=== PATIENT | female | born 1950 | race Caucasian/White ===

== ENCOUNTER → 2020-03-10 12:58 | Outpatient (BNVA) | payer MEDICARE, MEDICAID, SELFPAY | PROVIDERS: PCP Internal Medicine; Visit Provider Internal Medicine | DX: I25.10 Atherosclerotic heart disease of native coronary artery without angina pectoris (principal); I11.0 Hypertensive heart disease with heart failure; I50.32 Chronic diastolic (congestive) heart failure; E11.8 Type 2 diabetes mellitus with unspecified complications | CPT/HCPCS: 99212 ==

== ENCOUNTER 2020-06-14 17:56 | Emergency (ER) | payer MEDICARE, MEDICAID, SELFPAY ==
--- NOTE | ~2020-06-14 | XR_ITS ---
EXAMINATION: RIGHT FOOT, LEFT ANKLE AND LEFT TIBIA AND FIBULA. CLINICAL INFORMATION: Fall, pain and ecchymosis. Rule out fracture. COMPARISON: None TECHNIQUE: Right foot 3 views. Left ankle 2 views. Left tibia and fibula 2 views. FINDINGS: RIGHT FOOT: There is no visible acute fracture, dislocation or subluxation. There is significant distal dorsal right foot soft tissue swelling. Moderate size calcaneal heel and retrocalcaneal enthesophytes are seen. LEFT ANKLE: The ankle mortise and subtalar joints are normal. There is no visible acute fracture, dislocation or subluxation seen. There is a moderate size calcaneal heel and retrocalcaneal enthesophytes. There is bimalleolar soft tissue swelling. LEFT TIBIA AND FIBULA: There is no visible acute fracture or dislocation. The ankle mortise and subtalar joints are normal. XR/XR ankle LT min 3V IMPRESSION: Moderate dorsal distal foot soft tissue swelling. No visible acute fracture seen involving the right foot. There is a large bilateral calcaneal heel and retrocalcaneal enthesophytes. There is no visible acute fracture or dislocation left ankle or left tibia and fibula. There is mild bimalleolar soft tissue swelling.
--- NOTE | ~2020-06-14 | XR_ITS ---
EXAMINATION: RIGHT FOOT, LEFT ANKLE AND LEFT TIBIA AND FIBULA. CLINICAL INFORMATION: Fall, pain and ecchymosis. Rule out fracture. COMPARISON: None TECHNIQUE: Right foot 3 views. Left ankle 2 views. Left tibia and fibula 2 views. FINDINGS: RIGHT FOOT: There is no visible acute fracture, dislocation or subluxation. There is significant distal dorsal right foot soft tissue swelling. Moderate size calcaneal heel and retrocalcaneal enthesophytes are seen. LEFT ANKLE: The ankle mortise and subtalar joints are normal. There is no visible acute fracture, dislocation or subluxation seen. There is a moderate size calcaneal heel and retrocalcaneal enthesophytes. There is bimalleolar soft tissue swelling. LEFT TIBIA AND FIBULA: There is no visible acute fracture or dislocation. The ankle mortise and subtalar joints are normal. XR/XR tibia fibula LT 2V IMPRESSION: Moderate dorsal distal foot soft tissue swelling. No visible acute fracture seen involving the right foot. There is a large bilateral calcaneal heel and retrocalcaneal enthesophytes. There is no visible acute fracture or dislocation left ankle or left tibia and fibula. There is mild bimalleolar soft tissue swelling.
--- NOTE | ~2020-06-14 | XR_ITS ---
EXAMINATION: RIGHT FOOT, LEFT ANKLE AND LEFT TIBIA AND FIBULA. CLINICAL INFORMATION: Fall, pain and ecchymosis. Rule out fracture. COMPARISON: None TECHNIQUE: Right foot 3 views. Left ankle 2 views. Left tibia and fibula 2 views. FINDINGS: RIGHT FOOT: There is no visible acute fracture, dislocation or subluxation. There is significant distal dorsal right foot soft tissue swelling. Moderate size calcaneal heel and retrocalcaneal enthesophytes are seen. LEFT ANKLE: The ankle mortise and subtalar joints are normal. There is no visible acute fracture, dislocation or subluxation seen. There is a moderate size calcaneal heel and retrocalcaneal enthesophytes. There is bimalleolar soft tissue swelling. LEFT TIBIA AND FIBULA: There is no visible acute fracture or dislocation. The ankle mortise and subtalar joints are normal. XR/XR foot RT min 3V IMPRESSION: Moderate dorsal distal foot soft tissue swelling. No visible acute fracture seen involving the right foot. There is a large bilateral calcaneal heel and retrocalcaneal enthesophytes. There is no visible acute fracture or dislocation left ankle or left tibia and fibula. There is mild bimalleolar soft tissue swelling.
[2020-06-14 18:14] VITALS: BP 184/67; PULSE 69; RESP 18; TEMP 37; O2SAT 98; BMI 37.3
--- NOTE | 2020-06-14 18:46 | ED_ITS ---
HPI - General Adult General Chief complaint: Fall Stated complaint: fall Time Seen by Provider: 06/14/20 18:09 Source: patient Mode of arrival: ambulatory Limitations: no limitations History of Present Illness HPI narrative: 70-year-old female who presents emergency department for evaluation of injuries from a fall. Patient states she was in her usual state of health when she tripped and fell. She states that she had gotten off a bus and her went into a club to use the bathroom. She walked across the street to get some watery take it is and when she walked back to the club she tripped and fell. She states she fell forward landing on her legs. She did not have any head injury. She is currently complaining of pain in her right foot and left leg. She states that she has a constant, burning pain which is 6/10 at its worst. The pain is worse when she tries to walk and she states that she is having difficulty walking secondary to her pain. She denied headache, nausea, vomiting, weakness. The patient states that she does take aspirin and Brilinta for coronary stent which was placed October 2019. Related Data Home Medications Medication Instructions Recorded Confirmed atorvastatin 1 tab PO BEDTIME 06/14/20 06/14/20 glipizide 1 tab PO DAILY 06/14/20 06/14/20 lisinopril 1 tab PO BID 06/14/20 06/14/20 metformin 1 tab PO TID 06/14/20 06/14/20 metoprolol tartrate 1 tab PO BID 06/14/20 06/14/20 omeprazole 1 cap PO DAILY 06/14/20 06/14/20 pioglitazone 1 tab PO DAILY 06/14/20 06/14/20 ticagrelor [Brilinta] 1 tab PO BID 06/14/20 06/14/20 Allergies Allergy/AdvReac Type Severity Reaction Status Date / Time naproxen [NAPROXEN] AdvReac Unknown dizziness, Verified 03/10/20 13:08 nausea Review of Systems Review of Systems: Yes all other systems are reviewed and are negative [facility] Past Medical History [facility] Narrative: The patient occasionally smokes cigarettes, she denies, alcohol and drug use. Medical History Atherosclerotic cardiovascular disease Chronic heart failure with preserved ejection fraction (HFpEF) Essential hypertension Type 2 diabetes mellitus with unspecified complications Surgical History History of cardiac catheterization (~11/14/19) Family History Family History Father Diabetes Mother Cirrhosis Social History Social History Smoking Status: Light tobacco smoker Use of substances other than those prescribed or required for medical reasons: No Advance Directives: No Advance Directives Information Provided: Yes Physical Exam Vital Signs: Vital Signs: Last Vital Signs Temp 98.1 F 06/14/20 20:02 Pulse 72 06/14/20 21:14 Resp 16 06/15/20 00:00 BP 190/55 H 06/14/20 21:14 Pulse Ox 98 06/14/20 20:02 Body Mass Index 37.3 Const: General: cooperative Orientation/consciousness: oriented to person and oriented to place Limitations: no limitations HENMT: Head: Yes normal to inspection, Yes normocephalic and Yes atraumatic Ears: external ears normal General nose exam: Normal external nose present Face and sinus: Yes normal facial exam Mouth: Normal oral and palatal mucosa present Throat: Yes posterior oropharynx normal Eyes: Periorbital: periorbital findings normal Eyelids: Yes eyelids normal Conjunctivae: conjunctivae normal Sclerae: sclerae normal Corneas: corneas normal Pupils: Equal, round and reactive pupils present Direct Ophthalmoscopy: normal light reflex Neck: Neck: Yes full ROM, Yes no lymphadenopathy, Yes no meningeal signs, Yes trachea midline and Yes supple Chest: Chest palpation & inspection: normal inspection of the chest and normal palpation of entire chest wall Resp: Effort & Inspection: normal respiratory effort and able to speak in complete sentences Auscultation: clear to auscultation bilaterally Cardio: Rate: regular rate Rhythm: regular rhythm Heart sounds: S1 normal heart sound present, S2 normal heart sound present and no murmurs GI: Inspection: Yes normal to inspection Palpation (GI): Soft to palpation, nontender, no guarding, not rigid and No hepatosplenomegaly present : General: Yes no CVA tenderness Back/Spine/Pelvis: Back: no CVA tenderness Cervical Spine: normal cervical lordosis Thoracic/Lumbar Spine: thoracic and lumbar spine normal to inspection Skin: Lesions: no lesions Rashes: no rashes Wounds: no wounds Neuro: General: oriented to person, oriented to place and no meningeal signs Cranial nerves: Yes CN's II-XII intact bilaterally and Yes Equal, round and reactive pupils present Cognition (Neuro): normal cognition Motor exam (neuro): 5/5 motor strength present throughout Extrem: Other: The patient has soft tissue swelling and ecchymosis to her right foot, right foot is tender diffusely to palpation, she has tenderness and ecchymosis over her medial and lateral malleolus of her left ankle with tenderness with palpation of these areas, she has a localized ecchymotic hematoma to the left medial aspect of her calf, stairs tender to palpation. General: Yes full ROM Psych: Appearance: well kempt Mental Status: mental status grossly normal Speech and movement: Normal speech and movement present Affect: normal affect Attitude: cooperative Thought process: Normal thought process present Thought content: Normal thought content present Course Course Course Narrative: 70-year-old female who presents emergency department for evaluation of a lower extremity injuries from a fall that occurred prior to coming to the emergency department. Physical examination did reveal areas of ecchymosis and tenderness to her right foot, left ankle and left lateral calf area. The patient had no head injury and had no prodromal symptoms prior to the fall. She does take aspirin and Plavix for a coronary artery stent placed October 2019. I did order x-rays of the patient's right foot, left ankle and left tib-fib area to rule out fractures. Her pain was treated with Tylenol 975 mg orally. 2050: The patient's x-rays revealed no acute fracture. Patient does have significant soft tissue swelling and ice was placed on her foot and left calf held in place with an Prince wrap. The patient is not able to stand and walk. The patient will be placed in physician observation. 2050: Physician observation started at 2050. Patient placed in physician observation because the patient needed physical therapy evaluation in case management consult for usp facility placement. The patient is unable to bear weight secondary to her injuries and cannot be safely discharged home. At the time observation was started the patient's vitals were stable, patient is alert and oriented, lungs were clear to auscultation, heart regular rate rhythm, abdomen soft tender Neuro: nonfocal. I did order the patient to get Tylenol every 4 hours as needed for pain and morphine 15 mg every 4 hours as needed for pain not relieved by Tylenol. The patient's medications were reconciled by nursing and I did order the patient's outpatient medication regimen. 0217: Physician observation continued. The patient did not require any oral morphine. She is resting comfortably. Her physical examination is unchanged, she is not able to stand and walk secondary to her lower extremity pain. The patient kept in the emergency department until she can get a physical therapy consult and a case management consult to determine if she meets criteria for sniff placement. The patient's care was turned over to my ED colleague, Dr. Maldonado zacarias. Medical Decision Making Lab Data Labs: Lab Results 06/14/20 Range/Units 20:32 COVID-19 (JIMMY) Negative (Negative) COVID-19 Clin Com See Note Discharge Plan Discharge Prescriptions: No [facility] atorvastatin 80 mg tablet 1 tab PO BEDTIME RF: 0 glipizide 5 mg tablet extended release 24hr 1 tab PO DAILY RF: 0 pioglitazone 45 mg tablet 1 tab PO DAILY RF: 0 metoprolol tartrate 50 mg tablet 1 tab PO BID RF: 0 omeprazole 20 mg capsule,delayed release(DR/EC) 1 cap PO DAILY RF: 0 lisinopril 40 mg tablet 1 tab PO BID RF: 0 metformin 500 mg tablet extended release 24 hr 1 tab PO TID RF: 0 Brilinta 90 mg tablet 1 tab PO BID RF: 0
[2020-06-14] MEDS: Acetaminophen 325 MG TABLET 975 MG PO (19:01)
[2020-06-14 20:02] VITALS: BP 190/55; PULSE 72; RESP 18; TEMP 36.7; O2SAT 98
--- NOTE | 2020-06-14 20:27 | PC.NURSE ---
MD aware of blisters occuring to left calf. Icepack applied. Pt amendable to pt/casemanagemnt.
[2020-06-14 21:00] LABS: COVID-19 Test Negative (Negative)
[2020-06-14] MEDS: Morphine Sulfate Immed Release 15 MG TABLET PO (21:13)
[2020-06-14 21:14] VITALS: BP 190/55; PULSE 72
[2020-06-14] MEDS: Atorvastatin Calcium 80 MG TABLET PO (21:14)
[2020-06-14] MEDS: lisinopriL 40 MG TABLET PO (21:14)
[2020-06-14] MEDS: Ticagrelor 90 MG TABLET PO (21:14)
[2020-06-14] MEDS: Metoprolol Tartrate 50 MG TABLET PO (21:14)
--- NOTE | 2020-06-14 22:02 | PC.NURSE ---
pt tolerating po well.
[2020-06-15] VITALS (8 sets, daily range): BP systolic 107–186; BP diastolic 31–51; PULSE 60–68; RESP 16–18; TEMP 36.7; O2SAT 94–97
--- NOTE | 2020-06-15 | ECG_ITS ---
Test Reason : FALL Blood Pressure : / mmHG Vent. Rate : 068 BPM Atrial Rate : 068 BPM P-R Int : 144 ms QRS Dur : 092 ms QT Int : 450 ms P-R-T Axes : 072 -26 028 degrees QTc Int : 478 ms Normal sinus rhythm with sinus arrhythmia Normal ECG When compared with ECG of 09-NOV-2019 19:54, No significant change was found Referred By: Fabián Miles Electronically Signed By:YANNA CARDONA MD
--- NOTE | 2020-06-15 00:45 | PC.NURSE ---
JAYME HOOVER SAID NOT TO WAKE UP PATIENT TO DO VITALS , PATIENT JUST FELL ASLEEP .
[2020-06-15] MEDS: metFORMIN HCl ER 500 MG TAB.ER.24H PO (07:34)
[2020-06-15] MEDS: Omeprazole 20 MG CAPSULE.DR PO (07:35)
[2020-06-15] MEDS: Morphine Sulfate Immed Release 15 MG TABLET PO (07:35)
[2020-06-15] MEDS: Pioglitazone HCL 45 MG TABLET PO (08:50)
[2020-06-15] MEDS: glipiZIDE XL 5 MG TAB.ER.24 PO (08:50)
[2020-06-15] MEDS: lisinopriL 40 MG TABLET PO (08:51)
[2020-06-15] MEDS: Ticagrelor 90 MG TABLET PO ×2 (08:53→21:07)
[2020-06-15] MEDS: Metoprolol Tartrate 50 MG TABLET PO ×2 (08:53→21:07)
[2020-06-15] MEDS: metFORMIN HCl ER 500 MG TAB.ER.24H 1000 MG PO (08:53)
--- NOTE | 2020-06-15 12:54 | PC.NURSE ---
INTRODUCED SELF TO PT, REPORTS ONGOING BURNING SENSATION ON BILAT LE'S. BECAME NAUSEOUS WITH SEVERAL EPISODES OF VOMITING, LIKELY FROM PO MOP. SUBLINGUALZOFRAN GIVEN. AWARE OF PLAN FOR PT EVAL FOR SNF PLACEMENT, REQUIRING OVERNIGHT STAY.
--- NOTE | 2020-06-15 15:09 | PC.NURSE ---
PT REPORTING NAUSEA RESOLVED. ANOTHER PILLOW GIVEN FOR COMFORT, LEGS ELEVATED. BP MED HELD, SHE IS CURRENTLY NORMOTENSIVE HAVING NOT VOMITED FOR THE PAST HOUR OR SO.
--- NOTE | 2020-06-15 20:50 | PC.NURSE ---
vomited gastric content,pt stated that she felt like she has to burp before she vomited. Medicated with zofran sl ,
[2020-06-15] MEDS: Docusate Sodium 100 MG CAPSULE PO (21:07)
[2020-06-15] MEDS: Atorvastatin Calcium 80 MG TABLET PO (21:07)
[2020-06-16 03:04] VITALS: RESP 16
[2020-06-16 06:35] VITALS: BP 129/45; PULSE 72; RESP 16; TEMP 36.9; O2SAT 97
[2020-06-16] MEDS: Omeprazole 20 MG CAPSULE.DR PO (06:37)
[2020-06-16 09:45] VITALS: BP 125/82; PULSE 77
[2020-06-16] MEDS: Docusate Sodium 100 MG CAPSULE PO (09:45)
[2020-06-16] MEDS: Pioglitazone HCL 45 MG TABLET PO (09:45)
[2020-06-16] MEDS: lisinopriL 40 MG TABLET PO (09:45)
[2020-06-16] MEDS: Ticagrelor 90 MG TABLET PO (09:45)
[2020-06-16 09:46] VITALS: BP 125/82; PULSE 77
[2020-06-16] MEDS: amLODIPine Besylate 5 MG TABLET PO (09:46)
[2020-06-16] MEDS: Metoprolol Tartrate 50 MG TABLET PO (09:46)
[2020-06-16] MEDS: glipiZIDE XL 5 MG TAB.ER.24 PO (09:46)
[2020-06-16] MEDS: metFORMIN HCl ER 500 MG TAB.ER.24H 1500 MG PO (09:46)
--- NOTE | 2020-06-16 10:43 | MHC.CM.ED ---
Received case management consult over the weekend. Patient came to the ER after a fall. Work up essentially negative. Physical therapy eval completed. Short term rehab is recommended. Met with patient in regards to discharge planning. Patient lives with her , ambulates independently and had no services prior to coming to the ER. PCP verified. Copy of HCP obtained from PCP's office. Patient has never been to short term rehab. List of facilities provided from [facility]. Patient will pick 2 choices. Continue to monitor for d/c needs. Patient has not received any Covid vaccinations and has never tested positive for Covid.
--- NOTE | 2020-06-16 11:08 | PC.NURSE ---
Pt sleeping in room at this time. Respirations even/unlabored bilaterally. no sign of distress at this time. will continue to monitor.
--- NOTE | 2020-06-16 11:50 | MHC.CM.ED ---
[facility] choice. Referral made in [employer]. Continue to monitor for d/c needs.
--- NOTE | 2020-06-16 12:20 | MHC.CM.ED ---
[facility] can offer a bed. Patient can leave at 2pm. [facility] booked. Med nec with chart. Patient, German DELACRUZ, and Dr Espinal aware. Continue to monitor for d/c needs.
[2020-06-16 12:41] VITALS: BP 111/33; PULSE 69; RESP 17; O2SAT 98
== END 2020-06-16 13:57 | disposition skilled nursing facility (03) ==
PROVIDERS: Emergency Provider Emergency Medicine Emergency Medical Services; PCP Internal Medicine
DX: S90.31XA Contusion of right foot, initial encounter (principal); S80.12XA Contusion of left lower leg, initial encounter; I10 Essential (primary) hypertension; E11.9 Type 2 diabetes mellitus without complications; W01.0XXA Fall on same level from slipping, tripping and stumbling without subsequent striking against object, initial encounter; Y93.01 Activity, walking, marching and hiking; Y92.414 Local residential or business street as the place of occurrence of the external cause; Y99.9 Unspecified external cause status; Z20.822 Contact with and (suspected) exposure to COVID-19; Z95.5 Presence of coronary angioplasty implant and graft; Z79.01 Long term (current) use of anticoagulants; Z79.899 Other long term (current) drug therapy
CPT/HCPCS: 36415; 73590; 73610; 73630; 87635; 93005; 96372; 97162; 99285

== ENCOUNTER → 2020-09-03 10:09 | Outpatient (BNVA) | payer MEDICARE, MEDICAID, SELFPAY | PROVIDERS: PCP Internal Medicine; Referring Provider Internal Medicine; Visit Provider Internal Medicine | DX: I25.10 Atherosclerotic heart disease of native coronary artery without angina pectoris (principal); I11.0 Hypertensive heart disease with heart failure; I50.32 Chronic diastolic (congestive) heart failure; E11.8 Type 2 diabetes mellitus with unspecified complications; Z79.899 Other long term (current) drug therapy | CPT/HCPCS: 99212 ==

== ENCOUNTER 2020-12-10 19:46 | Emergency (ER) | payer MEDICARE, MEDICAID, SELFPAY ==
--- NOTE | ~2020-12-10 | US_ITS ---
EXAMINATION: US VENOUS ULTRASOUND WITH DOPPLER LOWER EXTREMITY, RIGHT CLINICAL INFORMATION: Pain COMPARISON: None TECHNIQUE: Ultrasound of the deep veins is performed from the hip to the calf with compression sonography and color and pulse Doppler assessment. Spectral analysis with color-flow imaging is performed. FINDINGS: There is normal venous compression and respiratory variation and augmented flow. The visualized common femoral vein, superficial femoral vein, profunda femoral vein, popliteal vein,. The head of cytogenetics however notes nonvisualization of the peroneal vein in the calf If the patient's symptoms persist, followup ultrasound in 5 days 7 days might be of value to exclude proximal propagation from a non-visualized calf vein. US/US venous duplex LE RT IMPRESSION: No evidence for DVT on imaging submitted in the right lower extremity. It should be noted the peroneal vein in the calf is not seen by the head of cytogenetics
--- NOTE | ~2020-12-10 | XR_ITS ---
EXAMINATION: XR TIBIA AND FIBULA, RIGHT CLINICAL INFORMATION: Posterior popping sensation COMPARISON: None TECHNIQUE: AP and lateral views of the right tibia and fibula were obtained. FINDINGS: Bone alignment is normal. No fracture or dislocation is seen. Joint spaces are normal. There are calcaneal spurs. There is a 3 x 10 mm soft tissue calcification in the lateral lower leg probably representing a vascular calcification. XR/XR tibia fibula RT 2V IMPRESSION: Calcaneal spurs. Probable soft tissue vascular calcification in the lateral lower leg.
[2020-12-10 20:06] VITALS: BP 154/65; PULSE 8; RESP 18; TEMP 36.5; O2SAT 97; BMI 34.0
--- NOTE | 2020-12-10 20:34 | ED_ITS ---
HPI - Extremity Injury (Lower) General Chief Complaint: Extremity Injury, Lower Stated Complaint: leg pain..sent here from [facility] Time Seen by Provider: 12/10/20 20:24 History of Present Illness HPI Narrative: Patient is 70-year-old female presents today with having right leg swelling. No fever no chills no chest pain or shortness of breath. Patient was walking. [place] a pain that came on in the calf area. She is not on any blood thinners. Related Data Home Medications Medication Instructions Recorded Confirmed aspirin 81 mg tablet,delayed 81 mg PO DAILY 09/03/20 09/03/20 release atorvastatin 80 mg tablet 80 mg PO BEDTIME 09/03/20 09/03/20 furosemide 40 mg tablet 40 mg PO DAILY 09/03/20 09/03/20 glipizide 5 mg tablet, extended 5 mg PO DAILY 09/03/20 09/03/20 release 24 hr lisinopril 40 mg tablet 40 mg PO BID 09/03/20 09/03/20 metformin 500 mg tablet,extended 500 mg PO TID 09/03/20 09/03/20 release 24 hr metoprolol tartrate 50 mg tablet 50 mg PO BID 09/03/20 09/03/20 omeprazole 20 mg capsule,delayed 20 mg PO DAILY 09/03/20 09/03/20 release pioglitazone 45 mg tablet 45 mg PO DAILY 09/03/20 09/03/20 ticagrelor 90 mg tablet (Brilinta) 90 mg PO BID 09/03/20 09/03/20 Allergies Allergy/AdvReac Type Severity Reaction Status Date / Time naproxen [NAPROXEN] AdvReac Unknown dizziness, Verified 09/03/20 10:26 nausea PMFSH Past Medical History Medical History Atherosclerotic cardiovascular disease Chronic heart failure with preserved ejection fraction (HFpEF) Essential hypertension Type 2 diabetes mellitus with unspecified complications Surgical History History of cardiac catheterization (~11/14/19) Family History Family History Father Diabetes Mother Cirrhosis Social History Social History (Updated 09/03/20 @ 10:27 by VIRAL Shah) Alcohol intake: never Patient Tobacco Use Status: Former Tobacco user Quit Date: 30+ yrs ago Use of substances other than those prescribed or required for medical reasons: No Advance Directives: No Advance Directives Information Provided: No Physical Exam Vital Signs: Vital Signs: Last Vital Signs Temp 97.7 F 12/10/20 20:06 Pulse 8 L 12/10/20 20:06 Resp 18 12/10/20 20:06 BP 154/65 H 12/10/20 20:06 Pulse Ox 97 12/10/20 20:06 Body Mass Index 34.0 MDM - Extremity Injury (Lower) MDM Narrative Medical decision making narrative: Doppler of the leg was grossly negative for any acute evidence of DVT. Patient's x-ray showed no acute fracture. Will discharge patient home. Warm soak. Motrin for pain. In stable condition. Medical Records Attestation: I reviewed the patient's medical records. Lab Data Attestation: I reviewed the patient's lab results. Result diagrams: 12/10/20 20:53 12/10/20 21:39 Labs: Lab Results 12/10/20 12/10/20 12/10/20 Range/Units 20:53 21:39 21:39 WBC 10.7 (4.8-10.8) X10*3/uL RBC 3.93 L (4.20-5.50) X10*6/uL Hgb 11.5 L (12.0-16.0) g/dl Hct 36.7 L (37-47) % MCV 93.4 (80-98) fL MCH 29.3 (27.0-33.0) pg MCHC 31.3 (31.0-35.0) g/dl RDW 16.9 H (11.0-16.0) % Plt Count 293 (160-400) X10*3/uL MPV 9.5 (9.4-12.3) fL Immature Gran % (Auto) 0.4 (0.0-0.4) % Neut % (Auto) 65.7 (45-73) % Lymph % (Auto) 21.5 (20-40) % Richardson % (Auto) 11.3 H (2-11) % Eos % (Auto) 0.7 (0-4) % Baso % (Auto) 0.4 (0-2) % Lymph # (Auto) 2.3 (1.2-4.9) X10*3/uL Richardson # (Auto) 1.2 (0.1-1.2) X10*3/uL Eos # (Auto) 0.1 (0.0-0.4) X10*3/uL Baso # (Auto) 0.0 (0.0-0.2) X10*3/uL Abs Immat Gran (auto) 0.04 H (0.00-0.03) X10*3/uL Absolute Neuts (auto) 7.0 (2.0-8.3) X10*3/uL Absolute Nucleated RBC 0.000 (0.0-0.012) X10*3/uL Nucleated RBC % (auto) 0.0 (0.0-0.2) /100WBC Sodium 142 (135-145) mmol/L Potassium 4.6 (3.3-5.1) mmol/L Chloride 107 (96-108) mmol/L Carbon Dioxide 24 (22-29) mmol/L Anion Gap 16 (12-20) BUN 21 H (9-16) mg/dL Creatinine 0.89 (0.5-1.4) mg/dL Estim Creat Clear Calc 56.1 Estimated GFR > 60 Random Glucose 120 H (60-115) mg/dL Calcium 8.6 (8.4-10.2) mg/dL Urine Color YELLOW Urine Appearance CLEAR Urine pH 6.0 (5.0-8.0) Ur Specific [place] 1.020 (1.005-1.025) Urine Protein NEG (NEG-TRACE) MG/DL Urine Glucose (UA) NEG (NEG) MG/DL Urine Ketones NEG (NEG) MG/DL Urine Blood TRACE (NEG) Urine Nitrite NEG (NEG) Ur Leukocyte Esterase NEG (NEG) Urine RBC 0-2 (0) /HPF Urine WBC 0 (0-4) /HPF Ur Squamous Epith Cells 1+ /LPF Urine Bacteria TRACE /LPF Urine Mucus TRACE /LPF Discharge Plan Discharge Clinical Impression: Acute leg pain Patient Disposition: Home, Self-Care Instructions: Leg Cramps (ED), Leg Pain (ED) Prescriptions: No [facility] atorvastatin 80 mg tablet 80 mg PO BEDTIME RF: 0 glipizide 5 mg tablet extended release 24hr 5 mg PO DAILY RF: 0 lisinopril 40 mg tablet 40 mg PO BID RF: 0 metformin 500 mg tablet extended release 24 hr 500 mg PO TID RF: 0 metoprolol tartrate 50 mg tablet 50 mg PO BID RF: 0 omeprazole 20 mg capsule,delayed release(DR/EC) 20 mg PO DAILY RF: 0 pioglitazone 45 mg tablet 45 mg PO DAILY RF: 0 Brilinta 90 mg tablet 90 mg PO BID RF: 0 furosemide 40 mg tablet 40 mg PO DAILY RF: 0 aspirin 81 mg tablet,delayed release (DR/EC) 81 mg PO DAILY RF: 0 Referrals: Aba Day MD [Primary Care Provider] - 2 days
[2020-12-10 20:57] LABS: MANUAL DIFF FLAG NO
[2020-12-10 21:02] LABS: Basophils Percent Auto 0.4 % (0-2); Eosinophils Absolute Auto 0.1 X10*3/uL (0.0-0.4); Eosinophils Percent Auto 0.7 % (0-4); Hematocrit 36.7 % (37-47); Hemoglobin 11.5 g/dl (12.0-16.0); Imm Gran Abs Auto 0.04 X10*3/uL (0.00-0.03); Imm Gran Pct Auto 0.4 % (0.0-0.4); Lymphocytes Absolute Auto 2.3 X10*3/uL (1.2-4.9); Lymphocytes Percent Auto 21.5 % (20-40); Mean Corpuscular HGB Conc 31.3 g/dl (31.0-35.0); Mean Corpuscular Hemoglobin 29.3 pg (27.0-33.0); Mean Corpuscular Volume 93.4 fL (80-98); Mean Platelet Volume 9.5 fL (9.4-12.3); Monocytes Absolute Auto 1.2 X10*3/uL (0.1-1.2); Monocytes Percent Auto 11.3 % (2-11); Neutrophils Percent Auto 65.7 % (45-73); Platelet Count 293 X10*3/uL (160-400); Red Blood Count 3.93 X10*6/uL (4.20-5.50); Red Cell Distribution Width 16.9 % (11.0-16.0); White Blood Count 10.7 X10*3/uL (4.8-10.8)
[2020-12-10 21:52] LABS: Appearance Urine CLEAR; Color Urine YELLOW; Glucose Urine UA NEG (NEG); Leukocyte Esterase Urine NEG (NEG); Nitrite Urine NEG (NEG); UACC Culture Trigger NO; Urine Blood TRACE (NEG); Urine Ketones NEG (NEG); Urine Protein NEG (NEG-TRACE)
[2020-12-10 22:02] LABS: Mucus Urine TRACE /LPF; Squamous Epithelial Cell Urine 1+ /LPF
[2020-12-10 22:03] LABS: Bacteria Urine TRACE /LPF; RBC Urine 0-2 /HPF (0); WBC Urine 0 /HPF (0-4)
[2020-12-10 22:04] LABS: Anion Gap 16 (12-20); Blood Urea Nitrogen 21 mg/dL (9-16); Calcium 8.6 mg/dL (8.4-10.2); Carbon Dioxide 24 mmol/L (22-29); Chloride 107 mmol/L (96-108); Creatinine Clr Calc Pharmacy 56.1; Estimated Glomerular Filt Rate > 60; Glucose Random 120 mg/dL (60-115); Potassium 4.6 mmol/L (3.3-5.1); Sodium 142 mmol/L (135-145)
[2020-12-10 22:37] VITALS: BP 160/57; PULSE 82; RESP 18; TEMP 36.8; O2SAT 99
== END 2020-12-10 23:30 | disposition home or self-care (01) ==
PROVIDERS: Emergency Provider Emergency Medicine Emergency Medical Services; PCP Internal Medicine
DX: M79.604 Pain in right leg (principal); I11.0 Hypertensive heart disease with heart failure; I50.30 Unspecified diastolic (congestive) heart failure; E11.9 Type 2 diabetes mellitus without complications; I25.10 Atherosclerotic heart disease of native coronary artery without angina pectoris
CPT/HCPCS: 36415; 73590; 80048; 81001; 85025; 93971; 99284

== ENCOUNTER 2021-05-25 11:14 | Day surgery (SDC) | payer OTHER, MEDICAID, SELFPAY ==
[2021-05-21 15:37] VITALS: BMI 33.6
--- NOTE | 2021-05-22 12:58 | MHC.SHP ---
Pre-Procedural Eval Section A Date of Service: 05/22/21 The patient is an INPATIENT: No Changes since office visit: No Cold of Flu in the past 2 weeks, No New Medical Problems, No Changes in Medication and No Patient answered all questions The History & Physical has been completed within 30 days and I have reviewed it.: Yes Section B Chief Complaint: cataract Allergies: Allergies Allergy/AdvReac Type Severity Reaction Status Date / Time naproxen [NAPROXEN] AdvReac Unknown dizziness, Verified 05/21/21 15:37 nausea Plan Diagnosis/Plan: Unchanged I have reviewed the history and physical and performed a pertinent physical examination on my patient. No changes have occurred unless specified.
--- NOTE | 2021-05-22 13:56 | P.CONAN_ITS ---
Documented by User: Marta Leno NP 05/22/21 14:00 HPI - Anesthesia Eval Consult details Narrative: 71yo F for Cataract Extraction IOL Insertion PCP cleared No prev cataract on record PMFSH Active Problems Active Problems: All Active Problems (Updated 04/26/21 @ 15:50 by Tyson Moreau MD) Type 2 diabetes mellitus with hyperglycemia (Acute) Hypercholesterolemia (Acute) Chronic heart failure with preserved ejection fraction (HFpEF) (Acute) Type 2 diabetes mellitus with unspecified complications (Acute) Essential hypertension (Acute) Atherosclerotic cardiovascular disease (Acute) Past Medical History Medical History (Updated 04/26/21 @ 15:50 by Tyson Moreau MD) Atherosclerotic cardiovascular disease Chronic heart failure with preserved ejection fraction (HFpEF) Essential hypertension Hypercholesterolemia Type 2 diabetes mellitus with unspecified complications Family History Family History Father Diabetes Mother Cirrhosis Surgical History Surgical History (Updated 05/21/21 @ 15:35 by Briana Story RN) History of cardiac catheterization (~11/14/19) Hx of colonoscopy Social History Social History (Updated 09/03/20 @ 10:27 by VIRAL Shah) Are you a primary home health care coordinator to a significant other at home: No Do you presently have visiting nurse or other home services: No Alcohol intake: never Patient Tobacco Use Status: Former Tobacco user Quit Date: Tobacco use type: Cigarette Use of substances other than those prescribed or required for medical reasons: No Are you DNR?: No Advance Directives: No Advance Directives Information Provided: Yes Recently lost weight without trying: No Meds Allergies Allergy/AdvReac Type Severity Reaction Status Date / Time naproxen [NAPROXEN] AdvReac Unknown dizziness, Verified 05/21/21 15:37 nausea Home Medications Medication Instructions Recorded Confirmed Last Taken Type aspirin 81 mg tablet,delayed 81 mg PO DAILY 09/03/20 05/21/21 Unknown History release atorvastatin 80 mg tablet 80 mg PO BEDTIME 09/03/20 05/21/21 Unknown History glipizide 5 mg tablet, extended 5 mg PO DAILY 09/03/20 05/21/21 Unknown History release 24 hr lisinopril 40 mg tablet 40 mg PO BID 09/03/20 05/21/21 Unknown History metformin 500 mg tablet,extended 500 mg PO TID 09/03/20 05/21/21 Unknown History release 24 hr metoprolol tartrate 50 mg tablet 50 mg PO DAILY 09/03/20 05/21/21 Unknown History pioglitazone 45 mg tablet 45 mg PO DAILY 09/03/20 05/21/21 Unknown History calcium carbonate 600 mg-vitamin 1 tab PO DAILY 05/21/21 05/21/21 Unknown History D3 5 mcg (200 unit) tablet Exam Exam Date and Time: May 22, 2021 1356 Height,Weight and Vital Signs: Height 5 ft 1 in Weight 80.739 kg Pertinent Lab Results Pertinent Lab Results: Laboratory Tests 12/10/20 12/10/20 20:53 21:39 WBC 10.7 Hgb 11.5 L Hct 36.7 L Plt Count 293 Sodium 142 Potassium 4.6 Chloride 107 Carbon Dioxide 24 BUN 21 H Creatinine 0.89 Narrative Narrative: EKG 05/22/21 NSR @ 70 Assessment and Plan Assessment Anesthesia Assessment: Chart Reviewed Documented by User: Yasmani Menendez MD 05/25/21 11:59 [facility] Past Medical History Medical History (Updated 04/26/21 @ 15:50 by Tyson Moreau MD) Atherosclerotic cardiovascular disease Chronic heart failure with preserved ejection fraction (HFpEF) Essential hypertension Hypercholesterolemia Type 2 diabetes mellitus with unspecified complications Family History Family History Father Diabetes Mother Cirrhosis Family history of problems with anesthesia: No Surgical History Surgical History (Updated 05/21/21 @ 15:35 by Briana Story RN) History of cardiac catheterization (~11/14/19) Hx of colonoscopy History of Problems with Anesthesia: No Social History Social History (Updated 09/03/20 @ 10:27 by VIRAL Shah) Are you a primary home health care coordinator to a significant other at home: No Do you presently have visiting nurse or other home services: No Alcohol intake: never Patient Tobacco Use Status: Former Tobacco user Quit Date: Tobacco use type: Cigarette Use of substances other than those prescribed or required for medical reasons: No Are you DNR?: No Advance Directives: No Advance Directives Information Provided: Yes Recently lost weight without trying: No Meds Allergies Allergy/AdvReac Type Severity Reaction Status Date / Time naproxen [NAPROXEN] AdvReac Unknown dizziness, Verified 05/21/21 15:37 nausea Home Medications Medication Instructions Recorded Confirmed Last Taken Type aspirin 81 mg tablet,delayed 81 mg PO DAILY 09/03/20 05/21/21 Unknown History release atorvastatin 80 mg tablet 80 mg PO BEDTIME 09/03/20 05/21/21 Unknown History glipizide 5 mg tablet, extended 5 mg PO DAILY 09/03/20 05/21/21 Unknown History release 24 hr lisinopril 40 mg tablet 40 mg PO BID 09/03/20 05/21/21 Unknown History metformin 500 mg tablet,extended 500 mg PO TID 09/03/20 05/21/21 Unknown History release 24 hr metoprolol tartrate 50 mg tablet 50 mg PO DAILY 09/03/20 05/21/21 Unknown History pioglitazone 45 mg tablet 45 mg PO DAILY 09/03/20 05/21/21 Unknown History calcium carbonate 600 mg-vitamin 1 tab PO DAILY 05/21/21 05/21/21 Unknown History D3 5 mcg (200 unit) tablet Exam Airway Mallampati Class: II TM Dist: >3cm Neck ROM: Full Partial: Upper Loose/Missing/Broken Teeth: Yes Heart: [id number] Lungs: cta b/l Assessment and Plan Assessment Anesthesia Assessment: Anesthesia Plan Discussed Final Anesthetic Review Family History of Problems with Anesthesia: No History of Problems with Anesthesia: No NPO: Yes ASA Class: III Final Preanesthetic Review: No Changes in Pt Med Stat, Meds/Allgs Chart Reviewed, Consent Obtained/Reviewed and Anes Risks/Benef Reviewed Patient Risk: Intermediate Procedure Risk: Low Assessment/Block/Sedation in SS: Assess/Block/Sedation-SS Anesthetic Plan Anesthetic Plan: MAC: and Agree w/ Assess. and Plan Disposition: Standard PACU
--- NOTE | 2021-05-25 09:45 | HO.PNOPHT ---
Ophthalmology Procedure Procedure Date of Service: 05/25/21 Ophthalmology Viscoelastic: Healkriss Duet Dual Pack Pro Ophthalmology Lenses: TECNIS [id number] (22.5) Procedure Notes: PREOPERATIVE DIAGNOSIS: Decreased visual acuity right eye secondary to cataract POSTOPERATIVE DIAGNOSIS: Same PROCEDURE: Right cataract extraction with intraocular lens insertion SURGEON: Casper Cuba M.D. ANESTHESIA: Topical/MAC ESTIMATED BLOOD LOSS: None COMPLICATIONS: None After obtaining informed consent, the patient was brought to the operating room suite and placed in the supine position. After adequate sedation per anesthesia, topical drops of Tetracaine were given to the right eye. The eye was then prepped and draped in the usual sterile fashion. The operating room microscope was then positioned over the operative eye and a lid speculum placed. A paracentesis was created. Viscoelastic was then instilled into the anterior chamber. A three plane incision was then created temporally, utilizing a 2.85 mm keratome. Capsulotomy forceps were then utilized to create a circular tear capsulotomy. Hydrodissection and hydrodelineation were carried out until adequate mobilization of the nucleus occurred. Phacoemulsification was then utilized to remove the dense central nucleus followed by removal of the cortical material utilizing the automated aspiration irrigation unit. Viscoelastic was instilled into the posterior capsular bag followed by placement of a posterior chamber intraocular lens without difficulty. The residual Viscoelastic was then removed utilizing the automated IA machine. The wound was checked and found to be watertight. The patient tolerated the procedure well and the lid speculum was removed. Intracameral injection of Vigamox 0.1 mL followed by a subtenon injection of Kenalog-40 0.2 mL were administered. The patient will be seen in the a.m.
[2021-05-25 11:31] VITALS: BP 154/92; PULSE 84; RESP 18; TEMP 36.6; O2SAT 94
[2021-05-25] MEDS: Tropicamide 1 % Ophth Sol 3 ML BTL 1 DROP EYE-RIGHT ×3 (11:36→11:38)
[2021-05-25] MEDS: Lactated Ringers 500 ML 50 ML IV (11:36)
[2021-05-25] MEDS: Phenylephrine HCL 2.5% Oph SoL 2 ML BOTTLE 1 DROP EYE-RIGHT ×3 (11:36→11:38)
[2021-05-25] MEDS: Tetracaine HCl/PF 0.5% Oph Sol 4 ML DROPS 1 DROP EYE-RIGHT (11:36)
[2021-05-25 11:38] LABS: Glucose, Whole Blood 122 mg/dL (60-115)
[2021-05-25 13:46] VITALS: BP 162/84; PULSE 73; RESP 18; TEMP 36.2; O2SAT 100
== END 2021-05-25 13:48 | disposition home or self-care (01) ==
PROVIDERS: PCP Internal Medicine; Visit Provider Ophthalmology
PROC: (CPT 66985; principal; 2021-05-25 09:40)
DX: H25.11 Age-related nuclear cataract, right eye (principal); H52.4 Presbyopia; I25.10 Atherosclerotic heart disease of native coronary artery without angina pectoris; Z98.61 Coronary angioplasty status; Z87.891 Personal history of nicotine dependence; I10 Essential (primary) hypertension; E11.9 Type 2 diabetes mellitus without complications; J45.909 Unspecified asthma, uncomplicated; E78.00 Pure hypercholesterolemia, unspecified; Z79.82 Long term (current) use of aspirin; Z79.899 Other long term (current) drug therapy; Z88.8 Allergy status to other drugs, medicaments and biological substances
CPT/HCPCS: 66984; 82947; J2250; J3010; J3300; V2632

== ENCOUNTER 2022-07-30 12:56 | Inpatient (IN) | payer OTHER, MEDICAID, SELFPAY ==
[2022-07-30] VITALS (10 sets, daily range): BP systolic 66–150; BP diastolic 30–72; PULSE 92–153; RESP 15–23; TEMP 37–37.1; O2SAT 93–97; BMI 37.1
--- NOTE | ~2022-07-30 | XR_ITS ---
EXAMINATION: XR CHEST CLINICAL INFORMATION: Shortness of breath COMPARISON: Previous chest x-ray October 2019 TECHNIQUE: Frontal view of the chest was obtained. FINDINGS: The cardiac and mediastinal contours are stable. The lungs are clear. No pleural effusion or pneumothorax. Degenerative changes of the spine and shoulders. XR/XR chest 1V IMPRESSION: No evidence for acute disease in the chest.
--- NOTE | 2022-07-30 12:59 | ED_ITS ---
HPI - SOB/Dyspnea General Chief Complaint: Dyspnea Stated Complaint: DIFFICULTY BREATHING WHEEZING Time Seen by Provider: 07/30/22 12:59 Source: patient and EMS Mode of arrival: EMS Limitations: no limitations History of Present Illness HPI Narrative: Patient is diabetic CAD status post stent with HEpEF, hypertension been coughing for last 1 week with palpitations and shortness of breath lost her voice 2 days no chest pain no leg edema no fever or chills EMS heart rate was between 140-180 AFib give 20 mg of Cardizem with partial response and patient at in the ER heart rate was in 150s was given 5 mg Lopressor with partial response again will start on Cardizem drip Related Data Home Medications Medication Instructions Recorded Confirmed aspirin 81 mg tablet,delayed 81 mg PO DAILY 09/03/20 07/30/22 release atorvastatin 80 mg tablet 80 mg PO BEDTIME 09/03/20 07/30/22 glipizide 5 mg tablet, extended 5 mg PO DAILY 09/03/20 07/30/22 release 24 hr lisinopril 40 mg tablet 40 mg PO BID 09/03/20 07/30/22 metformin 500 mg tablet,extended 500 mg PO TID 09/03/20 07/30/22 release 24 hr metoprolol tartrate 50 mg tablet 50 mg PO DAILY 09/03/20 07/30/22 pioglitazone 45 mg tablet 45 mg PO DAILY 09/03/20 07/30/22 calcium carbonate 600 mg-vitamin 1 tab PO DAILY 05/21/21 07/30/22 D3 5 mcg (200 unit) tablet acetaminophen 325 mg tablet 650 mg PO Q6H PRN Pain 07/30/22 07/30/22 (Tylenol) guaifenesin 1,200 mg tablet, 1,200 mg PO BID PRN Congestion 07/30/22 07/30/22 extended release 12 hr (Mucinex) prednisone 10 mg tablet See Rx Instructions .Route .COMPLEX 07/30/22 07/30/22 Allergies Allergy/AdvReac Type Severity Reaction Status Date / Time naproxen [NAPROXEN] AdvReac Unknown dizziness, Verified 05/21/21 15:37 nausea Review of Systems Review of Systems: Yes all other systems are reviewed and are negative [facility] Past Medical History Medical History Atherosclerotic cardiovascular disease Chronic heart failure with preserved ejection fraction (HFpEF) Essential hypertension Hypercholesterolemia Type 2 diabetes mellitus with unspecified complications Surgical History History of cardiac catheterization (~11/14/19) Hx of colonoscopy Family History Family History Father Diabetes Mother Cirrhosis Social History Social History Are you a primary weekend caregiver to a significant other at home: No Do you presently have visiting nurse or other home services: No Alcohol intake: never Patient Tobacco Use Status: Former Tobacco user Quit Date: Tobacco use type: Cigarette Smoked in Last 30 Days: No Use of substances other than those prescribed or required for medical reasons: No Advance Directives: No Advance Directives Information Provided: No Physical Exam Vital Signs: Vital Signs: Last Vital Signs Temp 98.8 F 07/30/22 13:05 Pulse 122 H 07/30/22 14:34 Resp 16 07/30/22 14:34 BP 150/71 H 07/30/22 13:05 Pulse Ox 93 07/30/22 13:05 O2 Del Method Nasal Cannula 07/30/22 13:05 Oxygen Flow Rate 2 07/30/22 13:05 BMI result Body Mass Index 37.1 Appearance: Alert. Oriented X3. No acute distress. Eyes: PERRLA, No Nystagmus ENT: Pharynx normal. Oral Mucosa moist Neck: Normal inspection. Neck supple. CVS: Irregularly irregular tachycardia Pulses normal. Respiratory: No respiratory distress. Equal air entry bilateral, no wheezing/rales/rhonchi Abdomen: Soft and nontender. Bowel sounds are present, no mass palpable, no CVA tenderness Skin: Skin warm and dry. Normal skin color. Normal skin turgor. Extremities: No lower extremity edema. No calf tenderness Neuro: Oriented X 3. No motor deficit. No sensory deficit.No cerebellar signs , cranial nerves II-XII intact Medications Administered Generic Name Dose Route Start Last Admin Trade Name Freq PRN Reason Stop Dose Admin Diltiazem HCl 125 mg/ Sodium 125 mls @ 0 mls/hr 07/30/22 13:45 07/30/22 15:15 Chloride IVCONT 15 mg/hr .Q0M CALOS 15 mls/hr Titration Protocol Per Protocol Sodium Chloride 3 ml 07/30/22 16:00 07/30/22 15:44 0.9 % Sodium Chloride Flush 3 Ml Syringe IVFLUSH Not Given QSHIFT CALOS Discontinued Medications Generic Name Dose Route Start Last Admin Trade Name Daniel PRN Reason Stop Dose Admin Apixaban 5 mg 07/30/22 15:52 07/30/22 16:00 Apixaban 5 Mg Tablet PO 07/30/22 15:53 5 mg ONCE ONE Administration Guaifenesin/Codeine Phosphate 10 ml 07/30/22 13:04 07/30/22 13:17 Guaifen/Codeine Sf 200/20/10ml 10 Ml Liquid PO 07/30/22 13:05 10 ml ONCE ONE Administration Magnesium Sulfate 2 gm in 50 mls @ 100 mls/hr 07/30/22 13:22 07/30/22 13:54 Magnesium Sulfate/H2o IV 07/30/22 13:51 100 mls/hr ONCE ONE Administration Levalbuterol HCl 2.5 mg 07/30/22 13:22 07/30/22 14:29 Levalbuterol Hcl 1.25 Mg/3 Ml Vial.Neb INHALE 07/30/22 13:23 2.5 mg ONCE ONE Administration Metoprolol Tartrate 5 mg 07/30/22 13:12 07/30/22 13:17 Metoprolol Tartrate 5 Mg/5 Ml Vial IVPUSH 07/30/22 13:13 5 mg ONCE ONE Administration Metoprolol Tartrate 5 mg 07/30/22 15:51 07/30/22 16:00 Metoprolol Tartrate 5 Mg/5 Ml Vial IVPUSH 07/30/22 15:52 5 mg ONCE ONE Administration Medical Decision Making Medical Decision Making MDM Narrative: Patient with new onset AFib with rapid ventricular rate on Cardizem drip heart rate partially controlled will give Lopressor also has bronchitis chest x-ray negative for acute infiltrate will admit patient for acute bronchitis and AFib rapid ventricular rate patient slightly elevated lactic acid level 2.7 with normal WBC count no fever patient is on metformin likely the cause patient clinically not septic although IV Rocephin was given will hold IV fluids for significant heart failure history Consult Healthcare Provider Management of the patient was discussed with: Hospitalist Lab Data MDM Lab Attestation statement: I reviewed the patient's lab results. 07/30/22 14:58 07/30/22 14:58 Labs: Lab Results 07/30/22 07/30/22 07/30/22 Range/Units 14:56 14:58 14:58 WBC 14.9 H (4.8-10.8) X10*3/uL RBC 4.80 (4.20-5.50) X10*6/uL Hgb 14.0 (12.0-16.0) g/dl Hct 43.8 (37.0-47.0) % MCV 91.3 (80.0-98.0) fL MCH 29.2 (27.0-33.0) pg MCHC 32.0 (31.0-35.0) g/dl RDW 15.9 (11.0-16.0) % Plt Count 269 (160-400) X10*3/uL MPV 10.0 (9.4-12.3) fL Immature Gran % (Auto) 0.9 H (0.0-0.4) % Neut % (Auto) 61.6 (45-73) % Lymph % (Auto) 23.6 (20-40) % [place] % (Auto) 13.6 H (2-11) % Eos % (Auto) 0.1 (0-4) % Baso % (Auto) 0.2 (0-2) % Lymph # (Auto) 3.5 (1.2-4.9) X10*3/uL [place] # (Auto) 2.0 H (0.1-1.2) X10*3/uL Eos # (Auto) 0.0 (0.0-0.4) X10*3/uL Baso # (Auto) 0.0 (0.0-0.2) X10*3/uL Abs Immat Gran (auto) 0.14 H (0.00-0.03) X10*3/uL Absolute Neuts (auto) 9.2 H (2.0-8.3) x10*3/uL Absolute Nucleated RBC 0.000 (0.0-0.012) X10*3/uL Nucleated RBC % (auto) 0.0 (0.0-0.2) /100WBC Smear Tech's Comments VERIFIED PT (10.0-13.1) SEC INR (0.9-1.1) VBG pH 7.53 H (7.32-7.43) VBG pCO2 28 mmHg VBG pO2 46 mmHg VBG HCO3 24 (22-26) mmol/L VBG O2 Saturation 80.0 % VBG Base Excess 2.7 mmol/L Sodium 143 (135-145) mmol/L Potassium 4.4 (3.3-5.1) mmol/L Chloride 108 (96-108) mmol/L Carbon Dioxide 22 (22-29) mmol/L Anion Gap 17 (12-20) BUN 35 H (9-16) mg/dL Creatinine 1.16 (0.5-1.4) mg/dL Estim Creat Clear Calc 43.8 Estimated GFR 46 Random Glucose 215 H (60-115) mg/dL Lactic Acid (0.5-2.0) mmol/L Calcium 9.0 (8.4-10.2) mg/dL Magnesium 2.0 (1.6-2.6) mg/dL Total Bilirubin 1.3 H (0.0-1.0) mg/dL AST 24 (5-31) U/L ALT 26 (0-31) U/L Alkaline Phosphatase 65 (39-117) U/L Troponin I High Sens (<3.5-17.0) ng/L B-Natriuretic Peptide (<100) pg/mL Total Protein 6.5 (6.5-8.0) g/dL Albumin 3.6 (3.5-5.0) g/dL TSH 0.72 (0.32-4.0) uIU/mL COVID-19 (JIMMY) (Negative) COVID-19 Clin Com 07/30/22 07/30/22 07/30/22 Range/Units 14:58 14:58 14:58 WBC (4.8-10.8) X10*3/uL RBC (4.20-5.50) X10*6/uL Hgb (12.0-16.0) g/dl Hct (37.0-47.0) % MCV (80.0-98.0) fL MCH (27.0-33.0) pg MCHC (31.0-35.0) g/dl RDW (11.0-16.0) % Plt Count (160-400) X10*3/uL MPV (9.4-12.3) fL Immature Gran % (Auto) (0.0-0.4) % Neut % (Auto) (45-73) % Lymph % (Auto) (20-40) % [place] % (Auto) (2-11) % Eos % (Auto) (0-4) % Baso % (Auto) (0-2) % Lymph # (Auto) (1.2-4.9) X10*3/uL [place] # (Auto) (0.1-1.2) X10*3/uL Eos # (Auto) (0.0-0.4) X10*3/uL Baso # (Auto) (0.0-0.2) X10*3/uL Abs Immat Gran (auto) (0.00-0.03) X10*3/uL Absolute Neuts (auto) (2.0-8.3) x10*3/uL Absolute Nucleated RBC (0.0-0.012) X10*3/uL Nucleated RBC % (auto) (0.0-0.2) /100WBC Smear Tech's Comments PT 10.6 (10.0-13.1) SEC INR 0.9 (0.9-1.1) VBG pH (7.32-7.43) VBG pCO2 mmHg VBG pO2 mmHg VBG HCO3 (22-26) mmol/L VBG O2 Saturation % VBG Base Excess mmol/L Sodium (135-145) mmol/L Potassium (3.3-5.1) mmol/L Chloride (96-108) mmol/L Carbon Dioxide (22-29) mmol/L Anion Gap (12-20) BUN (9-16) mg/dL Creatinine (0.5-1.4) mg/dL Estim Creat Clear Calc Estimated GFR Random Glucose (60-115) mg/dL Lactic Acid (0.5-2.0) mmol/L Calcium (8.4-10.2) mg/dL Magnesium (1.6-2.6) mg/dL Total Bilirubin (0.0-1.0) mg/dL AST (5-31) U/L ALT (0-31) U/L Alkaline Phosphatase (39-117) U/L Troponin I High Sens 6.2 (<3.5-17.0) ng/L B-Natriuretic Peptide (<100) pg/mL Total Protein (6.5-8.0) g/dL Albumin (3.5-5.0) g/dL TSH (0.32-4.0) uIU/mL COVID-19 (JIMMY) Negative (Negative) COVID-19 Clin Com See Note 07/30/22 07/30/22 Range/Units 14:58 14:58 WBC (4.8-10.8) X10*3/uL RBC (4.20-5.50) X10*6/uL Hgb (12.0-16.0) g/dl Hct (37.0-47.0) % MCV (80.0-98.0) fL MCH (27.0-33.0) pg MCHC (31.0-35.0) g/dl RDW (11.0-16.0) % Plt Count (160-400) X10*3/uL MPV (9.4-12.3) fL Immature Gran % (Auto) (0.0-0.4) % Neut % (Auto) (45-73) % Lymph % (Auto) (20-40) % [place] % (Auto) (2-11) % Eos % (Auto) (0-4) % Baso % (Auto) (0-2) % Lymph # (Auto) (1.2-4.9) X10*3/uL [place] # (Auto) (0.1-1.2) X10*3/uL Eos # (Auto) (0.0-0.4) X10*3/uL Baso # (Auto) (0.0-0.2) X10*3/uL Abs Immat Gran (auto) (0.00-0.03) X10*3/uL Absolute Neuts (auto) (2.0-8.3) x10*3/uL Absolute Nucleated RBC (0.0-0.012) X10*3/uL Nucleated RBC % (auto) (0.0-0.2) /100WBC Smear Tech's Comments PT (10.0-13.1) SEC INR (0.9-1.1) VBG pH (7.32-7.43) VBG pCO2 mmHg VBG pO2 mmHg VBG HCO3 (22-26) mmol/L VBG O2 Saturation % VBG Base Excess mmol/L Sodium (135-145) mmol/L Potassium (3.3-5.1) mmol/L Chloride (96-108) mmol/L Carbon Dioxide (22-29) mmol/L Anion Gap (12-20) BUN (9-16) mg/dL Creatinine (0.5-1.4) mg/dL Estim Creat Clear Calc Estimated GFR Random Glucose (60-115) mg/dL Lactic Acid 2.7 H* (0.5-2.0) mmol/L Calcium (8.4-10.2) mg/dL Magnesium (1.6-2.6) mg/dL Total Bilirubin (0.0-1.0) mg/dL AST (5-31) U/L ALT (0-31) U/L Alkaline Phosphatase (39-117) U/L Troponin I High Sens (<3.5-17.0) ng/L B-Natriuretic Peptide 143 H (<100) pg/mL Total Protein (6.5-8.0) g/dL Albumin (3.5-5.0) g/dL TSH (0.32-4.0) uIU/mL COVID-19 (JIMMY) (Negative) COVID-19 Clin Com Critical Care Time Critical Care Time Critical Care Time: Yes Total Critical Care Time: 55 Attestation: The patient was critically ill with a high probability of imminent or life threatening deterioration. I spent greater than 60 minutes of discontinuous time evaluating the patient,delivering critical care at the bedside, discussing and evaluating pertinent data with consultants. Critical care time does not include time spent performing separately billable procedures or teaching. Total time spent performing critical care was 55minutes. Discharge Plan Discharge Clinical Impression: New onset a-fib, Acute bronchitis, Atrial fibrillation with rapid ventricular response Patient Disposition: Admitted As Inpatient
--- NOTE | 2022-07-30 13:07 | ECG_ITS ---
Test Reason : TACHYCARDIA Blood Pressure : / mmHG Vent. Rate : 139 BPM Atrial Rate : 000 BPM P-R Int : 000 ms QRS Dur : 086 ms QT Int : 296 ms P-R-T Axes : 000 -29 134 degrees QTc Int : 450 ms Atrial fibrillation with rapid ventricular response Marked ST abnormality, possible inferior subendocardial injury Abnormal ECG When compared with ECG of 14-JUN-2020 21:45, Atrial fibrillation has replaced Sinus rhythm Vent. rate has increased BY [address] now depressed in Inferior leads Nonspecific T wave abnormality now evident in Lateral leads Referred By: Huey Shanks Electronically Signed By:Joshua Aranda
[2022-07-30] MEDS: Metoprolol Tartrate 5 MG/5 ML VIAL IVPUSH ×2 (13:17→16:00)
[2022-07-30] MEDS: guaiFEN/Codeine SF 200/20/10ML 10 ML LIQUID PO (13:17)
[2022-07-30] MEDS: Magnesium Sulfate/H2O 2 GM/50 ML PIGGYBACK IV (13:54)
--- OUTSIDE RECORDS SUMMARY | 2022-07-30 14:07 | XMS_ITS | Continuity of Care Document ---
Author Name Unknown Organization [facility] Beck [facility] Address [address] [place] [address]- Care Team Providers Care Slip Sheeter Name Role Phone Barb TORRES, Aba Garcia Primary Care Physician Encounter [facility] [place](s): 02/21/21 - 06/21/21 [facility] Adult [address] [place] [address]- Attending Physician: Aba Pond MD Referring Physician: Casper Cuba MD Allergies, Adverse Reactions, Alerts Substance Reaction Severity Status Naprosyn dizziness and nausea Active Immunizations Given and Recorded Vaccine Date Status Refusal Reason SARS-CoV-2 (COVID-19) mRNA BNT-162b2 vac 11/15/20 Recorded SARS-CoV-2 (COVID-19) mRNA BNT-162b2 vac 10/25/20 Recorded influenza virus vaccine, inactivated 12/17/19 Give n influenza virus vaccine, inactivated 11/01/18 Give n influenza virus vaccine, inactivated 01/18/18 Give n influenza virus vaccine, inactivated 04/07/17 Give n influenza virus vaccine, inactivated 01/09/16 Give n influenza virus vaccine, inactivated 02/17/15 Give n influenza virus vaccine, inactivated 12/07/13 Roman rded pneumococcal 23-valent vaccine 08/18/15 Given Zoster Vaccine Live 1 01/28/15 Recorded pneumococcal 13-valent vaccine 05/10/14 Given tetanus/diphtheria/pertussis, acel(Tdap) 05/10/14 Given Not Given Vaccine Date Status Refusal Reason influenza virus vaccine, inactivated 11/15/19 Not Given Patient Refuses 1Location History: [facility] Medications Actos 45 mg oral tablet 1 tablet = 45 mg, By Mouth, Daily, # 90 tablet, 3 Refills, Maintenance, 05/22/21 10:46:00 EDT, Tablet, [facility], 155, cm, 05/22/21 10:28:00 EDT, Height, 76.7, kg, 11/13/19 23:35:00 EDT, Dry Weight Start Date: 05/22/21 Stop Date: 05/17/22 Status: Ordered aspirin 81 mg oral delayed release tablet 81 mg, 1, tablet, By Mouth, Daily, # 90 tablet, Refills 0, Tot. Refills 0, Maintenance, 11/15/19 10:06:00 EDT, Route to Pharmacy Electronically, [facility], 155, cm, 11/15/19 9:23:00 EDT, Height, 76.7, kg, 11/13/19 23:35:00 EDT, Dry Weight Start Date: 11/15/19 Stop Date: 02/13/20 Status: Ordered Calcium 600 +D oral tablet 1 tablet, By Mouth, Daily, # 30 tablet, 5 Refills, Maintenance, 02/09/16 11:45:34 EST, [id number] Start Date: 02/09/16 Status: Ordered Freestyle Lite Lancets See Instructions, # 100 each, Refills 11, Tot. Refills 11, Maintenance, E11.9 TEST BS TID, 08/13/2110:06:00 EDT, Compound, 155, cm, 07/18/20 14:13:00 EDT, Height, 76.7, kg, 11/13/19 23:35:00 EDT, Dry Weight Start Date: 08/13/20 Stop Date: 07/29/23 Status: Ordered Freestyle Lite Test Strips See Instructions, for 90 days, # 200 each, Refills 11, Tot. Refills 11, Hard Stop 08/11/23 15:48:00EDT, E11.9 TEST BS TID, 08/26/20 15:48:00 EDT, Compound, 155, cm, 07/18/20 14:13:00 EDT, Height, 76.7, kg, 11/13/19 23:35:00 EDT, Dry Weight Start Date: 08/26/20 Stop Date: 08/11/23 Status: Ordered Freestyle Lite Test Strips See Instructions, # 200 each, Refills 11, Tot. Refills 11, Maintenance, E11.9 Test blood sugar oncedaily, 09/04/20 10:30:00 EDT, Compound, 155, cm, 08/29/20 10:43:00 EDT, Height, 76.7, kg, 11/13/19 23:35:00 EDT, Dry Weight Start Date: 09/04/20 Stop Date: 08/20/23 Status: Ordered glipiZIDE 5 mg oral tablet, extended release 1 tablet = 5 mg, By Mouth, Daily, # 90 tablet, 3 Refills, Maintenance, 05/22/21 10:46:00 EDT, ER Tablet, [facility], 155, cm, 05/22/21 10:28:00 EDT, Height, 76.7, kg, 11/13/19 23:35:00 EDT, Dry Weight Start Date: 05/22/21 Status: Ordered Lipitor 80 mg oral tablet 1 tablet = 80 mg, By Mouth, Daily, # 90 tablet, 3 Refills, Maintenance, 05/22/21 10:46:00 EDT, Tablet, [facility], 155, cm, 05/22/21 10:28:00 EDT, Height, 76.7, kg, 11/13/19 23:35:00 EDT, Dry Weight Start Date: 05/22/21 Stop Date: 05/17/22 Status: Ordered lisinopril 40 mg oral tablet 1 tablet = 40 mg, By Mouth, Daily, # 180 tablet, 3 Refills, Maintenance, 05/22/21 10:46:00 EDT, Tablet, [facility], 155, cm, 05/22/21 10:28:00 EDT, Height, 76.7, kg, 11/13/19 23:35:00 EDT,Dry Weight Start Date: 05/22/21 Status: Ordered metFORMIN 500 mg oral tablet, extended release 1 tablet = 500 mg, By Mouth, 3 times a day, # 270 tablet, 3 Refills, Maintenance, 07/15/20 8:48:00 EDT, [facility], 155, cm, 04/25/20 14:20:00 EST, Height, 76.7, kg, 11/13/19 23:35:00 EDT,Dry Weight Start Date: 07/15/20 Stop Date: 07/10/21 Status: Ordered Metoprolol Tartrate 50 mg oral tablet See Instructions, Take 1 tablet by mouth twice daily, # 180 tablet, 3 Refills, Maintenance, 05/22/21 10:44:00 EDT, [facility], 155, cm, 05/22/21 10:28:00 EDT, Height, 76.7, kg, 11/13/19 23:35:00 EDT, Dry Weight Start Date: 05/22/21 Status: Ordered Vitamin D3 1000 intl units oral tablet 1 tablet = 1,000 International_Units, By Mouth, Daily, PER DR POND, # 30 tablet, 5 Refills, Maintenance, 02/09/16 11:45:35 EST, Tablet, [facility] Start Date: 02/09/16 Status: Ordered Zetia 10 mg oral tablet 1 tablet = 10 mg, By Mouth, Daily, # 90 tablet, 3 Refills, Maintenance, 05/22/21 10:58:00 EDT, Tablet, [facility], Partial fill upon patient request if the prescription is for a schedule II opioid drug., 155, cm, 05/22/21 10:28:00 EDT, Heig... Start Date: 05/22/21 Status: Ordered Problem List Condition Effective Dates Status Health Status Inform ant Congestive heart failure(Confirmed) Active Coronary artery disease(Confirmed) Active Gastro-esophageal reflux(Confirmed) Active H/O colonoscopy(Confirmed) 1 Active Hypercholesterolemia(Confirmed) Active Hypertension(Confirmed) Active Obese class II(Confirmed) Active Obesity (BMI 30.0-34.9)(Confirmed) Active Osteoarthritis(Confirmed) Active Osteopenia(Confirmed) 2 Active *[facility] [phone] 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 2Bone Density 2014 Social History Social History Type Response Smoking Status Former smoker; Other : Quit smoking age 35; entered on: 08/18/15 Sex
--- OUTSIDE RECORDS SUMMARY | 2022-07-30 14:07 | XMS_ITS | Continuity of Care Document ---
Author Name Unknown Organization [facility] lt Address [address] [place] [address]- Care Team Providers Care K 9 Handler/ Deputy Name Role Phone Aba Pond MD Primary Care Physician [place] [facility] [place](s[place] 12/10/20 - 01/09/21 [facility] Adult [address] [place] [address]- Allergies, Adverse Reactions, Alerts Substance Reaction Severity Status Naprosyn dizziness and nausea Active Immunizations Given and Recorded Vaccine Date Status Refusal Reason influenza virus vaccine, inactivated 12/17/19 Give n [...] 11/15/19 Not Given Patient Refuses 1Location History: [facility] Medications Actos 45 mg oral tablet 1 tablet = 45 mg, By Mouth, Daily, # 90 tablet, 3 Refills, Maintenance, 05/07/20 9:57:00 EDT, Tablet, [facility], 155, cm, 04/25/20 14:20:00 EST, Height, 76.7, kg, 11/13/19 23:35:00 EDT, Dry Weight Start Date: 05/07/20 Stop Date: 05/02/21 Status: Ordered aspirin 81 mg oral delayed release tablet 81 mg, 1, tablet, By Mouth, Daily, # 90 tablet, Refills 0, Tot. Refills 0, Maintenance, 11/15/19 10:06:00 EDT, Route to Pharmacy Electronically, [facility], 155, cm, 11/15/19 9:23:00 EDT, Height, 76.7, kg, 11/13/19 23:35:00 EDT, Dry Weight Start Date: 11/15/19 Stop Date: 02/13/20 Status: Ordered Calcium 600 +D oral tablet 1 tablet, By Mouth, Daily, # 30 tablet, 5 Refills, Maintenance, 02/09/16 11:45:34 EST, Tablet, [facility] [id number] Start Date: 02/09/16 Status: Ordered FLUoxetine 20 mg oral capsule 20 mg, 1, capsule, By Mouth, Daily, # 90 capsule, Refills 3, Tot. Refills 3, Maintenance, 08/03/19 11:12:00 EDT, Route to Pharmacy Electronically, [facility], 154, cm, 08/03/19 10:44:00 EDT, Height Start Date: 08/03/19 Stop Date: 07/28/20 Status: Ordered Freestyle Lite Lancets See Instructions, [...] Daily, # 90 tablet, 3 Refills, Maintenance, 09/12/20 13:26:00 EDT, ER Tablet, [facility], 155, cm, 08/29/20 10:43:00 EDT, Height, 76.7, kg, 11/13/19 23:35:00 EDT, Dry Weight Start Date: 09/12/20 Status: Ordered Lasix 40 mg oral tablet 40 mg, 1, tablet, By Mouth, Daily, # 90 tablet, Refills 1, Tot. Refills 1, Maintenance, 07/18/20 14:54:00 EDT, Route to Pharmacy Electronically, [facility], 155, cm, 07/18/20 14:13:00 EDT,Height, 76.7, kg, 11/13/19 23:35:00 EDT, Dry Weight Start Date: 07/18/20 Stop Date: 01/14/21 Status: Ordered Lipitor 80 mg oral tablet 1 tablet = 80 mg, By Mouth, Daily, # 90 tablet, 0 Refills, Maintenance, 11/15/19 10:07:00 EDT, Tablet, [facility], 155, cm, 11/15/19 9:23:00 EDT, Height, 76.7, kg, 11/13/19 23:35:00 EDT, Dry Weight Start Date: 11/15/19 Stop Date: 02/13/20 Status: Ordered lisinopril 40 mg oral tablet 1 tablet = 40 mg, By Mouth, Daily, # 180 tablet, 3 Refills, Maintenance, 09/05/20 13:25:00 EDT, Tablet, [facility], 155, cm, 08/29/20 10:43:00 EDT, Height, 76.7, kg, 11/13/19 23:35:00 EDT,Dry Weight Start Date: 09/05/20 Status: Ordered metFORMIN 500 mg oral tablet, extended release 1 tablet = 500 mg, By Mouth, 3 times a day, # 270 tablet, 3 Refills, Maintenance, 07/15/20 8:48:00 EDT, [facility], 155, cm, 04/25/20 14:20:00 EST, Height, 76.7, kg, 11/13/19 23:35:00 EDT,Dry Weight Start Date: 07/15/20 Stop Date: 07/10/21 Status: Ordered metoprolol 50 mg oral tablet 50 mg, 1, tablet, By Mouth, 2 times a day, # 180 tablet, Refills 0, Tot. Refills 0, Maintenance, 11/10/20 10:41:00 EDT, Route to Pharmacy Electronically, [facility], 155, cm, 11/10/20 9:57:00 EDT, Height, 76.7, kg, 11/13/19 23:35:00 EDT, . Start Date: 11/10/20 Status: Ordered omeprazole 20 mg oral enteric coated capsule 1 capsule = 20 mg, By Mouth, Daily, # 90 capsule, 3 Refills, Maintenance, 05/02/19 10:54:00 EDT, ECCapsule, [facility], 154, cm, 05/02/19 10:30:00 EDT, Height Start Date: 05/02/19 Status: Ordered ticagrelor 90 mg oral tablet 1 tablet = 90 mg, By Mouth, 2 times a day, # 180 tablet, 0 Refills, Maintenance, 11/15/19 10:05:00 EDT, Tablet, [facility], 155, cm, 11/15/19 9:23:00 EDT, Height, 76.7, kg, 11/13/19 23:35:00 EDT, Dry Weight Start Date: 11/15/19 Stop Date: 02/13/20 Status: Ordered Vitamin D3 1000 intl units oral tablet 1 tablet = 1,000 International_Units, By Mouth, Daily, PER DR POND, # 30 tablet, 5 Refills, Maintenance, 02/09/16 11:45:35 EST, Tablet, [facility] [address] Start Date: 02/09/16 Status: Ordered Problem List Condition Effective Dates Status Health Status Inform ant Congestive heart failure(Confirmed) Active Coronary artery disease(Confirmed) Active Gastro-esophageal reflux(Confirmed) Active H/O colonoscopy(Confirmed) 1 Active Hypercholesterolemia(Confirmed) Active Hypertension(Confirmed) Active Obesity (BMI 30.0-34.9)(Confirmed) Active Osteoarthritis(Confirmed) Active Osteopenia(Confirmed) 2 Active *[facility] [phone] 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 2Bone Density 2014 Social History Social History Type Response Smoking Status Former smoker; Other : Quit smoking age 35; entered on: 08/18/15 Sex
--- OUTSIDE RECORDS SUMMARY | 2022-07-30 14:07 | XMS_ITS | Continuity of Care Document ---
Author Name Unknown Organization [facility] Shahab Espinoza Beck [facility] Address [address] [place] [address]- Care Team Providers Care Evaluation Analyst Name Role Phone Aba Pond MD Primary Care Physician [phone] [place] [facility] [place] 04/25/20 - 05/02/20 [facility] Adult [address] [place] [address]- Encounter Diagnosis Congestive heart failure(Discharge Diagnosis) - 04/25/20 Coronary artery disease(Discharge Diagnosis) - 04/25/20 Diabetes(Discharge Diagnosis) - 04/25/20 Hypercholesterolemia(Discharge Diagnosis) - 04/25/20 Hypertension(Discharge Diagnosis) - 04/25/20 Obesity (BMI 30.0-34.9)(Discharge Diagnosis) - 04/25/20 Attending Physician: Aba Pond MD Allergies, Adverse Reactions, Alerts Substance Reaction [...] Daily, # 90 tablet, 3 Refills, Maintenance, 05/02/19 10:52:00 EDT, Tablet, [facility], 154, cm, 05/02/19 10:30:00 EDT, Height Start Date: 05/02/19 Status: Ordered aspirin 81 mg oral delayed release tablet 81 mg, 1, tablet, By Mouth, Daily, # 90 tablet, Refills 0, Tot. Refills 0, Maintenance, 11/15/19 10:06:00 EDT, Route to Pharmacy Electronically, [facility], 155, cm, 11/15/19 9:23:00 EDT, Height, 76.7, kg, 11/13/19 23:35:00 EDT, Dry Weight Start Date: 11/15/19 Stop Date: 02/13/20 Status: Ordered Calcium 600 +D oral tablet 1 tablet, By Mouth, Daily, # 30 tablet, 5 Refills, Maintenance, 02/09/16 11:45:34 EST, Tablet, [facility] [address] Start Date: 02/09/16 Status: Ordered FLUoxetine 20 mg oral capsule 20 mg, 1, capsule, By Mouth, Daily, # 90 capsule, Refills 3, Tot. Refills 3, Maintenance, 08/03/19 11:12:00 EDT, Route to Pharmacy Electronically, [facility], 154, cm, 08/03/19 10:44:00 EDT, Height Start Date: 08/03/19 Stop Date: 07/28/20 Status: Ordered glipiZIDE 5 mg oral tablet, extended release 1 tablet = 5 mg, By Mouth, Daily, # 90 tablet, 3 Refills, Maintenance, 08/03/19 11:12:00 EDT, ER Tablet, [facility], 154, cm, 08/03/19 10:44:00 EDT, Height Start Date: 08/03/19 Status: Ordered Lasix 40 mg oral tablet 40 mg, 1, tablet, By Mouth, Daily, # 90 tablet, Refills 0, Tot. Refills 0, Maintenance, 11/15/19 10:30:00 EDT, Route to Pharmacy Electronically, [facility], 155, cm, 11/15/19 9:23:00 EDT, Height, 76.7, kg, 11/13/19 23:35:00 EDT, Dry Weight Start Date: 11/15/19 Stop Date: 02/13/20 Status: Ordered Lipitor 80 mg oral tablet 1 tablet = 80 mg, By Mouth, Daily, # 90 tablet, 0 Refills, Maintenance, 11/15/19 10:07:00 EDT, Tablet, [facility], 155, cm, 11/15/19 9:23:00 EDT, Height, 76.7, kg, 11/13/19 23:35:00 EDT, Dry Weight Start Date: 11/15/19 Stop Date: 02/13/20 Status: Ordered lisinopril 40 mg oral tablet 1 tablet = 40 mg, By Mouth, 2 times a day, # 180 tablet, 3 Refills, Maintenance, 05/02/19 10:54:00 EDT, Tablet, [facility], 154, cm, 05/02/19 10:30:00 EDT, Height Start Date: 05/02/19 Status: Ordered metFORMIN 500 mg oral tablet, extended release 3 tablet = 1,500 mg, By Mouth, Daily, # 270 tablet, 3 Refills, Maintenance, 05/02/19 10:54:00 EDT, [facility], 154, cm, 05/02/19 10:30:00 EDT, Height Start Date: 05/02/19 Stop Date: 04/26/20 Status: Ordered metoprolol 50 mg oral tablet 50 mg, 1, tablet, By Mouth, 2 times a day, # 180 tablet, Refills 3, Tot. Refills 3, Maintenance, 05/02/19 10:54:00 EDT, Route to Pharmacy Electronically, [facility], 154, cm, 05/02/19 10:30:00 EDT, Height Start Date: 05/02/19 Status: Ordered omeprazole 20 mg oral enteric coated capsule 1 capsule = 20 mg, By Mouth, Daily, # 90 capsule, 3 Refills, Maintenance, 05/02/19 10:54:00 EDT, ECCapsule, [facility], 154, cm, 05/02/19 10:30:00 EDT, Height Start Date: 05/02/19 Status: Ordered ticagrelor 90 mg oral tablet 1 tablet = 90 mg, By Mouth, 2 times a day, # 180 tablet, 0 Refills, Maintenance, 11/15/19 10:05:00 EDT, Tablet, [facility], 155, cm, 11/15/19 9:23:00 EDT, Height, 76.7, kg, 11/13/19 23:35:00 EDT, Dry Weight Start Date: 11/15/19 Stop Date: 02/13/20 Status: Ordered Vitamin D3 1000 intl units oral tablet 1 tablet = 1,000 International_Units, By Mouth, Daily, PER DR POND, # 30 tablet, 5 Refills, Maintenance, 02/09/16 11:45:35 EST, Tablet, [facility] [employer] [id number] Start Date: 02/09/16 Status: Ordered Problem List Condition Effective Dates Status Health Status Inform ant Congestive heart failure(Confirmed) Active Coronary artery disease(Confirmed) Active Depression(Confirmed) Active Diabetes(Confirmed) Active Gastro-esophageal reflux(Confirmed) Active H/O colonoscopy(Confirmed) 1 Active Hypercholesterolemia(Confirmed) Active Hypertension(Confirmed) Active Obesity (BMI 30.0-34.9)(Confirmed) Active Osteoarthritis(Confirmed) Active Osteopenia(Confirmed) 2 Active *[facility] [phone] CARE MANAG ER JESSICA ESCOTO(Confirmed) Active Vitamin D deficiency(Confirmed) Active 1Colonoscopy 2013 diverticulosis, repeat 2023. 2Bone Density 2014 Diagnosis Diagnosis Type Effective Dates Health Status Clinical Service Informant Congestive heart failure Discharge Diagnosis 04/25/20 Coronary artery disease Discharge Diagnosis 04/25/20 Diabetes Discharge Diagnosis 04/25/20 Hypercholesterolemia Discharge Diagnosis 04/25/20 Hypertension Discharge Diagnosis 04/25/20 Obesity (BMI 30.0-34.9) Discharge Diagnosis 04/25/20 Vital Signs Most recent to oldest [Reference Range]: 1 2 Height 155 cm (04/25/20 2:20 PM) 155 cm (04/25/20 1:50 PM) Weight 79.2 kg (04/25/20 2:20 PM) Oxygen Saturation [94-100 %] 98 % (04/25/20 1:50 PM) Pulse Rate [55-90 bpm] 58 bpm (04/25/20 1:50 PM) Body Mass Index [18.5-24.99] 32.97 *>HHI* (04/25/20 2:20 PM) Blood Pressure [90-138/55-84 mm Hg] 136/ 64mm Hg (04/25/20 1:50 PM) Mode of Delivery (Oxygen) Room air (04/25/20 1:50 PM) Blood pressure sites Arm, left (04/25/20 1:50 PM) Weight Obtained Via Standing scale (04/25/20 1:50 PM) Social History Social History Type Response Smoking Status Former smoker; Other : Quit smoking age 35; entered on: 08/18/15 Sex
--- OUTSIDE RECORDS SUMMARY | 2022-07-30 14:07 | XMS_ITS | Continuity of Care Document ---
Author Name Unknown Organization [facility] lt Address [address] [place] [address]- Care Team Providers Care Photographic Engineer Name Role Phone Aba Pond MD Primary Care Physician [place] [facility] [place] 12/15/21 - 12/22/21 [facility] Adult [address] [place] [address]- Attending Physician: Aba Pond MD Allergies, Adverse Reactions, Alerts Substance Reaction Severity Status Naprosyn dizziness and nausea Active Immunizations Given and Recorded Vaccine Date Status Refusal Reason [id number] 12y+ bivalent booster vax 12/15/21 Given influenza virus vaccine, inactivated 12/15/21 Give n influenza virus vaccine, inactivated 12/17/19 Give n influenza virus vaccine, inactivated 11/01/18 Give n influenza virus vaccine, inactivated 01/18/18 Give n influenza virus vaccine, inactivated 04/07/17 Give n influenza virus vaccine, inactivated 01/09/16 Give n influenza virus vaccine, inactivated 02/17/15 Give n influenza virus vaccine, inactivated 12/07/13 Roman rded zoster vaccine, inactivated 10/05/21 Recorded SARS-CoV-2 (COVID-19) mRNA BNT-162b2 vac 11/15/20 Recorded SARS-CoV-2 (COVID-19) mRNA BNT-162b2 vac 10/25/20 Recorded pneumococcal 23-valent vaccine 08/18/15 Given Zoster Vaccine Live 1 01/28/15 Recorded pneumococcal 13-valent vaccine 05/10/14 Given tetanus/diphtheria/pertussis, acel(Tdap) 05/10/14 Given Not Given Vaccine Date Status Refusal Reason influenza virus vaccine, inactivated 11/15/19 Not Given Patient Refuses 1Location History: [facility] Medications Actos 45 mg oral tablet 1 tablet = 45 mg, By Mouth, Daily, # 90 tablet, 3 Refills, Maintenance, 12/15/21 11:31:00 EDT, Tablet, [facility], 155, cm, 12/15/21 11:19:00 EDT, Height Start Date: 12/15/21 Stop Date: 12/10/22 Status: Ordered aspirin 81 mg oral delayed release tablet 81 mg, 1, tablet, By Mouth, Daily, # 90 tablet, Refills 0, Tot. Refills 0, Maintenance, 11/15/19 10:06:00 EDT, Route to Pharmacy Electronically, [facility], 155, cm, 11/15/19 9:23:00 EDT, Height, 76.7, kg, 11/13/19 23:35:00 EDT, Dry Weight Start Date: 11/15/19 Stop Date: 02/13/20 Status: Ordered Calcium 600 +D oral tablet 1 tablet, By Mouth, Daily, # 30 tablet, 5 Refills, Maintenance, 02/09/16 11:45:34 EST, Tablet, [facility] [id number] Start Date: 02/09/16 Status: Ordered Freestyle Lite [...] Daily, # 90 tablet, 3 Refills, Maintenance, 12/15/21 11:31:00 EDT, ER Tablet, [facility], 155, cm, 12/15/21 11:19:00 EDT, Height Start Date: 12/15/21 Status: Ordered Lipitor 80 mg oral tablet 1 tablet = 80 mg, By Mouth, Daily, # 90 tablet, 3 Refills, Maintenance, 12/15/21 11:31:00 EDT, Tablet, [facility], 155, cm, 12/15/21 11:19:00 EDT, Height Start Date: 12/15/21 Stop Date: 12/10/22 Status: Ordered lisinopril 40 mg oral tablet 1 tablet = 40 mg, By Mouth, Daily, # 90 tablet, 3 Refills, Maintenance, 12/15/21 11:31:00 EDT, Tablet, [facility], 155, cm, 12/15/21 11:19:00 EDT, Height Start Date: 12/15/21 Stop Date: 12/10/22 Status: Ordered metFORMIN 500 mg oral tablet, extended release 1 tablet = 500 mg, By Mouth, 3 times a day, # 270 tablet, 3 Refills, Maintenance, 12/15/21 11:31:00EDT, [facility], 155, cm, 12/15/21 11:19:00 EDT, Height Start Date: 12/15/21 Stop Date: 12/10/22 Status: Ordered Metoprolol Tartrate 50 mg oral tablet See Instructions, Take 1 tablet by mouth twice daily, # 180 tablet, 3 Refills, Maintenance, 12/15/21 11:31:00 EDT, [facility], 155, cm, 12/15/21 11:19:00 EDT, Height Start Date: 12/15/21 Status: Ordered Vitamin D3 1000 intl units oral tablet 1 tablet = 1,000 International_Units, By Mouth, Daily, PER DR POND, # 30 tablet, 5 Refills, Maintenance, 02/09/16 11:45:35 EST, Tablet, [facility] [address] Start Date: 02/09/16 Status: Ordered Zetia 10 mg oral tablet 1 tablet = 10 mg, By Mouth, Daily, # 90 tablet, 3 Refills, Maintenance, 12/15/21 11:31:00 EDT, Tablet, [facility], Partial fill upon patient request if the prescription is for a schedule II opioid drug., 155, cm, 12/15/21 11:19:00 EDT, Height Start Date: 12/15/21 Status: Ordered Problem List Condition Confirmation Course Effective Dates Status Health Status Informant Chronic back pain Confirmed Active Chronic kidney disease, stage 3a 1 Confirmed Active Congestive heart failure Confirmed Active Coronary artery disease Confirmed Active Gastro-esophageal reflux Confirmed Active H/O colonoscopy 2 Confirmed Active Hypercholesterolemia Confirmed Active Hypertension Confirmed Active Obese class II Confirmed Active Obesity (BMI 30.0-34.9) Confirmed Active Osteoarthritis Confirmed Active Osteopenia 3 Confirmed Active *[facility] [phone] 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 3Bone Density 2014 Vital Signs Most recent to oldest [Reference Range]: 1 2 Height 155 cm (12/15/21 11:19 AM) 155 cm (12/15/21 10:59 AM) Weight 89.8 kg (12/15/21 11:19 AM) Oxygen Saturation [94-100 %] 97 % (12/15/21 10:59 AM) Pulse Rate [55-90 bpm] 77 bpm (12/15/21 10:59 AM) Body Mass Index [18.5-24.99 kg/m2] 37.38 kg/m2 *>HHI* (12/15/21 11:19 AM) Blood Pressure [90-138/55-84 mm Hg] 136/ 80mm Hg (12/15/21 10:59 AM) Mode of Delivery (Oxygen) Room air (12/15/21 10:59 AM) Blood pressure sites Arm, left (12/15/21 10:59 AM) Weight Obtained Via Standing scale (12/15/21 10:59 AM) Social History Social History Type Response Smoking Status Former smoker; Other : Quit smoking age 35; entered on: 08/18/15 Sex Patient Care team information Personnel Name: Barb TORRES, Aba Garcia Address: Address: [address] [place] [address]
--- OUTSIDE RECORDS SUMMARY | 2022-07-30 14:07 | XMS_ITS | Continuity of Care Document ---
Author Name Unknown Organization [facility] Address [address] [place] [address]- Care Team Providers Care Computer Applications Engineer Name Role Phone Aba Pond MD Primary Care Physician [place] [facility] [place]20 [facility] Adult [address] [place] [address]- Allergies, Adverse Reactions, Alerts Substance Reaction Severity [...] 11/15/19 Not Given Patient Refuses 1Location History: [facility] Medications Actos 45 mg oral tablet 1 tablet = 45 mg, By Mouth, Daily, # 90 tablet, 3 Refills, Maintenance, 05/07/20 9:57:00 EDT, Tablet, [facility], 155, cm, 04/25/20 14:20:00 EST, Height, 76.7, kg, 11/13/19 23:35:00 EDT, Dry Weight Start Date: 05/07/20 Stop Date: 05/02/21 Status: Ordered aspirin 81 mg oral delayed release tablet 81 mg, 1, tablet, By Mouth, Daily, # 90 tablet, Refills 0, Tot. Refills 0, Maintenance, 11/15/19 10:06:00 EDT, Route to Pharmacy Electronically, [facility], 155, cm, 11/15/19 9:23:00 EDT, Height, 76.7, kg, 11/13/19 23:35:00 EDT, Dry Weight Start Date: 11/15/19 Stop Date: 02/13/20 Status: Ordered Calcium 600 +D oral tablet 1 tablet, By Mouth, Daily, # 30 tablet, 5 Refills, Maintenance, 02/09/16 11:45:34 EST, Tablet, [facility] [id number] Start Date: 02/09/16 Status: Ordered FLUoxetine 20 mg oral capsule 20 mg, 1, capsule, By Mouth, Daily, # 90 capsule, Refills 3, Tot. Refills 3, Maintenance, 08/03/19 11:12:00 EDT, Route to Pharmacy Electronically, [facility], 154, cm, 08/03/19 [...] Refills, Maintenance, 09/12/20 13:26:00 EDT, ER Tablet, [facility], 155, cm, 08/29/20 10:43:00 EDT, Height, 76.7, kg, 11/13/19 23:35:00 EDT, Dry Weight Start Date: 09/12/20 Status: Ordered Lasix 40 mg oral tablet 40 mg, 1, tablet, By Mouth, Daily, # 90 tablet, Refills 1, Tot. Refills 1, Maintenance, 07/18/20 14:54:00 EDT, Route to Pharmacy Electronically, [facility], 155, cm, 07/18/20 14:13:00 EDT,Height, 76.7, kg, 11/13/19 23:35:00 EDT, Dry Weight Start Date: 07/18/20 Stop Date: 01/14/21 Status: Ordered Lipitor 80 mg oral tablet 1 tablet = 80 mg, By Mouth, Daily, # 90 tablet, 0 Refills, Maintenance, 11/15/19 10:07:00 EDT, Tablet, [facility], 155, cm, 11/15/19 9:23:00 EDT, Height, 76.7, kg, 11/13/19 23:35:00 EDT, Dry Weight Start Date: 11/15/19 Stop Date: 02/13/20 Status: Ordered lisinopril 40 mg oral tablet 1 tablet = 40 mg, By Mouth, Daily, # 180 tablet, 3 Refills, Maintenance, 09/05/20 13:25:00 EDT, Tablet, [facility], 155, cm, 08/29/20 10:43:00 EDT, Height, 76.7, kg, 11/13/19 23:35:00 EDT,Dry Weight Start Date: 09/05/20 Status: Ordered metFORMIN 500 mg oral tablet, extended release 1 tablet = 500 mg, By Mouth, 3 times a day, # 270 tablet, 3 Refills, Maintenance, 07/15/20 8:48:00 EDT, [facility], 155, cm, 04/25/20 14:20:00 EST, Height, 76.7, kg, 11/13/19 23:35:00 EDT,Dry Weight Start Date: 07/15/20 Stop Date: 07/10/21 Status: Ordered metoprolol 50 mg oral tablet 50 mg, 1, tablet, By Mouth, 2 times a day, # 180 tablet, Refills 0, Tot. Refills 0, Maintenance, 08/01/20 11:47:00 EDT, Route to Pharmacy Electronically, [facility], 155, cm, 07/18/20 14:13:00 EDT, Height, 76.7, kg, 11/13/19 23:35:00 EDT, D... Start Date: 08/01/20 Status: Ordered omeprazole 20 mg oral enteric coated capsule 1 capsule = 20 mg, By Mouth, Daily, # 90 capsule, 3 Refills, Maintenance, 05/02/19 10:54:00 EDT, ECCapsule, [facility], 154, cm, 05/02/19 10:30:00 EDT, Height Start Date: 05/02/19 Status: Ordered ticagrelor 90 mg oral tablet 1 tablet = 90 mg, By Mouth, 2 times a day, # 180 tablet, 0 Refills, Maintenance, 11/15/19 10:05:00 EDT, Tablet, [facility], 155, cm, 11/15/19 9:23:00 EDT, Height, 76.7, kg, 11/13/19 23:35:00 EDT, Dry Weight Start Date: 11/15/19 Stop Date: 02/13/20 Status: Ordered Vitamin D3 1000 intl units oral tablet 1 tablet = 1,000 International_Units, By Mouth, Daily, PER DR POND, # 30 tablet, 5 Refills, Maintenance, 02/09/16 11:45:35 EST, Tablet, [facility] [address] Start Date: 02/09/16 Status: Ordered Problem List Condition Effective Dates Status Health Status Inform ant Congestive heart failure(Confirmed) Active Coronary artery disease(Confirmed) Active Diabetes(Confirmed) Active Gastro-esophageal reflux(Confirmed) Active H/O colonoscopy(Confirmed) 1 Active Hypercholesterolemia(Confirmed) Active Hypertension(Confirmed) Active Obesity (BMI 30.0-34.9)(Confirmed) Active Osteoarthritis(Confirmed) Active Osteopenia(Confirmed) 2 Active *[facility] [phone] 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 2Bone Density 2014 Social History Social History Type Response Smoking Status Former smoker; Other : Quit smoking age 35; entered on: 08/18/15 Sex
--- OUTSIDE RECORDS SUMMARY | 2022-07-30 14:07 | XMS_ITS | Continuity of Care Document ---
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 Name Role Phone Aba Day MD Primary Care Physician [phone] [place] [facility] [place]24[place]22 - 07/24/22 [facility] Adult [address] [place] [address]- Allergies, Adverse Reactions, Alerts Substance Reaction Severity Status Naprosyn dizziness and nausea Active Immunizations Given and Recorded Vaccine Date Status Refusal Reason [id number] 12y+ bivalent booster vax 12/15/21 Given influenza [...] 3 Refills, Maintenance, 12/15/21 11:31:00 EDT, Tablet, [facility], 155, cm, 12/15/21 11:19:00 EDT, Height Start Date: 12/15/21 Stop Date: 12/10/22 Status: Ordered aspirin 81 mg oral delayed release tablet 81 mg, 1, tablet, By Mouth, Daily, # 90 tablet, Refills 0, Tot. Refills 0, Maintenance, 11/15/19 10:06:00 EDT, Route to Pharmacy Electronically, [facility], 155, cm, 11/15/19 9:23:00 EDT, Height, 76.7, kg, 11/13/19 23:35:00 EDT, Dry Weight Start Date: 11/15/19 Stop Date: 02/13/20 Status: Ordered Calcium 600 +D oral tablet 1 tablet, By Mouth, Daily, # 30 tablet, 5 Refills, Maintenance, 02/09/16 11:45:34 EST, Tablet, [facility] [address] Start Date: 02/09/16 Status: Ordered CeleBREX 200 mg oral capsule 1 capsule = 200 mg, By Mouth, Daily, # 30 capsule, 0 Refills, Maintenance, 06/22/22 10:23:00 EDT, Capsule, [facility], Partial fill upon patient request if the prescription is for a schedule II opioid drug., 155, cm, 06/22/22 10:02:00 EDT,... Start Date: 06/22/22 Status: Ordered Freestyle Lite Lancets See Instructions, [...] Date: 08/26/20 Stop Date: 08/11/23 Status: Ordered glipiZIDE 5 mg oral tablet, extended release 1 tablet = 5 mg, By Mouth, Daily, # 90 tablet, 3 Refills, Maintenance, 12/15/21 11:31:00 EDT, ER Tablet, [facility], 155, cm, 12/15/21 11:19:00 EDT, Height Start Date: 12/15/21 Status: Ordered Lipitor 80 mg oral tablet 1 tablet = 80 mg, By Mouth, Daily, # 90 tablet, 3 Refills, Maintenance, 12/15/21 11:31:00 EDT, Tablet, [facility], 155, cm, 12/15/21 11:19:00 EDT, Height Start Date: 12/15/21 Stop Date: 12/10/22 Status: Ordered lisinopril 40 mg oral tablet 1 tablet = 40 mg, By Mouth, Daily, # 90 tablet, 3 Refills, Maintenance, 12/15/21 11:31:00 EDT, Tablet, [facility], 155, cm, 12/15/21 11:19:00 EDT, Height Start Date: 12/15/21 Stop Date: 12/10/22 Status: Ordered metFORMIN 500 mg oral tablet, extended release 1 tablet = 500 mg, By Mouth, 3 times a day, # 270 tablet, 3 Refills, Maintenance, 12/15/21 11:31:00EDT, [facility], 155, cm, 12/15/21 11:19:00 EDT, Height Start Date: 12/15/21 Stop Date: 12/10/22 Status: Ordered Metoprolol Tartrate 50 mg oral tablet See Instructions, Take 1 tablet by mouth twice daily, # 180 tablet, 3 Refills, Maintenance, 12/15/21 11:31:00 EDT, [facility], 155, cm, 12/15/21 11:19:00 EDT, Height Start Date: 12/15/21 Status: Ordered Zetia 10 mg oral tablet 1 tablet = 10 mg, By Mouth, Daily, # 90 tablet, 3 Refills, Maintenance, 12/15/21 11:31:00 EDT, Tablet, [facility], Partial fill upon patient request if the [...] Active Hypercholesterolemia Confirmed Active Hypertension Confirmed Active Osteoarthritis Confirmed Active Osteopenia 3 Confirmed Active *[facility] [phone] 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 3Bone Density 2015 Social History Social History Type Response Smoking Status Former smoker; Other : Quit smoking age 35; entered on: 08/18/15 Sex Patient Care team information Care Team Personnel Name: Aba Day MD Position: [facility] Physician - Primary Care Member Role: PCP Address: Address: [address] [place] [id number]- Care Team Related Persons Name: BRICE HARDIN JR Address: [address] [place] [address]
--- OUTSIDE RECORDS SUMMARY | 2022-07-30 14:07 | XMS_ITS | Continuity of Care Document ---
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.] 3 Refills, Maintenance, 12/15/21 11:31:00 EDT, Tablet, [facility], 155, cm, 12/15/21 11:19:00 EDT, Height Start Date: 12/15/21 Stop Date: 12/10/22 Status: Ordered aspirin 81 mg oral delayed release tablet 81 mg, 1, tablet, By Mouth, Daily, # 90 tablet, Refills 0, Tot. Refills 0, Maintenance, 11/15/19 10:06:00 EDT, Route to Pharmacy Electronically, [facility], 155, cm, 11/15/19 9:23:00 EDT, Height, 76.7, kg, 11/13/19 23:35:00 EDT, Dry Weight Start Date: 11/15/19 Stop Date: 02/13/20 Status: Ordered Calcium 600 +D oral tablet 1 tablet, By Mouth, Daily, # 30 tablet, 5 Refills, Maintenance, 02/09/16 11:45:34 EST, Tablet, [id number] Start Date: 02/09/16 Status: Ordered CeleBREX 200 mg oral capsule 1 capsule = 200 mg, By Mouth, Daily, # 30 capsule, 0 Refills, Maintenance, 06/22/22 10:23:00 EDT, Capsule, [facility], Partial fill upon patient [...] Refills, Maintenance, 12/15/21 11:31:00 EDT, ER Tablet, [facility], 155, cm, 12/15/21 11:19:00 EDT, Height Start Date: 12/15/21 Status: Ordered Lipitor 80 mg oral tablet 1 tablet = 80 mg, By Mouth, Daily, # 90 tablet, 3 Refills, Maintenance, 12/15/21 11:31:00 EDT, Tablet, [facility], 155, cm, 12/15/21 11:19:00 EDT, Height Start Date: 12/15/21 Stop Date: 12/10/22 Status: Ordered lisinopril 40 mg oral tablet 1 tablet = 40 mg, By Mouth, Daily, # 90 tablet, 3 Refills, Maintenance, 12/15/21 11:31:00 EDT, Tablet, [facility], 155, cm, 12/15/21 11:19:00 EDT, Height Start Date: 12/15/21 Stop Date: 12/10/22 Status: Ordered metFORMIN 500 mg oral tablet, extended release 1 tablet = 500 mg, By Mouth, 3 times a day, # 270 tablet, 3 Refills, Maintenance, 12/15/21 11:31:00EDT, [facility], 155, cm, 12/15/21 11:19:00 EDT, Height Start Date: 12/15/21 Stop Date: 12/10/22 Status: Ordered Metoprolol Tartrate 50 mg oral tablet See Instructions, Take 1 tablet by mouth twice daily, # 180 tablet, 3 Refills, Maintenance, 12/15/21 11:31:00 EDT, 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 3Bone Density 2015 Vital Signs Most recent to oldest [Reference Range]: 1 Height 155 cm (06/22/22 10:02 AM) Weight 92.8 kg (06/22/22 10:02 AM) Oxygen Saturation [94-100 %] 97 % (06/22/22 10:02 AM) Pulse Rate [55-90 bpm] 74 bpm (06/22/22 10:02 AM) Body Mass Index [18.5-24.99 kg/m2] 38.63 kg/m2 *>HHI* (06/22/22 10:02 AM) Blood Pressure [90-138/55-84 mm Hg] 138/ 78mm Hg (06/22/22 10:02 AM) Respiratory Rate [16-30 br/min] 20 br/mi n (06/22/22 10:02 AM) Temperature [96.8-100.4 DegF] 97.8 DegF (06/22/22 10:02 AM) Mode of Delivery (Oxygen) Room air (06/22/22 10:02 AM) Blood pressure sites Arm, right (06/22/22 10:02 AM) Temperature Route Oral (06/22/22 10:02 AM) Weight Obtained Via Standing scale (06/22/22 10:02 AM) Social History Social History Type Response Smoking Status Former smoker; Other : Quit smoking age 35; entered on: 08/18/15 Sex Note * Lindsey Augustine: PERFORM, SIGN, VERIFY Event Display: Patient Education/Instruction Authored Date: [id number] [facility] *[facility] Clinical Summary Name GATO HARDIN Age 72 Years 1950 PCP Barb TORRES, Aba Garcia PCP Visit Date 06/22/2022 09:57:00 Additional Instructions: Scheduled Appointments?? Future Appointments ?No Future Appointments Scheduled Follow-Up Instructions ?? With: Address: When: Lavonne MARQUEZ, Isabel Wagoner[address] [address] Business (1) In 1 month Comments: FABIAN Diagnosis Medications: Please continue your medications until treatment is completed or stopped by your provider. Discuss any questions related to medications with your provider. New Medications [facility], [address] [place] [id number], [phone] Celecoxib (CeleBREX 200 mg oral capsule) 1 capsule Oral Daily. Refills: 0. Next Dose: Medications to Continue Taking That Have Changed These medications were not printed or sent to your pharmacy - Durable Medical Equipment (Freestyle Lite Lancets) E11.9 TEST BS TID. Refills: 11. Next Dose: - Durable Medical Equipment (Freestyle Lite Test Strips) E11.9 TEST BS TID. Refills: 11. Next Dose: Medications to Continue with No Changes These medications were not printed or sent to your pharmacy Aspirin (aspirin 81 mg oral delayed release tablet) 1 tab(s) Oral Daily for 90 Days. Refills: 0. Next Dose: Atorvastatin (Lipitor 80 mg oral tablet) 1 tab(s) Oral Daily for 90 Days. Refills: 3. Next Dose: Calcium And Vitamin D Combination (Calcium 600 +D oral tablet) 1 tab(s) Oral Daily. Refills: 5. Next Dose: Ezetimibe (Zetia 10 mg oral tablet) 1 tab(s) Oral Daily. Refills: 3. Next Dose: GlipiZIDE (glipiZIDE 5 mg oral tablet, extended release) 1 tab(s) Oral Daily. Refills: 3. Next Dose: Lisinopril (lisinopril 40 mg oral tablet) 1 tab(s) Oral Daily for 90 Days. Refills: 3. Next Dose: Metformin (metFORMIN 500 mg oral tablet, extended release) 1 tab(s) Oral 3 times a day for 90 Days.Refills: 3. Next Dose: Metoprolol (Metoprolol Tartrate 50 mg oral tablet) Take 1 tablet by mouth twice daily. Refills: 3. Next Dose: Pioglitazone (Actos 45 mg oral tablet) 1 tab(s) Oral Daily for 90 Days. Refills: 3. Next Dose: Allergy Info:?? Naprosyn Medications Given This Visit Future Orders ?No future orders Vital Signs Height 155 cm Weight 92.8 kg BMI 38.63 kg/m2 Blood Pressure 138 mm Hg/78 mm Hg Temperature 97.8 DegF Pulse Rate 74 bpm Respiratory Rate 20 br/min 02 Sat Mode of Delivery 97 %/Room air You can now view a summary of your hospital visit from the comfort of your home through a free online portal called [employer]. [employer] is a website that allows you to securely view your medical information including discharge summary, medications and follow-up visits. ??You can alsosend a secure electronic message to your doctor???s office to request appointments, renew medications or just ask a question. You can enroll at [email or web address] or register during your next office visit. Disclaimer:?? The information provided is of a general nature and is intended to be used in conjunction with the recommendations and advice of your health care practitioner. ??Every effort has been made to ensure that the information provided is accurate and complete at the time it is provided to you however, as your needs change, or, as new ??information becomes available, different or additional instructions may be required. If you have questions, please consult with your primary care provider or pharmacist, as appropriate. ??This information is not intended to serve as substitution for assessment and evaluation by a qualified health care provider. If you do not have a primary care provider, you may find a [facility] provider by calling [facility] at [phone]. For information about the plan of care including goals and instructions for your diagnosis, please see the patient education orders section of this document. Patient Education Materials?? The content of this educational material or handout may have been modified, supplemented, or adapted from its original content and format to support your individualized medical care. Patient Care team information Care Team Personnel Name: Aba Day MD Position: S Primary Care Physician Member Role: PCP Address: Address: [address] [place] [phone]- Care Team Related Persons Name: WILFRED BRICE Address: [address] [place] [address]
--- OUTSIDE RECORDS SUMMARY | 2022-07-30 14:07 | XMS_ITS | Continuity of Care Document ---
Author Name Unknown Organization [facility] Address [address] [place] [address]- Care Team Providers Care Physics Faculty Member Name Role Phone Aba Pond MD Primary Care Physician Encounter [facility] [place] Date(s): 01/09/21 - 02/08/21 [facility] [address] [place] [address]- Allergies, Adverse Reactions, Alerts Substance Reaction Severity [...] 11/15/19 Not Given Patient Refuses 1Location History: [facility] Medications Actos 45 mg oral tablet 1 tablet = 45 mg, By Mouth, Daily, # 90 tablet, 3 Refills, Maintenance, 05/07/20 9:57:00 EDT, Tablet, [facility], 155, cm, 04/25/20 14:20:00 EST, Height, 76.7, kg, 11/13/19 23:35:00 EDT, Dry Weight Start Date: 05/07/20 Stop Date: 05/02/21 Status: Ordered aspirin 81 mg oral delayed release tablet 81 mg, 1, tablet, By Mouth, Daily, # 90 tablet, Refills 0, Tot. Refills 0, Maintenance, 11/15/19 10:06:00 EDT, Route to Pharmacy Electronically, [facility], 155, cm, 11/15/19 9:23:00 EDT, Height, 76.7, kg, 11/13/19 23:35:00 EDT, Dry Weight Start Date: 11/15/19 Stop Date: 02/13/20 Status: Ordered Calcium 600 +D oral tablet 1 tablet, By Mouth, Daily, # 30 tablet, 5 Refills, Maintenance, 02/09/16 11:45:34 EST, [facility] Start Date: 02/09/16 Status: Ordered FLUoxetine 20 mg oral capsule 20 mg, 1, capsule, By Mouth, Daily, # 90 capsule, Refills 3, Tot. Refills 3, Maintenance, 08/03/19 11:12:00 EDT, Route to Pharmacy Electronically, [facility], 154, cm, 08/03/19 10:44:00 [...] Refills, Maintenance, 09/12/20 13:26:00 EDT, ER Tablet, [facility], 155, cm, 08/29/20 10:43:00 EDT, Height, 76.7, kg, 11/13/19 23:35:00 EDT, Dry Weight Start Date: 09/12/20 Status: Ordered Lasix 40 mg oral tablet 40 mg, 1, tablet, By Mouth, Daily, # 90 tablet, Refills 1, Tot. Refills 1, Maintenance, 07/18/20 14:54:00 EDT, Route to Pharmacy Electronically, [facility], 155, cm, 07/18/20 14:13:00 EDT,Height, 76.7, kg, 11/13/19 23:35:00 EDT, Dry Weight Start Date: 07/18/20 Stop Date: 01/14/21 Status: Ordered Lipitor 80 mg oral tablet 1 tablet = 80 mg, By Mouth, Daily, # 90 tablet, 0 Refills, Maintenance, 11/15/19 10:07:00 EDT, Tablet, [facility] 3, 155, cm, 11/15/19 9:23:00 EDT, Height, 76.7, kg, 11/13/19 23:35:00 EDT, Dry Weight Start Date: 11/15/19 Stop Date: 02/13/20 Status: Ordered lisinopril 40 mg oral tablet 1 tablet = 40 mg, By Mouth, Daily, # 180 tablet, 3 Refills, Maintenance, 09/05/20 13:25:00 EDT, Tablet, [facility], 155, cm, 08/29/20 10:43:00 EDT, Height, 76.7, kg, 11/13/19 23:35:00 EDT,Dry Weight Start Date: 09/05/20 Status: Ordered metFORMIN 500 mg oral tablet, extended release 1 tablet = 500 mg, By Mouth, 3 times a day, # 270 tablet, 3 Refills, Maintenance, 07/15/20 8:48:00 EDT, [facility], 155, cm, 04/25/20 14:20:00 EST, Height, 76.7, kg, 11/13/19 23:35:00 EDT,Dry Weight Start Date: 07/15/20 Stop Date: 07/10/21 Status: Ordered metoprolol 50 mg oral tablet 50 mg, 1, tablet, By Mouth, 2 times a day, # 180 tablet, Refills 0, Tot. Refills 0, Maintenance, 11/10/20 10:41:00 EDT, Route to Pharmacy Electronically, [facility], 155, cm, 11/10/20 9:57:00 EDT, Height, 76.7, kg, 11/13/19 23:35:00 EDT, . Start Date: 11/10/20 Status: Ordered omeprazole 20 mg oral enteric coated capsule 1 capsule = 20 mg, By Mouth, Daily, # 90 capsule, 3 Refills, Maintenance, 05/02/19 10:54:00 EDT, ECCapsule, [facility], 154, cm, 05/02/19 10:30:00 EDT, Height Start Date: 05/02/19 Status: Ordered ticagrelor 90 mg oral tablet 1 tablet = 90 mg, By Mouth, 2 times a day, # 180 tablet, 0 Refills, Maintenance, 11/15/19 10:05:00 EDT, Tablet, [facility], 155, cm, 11/15/19 9:23:00 EDT, Height, 76.7, kg, 11/13/19 23:35:00 EDT, Dry Weight Start Date: 11/15/19 Stop Date: 02/13/20 Status: Ordered Vitamin D3 1000 intl units oral tablet 1 tablet = 1,000 International_Units, By Mouth, Daily, PER DR POND, # 30 tablet, 5 Refills, Maintenance, 02/09/16 11:45:35 EST, Tablet, [facility] Start Date: 02/09/16 Status: Ordered Problem List Condition Effective Dates Status Health Status Inform ant Congestive heart failure(Confirmed) Active Coronary artery disease(Confirmed) Active Gastro-esophageal reflux(Confirmed) Active H/O colonoscopy(Confirmed) 1 Active Hypercholesterolemia(Confirmed) Active Hypertension(Confirmed) Active Obesity (BMI 30.0-34.9)(Confirmed) Active Osteoarthritis(Confirmed) Active Osteopenia(Confirmed) 2 Active *[facility] [phone] 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 2Bone Density 2014 Social History Social History Type Response Smoking Status Former smoker; Other : Quit smoking age 35; entered on: 08/18/15 Sex
--- OUTSIDE RECORDS SUMMARY | 2022-07-30 14:07 | XMS_ITS | Continuity of Care Document ---
Author Name Unknown Organization [facility] Address [address] [place] [address]- Care Team Providers Care Insurance Agent Name Role Phone Aba Pond MD Primary Care Physician [phone] Encounter [facility] [place] Date(s): 05/13/21 - 06/12/21 [facility] Adult [address] [place] [address]- Allergies, Adverse Reactions, Alerts Substance Reaction Severity [...] 3 Refills, Maintenance, 05/22/21 10:46:00 EDT, Tablet, [facility], 155, cm, 05/22/21 10:28:00 EDT, Height, 76.7, kg, 11/13/19 23:35:00 EDT, Dry Weight Start Date: 05/22/21 Stop Date: 05/17/22 Status: Ordered aspirin 81 mg oral delayed release tablet 81 mg, 1, tablet, By Mouth, Daily, # 90 tablet, Refills 0, Tot. Refills 0, Maintenance, 11/15/19 10:06:00 EDT, Route to Pharmacy Electronically, [facility], 155, cm, 11/15/19 9:23:00 EDT, Height, 76.7, kg, 11/13/19 23:35:00 EDT, Dry Weight Start Date: 11/15/19 Stop Date: 02/13/20 Status: Ordered Calcium 600 +D oral tablet 1 tablet, By Mouth, Daily, # 30 tablet, 5 Refills, Maintenance, 02/09/16 11:45:34 EST, Tablet, [email or web address] [address] Start Date: 02/09/16 Status: Ordered Freestyle Lite [...] Refills, Maintenance, 05/22/21 10:46:00 EDT, ER Tablet, [facility], 155, cm, 05/22/21 10:28:00 EDT, Height, 76.7, kg, 11/13/19 23:35:00 EDT, Dry Weight Start Date: 05/22/21 Status: Ordered Lipitor 80 mg oral tablet 1 tablet = 80 mg, By Mouth, Daily, # 90 tablet, 3 Refills, Maintenance, 05/22/21 10:46:00 EDT, Tablet, [facility], 155, cm, 05/22/21 10:28:00 EDT, Height, 76.7, kg, 11/13/19 23:35:00 EDT, Dry Weight Start Date: 05/22/21 Stop Date: 05/17/22 Status: Ordered lisinopril 40 mg oral tablet 1 tablet = 40 mg, By Mouth, Daily, # 180 tablet, 3 Refills, Maintenance, 05/22/21 10:46:00 EDT, Tablet, [facility], 155, cm, 05/22/21 10:28:00 EDT, Height, 76.7, kg, 11/13/19 23:35:00 EDT,Dry Weight Start Date: 05/22/21 Status: Ordered metFORMIN 500 mg oral tablet, extended release 1 tablet = 500 mg, By Mouth, 3 times a day, # 270 tablet, 3 Refills, Maintenance, 07/15/20 8:48:00 EDT, [facility], 155, cm, 04/25/20 14:20:00 EST, Height, 76.7, kg, 11/13/19 23:35:00 EDT,Dry Weight Start Date: 07/15/20 Stop Date: 07/10/21 Status: Ordered Metoprolol Tartrate 50 mg oral tablet See Instructions, Take 1 tablet by mouth twice daily, # 180 tablet, 3 Refills, Maintenance, 05/22/21 10:44:00 EDT, [facility], 155, cm, 05/22/21 10:28:00 EDT, Height, 76.7, kg, 11/13/19 23:35:00 EDT, Dry Weight Start Date: 05/22/21 Status: Ordered Vitamin D3 1000 intl units oral tablet 1 tablet = 1,000 International_Units, By Mouth, Daily, PER DR POND, # 30 tablet, 5 Refills, Maintenance, 02/09/16 11:45:35 EST, [facility] Start Date: 02/09/16 Status: Ordered Zetia 10 mg oral tablet 1 tablet = 10 mg, By Mouth, Daily, # 90 tablet, 3 Refills, Maintenance, 05/22/21 10:58:00 EDT, Tablet, [facility], Partial fill upon patient request [...] 30.0-34.9)(Confirmed) Active Osteoarthritis(Confirmed) Active Osteopenia(Confirmed) 2 Active *[facility] [phone] 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 2Bone Density 2014 Social History Social History Type Response Smoking Status Former smoker; Other : Quit smoking age 35; entered on: 08/18/15 Sex
--- OUTSIDE RECORDS SUMMARY | 2022-07-30 14:07 | XMS_ITS | Continuity of Care Document ---
Author Name Unknown Organization [facility] [facility] Address [address], [address] [place] [address]- Care Team Providers Care Corner Bead Operator Name Role Phone Aba Pond MD Primary Care Physician [phone] Encounter 01/22/21 - 01/29/21 [facility] [address], [address] [place] [address]- Attending Physician: Aba Pond MD Admitting Physician: Aba Pond MD Referring Physician: Aba Pond MD Allergies, Adverse Reactions, [...] 3 Refills, Maintenance, 05/07/20 9:57:00 EDT, Tablet, [facility], 155, cm, 04/25/20 14:20:00 EST, Height, 76.7, kg, 11/13/19 23:35:00 EDT, Dry Weight Start Date: 05/07/20 Stop Date: 05/02/21 Status: Ordered aspirin 81 mg oral delayed release tablet 81 mg, 1, tablet, By Mouth, Daily, # 90 tablet, Refills 0, Tot. Refills 0, Maintenance, 11/15/19 10:06:00 EDT, Route to Pharmacy Electronically, [facility], 155, cm, 11/15/19 9:23:00 EDT, Height, 76.7, kg, 11/13/19 23:35:00 EDT, Dry Weight Start Date: 11/15/19 Stop Date: 02/13/20 Status: Ordered Calcium 600 +D oral tablet 1 tablet, By Mouth, Daily, # 30 tablet, 5 Refills, Maintenance, 02/09/16 11:45:34 EST, Tablet, [facility] Start Date: 02/09/16 Status: Ordered FLUoxetine 20 mg oral capsule 20 mg, 1, capsule, By Mouth, Daily, # 90 capsule, Refills 3, Tot. Refills 3, Maintenance, 08/03/19 11:12:00 EDT, Route to Pharmacy Electronically, [facility], 154, cm, 08/03/19 10:44:00 [...] Refills, Maintenance, 09/12/20 13:26:00 EDT, ER Tablet, [facility], 155, cm, 08/29/20 10:43:00 EDT, Height, 76.7, kg, 11/13/19 23:35:00 EDT, Dry Weight Start Date: 09/12/20 Status: Ordered Lasix 40 mg oral tablet 40 mg, 1, tablet, By Mouth, Daily, # 90 tablet, Refills 1, Tot. Refills 1, Maintenance, 07/18/20 14:54:00 EDT, Route to Pharmacy Electronically, [facility], 155, cm, 07/18/20 14:13:00 EDT,Height, 76.7, kg, 11/13/19 23:35:00 EDT, Dry Weight Start Date: 07/18/20 Stop Date: 01/14/21 Status: Ordered Lipitor 80 mg oral tablet 1 tablet = 80 mg, By Mouth, Daily, # 90 tablet, 0 Refills, Maintenance, 11/15/19 10:07:00 EDT, Tablet, [facility], 155, cm, 11/15/19 9:23:00 EDT, Height, 76.7, kg, 11/13/19 23:35:00 EDT, Dry Weight Start Date: 11/15/19 Stop Date: 02/13/20 Status: Ordered lisinopril 40 mg oral tablet 1 tablet = 40 mg, By Mouth, Daily, # 180 tablet, 3 Refills, Maintenance, 09/05/20 13:25:00 EDT, Tablet, [facility], 155, cm, 08/29/20 10:43:00 EDT, Height, 76.7, kg, 11/13/19 23:35:00 EDT,Dry Weight Start Date: 09/05/20 Status: Ordered metFORMIN 500 mg oral tablet, extended release 1 tablet = 500 mg, By Mouth, 3 times a day, # 270 tablet, 3 Refills, Maintenance, 07/15/20 8:48:00 EDT, [facility], 155, cm, 04/25/20 14:20:00 EST, Height, 76.7, kg, 11/13/19 23:35:00 EDT,Dry Weight Start Date: 07/15/20 Stop Date: 07/10/21 Status: Ordered metoprolol 50 mg oral tablet 50 mg, 1, tablet, By Mouth, 2 times a day, # 180 tablet, Refills 0, Tot. Refills 0, Maintenance, 11/10/20 10:41:00 EDT, Route to Pharmacy Electronically, [facility], 155, cm, 11/10/20 9:57:00 EDT, Height, 76.7, kg, 11/13/19 23:35:00 EDT, . Start Date: 11/10/20 Status: Ordered omeprazole 20 mg oral enteric coated capsule 1 capsule = 20 mg, By Mouth, Daily, # 90 capsule, 3 Refills, Maintenance, 05/02/19 10:54:00 EDT, ECCapsule, [facility], 154, cm, 05/02/19 10:30:00 EDT, Height Start Date: 05/02/19 Status: Ordered ticagrelor 90 mg oral tablet 1 tablet = 90 mg, By Mouth, 2 times a day, # 180 tablet, 0 Refills, Maintenance, 11/15/19 10:05:00 EDT, Tablet, [facility], 155, cm, 11/15/19 9:23:00 EDT, Height, 76.7, kg, 11/13/19 23:35:00 EDT, Dry Weight Start Date: 11/15/19 Stop Date: 02/13/20 Status: Ordered Vitamin D3 1000 intl units oral tablet 1 tablet = 1,000 International_Units, By Mouth, Daily, PER DR POND, # 30 tablet, 5 Refills, Maintenance, 02/09/16 11:45:35 EST, Tablet, [id number] Start Date: 02/09/16 Status: Ordered Problem List Condition Effective Dates Status Health Status Inform ant Congestive heart failure(Confirmed) Active Coronary artery disease(Confirmed) Active Gastro-esophageal reflux(Confirmed) Active H/O colonoscopy(Confirmed) 1 Active Hypercholesterolemia(Confirmed) Active Hypertension(Confirmed) Active Obesity (BMI 30.0-34.9)(Confirmed) Active Osteoarthritis(Confirmed) Active Osteopenia(Confirmed) 2 Active *[facility] [phone] 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 2Bone Density 2014 Social History Social History Type Response Smoking Status Former smoker; Other : Quit smoking age 35; entered on: 08/18/15 Sex
--- OUTSIDE RECORDS SUMMARY | 2022-07-30 14:07 | XMS_ITS | Continuity of Care Document ---
Author Name Unknown Organization [facility] ter Address [address] [place] [address]- Care Team Providers Care Store Facility Technician Name Role Phone Barb TORRES, Aba Garcia Primary Care Physician [phone] [place] [facility] [place]13[place] - 11/15/[address] [address]- [facility] Discharge Disposition: A-D/C Home Attending Physician: Rakel TORRES, Anjel Admitting Physician: Mariajose Castillo DO Referring Physician: Not on Staff, Referring MD Allergies, Adverse Reactions, Alerts Substance Reaction Severity Status Naprosyn dizziness and nausea Active Immunizations Given and Recorded Vaccine Date Status Refusal Reason influenza virus vaccine, inactivated 11/01/18 Give n [...] 11/15/19 Not Given Patient Refuses 1Location History: [facility] Medications Actos 45 mg oral tablet 1 tablet = 45 mg, By Mouth, Daily, # 90 tablet, 3 Refills, Maintenance, 05/02/19 10:52:00 EDT, Tablet, [facility], 154, cm, 05/02/19 10:30:00 EDT, Height Start Date: 05/02/19 Status: Ordered aspirin 81 mg oral delayed release tablet 81 mg, 1, tablet, By Mouth, Daily, # 90 tablet, Refills 0, Tot. Refills 0, Maintenance, 11/15/19 10:06:00 EDT, Route to Pharmacy Electronically, [facility], 155, cm, 11/15/19 9:23:00 EDT, Height, 76.7, kg, 11/13/19 23:35:00 EDT, Dry Weight Start Date: 11/15/19 Stop Date: 02/13/20 Status: Ordered Calcium 600 +D oral tablet 1 tablet, By Mouth, Daily, # 30 tablet, 5 Refills, Maintenance, 02/09/16 11:45:34 EST, Tablet, [id number] Start Date: 02/09/16 Status: Ordered FLUoxetine 20 mg oral capsule 20 mg, 1, capsule, By Mouth, Daily, # 90 capsule, Refills 3, Tot. Refills 3, Maintenance, 08/03/19 11:12:00 EDT, Route to Pharmacy Electronically, [facility], 154, cm, 08/03/19 10:44:00 EDT, Height Start Date: 08/03/19 Stop Date: 07/28/20 Status: Ordered glipiZIDE 5 mg oral tablet, extended release 1 tablet = 5 mg, By Mouth, Daily, # 90 tablet, 3 Refills, Maintenance, 08/03/19 11:12:00 EDT, ER Tablet, [facility], 154, cm, 08/03/19 10:44:00 EDT, Height Start Date: 08/03/19 Status: Ordered Lasix 40 mg oral tablet 40 mg, 1, tablet, By Mouth, Daily, # 90 tablet, Refills 0, Tot. Refills 0, Maintenance, 11/15/19 10:30:00 EDT, Route to Pharmacy Electronically, [facility], 155, cm, 11/15/19 9:23:00 EDT, Height, 76.7, kg, 11/13/19 23:35:00 EDT, Dry Weight Start Date: 11/15/19 Stop Date: 02/13/20 Status: Ordered Lipitor 80 mg oral tablet 1 tablet = 80 mg, By Mouth, Daily, # 90 tablet, 0 Refills, Maintenance, 11/15/19 10:07:00 EDT, Tablet, [facility], 155, cm, 11/15/19 9:23:00 EDT, Height, 76.7, kg, 11/13/19 23:35:00 EDT, Dry Weight Start Date: 11/15/19 Stop Date: 02/13/20 Status: Ordered lisinopril 40 mg oral tablet 1 tablet = 40 mg, By Mouth, 2 times a day, # 180 tablet, 3 Refills, Maintenance, 05/02/19 10:54:00 EDT, Tablet, [facility], 154, cm, 05/02/19 10:30:00 EDT, Height Start Date: 05/02/19 Status: Ordered metFORMIN 500 mg oral tablet, extended release 3 tablet = 1,500 mg, By Mouth, Daily, # 270 tablet, 3 Refills, Maintenance, 05/02/19 10:54:00 EDT, [facility], 154, cm, 05/02/19 10:30:00 EDT, Height Start Date: 05/02/19 Stop Date: 04/26/20 Status: Ordered metoprolol 50 mg oral tablet 50 mg, 1, tablet, By Mouth, 2 times a day, # 180 tablet, Refills 3, Tot. Refills 3, Maintenance, 05/02/19 10:54:00 EDT, Route to Pharmacy Electronically, [facility], 154, cm, 05/02/19 10:30:00 EDT, Height Start Date: 05/02/19 Status: Ordered omeprazole 20 mg oral enteric coated capsule 1 capsule = 20 mg, By Mouth, Daily, # 90 capsule, 3 Refills, Maintenance, 05/02/19 10:54:00 EDT, ECCapsule, [facility], 154, cm, 05/02/19 10:30:00 EDT, Height Start Date: 05/02/19 Status: Ordered ticagrelor 90 mg oral tablet 1 tablet = 90 mg, By Mouth, 2 times a day, # 180 tablet, 0 Refills, Maintenance, 11/15/19 10:05:00 EDT, Tablet, [facility], 155, cm, 11/15/19 9:23:00 EDT, Height, 76.7, kg, 11/13/19 23:35:00 EDT, Dry Weight Start Date: 11/15/19 Stop Date: 02/13/20 Status: Ordered Vitamin D3 1000 intl units oral tablet 1 tablet = 1,000 International_Units, By Mouth, Daily, PER DR POND, # 30 tablet, 5 Refills, Maintenance, 02/09/16 11:45:35 EST, Tablet, [id number] Start Date: 02/09/16 Status: Ordered Problem List Condition Effective Dates Status Health Status Inform ant Diabetes(Confirmed) Active Gastro-esophageal reflux(Confirmed) Active H/O colonoscopy(Confirmed) 1 Active Hypercholesterolemia(Confirmed) Active Hypertension(Confirmed) Active Obesity (BMI 30.0-34.9)(Confirmed) Active Osteoarthritis(Confirmed) Active Osteopenia(Confirmed) 2 Active *[facility] [phone] CARE MANAG ER JESSICA ESCOTO(Confirmed) Active Vitamin D deficiency(Confirmed) Active 1Colonoscopy 2013 diverticulosis, repeat 2023. 2Bone Density 2014 Vital Signs Most recent to oldest [Reference Range]: 1 2 3 Height 155 cm (11/15/19 9:23 AM) 155 cm (11/15/19 3:57 AM) 155 cm (11/14/19 11:04 PM) Weight 76.7 kg (11/14/19 3:27 AM) 76.7 kg (11/13/19 11:35 PM) Oxygen Saturation [94-100 %] 99 % (11/15/19 9:23 AM) 98 % (11/15/19 3:57 AM) 99 % (11/14/19 11:04 PM) Pulse Rate [55-90 bpm] 88 bpm (11/15/19 9:23 AM) 83 bpm (11/15/19 9:02 AM) 64 bpm (11/15/19 3:57 AM) Body Mass Index [18.5-24.99] 31.93 *>HHI* (11/13/19 11:35 PM) Blood Pressure [90-138/55-84 mm Hg] 132/47mm Hg (11/15/19 9:23 AM) 132/59mm Hg (11/15/19 9:02 AM) 132/59mm Hg (11/15/19 9:02 AM) Respiratory Rate [16-30 br/min] 18 br/min (11/15/19 9:23 AM) 18 br/min (11/15/19 3:57 AM) 20 br/min (11/14/19 11:04 PM) Temperature [96.8-100.4 DegF] 97.7 DegF (11/15/19 9:23 AM) 98.0 DegF (11/15/19 3:57 AM) 98.2 DegF (11/14/19 11:04 PM) Mode of Delivery (Oxygen) Room air (11/15/19 9:23 AM) Room air (11/15/19 3:57 AM) Room air (11/14/19 11:04 PM) Blood pressure sites Arm, right (11/15/19 9:23 AM) Arm, left (11/15/19 3:57 AM) Arm, right (11/14/19 11:04 PM) Temperature Route Oral (11/15/19 9:23 AM) Oral (11/15/19 3:57 AM) Oral (11/14/19 11:04 PM) Dry Weight 76.7 kg (11/13/19 11:35 PM) Social History Social History Type Response Smoking Status Former smoker; Other : Quit smoking age 35; entered on: 08/18/15 Sex
--- OUTSIDE RECORDS SUMMARY | 2022-07-30 14:07 | XMS_ITS | Continuity of Care Document ---
Author Name Unknown Organization [facility] [place] Address [address] [place] [address]- Care Team Providers Care Non Destructive Testing Scientist Name Role Phone Aba Pond MD Primary Care Physician [phone] Encounter [facility] [place] Date(s): 08/26/20 - 09/25/20 [facility] [place] [address] [place] [address]- Allergies, Adverse Reactions, Alerts Substance Reaction Severity [...] 11/15/19 Not Given Patient Refuses 1Location History: [facility] Medications Actos 45 mg oral tablet 1 tablet = 45 mg, By Mouth, Daily, # 90 tablet, 3 Refills, Maintenance, 05/07/20 9:57:00 EDT, Tablet, [facility], 155, cm, 04/25/20 14:20:00 EST, Height, 76.7, kg, 11/13/19 23:35:00 EDT, Dry Weight Start Date: 05/07/20 Stop Date: 05/02/21 Status: Ordered aspirin 81 mg oral delayed release tablet 81 mg, 1, tablet, By Mouth, Daily, # 90 tablet, Refills 0, Tot. Refills 0, Maintenance, 11/15/19 10:06:00 EDT, Route to Pharmacy Electronically, [facility], 155, cm, 11/15/19 9:23:00 EDT, Height, 76.7, kg, 11/13/19 23:35:00 EDT, Dry Weight Start Date: 11/15/19 Stop Date: 02/13/20 Status: Ordered Calcium 600 +D oral tablet 1 tablet, By Mouth, Daily, # 30 tablet, 5 Refills, Maintenance, 02/09/16 11:45:34 EST, Tablet, [id number] Start Date: 02/09/16 Status: Ordered FLUoxetine 20 mg oral capsule 20 mg, 1, capsule, By Mouth, Daily, # 90 capsule, Refills 3, Tot. Refills 3, Maintenance, 08/03/19 11:12:00 EDT, Route to Pharmacy Electronically, [facility], 154, cm, 08/03/19 10:44:00 [...] Refills, Maintenance, 09/12/20 13:26:00 EDT, ER Tablet, [facility], 155, cm, 08/29/20 10:43:00 EDT, Height, 76.7, kg, 11/13/19 23:35:00 EDT, Dry Weight Start Date: 09/12/20 Status: Ordered Lasix 40 mg oral tablet 40 mg, 1, tablet, By Mouth, Daily, # 90 tablet, Refills 1, Tot. Refills 1, Maintenance, 07/18/20 14:54:00 EDT, Route to Pharmacy Electronically, [facility], 155, cm, 07/18/20 14:13:00 EDT,Height, 76.7, kg, 11/13/19 23:35:00 EDT, Dry Weight Start Date: 07/18/20 Stop Date: 01/14/21 Status: Ordered Lipitor 80 mg oral tablet 1 tablet = 80 mg, By Mouth, Daily, # 90 tablet, 0 Refills, Maintenance, 11/15/19 10:07:00 EDT, Tablet, [facility], 155, cm, 11/15/19 9:23:00 EDT, Height, 76.7, kg, 11/13/19 23:35:00 EDT, Dry Weight Start Date: 11/15/19 Stop Date: 02/13/20 Status: Ordered lisinopril 40 mg oral tablet 1 tablet = 40 mg, By Mouth, Daily, # 180 tablet, 3 Refills, Maintenance, 09/05/20 13:25:00 EDT, Tablet, [facility], 155, cm, 08/29/20 10:43:00 EDT, Height, 76.7, kg, 11/13/19 23:35:00 EDT,Dry Weight Start Date: 09/05/20 Status: Ordered metFORMIN 500 mg oral tablet, extended release 1 tablet = 500 mg, By Mouth, 3 times a day, # 270 tablet, 3 Refills, Maintenance, 07/15/20 8:48:00 EDT, [facility], 155, cm, 04/25/20 14:20:00 EST, Height, 76.7, kg, 11/13/19 23:35:00 EDT,Dry Weight Start Date: 07/15/20 Stop Date: 07/10/21 Status: Ordered metoprolol 50 mg oral tablet 50 mg, 1, tablet, By Mouth, 2 times a day, # 180 tablet, Refills 0, Tot. Refills 0, Maintenance, 08/01/20 11:47:00 EDT, Route to Pharmacy Electronically, [facility], 155, cm, 07/18/20 14:13:00 EDT, Height, 76.7, kg, 11/13/19 23:35:00 EDT, D... Start Date: 08/01/20 Status: Ordered omeprazole 20 mg oral enteric coated capsule 1 capsule = 20 mg, By Mouth, Daily, # 90 capsule, 3 Refills, Maintenance, 05/02/19 10:54:00 EDT, ECCapsule, [facility], 154, cm, 05/02/19 10:30:00 EDT, Height Start Date: 05/02/19 Status: Ordered ticagrelor 90 mg oral tablet 1 tablet = 90 mg, By Mouth, 2 times a day, # 180 tablet, 0 Refills, Maintenance, 11/15/19 10:05:00 EDT, Tablet, [facility], 155, cm, 11/15/19 9:23:00 EDT, Height, 76.7, kg, 11/13/19 23:35:00 EDT, Dry Weight Start Date: 11/15/19 Stop Date: 02/13/20 Status: Ordered Vitamin D3 1000 intl units oral tablet 1 tablet = 1,000 International_Units, By Mouth, Daily, PER DR POND, # 30 tablet, 5 Refills, Maintenance, 02/09/16 11:45:35 EST, Tablet, [id number] Start Date: 02/09/16 Status: Ordered Problem List Condition Effective Dates Status Health Status Inform ant Congestive heart failure(Confirmed) Active Coronary artery disease(Confirmed) Active Diabetes(Confirmed) Active Gastro-esophageal reflux(Confirmed) Active H/O colonoscopy(Confirmed) 1 Active Hypercholesterolemia(Confirmed) Active Hypertension(Confirmed) Active Obesity (BMI 30.0-34.9)(Confirmed) Active Osteoarthritis(Confirmed) Active Osteopenia(Confirmed) 2 Active *[facility] [phone] 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 2Bone Density 2014 Social History Social History Type Response Smoking Status Former smoker; Other : Quit smoking age 35; entered on: 08/18/15 Sex
--- OUTSIDE RECORDS SUMMARY | 2022-07-30 14:07 | XMS_ITS | Continuity of Care Document ---
Author Name Unknown Organization [facility] Address [address] [place] [address]- Care Team Providers Care Muck Miner Name Role Phone Barb TORRES, Jenn Garcia Primary Care Physician Encounter 05/21/20 - 05/28/20 [facility] [address], [address] [place] [address]- Attending Physician: Jenn Pond MD Admitting Physician: Jenn Pond MD Referring Physician: Jenn Pond MD Allergies, Adverse Reactions, Alerts Substance [...] 11/15/19 Not Given Patient Refuses 1[facility] Medications Actos 45 mg oral tablet 1 tablet = 45 mg, By Mouth, Daily, # 90 tablet, 3 Refills, Maintenance, 05/07/20 9:57:00 EDT, Tablet, [facility], 155, cm, 04/25/20 14:20:00 EST, Height, 76.7, kg, 11/13/19 23:35:00 EDT, Dry Weight Start Date: 05/07/20 Stop Date: 05/02/21 Status: Ordered aspirin 81 mg oral delayed release tablet 81 mg, 1, tablet, By Mouth, Daily, # 90 tablet, Refills 0, Tot. Refills 0, Maintenance, 11/15/19 10:06:00 EDT, Route to Pharmacy Electronically, [facility], 155, cm, 11/15/19 9:23:00 EDT, Height, 76.7, kg, 11/13/19 23:35:00 EDT, Dry Weight Start Date: 11/15/19 Stop Date: 02/13/20 Status: Ordered Calcium 600 +D oral tablet 1 tablet, By Mouth, Daily, # 30 tablet, 5 Refills, Maintenance, 02/09/16 11:45:34 EST, Tablet, [facility] Start Date: 02/09/16 Status: Ordered FLUoxetine 20 mg oral capsule 20 mg, 1, capsule, By Mouth, Daily, # 90 capsule, Refills 3, Tot. Refills 3, Maintenance, 08/03/19 11:12:00 EDT, Route to Pharmacy Electronically, [facility], 154, cm, 08/03/19 10:44:00 EDT, Height Start Date: 08/03/19 Stop Date: 07/28/20 Status: Ordered glipiZIDE 5 mg oral tablet, extended release 1 tablet = 5 mg, By Mouth, Daily, # 90 tablet, 3 Refills, Maintenance, 08/03/19 11:12:00 EDT, ER Tablet, [facility], 154, cm, 08/03/19 10:44:00 EDT, Height Start Date: 08/03/19 Status: Ordered Lasix 40 mg oral tablet 40 mg, 1, tablet, By Mouth, Daily, # 90 tablet, Refills 0, Tot. Refills 0, Maintenance, 11/15/19 10:30:00 EDT, Route to Pharmacy Electronically, [facility], 155, cm, 11/15/19 9:23:00 EDT, Height, 76.7, kg, 11/13/19 23:35:00 EDT, Dry Weight Start Date: 11/15/19 Stop Date: 02/13/20 Status: Ordered Lipitor 80 mg oral tablet 1 tablet = 80 mg, By Mouth, Daily, # 90 tablet, 0 Refills, Maintenance, 11/15/19 10:07:00 EDT, Tablet, [facility], 155, cm, 11/15/19 9:23:00 EDT, Height, 76.7, kg, 11/13/19 23:35:00 EDT, Dry Weight Start Date: 11/15/19 Stop Date: 02/13/20 Status: Ordered lisinopril 40 mg oral tablet 1 tablet = 40 mg, By Mouth, 2 times a day, # 180 tablet, 3 Refills, Maintenance, 05/02/19 10:54:00 EDT, Tablet, [facility], 154, cm, 05/02/19 10:30:00 EDT, Height Start Date: 05/02/19 Status: Ordered metFORMIN 500 mg oral tablet, extended release 3 tablet = 1,500 mg, By Mouth, Daily, # 270 tablet, 3 Refills, Maintenance, 05/02/19 10:54:00 EDT, [facility], 154, cm, 05/02/19 10:30:00 EDT, Height Start Date: 05/02/19 Stop Date: 04/26/20 Status: Ordered metoprolol 50 mg oral tablet 50 mg, 1, tablet, By Mouth, 2 times a day, # 180 tablet, Refills 3, Tot. Refills 3, Maintenance, 05/02/19 10:54:00 EDT, Route to Pharmacy Electronically, [facility], 154, cm, 05/02/19 10:30:00 EDT, Height Start Date: 05/02/19 Status: Ordered omeprazole 20 mg oral enteric coated capsule 1 capsule = 20 mg, By Mouth, Daily, # 90 capsule, 3 Refills, Maintenance, 05/02/19 10:54:00 EDT, ECCapsule, [facility], 154, cm, 05/02/19 10:30:00 EDT, Height Start Date: 05/02/19 Status: Ordered ticagrelor 90 mg oral tablet 1 tablet = 90 mg, By Mouth, 2 times a day, # 180 tablet, 0 Refills, Maintenance, 11/15/19 10:05:00 EDT, Tablet, [facility], 155, cm, 11/15/19 9:23:00 EDT, Height, 76.7, kg, 11/13/19 23:35:00 EDT, Dry Weight Start Date: 11/15/19 Stop Date: 02/13/20 Status: Ordered Vitamin D3 1000 intl units oral tablet 1 tablet = 1,000 International_Units, By Mouth, Daily, PER DR POND, # 30 tablet, 5 Refills, Maintenance, 02/09/16 11:45:35 EST, Tablet, [facility] [id number] Start Date: 02/09/16 Status: Ordered Problem List Condition Effective Dates Status Health Status Inform ant Congestive heart failure(Confirmed) Active Coronary artery disease(Confirmed) Active Depression(Confirmed) Active Diabetes(Confirmed) Active Gastro-esophageal reflux(Confirmed) Active H/O colonoscopy(Confirmed) 1 Active Hypercholesterolemia(Confirmed) Active Hypertension(Confirmed) Active Obesity (BMI 30.0-34.9)(Confirmed) Active Osteoarthritis(Confirmed) Active Osteopenia(Confirmed) 2 Active *[facility] [phone] CARE MANAG ER JESSICA ESCOTO(Confirmed) Active Vitamin D deficiency(Confirmed) Active 1Colonoscopy 2013 diverticulosis, repeat 2023. 2Bone Density 2015 Results Radiology Reports * Exam Date Time Procedure Performing Provider Status 05/21/20 2:11 PM Dexa Bone Density (Axial) Niharika Garcia sa; Mariel (Verified) Notes: (Dexa Bone Density (Axial)) Reason For Exam: Osteopenia RESULT: DEXA BONE DENSITY (AXIAL) Bone Density Report Name: GATO HARDIN Age: 70 Sex: Female Ethnicity: White Date of : 1950 Indication: POSTMENOPAUSAL. Referring Provider: JENN PNOD Study: Bone densitometry was performed. Exam Date: May 21, 2020 Accession number: [id number] Bone Density: Region BMD T-score Z-score Classification Femoral Neck (Right) 0.733 -1.0 0.8 Normal Total Hip (Right) 0.945 0.0 1.6 Normal Total Forearm (Left) 0.631 1.0 3.0 1/3 Forearm (Left) 0.769 1.2 3.4 Normal UD Forearm (Left) 0.492 0.8 2.4 World Health Organization criteria for BMD impression classify patients as: Normal (T-score at or above -1.0), Osteopenia (T-score between -1.0 and -2.5), or Osteoporosis (T-score at or below -2.5). 10-year Fracture Risk: FRAX not reported because: All T-scores at or above -1.0 Previous Exams: Region Exam Age BMD T-score BMD Change BMD Change Date g/cm2 vs Baseline vs Previous Total Hip(Right) 05/21/2020 70 0.945 0.0 2.2% 2.2% 07/03/2014 64 0.924 -0.1 Femoral Neck(Right) 05/21/2020 70 0.733 -1.0 1.2% 1.2% 07/03/2014 64 0.724 -1.1 1/3 Forearm(Left) 05/21/2020 70 0.769 1.2 1.5% 1.5% 07/03/2014 64 0.757 1.1 *Denotes significance at 95% confidence level, LSC for Total Hip = 0.027 g/cm2, LSC for 1/3 Forearm = 0.023 g/cm2 Clinical Information Provided by Patient: Has used the following medications: Vitamin D, Calcium Patient maximum height was 61 Menopause Age: 47 Onset of menses at age 12 Number of children 2 Impression: The patient has normal bone density as determined by WHO criteria. A repeat bone density assessment should be considered in two years. Reported by: Loc Valiente MD on 05/22/2020 1:07:00 PM. Dictated By: Loc Valiente MD Dictated Date/Time: 05/22/20 1:08 pm Reviewed By: Loc Valiente MD Signed By: Loc Valiente MD Signed Date/Time: 05/22/20 1:08 pm Transcribed By: ADAM Transcribed Date/Time: 05/22/20 1:08 pm Social History Social History Type Response Smoking Status Former smoker; Other : Quit smoking age 35; entered on: 08/18/15 Sex
--- OUTSIDE RECORDS SUMMARY | 2022-07-30 14:07 | XMS_ITS | Continuity of Care Document ---
Author Name Unknown Organization [facility] Alexis Beck lt Address [address] [place] [address]- Care Team Providers Care Right Of Way Worker Name Role Phone Aba Pond MD Primary Care Physician Encounter [facility] Date(s): 05/25/19 - 06/04/19 [facility] Adult [address] [place] [address]- [facility] Attending Physician: Georgette Bergeron Admitting Physician: AdmtrGeorgette Referring Physician: Admtr, Ar8 Allergies, Adverse Reactions, Alerts Substance Reaction Severity [...] vaccine 05/10/14 Given tetanus/diphtheria/pertussis, acel(Tdap) 05/10/14 Given 1Location History: [facility] Medications Actos 45 mg oral tablet 1 tablet = 45 mg, By Mouth, Daily, # 90 tablet, 3 Refills, Maintenance, 05/02/19 10:52:00 EDT, Tablet, [facility], 154, cm, 05/02/19 10:30:00 EDT, Height Start Date: 05/02/19 Status: Ordered aspirin 81 mg oral tablet 1 tablet = 81 mg, By Mouth, Daily, # 90 tablet, 1 Refills, Maintenance, 10/22/16 10:39:54, Tablet Start Date: 10/22/16 Status: Ordered atorvastatin 40 mg oral tablet 1 tablet = 40 mg, By Mouth, Daily, # 90 tablet, 3 Refills, Maintenance, 05/02/19 10:54:00 EDT, Tablet, [facility], 154, cm, 05/02/19 10:30:00 EDT, Height Start Date: 05/02/19 Status: Ordered Calcium 600 +D oral tablet 1 tablet, By Mouth, Daily, # 30 tablet, 5 Refills, Maintenance, 02/09/16 11:45:34, Tablet, 1 tabletBy Mouth Daily Start Date: 02/09/16 Status: Ordered Freestyle Lite Lancets See Instructions, # 100 each, Refills 11, Tot. Refills 11, Maintenance, E11.9 TEST BS TID, 05/24/2013:47:00 EDT, Compound, 154, cm, 05/02/19 10:30:00 EDT, Height Start Date: 05/25/19 Stop Date: 05/09/22 Status: Ordered Freestyle Lite Monitor See Instructions, # 1 each, Refills 0, Tot. Refills 0, Maintenance, Test blood sugars 3 x daily Dx:E11.9, 12/17/17 16:22:15 EDT, Compound Start Date: 12/17/17 Stop Date: 01/16/18 Status: Ordered Freestyle Lite Test Strips See Instructions, for 90 days, # 100 each, Refills 11, Tot. Refills 11, Hard Stop 09/07/19 9:41:51 EDT, E11.9 TEST BS TID, 09/22/16 9:41:51 EDT, Compound Start Date: 09/22/16 Stop Date: 09/07/19 Status: Ordered Freestyle Lite Test Strips See Instructions, # 200 each, Refills 11, Tot. Refills 11, Maintenance, E11.9 TEST BS TID, 05/24/2013:48:00 EDT, Compound, 154, cm, 05/02/19 10:30:00 EDT, Height Start Date: 05/25/19 Stop Date: 05/09/22 Status: Ordered hydrochlorothiazide 25 mg oral tablet 25 mg, 1, tablet, By Mouth, Daily, # 90 tablet, Refills 3, Tot. Refills 3, Maintenance, 05/02/19 10:54:00 EDT, Route to Pharmacy Electronically, [facility], 154, cm, 05/02/19 10:30:00 EDT,Height Start Date: 05/02/19 Status: Ordered lisinopril 40 mg oral tablet 1 tablet = 40 mg, By Mouth, 2 times a day, # 180 tablet, 3 Refills, Maintenance, 05/02/19 10:54:00 EDT, Tablet, [facility], 154, cm, 05/02/19 10:30:00 EDT, Height Start Date: 05/02/19 Status: Ordered metFORMIN 500 mg oral tablet, extended release 3 tablet = 1,500 mg, By Mouth, Daily, # 270 tablet, 3 Refills, Maintenance, 05/02/19 10:54:00 EDT, [facility], 154, cm, 05/02/19 10:30:00 EDT, Height Start Date: 05/02/19 Stop Date: 04/26/20 Status: Ordered metoprolol 50 mg oral tablet 50 mg, 1, tablet, By Mouth, 2 times a day, # 180 tablet, Refills 3, Tot. Refills 3, Maintenance, 05/02/19 10:54:00 EDT, Route to Pharmacy Electronically, [facility], 154, cm, 05/02/19 10:30:00 EDT, Height Start Date: 05/02/19 Status: Ordered omeprazole 20 mg oral enteric coated capsule 1 capsule = 20 mg, By Mouth, Daily, # 90 capsule, 3 Refills, Maintenance, 05/02/19 10:54:00 EDT, ECCapsule, [facility], 154, cm, 05/02/19 10:30:00 EDT, Height Start Date: 05/02/19 Status: Ordered Vitamin D3 1000 intl units oral tablet 1 tablet = 1,000 International_Units, By Mouth, Daily, PER DR POND, # 30 tablet, 5 Refills, Maintenance, 02/09/16 11:45:35, Tablet Start Date: 02/09/16 Status: Ordered Problem List Condition Effective Dates Status Health Status Inform ant Diabetes(Confirmed) Active Gastro-esophageal reflux(Confirmed) Active H/O colonoscopy(Confirmed) 1 Active Hypercholesterolemia(Confirmed) Active Hypertension(Confirmed) Active Obesity (BMI 30.0-34.9)(Confirmed) Active Osteoarthritis(Confirmed) Active Osteopenia(Confirmed) 2 Active *[facility] [phone] CARE MANAG RIGOBERTO ESCOTO(Confirmed) Active Vitamin D deficiency(Confirmed) Active 1Colonoscopy 2013 diverticulosis, repeat 2023. 2Bone Density 2014 Social History Social History Type Response Smoking Status Former smoker; Other : Quit smoking age 35; entered on: 08/18/15 Sex
--- OUTSIDE RECORDS SUMMARY | 2022-07-30 14:07 | XMS_ITS | Continuity of Care Document ---
Author Name Unknown Organization [facility] Beck lt Address [address] [place] [address]- Care Team Providers Care Line Leader Name Role Phone Aba Pond MD Primary Care Physician [place] [facility] Date(s): 08/29/20 - 09/05/20 [facility] Adult [address] [place] [address]- Attending Physician: Isabel Banerjee NP Referring Physician: Aba Pond MD Allergies, Adverse [...] Maintenance, 05/07/20 9:57:00 EDT, Tablet, [facility], 155, cm, 04/25/20 14:20:00 [...] 5 Refills, Maintenance, 02/09/16 11:45:34 EST, Tablet, [id number] Start Date: 02/09/16 Status: Ordered FLUoxetine 20 mg oral capsule 20 mg, 1, capsule, By Mouth, Daily, # 90 capsule, Refills 3, Tot. Refills 3, Maintenance, 08/03/19 11:12:00 EDT, Route to Pharmacy Electronically, [facility], 154, cm, 08/03/19 10:44:00 [...] Refills, Maintenance, 08/03/19 11:12:00 EDT, ER Tablet, [facility], 154, cm, 08/03/19 10:44:00 EDT, Height Start Date: 08/03/19 Status: Ordered Lasix 40 mg oral tablet 40 mg, 1, tablet, By Mouth, Daily, # 90 tablet, Refills 1, Tot. Refills 1, Maintenance, 07/18/20 14:54:00 EDT, Route to Pharmacy Electronically, [facility], 155, cm, 07/18/20 14:13:00 EDT,Height, 76.7, kg, 11/13/19 23:35:00 EDT, Dry Weight Start Date: 07/18/20 Stop Date: 01/14/21 Status: Ordered Lipitor 80 mg oral tablet 1 tablet = 80 mg, By Mouth, Daily, # 90 tablet, 0 Refills, Maintenance, 11/15/19 10:07:00 EDT, Tablet, [facility], 155, cm, 11/15/19 9:23:00 EDT, Height, 76.7, kg, 11/13/19 23:35:00 EDT, Dry Weight Start Date: 11/15/19 Stop Date: 02/13/20 Status: Ordered lisinopril 40 mg oral tablet 1 tablet = 40 mg, By Mouth, Daily, # 180 tablet, 3 Refills, Maintenance, 09/05/20 13:25:00 EDT, Tablet, [facility], 155, cm, 08/29/20 10:43:00 EDT, Height, 76.7, kg, 11/13/19 23:35:00 EDT,Dry Weight Start Date: 09/05/20 Status: Ordered metFORMIN 500 mg oral tablet, extended release 1 tablet = 500 mg, By Mouth, 3 times a day, # 270 tablet, 3 Refills, Maintenance, 07/15/20 8:48:00 EDT, [facility], 155, cm, 04/25/20 14:20:00 EST, Height, 76.7, kg, 11/13/19 23:35:00 EDT,Dry Weight Start Date: 07/15/20 Stop Date: 07/10/21 Status: Ordered metoprolol 50 mg oral tablet 50 mg, 1, tablet, By Mouth, 2 times a day, # 180 tablet, Refills 0, Tot. Refills 0, Maintenance, 08/01/20 11:47:00 EDT, Route to Pharmacy Electronically, [facility], 155, cm, 07/18/20 14:13:00 EDT, Height, 76.7, kg, 11/13/19 23:35:00 EDT, D... Start Date: 08/01/20 Status: Ordered omeprazole 20 mg oral enteric coated capsule 1 capsule = 20 mg, By Mouth, Daily, # 90 capsule, 3 Refills, Maintenance, 05/02/19 10:54:00 EDT, ECCapsule, [facility], 154, cm, 05/02/19 10:30:00 EDT, Height Start Date: 05/02/19 Status: Ordered ticagrelor 90 mg oral tablet 1 tablet = 90 mg, By Mouth, 2 times a day, # 180 tablet, 0 Refills, Maintenance, 11/15/19 10:05:00 EDT, Tablet, [facility], 155, cm, 11/15/19 9:23:00 EDT, Height, 76.7, kg, 11/13/19 23:35:00 EDT, Dry Weight Start Date: 11/15/19 Stop Date: 02/13/20 Status: Ordered Vitamin D3 1000 intl units oral tablet 1 tablet = 1,000 International_Units, By Mouth, Daily, PER DR POND, # 30 tablet, 5 Refills, Maintenance, 02/09/16 11:45:35 EST, Tablet, [id number] Start Date: 02/09/16 Status: Ordered Problem List Condition Effective Dates Status Health Status Inform ant Congestive heart failure(Confirmed) Active Coronary artery disease(Confirmed) Active Diabetes(Confirmed) Active Gastro-esophageal reflux(Confirmed) Active H/O colonoscopy(Confirmed) 1 Active Hypercholesterolemia(Confirmed) Active Hypertension(Confirmed) Active Obesity (BMI 30.0-34.9)(Confirmed) Active Osteoarthritis(Confirmed) Active Osteopenia(Confirmed) 2 Active *[facility] [phone] 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 2Bone Density 2014 Vital Signs Most recent to oldest [Reference Range]: 1 Height 155 cm (08/29/20 10:43 AM) Weight 82.4 kg (08/29/20 10:43 AM) Oxygen Saturation [94-100 %] 97 % (08/29/20 10:43 AM) Pulse Rate [55-90 bpm] 64 bpm (08/29/20 10:43 AM) Body Mass Index [18.5-24.99] 34.3 *>HHI* (08/29/20 10:43 AM) Blood Pressure [90-138/55-84 mm Hg] 130/ 82mm Hg (08/29/20 10:43 AM) Blood pressure sites Arm, right (08/29/20 10:43 AM) Social History Social History Type Response Smoking Status Former smoker; Other : Quit smoking age 35; entered on: 08/18/15 Sex
--- OUTSIDE RECORDS SUMMARY | 2022-07-30 14:07 | XMS_ITS | Continuity of Care Document ---
Author Name Unknown Organization [facility] Alexis Beck lt Address [address] [place] [address]- Care Team Providers Care Reports Analysis Manager Name Role Phone Aba Pond MD Primary Care Physician Encounter [facility] Date(s): 03/25/20 - 04/24/20 [facility] Adult [address] [place] [address]- Allergies, Adverse Reactions, Alerts Substance Reaction Severity [...] 11/15/19 Not Given Patient Refuses 1Location History: [facility] Medications Actos 45 mg oral tablet 1 tablet = 45 mg, By Mouth, Daily, # 90 tablet, 3 Refills, Maintenance, 05/02/19 10:52:00 EDT, Tablet, [facility], 154, cm, 05/02/19 10:30:00 EDT, Height Start Date: 05/02/19 Status: Ordered aspirin 81 mg oral delayed release tablet 81 mg, 1, tablet, By Mouth, Daily, # 90 tablet, Refills 0, Tot. Refills 0, Maintenance, 11/15/19 10:06:00 EDT, Route to Pharmacy Electronically, [facility], 155, cm, 11/15/19 9:23:00 EDT, Height, 76.7, kg, 11/13/19 23:35:00 EDT, Dry Weight Start Date: 11/15/19 Stop Date: 02/13/20 Status: Ordered Calcium 600 +D oral tablet 1 tablet, By Mouth, Daily, # 30 tablet, 5 Refills, Maintenance, 02/09/16 11:45:34 EST, Tablet, [facility] Start Date: 02/09/16 Status: Ordered FLUoxetine 20 mg oral capsule 20 mg, 1, capsule, By Mouth, Daily, # 90 capsule, Refills 3, Tot. Refills 3, Maintenance, 08/03/19 11:12:00 EDT, Route to Pharmacy Electronically, [facility], 154, cm, 08/03/19 10:44:00 EDT, Height Start Date: 08/03/19 Stop Date: 07/28/20 Status: Ordered glipiZIDE 5 mg oral tablet, extended release 1 tablet = 5 mg, By Mouth, Daily, # 90 tablet, 3 Refills, Maintenance, 08/03/19 11:12:00 EDT, ER Tablet, [facility], 154, cm, 08/03/19 10:44:00 EDT, Height Start Date: 08/03/19 Status: Ordered Lasix 40 mg oral tablet 40 mg, 1, tablet, By Mouth, Daily, # 90 tablet, Refills 0, Tot. Refills 0, Maintenance, 11/15/19 10:30:00 EDT, Route to Pharmacy Electronically, [facility], 155, cm, 11/15/19 9:23:00 EDT, Height, 76.7, kg, 11/13/19 23:35:00 EDT, Dry Weight Start Date: 11/15/19 Stop Date: 02/13/20 Status: Ordered Lipitor 80 mg oral tablet 1 tablet = 80 mg, By Mouth, Daily, # 90 tablet, 0 Refills, Maintenance, 11/15/19 10:07:00 EDT, Tablet, [facility], 155, cm, 11/15/19 9:23:00 EDT, Height, 76.7, kg, 11/13/19 23:35:00 EDT, Dry Weight Start Date: 11/15/19 Stop Date: 02/13/20 Status: Ordered lisinopril 40 mg oral tablet 1 tablet = 40 mg, By Mouth, 2 times a day, # 180 tablet, 3 Refills, Maintenance, 05/02/19 10:54:00 EDT, Tablet, [facility], 154, cm, 05/02/19 10:30:00 EDT, Height Start Date: 05/02/19 Status: Ordered metFORMIN 500 mg oral tablet, extended release 3 tablet = 1,500 mg, By Mouth, Daily, # 270 tablet, 3 Refills, Maintenance, 05/02/19 10:54:00 EDT, [facility], 154, cm, 05/02/19 10:30:00 EDT, Height Start Date: 05/02/19 Stop Date: 04/26/20 Status: Ordered metoprolol 50 mg oral tablet 50 mg, 1, tablet, By Mouth, 2 times a day, # 180 tablet, Refills 3, Tot. Refills 3, Maintenance, 05/02/19 10:54:00 EDT, Route to Pharmacy Electronically, [facility], 154, cm, 05/02/19 10:30:00 EDT, Height Start Date: 05/02/19 Status: Ordered omeprazole 20 mg oral enteric coated capsule 1 capsule = 20 mg, By Mouth, Daily, # 90 capsule, 3 Refills, Maintenance, 05/02/19 10:54:00 EDT, ECCapsule, [facility], 154, cm, 05/02/19 10:30:00 EDT, Height Start Date: 05/02/19 Status: Ordered ticagrelor 90 mg oral tablet 1 tablet = 90 mg, By Mouth, 2 times a day, # 180 tablet, 0 Refills, Maintenance, 11/15/19 10:05:00 EDT, Tablet, [facility], 155, cm, 11/15/19 9:23:00 EDT, Height, 76.7, kg, 11/13/19 23:35:00 EDT, Dry Weight Start Date: 11/15/19 Stop Date: 02/13/20 Status: Ordered Vitamin D3 1000 intl units oral tablet 1 tablet = 1,000 International_Units, By Mouth, Daily, PER DR POND, # 30 tablet, 5 Refills, Maintenance, 02/09/16 11:45:35 EST, Tablet, [id number] Start Date: 02/09/16 Status: Ordered Problem List Condition Effective Dates Status Health Status Inform ant Congestive heart failure(Confirmed) Active Coronary artery disease(Confirmed) Active Depression(Confirmed) Active Diabetes(Confirmed) Active Gastro-esophageal reflux(Confirmed) Active H/O colonoscopy(Confirmed) 1 Active Hypercholesterolemia(Confirmed) Active Hypertension(Confirmed) Active Obesity (BMI 30.0-34.9)(Confirmed) Active Osteoarthritis(Confirmed) Active Osteopenia(Confirmed) 2 Active *[facility] [phone] CARE MANAG RIGOBERTO ESCOTO(Confirmed) Active Vitamin D deficiency(Confirmed) Active 1Colonoscopy 2013 diverticulosis, repeat 2023. 2Bone Density 2014 Social History Social History Type Response Smoking Status Former smoker; Other : Quit smoking age 35; entered on: 08/18/15 Sex
--- OUTSIDE RECORDS SUMMARY | 2022-07-30 14:07 | XMS_ITS | Continuity of Care Document ---
Author Name Unknown Organization [facility] Address [address] [place] [address]- Care Team Providers Care Range Scientist Name Role Phone Barb TORRES, Aba Garcia Primary Care Physician Encounter 02/04/22 - 02/11/22 [facility] [address], [address] [place] [address]- Attending Physician: Aba Pond MD Admitting Physician: Aba Pond MD Referring Physician: Aba Pond MD Allergies, Adverse Reactions, Alerts Substance Reaction Severity Status Naprosyn dizziness and nausea Active Immunizations Given and Recorded Vaccine Date Status Refusal Reason [id number] 12y+ bivalent booster vax 12/15/21 Given influenza [...] Refills, Maintenance, 12/15/21 11:31:00 EDT, Tablet, [facility], 155, cm, 12/15/21 11:19:00 EDT, [...] 5 Refills, Maintenance, 02/09/16 11:45:34 EST, Tablet, [id number] Start Date: 02/09/16 Status: Ordered Freestyle Lite [...] Maintenance, 12/15/21 11:31:00 EDT, ER Tablet, [facility], 155, cm, 12/15/21 11:19:00 EDT, Height Start Date: 12/15/21 Status: Ordered Lipitor 80 mg oral tablet 1 tablet = 80 mg, By Mouth, Daily, # 90 tablet, 3 Refills, Maintenance, 12/15/21 11:31:00 EDT, Tablet, [facility], 155, cm, 12/15/21 11:19:00 EDT, Height Start Date: 12/15/21 Stop Date: 12/10/22 Status: Ordered lisinopril 40 mg oral tablet 1 tablet = 40 mg, By Mouth, Daily, # 90 tablet, 3 Refills, Maintenance, 12/15/21 11:31:00 EDT, Tablet, [facility], 155, cm, 12/15/21 11:19:00 EDT, Height Start Date: 12/15/21 Stop Date: 12/10/22 Status: Ordered metFORMIN 500 mg oral tablet, extended release 1 tablet = 500 mg, By Mouth, 3 times a day, # 270 tablet, 3 Refills, Maintenance, 12/15/21 11:31:00EDT, [facility], 155, cm, 12/15/21 11:19:00 EDT, Height Start Date: 12/15/21 Stop Date: 12/10/22 Status: Ordered Metoprolol Tartrate 50 mg oral tablet See Instructions, Take 1 tablet by mouth twice daily, # 180 tablet, 3 Refills, Maintenance, 12/15/21 11:31:00 EDT, [facility], 155, cm, 12/15/21 11:19:00 EDT, Height Start Date: 12/15/21 Status: Ordered Vitamin D3 1000 intl units oral tablet 1 tablet = 1,000 International_Units, By Mouth, Daily, PER DR POND, # 30 tablet, 5 Refills, Maintenance, 02/09/16 11:45:35 EST, Tablet, [facility] [address] Start Date: 02/09/16 Status: Ordered Zetia 10 mg oral tablet 1 tablet = 10 mg, By Mouth, Daily, # 90 tablet, 3 Refills, Maintenance, 12/15/21 11:31:00 EDT, Tablet, 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 3Bone Density 2014 Results Radiology Reports * Exam Date Time Procedure Performing Provider Status 02/04/22 11:28 AM MM Digital Mammo Screening Justin Wolff race; Auth (Verified) Notes: (MM Digital Mammo Screening) Reason For Exam: routine screening RESULT: MM Digital Mammo Screening PROCEDURE: MM Digital Mammo Screening INDICATION: Screening for breast cancer. No known palpable abnormalities. COMPARISON: [facility] dating back to 10/18/2018. TECHNIQUE: Full-field digital CC and MLO 3D tomosynthesis images of both breasts were acquired. Computer-aided detection (CAD) was utilized in the interpretation of this study. DENSITY: The breast tissue contains scattered areas of fibroglandular density. FINDINGS: No suspicious masses, suspicious microcalcifications, or areas of architectural distortion are seen in either breast to suggest malignancy. IMPRESSION: No mammographic evidence of malignancy. RECOMMENDATION: Annual mammographic screening BI-RADS: 1 (Negative) Lay letter mailed to patient WSN: [id number] Ordering Physician: Aba Pond Dictated By: Molly Lawrence MD, I Dictated Date/Time: 02/04/22 5:20 pm Reviewed By: Molly Lwarence MD, I Signed By: Molly Lawrence MD, I Signed Date/Time: 02/04/22 5:20 pm Transcribed By: ADAM Clinical Professor Date/Time: 02/04/22 5:18 pm Birads: Social History Social History Type Response Smoking Status Former smoker; Other : Quit smoking age 35; entered on: 08/18/15 Sex MG Breast Screening * [facility] , CIS S: TRANSCRIBE Molly Lawrence MD, I: VERIFY Event Display: Result: Authored Date: [id number] PROCEDURE: MM Digital Mammo Screening INDICATION: Screening for breast cancer. No known palpable abnormalities. COMPARISON: [facility] dating back to 10/18/2018. TECHNIQUE: Full-field digital CC and MLO 3D tomosynthesis images of both breasts were acquired. Computer-aided detection (CAD) was utilized in the interpretation of this study. DENSITY: The breast tissue contains scattered areas of fibroglandular density. FINDINGS: No suspicious masses, suspicious microcalcifications, or areas of architectural distortion are seen in either breast to suggest malignancy. IMPRESSION: No mammographic evidence of malignancy. RECOMMENDATION: Annual mammographic screening BI-RADS: 1 (Negative) Lay letter mailed to patient WSN: [id number] Ordering Physician: Aba Pond Dictated By: Molly Lawrence MD, I Dictated Date/Time: 02/04/22 5:20 pm Reviewed By: Molly Lawrence MD, I Signed By: Molly Lawrence MD, I Signed Date/Time: 02/04/22 5:20 pm Transcribed By: CSMaldonado Clinical Professor Date/Time: 02/04/22 5:18 pm Birads: Patient Care team information Care Team Personnel Name: Aba Pond MD Position: S Primary Care Physician Member Role: PCP Address: Address: [address] [place] [id number] Care Team Related Persons Name: BRICE HARDIN JR Address: [place] [address] [place] [address]
--- OUTSIDE RECORDS SUMMARY | 2022-07-30 14:07 | XMS_ITS | Continuity of Care Document ---
Author Name Unknown Organization [facility] Beck lt Address [address] [place] [address]- Care Team Providers Care Founder Chairman And Chief Creative Officer Name Role Phone Aba Pond MD Primary Care Physician [phone] [place] [facility] [place]16[place]20 [facility] Adult [address] [place] [address]- Allergies, Adverse Reactions, Alerts Substance Reaction Severity [...] 3 Refills, Maintenance, 05/07/20 9:57:00 EDT, Tablet, [facility], 155, cm, 04/25/20 14:20:00 EST, Height, 76.7, kg, 11/13/19 23:35:00 EDT, Dry Weight Start Date: 05/07/20 Stop Date: 05/02/21 Status: Ordered aspirin 81 mg oral delayed release tablet 81 mg, 1, tablet, By Mouth, Daily, # 90 tablet, Refills 0, Tot. Refills 0, Maintenance, 11/15/19 10:06:00 EDT, Route to Pharmacy Electronically, [facility], 155, cm, 11/15/19 9:23:00 EDT, Height, 76.7, kg, 11/13/19 23:35:00 EDT, Dry Weight Start Date: 11/15/19 Stop Date: 02/13/20 Status: Ordered Calcium 600 +D oral tablet 1 tablet, By Mouth, Daily, # 30 tablet, 5 Refills, Maintenance, 02/09/16 11:45:34 EST, Tablet, [facility] [id number] Start Date: 02/09/16 Status: Ordered FLUoxetine 20 mg oral capsule 20 mg, 1, capsule, By Mouth, Daily, # 90 capsule, Refills 3, Tot. Refills 3, Maintenance, 08/03/19 11:12:00 EDT, Route to Pharmacy Electronically, [facility], 154, cm, 08/03/19 10:44:00 [...] Refills, Maintenance, 09/12/20 13:26:00 EDT, ER Tablet, [facility], 155, cm, 08/29/20 10:43:00 EDT, Height, 76.7, kg, 11/13/19 23:35:00 EDT, Dry Weight Start Date: 09/12/20 Status: Ordered Lasix 40 mg oral tablet 40 mg, 1, tablet, By Mouth, Daily, # 90 tablet, Refills 1, Tot. Refills 1, Maintenance, 07/18/20 14:54:00 EDT, Route to Pharmacy Electronically, [facility], 155, cm, 07/18/20 14:13:00 EDT,Height, 76.7, kg, 11/13/19 23:35:00 EDT, Dry Weight Start Date: 07/18/20 Stop Date: 01/14/21 Status: Ordered Lipitor 80 mg oral tablet 1 tablet = 80 mg, By Mouth, Daily, # 90 tablet, 0 Refills, Maintenance, 11/15/19 10:07:00 EDT, Tablet, [facility], 155, cm, 11/15/19 9:23:00 EDT, Height, 76.7, kg, 11/13/19 23:35:00 EDT, Dry Weight Start Date: 11/15/19 Stop Date: 02/13/20 Status: Ordered lisinopril 40 mg oral tablet 1 tablet = 40 mg, By Mouth, Daily, # 180 tablet, 3 Refills, Maintenance, 09/05/20 13:25:00 EDT, Tablet, [facility], 155, cm, 08/29/20 10:43:00 EDT, Height, 76.7, kg, 11/13/19 23:35:00 EDT,Dry Weight Start Date: 09/05/20 Status: Ordered metFORMIN 500 mg oral tablet, extended release 1 tablet = 500 mg, By Mouth, 3 times a day, # 270 tablet, 3 Refills, Maintenance, 07/15/20 8:48:00 EDT, [facility], 155, cm, 04/25/20 14:20:00 EST, Height, 76.7, kg, 11/13/19 23:35:00 EDT,Dry Weight Start Date: 07/15/20 Stop Date: 07/10/21 Status: Ordered metoprolol 50 mg oral tablet 50 mg, 1, tablet, By Mouth, 2 times a day, # 180 tablet, Refills 0, Tot. Refills 0, Maintenance, 11/10/20 10:41:00 EDT, Route to Pharmacy Electronically, [facility], 155, cm, 11/10/20 9:57:00 EDT, Height, 76.7, kg, 11/13/19 23:35:00 EDT, . Start Date: 11/10/20 Status: Ordered omeprazole 20 mg oral enteric coated capsule 1 capsule = 20 mg, By Mouth, Daily, # 90 capsule, 3 Refills, Maintenance, 05/02/19 10:54:00 EDT, ECCapsule, [facility], 154, cm, 05/02/19 10:30:00 EDT, Height Start Date: 05/02/19 Status: Ordered ticagrelor 90 mg oral tablet 1 tablet = 90 mg, By Mouth, 2 times a day, # 180 tablet, 0 Refills, Maintenance, 11/15/19 10:05:00 EDT, Tablet, [facility], 155, cm, 11/15/19 9:23:00 EDT, Height, 76.7, kg, 11/13/19 23:35:00 EDT, Dry Weight Start Date: 11/15/19 Stop Date: 02/13/20 Status: Ordered Vitamin D3 1000 intl units oral tablet 1 tablet = 1,000 International_Units, By Mouth, Daily, PER DR POND, # 30 tablet, 5 Refills, Maintenance, 02/09/16 11:45:35 EST, Tablet, [facility] [id number] Start Date: 02/09/16 Status: Ordered Problem List Condition Effective Dates Status Health Status Inform ant Congestive heart failure(Confirmed) Active Coronary artery disease(Confirmed) Active Gastro-esophageal reflux(Confirmed) Active H/O colonoscopy(Confirmed) 1 Active Hypercholesterolemia(Confirmed) Active Hypertension(Confirmed) Active Obesity (BMI 30.0-34.9)(Confirmed) Active Osteoarthritis(Confirmed) Active Osteopenia(Confirmed) 2 Active *[facility] [phone] 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 2Bone Density 2014 Social History Social History Type Response Smoking Status Former smoker; Other : Quit smoking age 35; entered on: 08/18/15 Sex
--- OUTSIDE RECORDS SUMMARY | 2022-07-30 14:07 | XMS_ITS | Continuity of Care Document ---
Author Name Unknown Organization [facility] Beck lt Address [address] [place] [address]- Care Team Providers Care Tubing Oiler Name Role Phone Aba Pond MD Primary Care Physician [place] [facility] [place] [facility] Adult [address] [place] [address]- Allergies, Adverse Reactions, Alerts Substance Reaction Severity [...] 11/15/19 Not Given Patient Refuses 1[facility] History[facility] Actos 45 mg oral tablet 1 tablet = 45 mg, By Mouth, Daily, # 90 tablet, 3 Refills, Maintenance, 05/07/20 9:57:00 EDT, Tablet, [facility], 155, cm, 04/25/20 14:20:00 EST, Height, 76.7, kg, 11/13/19 23:35:00 EDT, Dry Weight Start Date: 05/07/20 Stop Date: 05/02/21 Status: Ordered aspirin 81 mg oral delayed release tablet 81 mg, 1, tablet, By Mouth, Daily, # 90 tablet, Refills 0, Tot. Refills 0, Maintenance, 11/15/19 10:06:00 EDT, Route to Pharmacy Electronically, [facility], 155, cm, 11/15/19 9:23:00 EDT, Height, 76.7, kg, 11/13/19 23:35:00 EDT, Dry Weight Start Date: 11/15/19 Stop Date: 02/13/20 Status: Ordered Calcium 600 +D oral tablet 1 tablet, By Mouth, Daily, # 30 tablet, 5 Refills, Maintenance, 02/09/16 11:45:34 EST, [facility] [id number] Start Date: 02/09/16 Status: Ordered FLUoxetine 20 mg oral capsule 20 mg, 1, capsule, By Mouth, Daily, # 90 capsule, Refills 3, Tot. Refills 3, Maintenance, 08/03/19 11:12:00 EDT, Route to Pharmacy Electronically, [facility], 154, cm, 08/03/19 10:44:00 [...] Refills, Maintenance, 09/12/20 13:26:00 EDT, ER Tablet, [facility], 155, cm, 08/29/20 10:43:00 EDT, Height, 76.7, kg, 11/13/19 23:35:00 EDT, Dry Weight Start Date: 09/12/20 Status: Ordered Lasix 40 mg oral tablet 40 mg, 1, tablet, By Mouth, Daily, # 90 tablet, Refills 1, Tot. Refills 1, Maintenance, 07/18/20 14:54:00 EDT, Route to Pharmacy Electronically, [facility], 155, cm, 07/18/20 14:13:00 EDT,Height, 76.7, kg, 11/13/19 23:35:00 EDT, Dry Weight Start Date: 07/18/20 Stop Date: 01/14/21 Status: Ordered Lipitor 80 mg oral tablet 1 tablet = 80 mg, By Mouth, Daily, # 90 tablet, 0 Refills, Maintenance, 11/15/19 10:07:00 EDT, Tablet, [facility] 3, 155, cm, 11/15/19 9:23:00 EDT, Height, 76.7, kg, 11/13/19 23:35:00 EDT, Dry Weight Start Date: 11/15/19 Stop Date: 02/13/20 Status: Ordered lisinopril 40 mg oral tablet 1 tablet = 40 mg, By Mouth, Daily, # 180 tablet, 3 Refills, Maintenance, 09/05/20 13:25:00 EDT, Tablet, [facility], 155, cm, 08/29/20 10:43:00 EDT, Height, 76.7, kg, 11/13/19 23:35:00 EDT,Dry Weight Start Date: 09/05/20 Status: Ordered metFORMIN 500 mg oral tablet, extended release 1 tablet = 500 mg, By Mouth, 3 times a day, # 270 tablet, 3 Refills, Maintenance, 07/15/20 8:48:00 EDT, [facility], 155, cm, 04/25/20 14:20:00 EST, Height, 76.7, kg, 11/13/19 23:35:00 EDT,Dry Weight Start Date: 07/15/20 Stop Date: 07/10/21 Status: Ordered metoprolol 50 mg oral tablet 50 mg, 1, tablet, By Mouth, 2 times a day, # 180 tablet, Refills 0, Tot. Refills 0, Maintenance, 11/10/20 10:41:00 EDT, Route to Pharmacy Electronically, [facility], 155, cm, 11/10/20 9:57:00 EDT, Height, 76.7, kg, 11/13/19 23:35:00 EDT, . Start Date: 11/10/20 Status: Ordered omeprazole 20 mg oral enteric coated capsule 1 capsule = 20 mg, By Mouth, Daily, # 90 capsule, 3 Refills, Maintenance, 05/02/19 10:54:00 EDT, ECCapsule, [facility], 154, cm, 05/02/19 10:30:00 EDT, Height Start Date: 05/02/19 Status: Ordered ticagrelor 90 mg oral tablet 1 tablet = 90 mg, By Mouth, 2 times a day, # 180 tablet, 0 Refills, Maintenance, 11/15/19 10:05:00 EDT, Tablet, [facility], 155, cm, 11/15/19 9:23:00 EDT, Height, 76.7, kg, 11/13/19 23:35:00 EDT, Dry Weight Start Date: 11/15/19 Stop Date: 02/13/20 Status: Ordered Vitamin D3 1000 intl units oral tablet 1 tablet = 1,000 International_Units, By Mouth, Daily, PER DR POND, # 30 tablet, 5 Refills, Maintenance, 02/09/16 11:45:35 EST, Tablet, [facility] [id number] Start Date: 02/09/16 Status: Ordered Problem List Condition Effective Dates Status Health Status Inform ant Congestive heart failure(Confirmed) Active Coronary artery disease(Confirmed) Active Gastro-esophageal reflux(Confirmed) Active H/O colonoscopy(Confirmed) 1 Active Hypercholesterolemia(Confirmed) Active Hypertension(Confirmed) Active Obesity (BMI 30.0-34.9)(Confirmed) Active Osteoarthritis(Confirmed) Active Osteopenia(Confirmed) 2 Active *[facility] [phone] 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 2Bone Density 2014 Social History Social History Type Response Smoking Status Former smoker; Other : Quit smoking age 35; entered on: 08/18/15 Sex
--- OUTSIDE RECORDS SUMMARY | 2022-07-30 14:07 | XMS_ITS | Continuity of Care Document ---
Author Name Unknown Organization [facility] Beck lt Address [address] [place] [address]- Care Team Providers Care Assisted Living Nursing Director Name Role Phone Aba Pond MD Primary Care Physician Encounter [facility] Date(s): 05/05/20 - 06/04/20 [facility] Adult [address] [place] [address]- Allergies, Adverse Reactions, Alerts Substance Reaction Severity [...] 11/15/19 Not Given Patient Refuses [facility] Actos 45 mg oral tablet 1 [...] 10:06:00 EDT, Route to Pharmacy Electronically, [facility], 155, cm, 11/15/19 9:23:00 EDT, Height, 76.7, kg, 11/13/19 23:35:00 EDT, Dry Weight Start Date: 11/15/19 Stop Date: 02/13/20 Status: Ordered Calcium 600 +D oral tablet 1 tablet, By Mouth, Daily, # 30 tablet, 5 Refills, Maintenance, 02/09/16 11:45:34 EST, Tablet, [id number] Start Date: 02/09/16 Status: Ordered FLUoxetine 20 [...] Refills, Maintenance, 08/03/19 11:12:00 EDT, ER Tablet, [facility], 154, cm, 08/03/19 10:44:00 EDT, Height Start Date: 08/03/19 Status: Ordered Lasix 40 mg oral tablet 40 mg, 1, tablet, By Mouth, Daily, # 90 tablet, Refills 0, Tot. Refills 0, Maintenance, 11/15/19 10:30:00 EDT, Route to Pharmacy Electronically, [facility], 155, cm, 11/15/19 9:23:00 EDT, Height, 76.7, kg, 11/13/19 23:35:00 EDT, Dry Weight Start Date: 11/15/19 Stop Date: 02/13/20 Status: Ordered Lipitor 80 mg oral tablet 1 tablet = 80 mg, By Mouth, Daily, # 90 tablet, 0 Refills, Maintenance, 11/15/19 10:07:00 EDT, Tablet, [facility], 155, cm, 11/15/19 9:23:00 EDT, Height, 76.7, kg, 11/13/19 23:35:00 EDT, Dry Weight Start Date: 11/15/19 Stop Date: 02/13/20 Status: Ordered lisinopril 40 mg oral tablet 1 tablet = 40 mg, By Mouth, 2 times a day, # 180 tablet, 3 Refills, Maintenance, 05/02/19 10:54:00 EDT, Tablet, [facility], 154, cm, 05/02/19 10:30:00 EDT, Height Start Date: 05/02/19 Status: Ordered metFORMIN 500 mg oral tablet, extended release 3 tablet = 1,500 mg, By Mouth, Daily, # 270 tablet, 3 Refills, Maintenance, 05/02/19 10:54:00 EDT, [facility], 154, cm, 05/02/19 10:30:00 EDT, Height Start Date: 05/02/19 Stop Date: 04/26/20 Status: Ordered metoprolol 50 mg oral tablet 50 mg, 1, tablet, By Mouth, 2 times a day, # 180 tablet, Refills 3, Tot. Refills 3, Maintenance, 05/02/19 10:54:00 EDT, Route to Pharmacy Electronically, [facility], 154, cm, 05/02/19 [...] Refills, Maintenance, 11/15/19 10:05:00 EDT, Tablet, [facility], 155, cm, 11/15/19 9:23:00 EDT, Height, 76.7, kg, 11/13/19 23:35:00 EDT, Dry Weight Start Date: 11/15/19 Stop Date: 02/13/20 Status: Ordered Vitamin D3 1000 intl units oral tablet 1 tablet = 1,000 International_Units, By Mouth, Daily, PER DR POND, # 30 tablet, 5 Refills, Maintenance, 02/09/16 11:45:35 EST, Tablet, [facility] [address] Start Date: 02/09/16 Status: Ordered Problem List Condition Effective Dates Status Health Status Inform ant Congestive heart failure(Confirmed) Active Coronary artery disease(Confirmed) Active Depression(Confirmed) Active Diabetes(Confirmed) Active Gastro-esophageal reflux(Confirmed) Active H/O colonoscopy(Confirmed) 1 Active Hypercholesterolemia(Confirmed) Active Hypertension(Confirmed) Active Obesity (BMI 30.0-34.9)(Confirmed) Active Osteoarthritis(Confirmed) Active Osteopenia(Confirmed) 2 Active *[facility] [phone] CARE MANAG ER JESSICA ESCOTO(Confirmed) Active Vitamin D deficiency(Confirmed) Active 1Colonoscopy 2013 diverticulosis, repeat 2023. 2Bone Density 2014 Social History Social History Type Response Smoking Status Former smoker; Other : Quit smoking age 35; entered on: 08/18/15 Sex
--- OUTSIDE RECORDS SUMMARY | 2022-07-30 14:07 | XMS_ITS | Continuity of Care Document ---
Author Name Unknown Organization [facility] Beck lt Address [address] [place] [address]- Care Team Providers Care Center Consultant Name Role Phone Aba Pond MD Primary Care Physician [place] [facility] [place]25[place]20 - 08/24/20 [facility] Adult [address] [place] [address]- Allergies, Adverse Reactions, Alerts Substance Reaction Severity [...] 10:06:00 EDT, Route to Pharmacy Electronically, [facility] 3, 155, cm, 11/15/19 9:23:00 EDT, Height, 76.7, kg, 11/13/19 23:35:00 EDT, Dry Weight Start Date: 11/15/19 Stop Date: 02/13/20 Status: Ordered Calcium 600 +D oral tablet 1 tablet, By Mouth, Daily, # 30 tablet, 5 Refills, Maintenance, 02/09/16 11:45:34 EST, Tablet, [facility] [id number] Start Date: 02/09/16 Status: Ordered FLUoxetine 20 [...] Date: 08/13/20 Stop Date: 07/29/23 Status: Ordered glipiZIDE 5 mg oral tablet, extended release 1 tablet = 5 mg, By Mouth, Daily, # 90 tablet, 3 Refills, Maintenance, 08/03/19 11:12:00 EDT, ER Tablet, [facility], 154, cm, [...] 0 Refills, Maintenance, 11/15/19 10:07:00 EDT, Tablet, [facility] 3, 155, cm, 11/15/19 9:23:00 EDT, Height, 76.7, kg, 11/13/19 23:35:00 EDT, Dry Weight Start Date: 11/15/19 Stop Date: 02/13/20 Status: Ordered lisinopril 40 mg oral tablet 1 tablet = 40 mg, By Mouth, Daily, # 180 tablet, 3 Refills, Maintenance, 07/18/20 14:42:00 EDT, Tablet Start Date: 07/18/20 Status: Ordered metFORMIN 500 mg oral tablet, [...] 0 Refills, Maintenance, 11/15/19 10:05:00 EDT, Tablet, [facility] 3, 155, cm, 11/15/19 9:23:00 EDT, Height, 76.7, kg, 11/13/19 23:35:00 EDT, Dry Weight Start Date: 11/15/19 Stop Date: 02/13/20 Status: Ordered Vitamin D3 1000 intl units oral tablet 1 tablet = 1,000 International_Units, By Mouth, Daily, PER DR POND, # 30 tablet, 5 Refills, Maintenance, 02/09/16 11:45:35 EST, Tablet, [facility] [id number] Start Date: 02/09/16 Status: Ordered Problem List Condition Effective Dates Status Health Status Inform ant Congestive heart failure(Confirmed) Active Coronary artery disease(Confirmed) Active Depression(Confirmed) Active Diabetes(Confirmed) Active Gastro-esophageal reflux(Confirmed) Active H/O colonoscopy(Confirmed) 1 Active Hypercholesterolemia(Confirmed) Active Hypertension(Confirmed) Active Obesity (BMI 30.0-34.9)(Confirmed) Active Osteoarthritis(Confirmed) Active Osteopenia(Confirmed) 2 Active *[facility] [phone] CARE MANAG ER JESSICA ESCOTO(Confirmed) Active Vitamin D deficiency(Confirmed) Active 1Colonoscopy 2013 diverticulosis, repeat 2023. 2Bone Density 2014 Social History Social History Type Response Smoking Status Former smoker; Other : Quit smoking age 35; entered on: 08/18/15 Sex
--- OUTSIDE RECORDS SUMMARY | 2022-07-30 14:07 | XMS_ITS | Continuity of Care Document ---
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 Name Role Phone Aba Pond MD Primary Care Physician [phone] [place] [facility] [place] 08/03/19 - 08/10/19 [facility] Adult [address] [place] [address]- [facility] Attending Physician: Aba Pond MD Allergies, Adverse [...] Given tetanus/diphtheria/pertussis, acel(Tdap) 05/10/14 Given 1Location History: [facility] Medications Actos 45 mg oral tablet 1 tablet = 45 mg, By Mouth, Daily, # 90 tablet, 3 Refills, Maintenance, 05/02/19 10:52:00 EDT, Tablet, [facility], 154, cm, 05/02/19 10:30:00 [...] 3 Refills, Maintenance, 05/02/19 10:54:00 EDT, Tablet, [facility], 154, cm, 05/02/19 10:30:00 EDT, Height Start Date: 05/02/19 Status: Ordered Calcium 600 +D oral tablet 1 tablet, By Mouth, Daily, # 30 tablet, 5 Refills, Maintenance, 02/09/16 11:45:34, Tablet, 1 tabletBy Mouth Daily Start Date: 02/09/16 Status: Ordered FLUoxetine 20 mg oral capsule 20 mg, 1, capsule, By Mouth, Daily, # 90 capsule, Refills 3, Tot. Refills 3, Maintenance, 08/03/19 11:12:00 EDT, Route to Pharmacy Electronically, [facility], 154, cm, 08/03/19 10:44:00 [...] Date: 05/25/19 Stop Date: 05/09/22 Status: Ordered glipiZIDE 5 mg oral tablet, extended release 1 tablet = 5 mg, By Mouth, Daily, # 90 tablet, 3 Refills, Maintenance, 08/03/19 11:12:00 EDT, ER Tablet, [facility], 154, cm, 08/03/19 10:44:00 EDT, Height Start Date: 08/03/19 Status: Ordered hydrochlorothiazide 25 mg oral tablet 25 mg, 1, tablet, By Mouth, Daily, # 90 tablet, Refills 3, Tot. Refills 3, Maintenance, 05/02/19 10:54:00 EDT, Route to Pharmacy Electronically, [facility], 154, cm, 05/02/19 10:30:00 EDT,Height Start Date: 05/02/19 Status: Ordered lisinopril 40 mg oral tablet 1 tablet = 40 mg, By Mouth, 2 times a day, # 180 tablet, 3 Refills, Maintenance, 05/02/19 10:54:00 EDT, Tablet, [facility], 154, cm, 05/02/19 10:30:00 EDT, Height Start Date: 05/02/19 Status: Ordered metFORMIN 500 mg oral tablet, extended release 3 tablet = 1,500 mg, By Mouth, Daily, # 270 tablet, 3 Refills, Maintenance, 05/02/19 10:54:00 EDT, [facility], 154, cm, 05/02/19 10:30:00 EDT, Height Start Date: 05/02/19 Stop Date: 04/26/20 Status: Ordered metoprolol 50 mg oral tablet 50 mg, 1, tablet, By Mouth, 2 times a day, # 180 tablet, Refills 3, Tot. Refills 3, Maintenance, 05/02/19 10:54:00 EDT, Route to Pharmacy Electronically, [facility], 154, cm, 05/02/19 10:30:00 EDT, Height Start Date: 05/02/19 Status: Ordered omeprazole 20 mg oral enteric coated capsule 1 capsule = 20 mg, By Mouth, Daily, # 90 capsule, 3 Refills, Maintenance, 05/02/19 10:54:00 EDT, [facility], cm, 05/02/19 10:30:00 EDT, [...] Osteoarthritis(Confirmed) Active Osteopenia(Confirmed) 2 Active *[facility] [phone] CARE MANAG ER JESSICA GARYZ(Confirmed) Active Vitamin D deficiency(Confirmed) Active 1Colonoscopy 2013 diverticulosis, repeat 2023. 2Bone Density 2014 Vital Signs Most recent to oldest [Reference Range]: 1 Height 154 cm (08/03/19 10:44 AM) Weight 77.5 kg (08/03/19 10:44 AM) Oxygen Saturation [94-100 %] 98 % (08/03/19 10:44 AM) Pulse Rate [55-90 bpm] 74 bpm (08/03/19 10:44 AM) Body Mass Index [18.5-24.99] 32.68 *>HHI* (08/03/19 10:44 AM) Blood Pressure [90-138/55-84 mm Hg] 140/ 72mm Hg *H* (08/03/19 10:44 AM) Mode of Delivery (Oxygen) Room air (08/03/19 10:44 AM) Blood pressure sites Arm, left (08/03/19 10:44 AM) Weight Obtained Via Standing scale (08/03/19 10:44 AM) Social History Social History Type Response Smoking Status Former smoker; Other : Quit smoking age 35; entered on: 08/18/15 Sex
--- OUTSIDE RECORDS SUMMARY | 2022-07-30 14:07 | XMS_ITS | Continuity of Care Document ---
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 Refills 0, Maintenance, 11/15/19 10:06:00 EDT, Route to Pharmacy Electronically, [facility], 155, cm, 11/15/19 9:23:00 EDT, Height, 76.7, kg, 11/13/19 23:35:00 EDT, Dry Weight Start Date: 11/15/19 Stop Date: 02/13/20 Status: Ordered Calcium 600 +D oral tablet 1 tablet, By Mouth, Daily, # 30 tablet, 5 Refills, Maintenance, 02/09/16 11:45:34 EST, Tablet, [id number] Start Date: 02/09/16 Status: Ordered FLUoxetine 20 mg oral capsule 20 mg, 1, capsule, By Mouth, Daily, # 90 capsule, Refills 3, Tot. Refills 3, Maintenance, 08/03/19 11:12:00 EDT, Route to Pharmacy Electronically, [facility], 154, cm, 08/03/19 [...] Refills, Maintenance, 09/12/20 13:26:00 EDT, ER Tablet, [facility], 155, cm, 08/29/20 10:43:00 EDT, Height, 76.7, kg, 11/13/19 23:35:00 EDT, Dry Weight Start Date: 09/12/20 Status: Ordered Lasix 40 mg oral tablet 40 mg, 1, tablet, By Mouth, Daily, # 90 tablet, Refills 1, Tot. Refills 1, Maintenance, 07/18/20 14:54:00 EDT, Route to Pharmacy Electronically, [facility], 155, cm, 07/18/20 14:13:00 EDT,Height, 76.7, kg, 11/13/19 23:35:00 EDT, Dry Weight Start Date: 07/18/20 Stop Date: 01/14/21 Status: Ordered Lipitor 80 mg oral tablet 1 tablet = 80 mg, By Mouth, Daily, # 90 tablet, 0 Refills, Maintenance, 11/15/19 10:07:00 EDT, Tablet, [facility], 155, cm, 11/15/19 9:23:00 EDT, Height, 76.7, kg, 11/13/19 23:35:00 EDT, Dry Weight Start Date: 11/15/19 Stop Date: 02/13/20 Status: Ordered lisinopril 40 mg oral tablet 1 tablet = 40 mg, By Mouth, Daily, # 180 tablet, 3 Refills, Maintenance, 09/05/20 13:25:00 EDT, Tablet, [facility], 155, cm, 08/29/20 10:43:00 EDT, Height, 76.7, kg, 11/13/19 23:35:00 EDT,Dry Weight Start Date: 09/05/20 Status: Ordered metFORMIN 500 mg oral tablet, extended release 1 tablet = 500 mg, By Mouth, 3 times a day, # 270 tablet, 3 Refills, Maintenance, 07/15/20 8:48:00 EDT, [facility], 155, cm, 04/25/20 14:20:00 EST, Height, 76.7, kg, 11/13/19 23:35:00 EDT,Dry Weight Start Date: 07/15/20 Stop Date: 07/10/21 Status: Ordered metoprolol 50 mg oral tablet 50 mg, 1, tablet, By Mouth, 2 times a day, # 180 tablet, Refills 0, Tot. Refills 0, Maintenance, 11/10/20 10:41:00 EDT, Route to Pharmacy Electronically, [facility], 155, cm, 11/10/20 9:57:00 EDT, Height, 76.7, kg, 11/13/19 23:35:00 EDT, . Start Date: 11/10/20 Status: Ordered omeprazole 20 mg oral enteric coated capsule 1 capsule = 20 mg, By Mouth, Daily, # 90 capsule, 3 Refills, Maintenance, 05/02/19 10:54:00 EDT, ECCapsule, [facility], 154, cm, 05/02/19 10:30:00 EDT, Height Start Date: 05/02/19 Status: Ordered ticagrelor 90 mg oral tablet 1 tablet = 90 mg, By Mouth, 2 times a day, # 180 tablet, 0 Refills, Maintenance, 11/15/19 10:05:00 EDT, Tablet, [facility] 3, 155, cm, 11/15/19 9:23:00 EDT, Height, 76.7, kg, 11/13/19 23:35:00 EDT, Dry Weight Start Date: 11/15/19 Stop Date: 02/13/20 Status: Ordered Vitamin D3 1000 intl units oral tablet 1 tablet = 1,000 International_Units, By Mouth, Daily, PER DR POND, # 30 tablet, 5 Refills, Maintenance, 02/09/16 11:45:35 EST, Tablet, [id number] Start Date: 02/09/16 Status: Ordered Problem List Condition Effective Dates Status Health Status Inform ant Congestive heart failure(Confirmed) Active Coronary artery disease(Confirmed) Active Gastro-esophageal reflux(Confirmed) Active H/O colonoscopy(Confirmed) 1 Active Hypercholesterolemia(Confirmed) Active Hypertension(Confirmed) Active Obesity (BMI 30.0-34.9)(Confirmed) Active Osteoarthritis(Confirmed) Active Osteopenia(Confirmed) 2 Active *[facility] [phone] 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 2Bone Density 2014 Vital Signs Most recent to oldest [Reference Range]: 1 Height 155 cm (11/10/20 9:57 AM) Weight 82.6 kg (11/10/20 9:57 AM) Oxygen Saturation [94-100 %] 99 % (11/10/20 9:57 AM) Pulse Rate [55-90 bpm] 60 bpm (11/10/20 9:57 AM) Body Mass Index [18.5-24.99] 34.38 *>HHI* (11/10/20 9:57 AM) Blood Pressure [90-138/55-84 mm Hg] 132/ 80mm Hg (11/10/20 9:57 AM) Blood pressure sites Arm, right (11/10/20 9:57 AM) Social History Social History Type Response Smoking Status Former smoker; Other : Quit smoking age 35; entered on: 08/18/15 Sex
--- OUTSIDE RECORDS SUMMARY | 2022-07-30 14:07 | XMS_ITS | Continuity of Care Document ---
Author Name Unknown Organization 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 Name Role Phone Aba Pond MD Primary Care Physician [phone] Encounter [facility] Date(s): 11/09/19 - 12/09/19 [facility] Adult [address] [place] [address]- [facility] Allergies, Adverse Reactions, Alerts Substance Reaction Severity [...] 11/15/19 Not Given Patient Refuses 1Location History: [facility] Medications Actos 45 mg oral tablet 1 tablet = 45 mg, By Mouth, Daily, # 90 tablet, 3 Refills, Maintenance, 05/02/19 10:52:00 EDT, Tablet, [facility], 154, cm, 05/02/19 10:30:00 EDT, Height Start Date: 05/02/19 Status: Ordered aspirin 81 mg oral delayed release tablet 81 mg, 1, tablet, By Mouth, Daily, # 90 tablet, Refills 0, Tot. Refills 0, Maintenance, 11/15/19 10:06:00 EDT, Route to Pharmacy Electronically, [facility], 155, cm, 11/15/19 9:23:00 EDT, Height, 76.7, kg, 11/13/19 23:35:00 EDT, Dry Weight Start Date: 11/15/19 Stop Date: 02/13/20 Status: Ordered Calcium 600 +D oral tablet 1 tablet, By Mouth, Daily, # 30 tablet, 5 Refills, Maintenance, 02/09/16 11:45:34 EST, Tablet, [id number] Start Date: 02/09/16 Status: Ordered FLUoxetine 20 mg oral capsule 20 mg, 1, capsule, By Mouth, Daily, # 90 capsule, Refills 3, Tot. Refills 3, Maintenance, 08/03/19 11:12:00 EDT, Route to Pharmacy Electronically, [facility], 154, cm, 08/03/19 10:44:00 EDT, Height Start Date: 08/03/19 Stop Date: 07/28/20 Status: Ordered glipiZIDE 5 mg oral tablet, extended release 1 tablet = 5 mg, By Mouth, Daily, # 90 tablet, 3 Refills, Maintenance, 08/03/19 11:12:00 EDT, ER Tablet, [facility], 154, cm, 08/03/19 10:44:00 EDT, Height Start Date: 08/03/19 Status: Ordered Lasix 40 mg oral tablet 40 mg, 1, tablet, By Mouth, Daily, # 90 tablet, Refills 0, Tot. Refills 0, Maintenance, 11/15/19 10:30:00 EDT, Route to Pharmacy Electronically, [facility], 155, cm, 11/15/19 9:23:00 EDT, Height, 76.7, kg, 11/13/19 23:35:00 EDT, Dry Weight Start Date: 11/15/19 Stop Date: 02/13/20 Status: Ordered Lipitor 80 mg oral tablet 1 tablet = 80 mg, By Mouth, Daily, # 90 tablet, 0 Refills, Maintenance, 11/15/19 10:07:00 EDT, Tablet, [facility], 155, cm, 11/15/19 9:23:00 EDT, Height, 76.7, kg, 11/13/19 23:35:00 EDT, Dry Weight Start Date: 11/15/19 Stop Date: 02/13/20 Status: Ordered lisinopril 40 mg oral tablet 1 tablet = 40 mg, By Mouth, 2 times a day, # 180 tablet, 3 Refills, Maintenance, 05/02/19 10:54:00 EDT, Tablet, [facility], 154, cm, 05/02/19 10:30:00 EDT, Height Start Date: 05/02/19 Status: Ordered metFORMIN 500 mg oral tablet, extended release 3 tablet = 1,500 mg, By Mouth, Daily, # 270 tablet, 3 Refills, Maintenance, 05/02/19 10:54:00 EDT, [facility], 154, cm, 05/02/19 10:30:00 EDT, Height Start Date: 05/02/19 Stop Date: 04/26/20 Status: Ordered metoprolol 50 mg oral tablet 50 mg, 1, tablet, By Mouth, 2 times a day, # 180 tablet, Refills 3, Tot. Refills 3, Maintenance, 05/02/19 10:54:00 EDT, Route to Pharmacy Electronically, [facility], 154, cm, 05/02/19 10:30:00 EDT, Height Start Date: 05/02/19 Status: Ordered omeprazole 20 mg oral enteric coated capsule 1 capsule = 20 mg, By Mouth, Daily, # 90 capsule, 3 Refills, Maintenance, 05/02/19 10:54:00 EDT, ECCapsule, [facility], 154, cm, 05/02/19 10:30:00 EDT, Height Start Date: 05/02/19 Status: Ordered ticagrelor 90 mg oral tablet 1 tablet = 90 mg, By Mouth, 2 times a day, # 180 tablet, 0 Refills, Maintenance, 11/15/19 10:05:00 EDT, Tablet, [facility], 155, cm, 11/15/19 9:23:00 EDT, Height, 76.7, kg, 11/13/19 23:35:00 EDT, Dry Weight Start Date: 11/15/19 Stop Date: 02/13/20 Status: Ordered Vitamin D3 1000 intl units oral tablet 1 tablet = 1,000 International_Units, By Mouth, Daily, PER DR POND, # 30 tablet, 5 Refills, Maintenance, 02/09/16 11:45:35 EST, Tablet, [id number] Start Date: 02/09/16 Status: Ordered Problem List Condition Effective Dates Status Health Status Inform ant Diabetes(Confirmed) Active Gastro-esophageal reflux(Confirmed) Active H/O colonoscopy(Confirmed) 1 Active Hypercholesterolemia(Confirmed) Active Hypertension(Confirmed) Active Obesity (BMI 30.0-34.9)(Confirmed) Active Osteoarthritis(Confirmed) Active Osteopenia(Confirmed) 2 Active *[facility] [phone] CARE MANAG ER JESSICA ESCOTO(Confirmed) Active Vitamin D deficiency(Confirmed) Active 1Colonoscopy 2013 diverticulosis, repeat 2023. 2Bone Density 2014 Social History Social History Type Response Smoking Status Former smoker; Other : Quit smoking age 35; entered on: 08/18/15 Sex
--- OUTSIDE RECORDS SUMMARY | 2022-07-30 14:08 | XMS_ITS | Continuity of Care Document ---
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 Name Role Phone Aba Pond MD Primary Care Physician Encounter [facility] [place] Date(s): 08/13/20 - 09/12/20 [facility] Adult [address] [place] [address]- Allergies, Adverse Reactions, Alerts Substance Reaction Severity [...] 3 Refills, Maintenance, 05/07/20 9:57:00 EDT, Tablet, [facility], 155, cm, 04/25/20 14:20:00 EST, Height, 76.7, kg, 11/13/19 23:35:00 EDT, Dry Weight Start Date: 05/07/20 Stop Date: 05/02/21 Status: Ordered aspirin 81 mg oral delayed release tablet 81 mg, 1, tablet, By Mouth, Daily, # 90 tablet, Refills 0, Tot. Refills 0, Maintenance, 11/15/19 10:06:00 EDT, Route to Pharmacy Electronically, [facility], 155, cm, 11/15/19 9:23:00 EDT, Height, 76.7, kg, 11/13/19 23:35:00 EDT, Dry Weight Start Date: 11/15/19 Stop Date: 02/13/20 Status: Ordered Calcium 600 +D oral tablet 1 tablet, By Mouth, Daily, # 30 tablet, 5 Refills, Maintenance, 02/09/16 11:45:34 EST, Tablet, [facility] Start Date: 02/09/16 Status: Ordered FLUoxetine 20 mg oral capsule 20 mg, 1, capsule, By Mouth, Daily, # 90 capsule, Refills 3, Tot. Refills 3, Maintenance, 08/03/19 11:12:00 EDT, Route to Pharmacy Electronically, [facility], 154, cm, 08/03/19 10:44:00 [...] Refills, Maintenance, 09/12/20 13:26:00 EDT, ER Tablet, [facility], 155, cm, 08/29/20 10:43:00 EDT, Height, 76.7, kg, 11/13/19 23:35:00 EDT, Dry Weight Start Date: 09/12/20 Status: Ordered Lasix 40 mg oral tablet 40 mg, 1, tablet, By Mouth, Daily, # 90 tablet, Refills 1, Tot. Refills 1, Maintenance, 07/18/20 14:54:00 EDT, Route to Pharmacy Electronically, [facility], 155, cm, 07/18/20 14:13:00 EDT,Height, 76.7, kg, 11/13/19 23:35:00 EDT, Dry Weight Start Date: 07/18/20 Stop Date: 01/14/21 Status: Ordered Lipitor 80 mg oral tablet 1 tablet = 80 mg, By Mouth, Daily, # 90 tablet, 0 Refills, Maintenance, 11/15/19 10:07:00 EDT, Tablet, [facility], 155, cm, 11/15/19 9:23:00 EDT, Height, 76.7, kg, 11/13/19 23:35:00 EDT, Dry Weight Start Date: 11/15/19 Stop Date: 02/13/20 Status: Ordered lisinopril 40 mg oral tablet 1 tablet = 40 mg, By Mouth, Daily, # 180 tablet, 3 Refills, Maintenance, 09/05/20 13:25:00 EDT, Tablet, [facility], 155, cm, 08/29/20 10:43:00 EDT, Height, 76.7, kg, 11/13/19 23:35:00 EDT,Dry Weight Start Date: 09/05/20 Status: Ordered metFORMIN 500 mg oral tablet, extended release 1 tablet = 500 mg, By Mouth, 3 times a day, # 270 tablet, 3 Refills, Maintenance, 07/15/20 8:48:00 EDT, [facility], 155, cm, 04/25/20 14:20:00 EST, Height, 76.7, kg, 11/13/19 23:35:00 EDT,Dry Weight Start Date: 07/15/20 Stop Date: 07/10/21 Status: Ordered metoprolol 50 mg oral tablet 50 mg, 1, tablet, By Mouth, 2 times a day, # 180 tablet, Refills 0, Tot. Refills 0, Maintenance, 08/01/20 11:47:00 EDT, Route to Pharmacy Electronically, [facility], 155, cm, 07/18/20 14:13:00 EDT, Height, 76.7, kg, 11/13/19 23:35:00 EDT, D... Start Date: 08/01/20 Status: Ordered omeprazole 20 mg oral enteric coated capsule 1 capsule = 20 mg, By Mouth, Daily, # 90 capsule, 3 Refills, Maintenance, 05/02/19 10:54:00 EDT, ECCapsule, [facility], 154, cm, 05/02/19 10:30:00 EDT, Height Start Date: 05/02/19 Status: Ordered ticagrelor 90 mg oral tablet 1 tablet = 90 mg, By Mouth, 2 times a day, # 180 tablet, 0 Refills, Maintenance, 11/15/19 10:05:00 EDT, Tablet, [facility], 155, cm, 11/15/19 9:23:00 EDT, Height, 76.7, kg, 11/13/19 23:35:00 EDT, Dry Weight Start Date: 11/15/19 Stop Date: 02/13/20 Status: Ordered Vitamin D3 1000 intl units oral tablet 1 tablet = 1,000 International_Units, By Mouth, Daily, PER DR POND, # 30 tablet, 5 Refills, Maintenance, 02/09/16 11:45:35 EST, Tablet, [facility] Start Date: 02/09/16 Status: Ordered Problem List Condition Effective Dates Status Health Status Inform ant Congestive heart failure(Confirmed) Active Coronary artery disease(Confirmed) Active Diabetes(Confirmed) Active Gastro-esophageal reflux(Confirmed) Active H/O colonoscopy(Confirmed) 1 Active Hypercholesterolemia(Confirmed) Active Hypertension(Confirmed) Active Obesity (BMI 30.0-34.9)(Confirmed) Active Osteoarthritis(Confirmed) Active Osteopenia(Confirmed) 2 Active *[facility] [phone] 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 2Bone Density 2014 Social History Social History Type Response Smoking Status Former smoker; Other : Quit smoking age 35; entered on: 08/18/15 Sex
--- OUTSIDE RECORDS SUMMARY | 2022-07-30 14:08 | XMS_ITS | Continuity of Care Document ---
Author Name Unknown Organization [facility] Alexis Beck lt Address [address] [place] [id number]- Care Team Providers Care Application Operations Engineer Name Role Phone Aba Pond MD Primary Care Physician [phone] [place] [facility] [place](s): 09/07/19 - 09/14/19 [facility] Adult [address] [place] [address]- [facility] Encounter Diagnosis Diabetes(Discharge Diagnosis) - 09/07/19 Obesity (BMI 30.0-34.9)(Discharge Diagnosis) - 09/07/19 Attending Physician: Isabel Banerjee NP Referring Physician: [...] Given tetanus/diphtheria/pertussis, acel(Tdap) 05/10/14 Given 1Location History: [facility] Medications Actos 45 mg oral tablet 1 tablet = 45 mg, By Mouth, Daily, # 90 tablet, 3 Refills, Maintenance, 05/02/19 10:52:00 EDT, Tablet, [facility], 154, cm, 05/02/19 [...] 3 Refills, Maintenance, 05/02/19 10:54:00 EDT, Tablet, [facility], 154, cm, 05/02/19 [...] 08/03/19 11:12:00 EDT, Route to Pharmacy Electronically, [facility], 154, cm, 08/03/19 [...] Refills, Maintenance, 08/03/19 11:12:00 EDT, ER Tablet, [facility], 154, cm, 08/03/19 10:44:00 EDT, Height Start Date: 08/03/19 Status: Ordered hydrochlorothiazide 25 mg oral tablet 25 mg, 1, tablet, By Mouth, Daily, # 90 tablet, Refills 3, Tot. Refills 3, Maintenance, 05/02/19 10:54:00 EDT, Route to Pharmacy Electronically, [facility], 154, cm, 05/02/19 10:30:00 EDT,Height Start Date: 05/02/19 Status: Ordered lisinopril 40 mg oral tablet 1 tablet = 40 mg, By Mouth, 2 times a day, # 180 tablet, 3 Refills, Maintenance, 05/02/19 10:54:00 EDT, Tablet, [facility], 154, cm, 05/02/19 10:30:00 EDT, Height Start Date: 05/02/19 Status: Ordered metFORMIN 500 mg oral tablet, extended release 3 tablet = 1,500 mg, By Mouth, Daily, # 270 tablet, 3 Refills, Maintenance, 05/02/19 10:54:00 EDT, [facility], 154, cm, 05/02/19 10:30:00 EDT, Height Start Date: 05/02/19 Stop Date: 04/26/20 Status: Ordered metoprolol 50 mg oral tablet 50 mg, 1, tablet, By Mouth, 2 times a day, # 180 tablet, Refills 3, Tot. Refills 3, Maintenance, 05/02/19 10:54:00 EDT, Route to Pharmacy Electronically, [facility], 154, cm, 05/02/19 10:30:00 EDT, Height Start Date: 05/02/19 Status: Ordered omeprazole 20 mg oral enteric coated capsule 1 capsule = 20 mg, By Mouth, Daily, # 90 capsule, 3 Refills, Maintenance, 05/02/19 10:54:00 EDT, ECCapsule, [facility], 154, cm, 05/02/19 [...] Active Osteopenia(Confirmed) 2 Active *[facility] [phone] CARE MANAG ER JESSICA ESCOTO(Confirmed) Active Vitamin D deficiency(Confirmed) Active 1Colonoscopy 2013 diverticulosis, repeat 2023. 2Bone Density 2014 Diagnosis Diagnosis Type Effective Dates Health Status Cl inical Service Informant Diabetes Discharge Diagnosis 09/07/19 Obesity (BMI 30.0-34.9) Discharge Diagnosis 09/07/19 Vital Signs Most recent to oldest [Reference Range]: 1 Height 154 cm (09/07/19 11:26 AM) Weight 75.0 kg (09/07/19 11:26 AM) Oxygen Saturation [94-100 %] 97 % (09/07/19 11:26 AM) Pulse Rate [55-90 bpm] 63 bpm (09/07/19 11:26 AM) Body Mass Index [18.5-24.99] 31.62 *>HHI* (09/07/19 11:26 AM) Blood Pressure [90-138/55-84 mm Hg] 134/ 74mm Hg (09/07/19 11:26 AM) Temperature [96.8-100.4 DegF] 98.1 DegF (09/07/19 11:26 AM) Temperature Route Oral (09/07/19 11:26 AM) Social History Social History Type Response Smoking Status Former smoker; Other : Quit smoking age 35; entered on: 08/18/15 Sex
--- OUTSIDE RECORDS SUMMARY | 2022-07-30 14:08 | XMS_ITS | Continuity of Care Document ---
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 Refills 0, Maintenance, 11/15/19 10:06:00 EDT, Route to Pharmacy Electronically, [facility], 155, cm, 11/15/19 9:23:00 EDT, Height, 76.7, kg, 11/13/19 23:35:00 EDT, Dry Weight Start Date: 11/15/19 Stop Date: 02/13/20 Status: Ordered Calcium 600 +D oral tablet 1 tablet, By Mouth, Daily, # 30 tablet, 5 Refills, Maintenance, 02/09/16 11:45:34 EST, Tablet, [id number] Start Date: 02/09/16 Status: Ordered FLUoxetine 20 mg oral capsule 20 mg, 1, capsule, By Mouth, Daily, # 90 capsule, Refills 3, Tot. Refills 3, Maintenance, 08/03/19 11:12:00 EDT, Route to Pharmacy Electronically, [facility]278, 154, cm, 08/03/19 10:44:00 EDT, Height Start Date: 08/03/19 Stop Date: 07/28/20 Status: Ordered glipiZIDE 5 mg oral tablet, extended release 1 tablet = 5 mg, By Mouth, Daily, # 90 tablet, 3 Refills, Maintenance, 08/03/19 11:12:00 EDT, ER Tablet, [facility]278, 154, cm, 08/03/19 10:44:00 EDT, Height Start Date: 08/03/19 Status: Ordered Lasix 40 mg oral tablet 40 mg, 1, tablet, By Mouth, Daily, # 90 tablet, Refills 0, Tot. Refills 0, Maintenance, 11/15/19 10:30:00 EDT, Route to Pharmacy Electronically, [facility] 3, 155, cm, 11/15/19 9:23:00 EDT, Height, 76.7, kg, 11/13/19 23:35:00 EDT, Dry Weight Start Date: 11/15/19 Stop Date: 02/13/20 Status: Ordered Lipitor 80 mg oral tablet 1 tablet = 80 mg, By Mouth, Daily, # 90 tablet, 0 Refills, Maintenance, 11/15/19 10:07:00 EDT, Tablet, [facility], 155, cm, 11/15/19 9:23:00 EDT, Height, 76.7, kg, 11/13/19 23:35:00 EDT, Dry Weight Start Date: 11/15/19 Stop Date: 02/13/20 Status: Ordered lisinopril 40 mg oral tablet 1 tablet = 40 mg, By Mouth, 2 times a day, # 180 tablet, 3 Refills, Maintenance, 05/02/19 10:54:00 EDT, Tablet, [facility]278, 154, cm, 05/02/19 10:30:00 EDT, Height Start Date: 05/02/19 Status: Ordered metFORMIN 500 mg oral tablet, extended release 3 tablet = 1,500 mg, By Mouth, Daily, # 270 tablet, 3 Refills, Maintenance, 05/02/19 10:54:00 EDT, [facility], 154, cm, 05/02/19 10:30:00 EDT, Height Start Date: 05/02/19 Stop Date: 04/26/20 Status: Ordered metoprolol 50 mg oral tablet 50 mg, 1, tablet, By Mouth, 2 times a day, # 180 tablet, Refills 3, Tot. Refills 3, Maintenance, 05/02/19 10:54:00 EDT, Route to Pharmacy Electronically, [facility]278, 154, cm, 05/02/19 10:30:00 EDT, Height Start Date: 05/02/19 Status: Ordered omeprazole 20 mg oral enteric coated capsule 1 capsule = 20 mg, By Mouth, Daily, # 90 capsule, 3 Refills, Maintenance, 05/02/19 10:54:00 EDT, ECCapsule, [facility]278, 154, cm, 05/02/19 10:30:00 EDT, Height Start Date: 05/02/19 Status: Ordered ticagrelor 90 mg oral tablet 1 tablet = 90 mg, By Mouth, 2 times a day, # 180 tablet, 0 Refills, Maintenance, 11/15/19 10:05:00 EDT, Tablet, [facility], 155, cm, 11/15/19 9:23:00 EDT, Height, 76.7, kg, 11/13/19 23:35:00 EDT, Dry Weight Start Date: 11/15/19 Stop Date: 02/13/20 Status: Ordered Vitamin D3 1000 intl units oral tablet 1 tablet = 1,000 International_Units, By Mouth, Daily, PER DR POND, # 30 tablet, 5 Refills, Maintenance, 02/09/16 11:45:35 EST, Tablet, [facility] [id number] Start Date: 02/09/16 Status: Ordered Problem List Condition Effective Dates Status Health Status Inform ant Congestive heart failure(Confirmed) Active Coronary artery disease(Confirmed) Active Depression(Confirmed) Active Diabetes(Confirmed) Active Gastro-esophageal reflux(Confirmed) Active H/O colonoscopy(Confirmed) 1 Active Hypercholesterolemia(Confirmed) Active Hypertension(Confirmed) Active Obesity (BMI 30.0-34.9)(Confirmed) Active Osteoarthritis(Confirmed) Active Osteopenia(Confirmed) 2 Active *[facility] [phone] CARE MANAG ER JESSICA ESCOTO(Confirmed) Active Vitamin D deficiency(Confirmed) Active 1Colonoscopy 2013 diverticulosis, repeat 2023. 2Bone Density 2014 Vital Signs Most recent to oldest [Reference Range]: 1 Height 155 cm (12/17/19 2:43 PM) Weight 81.5 kg (12/17/19 2:43 PM) Oxygen Saturation [94-100 %] 98 % (12/17/19 2:43 PM) Pulse Rate [55-90 bpm] 65 bpm (12/17/19 2:43 PM) Body Mass Index [18.5-24.99] 33.92 *>HHI* (12/17/19 2:43 PM) Blood Pressure [90-138/55-84 mm Hg] 140/ 78mm Hg *H* (12/17/19 2:43 PM) Mode of Delivery (Oxygen) Room air (12/17/19 2:43 PM) Blood pressure sites Arm, left (12/17/19 2:43 PM) Weight Obtained Via Standing scale (12/17/19 2:43 PM) Social History Social History Type Response Smoking Status Former smoker; Other : Quit smoking age 35; entered on: 08/18/15 Sex
--- OUTSIDE RECORDS SUMMARY | 2022-07-30 14:08 | XMS_ITS | Continuity of Care Document ---
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 Name Role Phone Aba Pond MD Primary Care Physician [phone] [place] [facility] [place] 07/18/20 - 07/25/20 [facility] Adult [address] [place] [address]- Encounter Diagnosis Swelling of lower extremity(Discharge Diagnosis) - 07/18/20 Attending Physician: Not on Staff, Attending MD Allergies, Adverse Reactions, Alerts Substance Reaction [...] 11/15/19 Not Given Patient Refuses 1Location History: [facility] Medications Actos 45 mg oral tablet 1 tablet = 45 mg, By Mouth, Daily, # 90 tablet, 3 Refills, Maintenance, 05/07/20 9:57:00 EDT, Tablet, [facility]278, 155, cm, 04/25/20 14:20:00 EST, Height, 76.7, kg, 11/13/19 23:35:00 EDT, Dry Weight Start Date: 05/07/20 Stop Date: 05/02/21 Status: Ordered aspirin 81 mg oral delayed release tablet 81 mg, 1, tablet, By Mouth, Daily, # 90 tablet, Refills 0, Tot. Refills 0, Maintenance, 11/15/19 10:06:00 EDT, Route to Pharmacy Electronically, [facility] 3, 155, cm, 11/15/19 9:23:00 EDT, Height, 76.7, kg, 11/13/19 23:35:00 EDT, Dry Weight Start Date: 11/15/19 Stop Date: 02/13/20 Status: Ordered Calcium 600 +D oral tablet 1 tablet, By Mouth, Daily, # 30 tablet, 5 Refills, Maintenance, 02/09/16 11:45:34 EST, Tablet, [facility] Start Date: 02/09/16 Status: Ordered FLUoxetine 20 mg oral capsule 20 mg, 1, capsule, By Mouth, Daily, # 90 capsule, Refills 3, Tot. Refills 3, Maintenance, 08/03/19 11:12:00 EDT, Route to Pharmacy Electronically, [facility]278, 154, cm, 08/03/19 10:44:00 EDT, Height Start Date: 08/03/19 Stop Date: 07/28/20 Status: Ordered glipiZIDE 5 mg oral tablet, extended release 1 tablet = 5 mg, By Mouth, Daily, # 90 tablet, 3 Refills, Maintenance, 08/03/19 11:12:00 EDT, ER Tablet, [facility], 154, cm, 08/03/19 10:44:00 EDT, Height Start Date: 08/03/19 Status: Ordered Lasix 40 mg oral tablet 40 mg, 1, tablet, By Mouth, Daily, # 90 tablet, Refills 1, Tot. Refills 1, Maintenance, 07/18/20 14:54:00 EDT, Route to Pharmacy Electronically, [facility]278, 155, cm, 07/18/20 14:13:00 EDT,Height, 76.7, kg, 11/13/19 23:35:00 EDT, Dry Weight Start Date: 07/18/20 Stop Date: 01/14/21 Status: Ordered Lipitor 80 mg oral tablet 1 tablet = 80 mg, By Mouth, Daily, # 90 tablet, 0 Refills, Maintenance, 11/15/19 10:07:00 EDT, Tablet, [facility], 155, cm, 11/15/19 [...] 3 Refills, Maintenance, 07/15/20 8:48:00 EDT, [facility]278, 155, cm, 04/25/20 14:20:00 EST, Height, 76.7, kg, 11/13/19 23:35:00 EDT,Dry Weight Start Date: 07/15/20 Stop Date: 07/10/21 Status: Ordered metoprolol 50 mg oral tablet 50 mg, 1, tablet, By Mouth, 2 times a day, # 180 tablet, Refills 3, Tot. Refills 3, Maintenance, 05/02/19 10:54:00 EDT, Route to Pharmacy Electronically, [facility]278, 154, cm, 05/02/19 10:30:00 EDT, Height Start Date: 05/02/19 Status: Ordered omeprazole 20 mg oral enteric coated capsule 1 capsule = 20 mg, By Mouth, Daily, # 90 capsule, 3 Refills, Maintenance, 05/02/19 10:54:00 EDT, ECCapsule, [facility]278, 154, cm, 05/02/19 10:30:00 EDT, Height Start Date: 05/02/19 Status: Ordered ticagrelor 90 mg oral tablet 1 tablet = 90 mg, By Mouth, 2 times a day, # 180 tablet, 0 Refills, Maintenance, 11/15/19 10:05:00 EDT, Tablet, [facility], 155, cm, 11/15/19 9:23:00 EDT, Height, 76.7, kg, 11/13/19 23:35:00 EDT, Dry Weight Start Date: 11/15/19 Stop Date: 02/13/20 Status: Ordered Vitamin D3 1000 intl units oral tablet 1 tablet = 1,000 International_Units, By Mouth, Daily, PER DR POND, # 30 tablet, 5 Refills, Maintenance, 02/09/16 11:45:35 EST, [id number] Start Date: 02/09/16 Status: Ordered Problem List Condition Effective Dates Status Health Status Inform ant Congestive heart failure(Confirmed) Active Coronary artery disease(Confirmed) Active Depression(Confirmed) Active Diabetes(Confirmed) Active Gastro-esophageal reflux(Confirmed) Active H/O colonoscopy(Confirmed) 1 Active Hypercholesterolemia(Confirmed) Active Hypertension(Confirmed) Active Obesity (BMI 30.0-34.9)(Confirmed) Active Osteoarthritis(Confirmed) Active Osteopenia(Confirmed) 2 Active *[facility] [phone] CARE MANAG ER JESSICA ESCOTO(Confirmed) Active Vitamin D deficiency(Confirmed) Active 1Colonoscopy 2013 diverticulosis, repeat 2023. 2Bone Density 2014 Diagnosis Diagnosis Type Effective Dates Health Status Cl inical Service Informant Swelling of lower extremity Discharge Diagnosis 07/18/20 Vital Signs Most recent to oldest [Reference Range]: 1 Height 155 cm (07/18/20 2:13 PM) Weight 82.2 kg (07/18/20 2:13 PM) Oxygen Saturation [94-100 %] 97 % (07/18/20 2:13 PM) Pulse Rate [55-90 bpm] 98 bpm *H* (07/18/20 2:13 PM) Body Mass Index [18.5-24.99] 34.21 *>HHI* (07/18/20 2:13 PM) Blood Pressure [90-138/55-84 mm Hg] 134/ 78mm Hg (07/18/20 2:13 PM) Blood pressure sites Arm, right (07/18/20 2:13 PM) Social History Social History Type Response Smoking Status Former smoker; Other : Quit smoking age 35; entered on: 08/18/15 Sex
--- OUTSIDE RECORDS SUMMARY | 2022-07-30 14:08 | XMS_ITS | Continuity of Care Document ---
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 Role Phone Aba Pond MD Primary Care Physician Encounter [facility] [place] Date(s): 05/18/19 - 05/25/19 [facility] Adult [address] [place] [address]- [facility] Encounter Diagnosis Diabetes(Discharge Diagnosis) - 05/18/19 Attending Physician: Aba Pond MD Allergies, Adverse [...] 3 Refills, Maintenance, 05/02/19 10:52:00 EDT, Tablet, [facility], 154, cm, 05/02/19 10:30:00 EDT, Height Start Date: 05/02/19 Status: Ordered aspirin 81 mg oral tablet 1 tablet = 81 mg, By Mouth, Daily, # 90 tablet, 1 Refills, Maintenance, 10/22/16 10:39:54, Tablet Start Date: 10/22/16 Status: Ordered atorvastatin 40 mg oral tablet 1 tablet = 40 mg, By Mouth, Daily, # 90 tablet, 3 Refills, Maintenance, 05/02/19 10:54:00 EDT, Tablet, [facility], 154, cm, 05/02/19 10:30:00 EDT, [...] 05/02/19 10:54:00 EDT, Route to Pharmacy Electronically, [facility], 154, cm, 05/02/19 10:30:00 EDT,Height Start Date: 05/02/19 Status: Ordered lisinopril 40 mg oral tablet 1 tablet = 40 mg, By Mouth, 2 times a day, # 180 tablet, 3 Refills, Maintenance, 05/02/19 10:54:00 EDT, Tablet, [facility], 154, cm, 05/02/19 10:30:00 EDT, Height Start Date: 05/02/19 Status: Ordered metFORMIN 500 mg oral tablet, extended release 3 tablet = 1,500 mg, By Mouth, Daily, # 270 tablet, 3 Refills, Maintenance, 05/02/19 10:54:00 EDT, [facility], 154, cm, 05/02/19 10:30:00 EDT, Height Start Date: 05/02/19 Stop Date: 04/26/20 Status: Ordered metoprolol 50 mg oral tablet 50 mg, 1, tablet, By Mouth, 2 times a day, # 180 tablet, Refills 3, Tot. Refills 3, Maintenance, 05/02/19 10:54:00 EDT, Route to Pharmacy Electronically, [facility], 154, cm, 05/02/19 10:30:00 EDT, Height Start Date: 05/02/19 Status: Ordered omeprazole 20 mg oral enteric coated capsule 1 capsule = 20 mg, By Mouth, Daily, # 90 capsule, 3 Refills, Maintenance, 05/02/19 10:54:00 EDT, ECCapsule, [facility], 154, cm, 05/02/19 10:30:00 EDT, [...] 2 Active *[facility] [phone] CARE MANAG ER JESSICA ESCOTO(Confirmed) Active Vitamin D deficiency(Confirmed) Active 1Colonoscopy 2013 diverticulosis, repeat 2023. 2Bone Density 2014 Diagnosis Diagnosis Type Effective Dates Health Status Clini nichole Service Informant Diabetes Discharge Diagnosis 05/18/19 Social History Social History Type Response Smoking Status Former smoker; Other : Quit smoking age 35; entered on: 08/18/15 Sex
--- OUTSIDE RECORDS SUMMARY | 2022-07-30 14:08 | XMS_ITS | Continuity of Care Document ---
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 Assistant Name Role Phone Aba Pond MD Primary Care Physician [phone] Encounter [facility] [place] Date(s): 08/06/20 - 09/05/20 [facility] Adult [address] [place] [address]- Allergies, Adverse Reactions, Alerts Substance Reaction Severity [...] 11/15/19 Not Given Patient Refuses 1[facility] History: [facility] Actos 45 mg oral tablet 1 tablet = 45 mg, By Mouth, Daily, # 90 tablet, 3 Refills, Maintenance, 05/07/20 9:57:00 EDT, Tablet, [facility]278, 155, cm, 04/25/20 14:20:00 EST, Height, 76.7, kg, 11/13/19 23:35:00 EDT, Dry Weight Start Date: 05/07/20 Stop Date: 05/02/21 Status: Ordered aspirin 81 mg oral delayed release tablet 81 mg, 1, tablet, By Mouth, Daily, # 90 tablet, Refills 0, Tot. Refills 0, Maintenance, 11/15/19 10:06:00 EDT, Route to Pharmacy Electronically, [facility], 155, cm, 11/15/19 9:23:00 EDT, Height, 76.7, kg, 11/13/19 23:35:00 EDT, Dry Weight Start Date: 11/15/19 Stop Date: 02/13/20 Status: Ordered Calcium 600 +D oral tablet 1 tablet, By Mouth, Daily, # 30 tablet, 5 Refills, Maintenance, 02/09/16 11:45:34 EST, [facility] [id number] Start Date: 02/09/16 Status: Ordered FLUoxetine 20 mg oral capsule 20 mg, 1, capsule, By Mouth, Daily, # 90 capsule, Refills 3, Tot. Refills 3, Maintenance, 08/03/19 11:12:00 EDT, Route to Pharmacy Electronically, [facility]278, 154, cm, 08/03/19 10:44:00 EDT, [...] Refills, Maintenance, 08/03/19 11:12:00 EDT, ER Tablet, [facility]278, 154, cm, 08/03/19 10:44:00 EDT, Height Start Date: 08/03/19 Status: Ordered Lasix 40 mg oral tablet 40 mg, 1, tablet, By Mouth, Daily, # 90 tablet, Refills 1, Tot. Refills 1, Maintenance, 07/18/20 14:54:00 EDT, Route to Pharmacy Electronically, [facility]278, 155, cm, 07/18/20 14:13:00 EDT,Height, 76.7, kg, 11/13/19 23:35:00 EDT, Dry Weight Start Date: 07/18/20 Stop Date: 01/14/21 Status: Ordered Lipitor 80 mg oral tablet 1 tablet = 80 mg, By Mouth, Daily, # 90 tablet, 0 Refills, Maintenance, 11/15/19 10:07:00 EDT, Tablet, [facility] 3, 155, cm, 11/15/19 9:23:00 EDT, Height, 76.7, kg, 11/13/19 23:35:00 EDT, Dry Weight Start Date: 11/15/19 Stop Date: 02/13/20 Status: Ordered lisinopril 40 mg oral tablet 1 tablet = 40 mg, By Mouth, Daily, # 180 tablet, 3 Refills, Maintenance, 09/05/20 13:25:00 EDT, Tablet, [facility]278, 155, cm, 08/29/20 10:43:00 EDT, Height, 76.7, kg, 11/13/19 23:35:00 EDT,Dry Weight Start Date: 09/05/20 Status: Ordered metFORMIN 500 mg oral tablet, extended release 1 tablet = 500 mg, By Mouth, 3 times a day, # 270 tablet, 3 Refills, Maintenance, 07/15/20 8:48:00 EDT, [facility], 155, cm, 04/25/20 14:20:00 EST, Height, 76.7, kg, 11/13/19 23:35:00 EDT,Dry Weight Start Date: 07/15/20 Stop Date: 07/10/21 Status: Ordered metoprolol 50 mg oral tablet 50 mg, 1, tablet, By Mouth, 2 times a day, # 180 tablet, Refills 0, Tot. Refills 0, Maintenance, 08/01/20 11:47:00 EDT, Route to Pharmacy Electronically, [facility]278, 155, cm, 07/18/20 14:13:00 EDT, Height, 76.7, kg, 11/13/19 23:35:00 EDT, D... Start Date: 08/01/20 Status: Ordered omeprazole 20 mg oral enteric coated capsule 1 capsule = 20 mg, By Mouth, Daily, # 90 capsule, 3 Refills, Maintenance, 05/02/19 10:54:00 EDT, ECCapsule, [facility]278, 154, cm, 05/02/19 10:30:00 EDT, Height Start Date: 05/02/19 Status: Ordered ticagrelor 90 mg oral tablet 1 tablet = 90 mg, By Mouth, 2 times a day, # 180 tablet, 0 Refills, Maintenance, 11/15/19 10:05:00 EDT, Tablet, [facility], 155, cm, 11/15/19 9:23:00 EDT, Height, 76.7, kg, 11/13/19 23:35:00 EDT, Dry Weight Start Date: 11/15/19 Stop Date: 02/13/20 Status: Ordered Vitamin D3 1000 intl units oral tablet 1 tablet = 1,000 International_Units, By Mouth, Daily, PER DR POND, # 30 tablet, 5 Refills, Maintenance, 02/09/16 11:45:35 EST, Tablet, [id number] Start Date: 02/09/16 Status: Ordered Problem List Condition Effective Dates Status Health Status Inform ant Congestive heart failure(Confirmed) Active Coronary artery disease(Confirmed) Active Diabetes(Confirmed) Active Gastro-esophageal reflux(Confirmed) Active H/O colonoscopy(Confirmed) 1 Active Hypercholesterolemia(Confirmed) Active Hypertension(Confirmed) Active Obesity (BMI 30.0-34.9)(Confirmed) Active Osteoarthritis(Confirmed) Active Osteopenia(Confirmed) 2 Active *[facility] [phone] 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 2Bone Density 2014 Social History Social History Type Response Smoking Status Former smoker; Other : Quit smoking age 35; entered on: 08/18/15 Sex
--- OUTSIDE RECORDS SUMMARY | 2022-07-30 14:08 | XMS_ITS | Continuity of Care Document ---
Author Name Unknown Organization [facility] Beck lt Address [address] [place] [address]- Care Team Providers Care Bounty Hunter Name Role Phone Aba Pond MD Primary Care Physician [place] [facility] [place]18[place]19 [facility] Adult [address] [place] [address]- [facility] Attending Physician: Aba Pond MD Allergies, Adverse [...] Given tetanus/diphtheria/pertussis, acel(Tdap) 05/10/14 Given 1[facility] History: [facility] Medications Actos 45 mg oral tablet 1 tablet = 45 mg, By Mouth, Daily, # 90 tablet, 3 Refills, Maintenance, 05/02/19 10:52:00 EDT, Tablet, [facility], 154, cm, 05/02/19 10:30:00 [...] 3 Refills, Maintenance, 05/02/19 10:54:00 EDT, Tablet, [facility], 154, cm, 05/02/19 10:30:00 EDT, Height Start Date: 05/02/19 Status: Ordered Calcium 600 +D oral tablet 1 tablet, By Mouth, Daily, # 30 tablet, 5 Refills, Maintenance, 02/09/16 11:45:34, Tablet, 1 tabletBy Mouth Daily Start Date: 02/09/16 Status: Ordered Freestyle Lite Lancets See Instructions, # 100 each, Refills 11, Tot. Refills 11, Maintenance, E11.9 TEST BS TID, :41:51, Compound Start Date: 09/22/16 Stop Date: 09/07/19 Status: Ordered Freestyle Lite Monitor See Instructions, # 1 each, Refills 0, Tot. Refills 0, Maintenance, Test blood sugars 3 x daily Dx:E11.9, 12/17/17 16:22:15 EDT, Compound Start Date: 12/17/17 Stop Date: 01/16/18 Status: Ordered Freestyle Lite Test Strips See Instructions, # 200 each, Refills 11, Tot. Refills 11, Maintenance, E11.9 TEST BS TID, 209:41:51 EDT, Compound Start Date: 09/07/19 Stop Date: 12/06/19 Status: Ordered Freestyle Lite Test Strips See Instructions, for 90 days, # 100 each, Refills 11, Tot. Refills 11, Hard Stop 09/07/19 9:41:51 EDT, E11.9 TEST BS TID, 09/22/16 9:41:51 EDT, Compound Start Date: 09/22/16 Stop Date: 09/07/19 Status: Ordered glimepiride 4 mg oral tablet 1 tablet = 4 mg, By Mouth, Daily, # 90 tablet, 3 Refills, Maintenance, 05/18/19 14:28:00 EDT, Tablet Start Date: 05/18/19 Stop Date: 05/12/20 Status: Ordered hydrochlorothiazide 25 mg oral tablet 25 mg, 1, tablet, By Mouth, Daily, # 90 tablet, Refills 3, Tot. Refills 3, Maintenance, 05/02/19 10:54:00 EDT, Route to Pharmacy Electronically, [facility], 154, cm, 05/02/19 10:30:00 EDT,Height Start Date: 05/02/19 Status: Ordered lisinopril 40 mg oral tablet 1 tablet = 40 mg, By Mouth, 2 times a day, # 180 tablet, 3 Refills, Maintenance, 05/02/19 10:54:00 EDT, Tablet, [facility]278, 154, cm, 05/02/19 10:30:00 EDT, Height Start Date: 05/02/19 Status: Ordered metFORMIN 500 mg oral tablet, extended release 3 tablet = 1,500 mg, By Mouth, Daily, # 270 tablet, 3 Refills, Maintenance, 05/02/19 10:54:00 EDT, [facility], 154, cm, 05/02/19 10:30:00 EDT, Height Start Date: 05/02/19 Stop Date: 04/26/20 Status: Ordered metoprolol 50 mg oral tablet 50 mg, 1, tablet, By Mouth, 2 times a day, # 180 tablet, Refills 3, Tot. Refills 3, Maintenance, 05/02/19 10:54:00 EDT, Route to Pharmacy Electronically, [facility]278, 154, cm, 05/02/19 10:30:00 EDT, Height Start Date: 05/02/19 Status: Ordered omeprazole 20 mg oral enteric coated capsule 1 capsule = 20 mg, By Mouth, Daily, # 90 capsule, 3 Refills, Maintenance, 05/02/19 10:54:00 EDT, ECCapsule, [facility]278, 154, cm, 05/02/19 10:30:00 [...] 30.0-34.9)(Confirmed) Active Osteoarthritis(Confirmed) Active Osteopenia(Confirmed) 2 Active *[facility] [phone] CARE MANAG RIGOBERTO ESCOTO(Confirmed) Active Vitamin D deficiency(Confirmed) Active 1Colonoscopy 2013 diverticulosis, repeat 2023. 2Bone Density 2015 Social History Social History Type Response Smoking Status Former smoker; Other : Quit smoking age 35; entered on: 08/18/15 Sex
--- OUTSIDE RECORDS SUMMARY | 2022-07-30 14:08 | XMS_ITS | Continuity of Care Document ---
Author Name Unknown Organization [facility] Beck lt Address [address] [place] [address]- Care Team Providers Care Retail Brand Ambassador Name Role Phone Aba Pond MD Primary Care Physician [facility]counter [facility] Date(s): 12/17/21 - 01/16/22 [facility] Adult [address] [place] [address]- Allergies, Adverse Reactions, Alerts Substance Reaction Severity Status Naprosyn dizziness and nausea Active Immunizations Given and Recorded Vaccine Date Status Refusal Reason [id number] 12y+ bivalent booster vax 12/15/21 Given influenza [...] Daily, # 90 tablet, 3 Refills, Maintenance, 10/25/22 11:31:00 EDT, Tablet, [facility], 155, cm, 12/15/21 11:19:00 EDT, Height Start Date: 12/15/21 Stop Date: 12/10/22 Status: Ordered aspirin 81 mg oral delayed release tablet 81 mg, 1, tablet, By Mouth, Daily, # 90 tablet, Refills 0, Tot. Refills 0, Maintenance, 11/15/19 10:06:00 EDT, Route to Pharmacy Electronically, [facility], 155, cm, 11/15/19 9:23:00 EDT, Height, 76.7, kg, 11/13/19 23:35:00 EDT, Dry Weight Start Date: 11/15/19 Stop Date: 02/13/20 Status: Ordered Calcium 600 +D oral tablet 1 tablet, By Mouth, Daily, # 30 tablet, 5 Refills, Maintenance, 02/09/16 11:45:34 EST, Tablet, [id number] Start Date: 02/09/16 Status: Ordered Freestyle Lite [...] Refills, Maintenance, 12/15/21 11:31:00 EDT, ER Tablet, [facility], 155, cm, 12/15/21 11:19:00 EDT, Height Start Date: 12/15/21 Status: Ordered Lipitor 80 mg oral tablet 1 tablet = 80 mg, By Mouth, Daily, # 90 tablet, 3 Refills, Maintenance, 12/15/21 11:31:00 EDT, Tablet, [facility], 155, cm, 12/15/21 11:19:00 EDT, Height Start Date: 12/15/21 Stop Date: 12/10/22 Status: Ordered lisinopril 40 mg oral tablet 1 tablet = 40 mg, By Mouth, Daily, # 90 tablet, 3 Refills, Maintenance, 12/15/21 11:31:00 EDT, Tablet, [facility], 155, cm, 12/15/21 11:19:00 EDT, Height Start Date: 12/15/21 Stop Date: 12/10/22 Status: Ordered metFORMIN 500 mg oral tablet, extended release 1 tablet = 500 mg, By Mouth, 3 times a day, # 270 tablet, 3 Refills, Maintenance, 12/15/21 11:31:00EDT, [facility], 155, cm, 12/15/21 11:19:00 EDT, Height Start Date: 12/15/21 Stop Date: 12/10/22 Status: Ordered Metoprolol Tartrate 50 mg oral tablet See Instructions, Take 1 tablet by mouth twice daily, # 180 tablet, 3 Refills, Maintenance, 12/15/21 11:31:00 EDT, [facility], 155, cm, 12/15/21 11:19:00 EDT, Height Start Date: 12/15/21 Status: Ordered Vitamin D3 1000 intl units oral tablet 1 tablet = 1,000 International_Units, By Mouth, Daily, PER DR POND, # 30 tablet, 5 Refills, Maintenance, 02/09/16 11:45:35 EST, Tablet, [facility] [id number] Start Date: 02/09/16 Status: Ordered Zetia 10 mg oral tablet 1 tablet = 10 mg, By Mouth, Daily, # 90 tablet, 3 Refills, Maintenance, 12/15/21 11:31:00 EDT, Tablet, [facility], Partial fill upon patient request [...] Osteoarthritis Confirmed Active Osteopenia 3 Confirmed Active *[facility] [phone] 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
--- OUTSIDE RECORDS SUMMARY | 2022-07-30 14:08 | XMS_ITS | Continuity of Care Document ---
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 Name Role Phone Aba Pond MD Primary Care Physician [phone] [place] [facility] [place]/25[place] - 06/01/19 [facility] Adult [address] [place] [address]- [facility] Attending Physician: Aba Pond MD Allergies, Adverse [...] Given tetanus/diphtheria/pertussis, acel(Tdap) 05/10/14 Given 1Location History: [facility] Medications Actos 45 mg oral tablet 1 tablet = 45 mg, By Mouth, Daily, # 90 tablet, 3 Refills, Maintenance, 05/02/19 10:52:00 EDT, Tablet, [facility], 154, cm, [...] 3 Refills, Maintenance, 05/02/19 10:54:00 EDT, Tablet, [facility], 154, cm, 05/02/19 10:30:00 EDT, [...] 05/02/19 10:54:00 EDT, Route to Pharmacy Electronically, [facility], 154, cm, 05/02/19 10:30:00 EDT,Height Start Date: 05/02/19 Status: Ordered lisinopril 40 mg oral tablet 1 tablet = 40 mg, By Mouth, 2 times a day, # 180 tablet, 3 Refills, Maintenance, 05/02/19 10:54:00 EDT, Tablet, [facility], 154, cm, 05/02/19 10:30:00 EDT, Height Start Date: 05/02/19 Status: Ordered metFORMIN 500 mg oral tablet, extended release 3 tablet = 1,500 mg, By Mouth, Daily, # 270 tablet, 3 Refills, Maintenance, 05/02/19 10:54:00 EDT, [facility], 154, cm, 05/02/19 10:30:00 EDT, Height Start Date: 05/02/19 Stop Date: 04/26/20 Status: Ordered metoprolol 50 mg oral tablet 50 mg, 1, tablet, By Mouth, 2 times a day, # 180 tablet, Refills 3, Tot. Refills 3, Maintenance, 05/02/19 10:54:00 EDT, [facility] [...] 2 Active *[facility] [phone] CARE MANAG ER JESSICA ESCOTO(Confirmed) Active Vitamin D deficiency(Confirmed) Active 1Colonoscopy 2013 diverticulosis, repeat 2023. 2Bone Density 2014 Social History Social History Type Response Smoking Status Former smoker; Other : Quit smoking age 35; entered on: 08/18/15 Sex
--- OUTSIDE RECORDS SUMMARY | 2022-07-30 14:08 | XMS_ITS | Continuity of Care Document ---
Author Name Unknown Organization [facility] Alexis Beck lt Address [address] [place] [address]- Care Team Providers Care Meeting/Event Planner Name Role Phone Aba Pond MD Primary Care Physician [facility] Date[facility]s): 05/06/20 - 06/05/20 [facility] [place] Adult [address] [place] [address]- Allergies, Adverse Reactions, Alerts Substance Reaction Severity [...] 11/15/19 Not Given Patient Refuses [facility] Actos 45 mg oral tablet 1 tablet = 45 mg, By Mouth, Daily, # 90 tablet, 3 Refills, Maintenance, 05/07/20 9:57:00 EDT, Tablet, [facility], 155, cm, 04/25/20 14:20:00 EST, Height, 76.7, kg, 11/13/19 23:35:00 EDT, Dry Weight Start Date: 05/07/20 Stop Date: 05/02/21 Status: Ordered aspirin 81 mg oral delayed release tablet 81 mg, 1, tablet, By Mouth, Daily, # 90 tablet, Refills 0, Tot. Refills 0, Maintenance, 11/15/19 10:06:00 EDT, Route to Pharmacy Electronically, [facility], 155, cm, 11/15/19 9:23:00 EDT, Height, 76.7, kg, 11/13/19 23:35:00 EDT, Dry Weight Start Date: 11/15/19 Stop Date: 02/13/20 Status: Ordered Calcium 600 +D oral tablet 1 tablet, By Mouth, Daily, # 30 tablet, 5 Refills, Maintenance, 02/09/16 11:45:34 EST, Tablet, [id number] Start Date: 02/09/16 Status: Ordered FLUoxetine 20 mg oral capsule 20 mg, 1, capsule, By Mouth, Daily, # 90 capsule, Refills 3, Tot. Refills 3, Maintenance, 08/03/19 11:12:00 EDT, Route to Pharmacy Electronically, [facility], 154, cm, 08/03/19 10:44:00 EDT, Height Start Date: 08/03/19 Stop Date: 07/28/20 Status: Ordered glipiZIDE 5 mg oral tablet, extended release 1 tablet = 5 mg, By Mouth, Daily, # 90 tablet, 3 Refills, Maintenance, 08/03/19 11:12:00 EDT, ER Tablet, [facility], 154, cm, 08/03/19 10:44:00 EDT, Height Start Date: 08/03/19 Status: Ordered Lasix 40 mg oral tablet 40 mg, 1, tablet, By Mouth, Daily, # 90 tablet, Refills 0, Tot. Refills 0, Maintenance, 11/15/19 10:30:00 EDT, Route to Pharmacy Electronically, [facility], 155, cm, 11/15/19 9:23:00 EDT, Height, 76.7, kg, 11/13/19 23:35:00 EDT, Dry Weight Start Date: 11/15/19 Stop Date: 02/13/20 Status: Ordered Lipitor 80 mg oral tablet 1 tablet = 80 mg, By Mouth, Daily, # 90 tablet, 0 Refills, Maintenance, 11/15/19 10:07:00 EDT, Tablet, [facility], 155, cm, 11/15/19 9:23:00 EDT, Height, 76.7, kg, 11/13/19 23:35:00 EDT, Dry Weight Start Date: 11/15/19 Stop Date: 02/13/20 Status: Ordered lisinopril 40 mg oral tablet 1 tablet = 40 mg, By Mouth, 2 times a day, # 180 tablet, 3 Refills, Maintenance, 05/02/19 10:54:00 EDT, Tablet, [facility], 154, cm, 05/02/19 10:30:00 EDT, Height Start Date: 05/02/19 Status: Ordered metFORMIN 500 mg oral tablet, extended release 3 tablet = 1,500 mg, By Mouth, Daily, # 270 tablet, 3 Refills, Maintenance, 05/02/19 10:54:00 EDT, [facility], 154, cm, 05/02/19 10:30:00 EDT, Height Start Date: 05/02/19 Stop Date: 04/26/20 Status: Ordered metoprolol 50 mg oral tablet 50 mg, 1, tablet, By Mouth, 2 times a day, # 180 tablet, Refills 3, Tot. Refills 3, Maintenance, 05/02/19 10:54:00 EDT, Route to Pharmacy Electronically, [facility], 154, cm, 05/02/19 10:30:00 EDT, Height Start Date: 05/02/19 Status: Ordered omeprazole 20 mg oral enteric coated capsule 1 capsule = 20 mg, By Mouth, Daily, # 90 capsule, 3 Refills, Maintenance, 05/02/19 10:54:00 EDT, ECCapsule, [facility], 154, cm, 05/02/19 10:30:00 EDT, Height Start Date: 05/02/19 Status: Ordered ticagrelor 90 mg oral tablet 1 tablet = 90 mg, By Mouth, 2 times a day, # 180 tablet, 0 Refills, Maintenance, 11/15/19 10:05:00 EDT, Tablet, [facility], 155, cm, 11/15/19 9:23:00 EDT, Height, 76.7, kg, 11/13/19 23:35:00 EDT, Dry Weight Start Date: 11/15/19 Stop Date: 02/13/20 Status: Ordered Vitamin D3 1000 intl units oral tablet 1 tablet = 1,000 International_Units, By Mouth, Daily, PER DR POND, # 30 tablet, 5 Refills, Maintenance, 02/09/16 11:45:35 EST, Tablet, [facility] [id number] Start Date: 02/09/16 Status: Ordered Problem List Condition Effective Dates Status Health Status Inform ant Congestive heart failure(Confirmed) Active Coronary artery disease(Confirmed) Active Depression(Confirmed) Active Diabetes(Confirmed) Active Gastro-esophageal reflux(Confirmed) Active H/O colonoscopy(Confirmed) 1 Active Hypercholesterolemia(Confirmed) Active Hypertension(Confirmed) Active Obesity (BMI 30.0-34.9)(Confirmed) Active Osteoarthritis(Confirmed) Active Osteopenia(Confirmed) 2 Active *[facility] [phone] CARE MANAG ER JESSICAMatthew ESCOTO(Confirmed) Active Vitamin D deficiency(Confirmed) Active 1Colonoscopy 2013 diverticulosis, repeat 2023. 2Bone Density 2014 Social History Social History Type Response Smoking Status Former smoker; Other : Quit smoking age 35; entered on: 08/18/15 Sex
--- OUTSIDE RECORDS SUMMARY | 2022-07-30 14:08 | XMS_ITS | Continuity of Care Document ---
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 Adult [address] [place] [address]- Allergies, Adverse Reactions, Alerts Substance Reaction Severity [...] 11/15/19 Not Given Patient Refuses [facility] Actos 45 mg oral tablet 1 tablet = 45 mg, By Mouth, Daily, # 90 tablet, 3 Refills, Maintenance, 05/07/20 9:57:00 EDT, Tablet, [facility], 155, cm, 04/25/20 14:20:00 EST, Height, 76.7, kg, 11/13/19 23:35:00 EDT, Dry Weight Start Date: 05/07/20 Stop Date: 05/02/21 Status: Ordered aspirin 81 mg oral delayed release tablet 81 mg, 1, tablet, By Mouth, Daily, # 90 tablet, Refills 0, Tot. Refills 0, Maintenance, 11/15/19 10:06:00 EDT, Route to Pharmacy Electronically, [facility], 155, cm, 11/15/19 9:23:00 EDT, Height, 76.7, kg, 11/13/19 23:35:00 EDT, Dry Weight Start Date: 11/15/19 Stop Date: 02/13/20 Status: Ordered Calcium 600 +D oral tablet 1 tablet, By Mouth, Daily, # 30 tablet, 5 Refills, Maintenance, 02/09/16 11:45:34 EST, Tablet, [id number] Start Date: 02/09/16 Status: Ordered FLUoxetine 20 mg oral capsule 20 mg, 1, capsule, By Mouth, Daily, # 90 capsule, Refills 3, Tot. Refills 3, Maintenance, 08/03/19 11:12:00 EDT, Route to Pharmacy Electronically, [facility], 154, cm, 08/03/19 10:44:00 EDT, Height Start Date: 08/03/19 Stop Date: 07/28/20 Status: Ordered glipiZIDE 5 mg oral tablet, extended release 1 tablet = 5 mg, By Mouth, Daily, # 90 tablet, 3 Refills, Maintenance, 08/03/19 11:12:00 EDT, ER Tablet, [facility], 154, cm, 08/03/19 10:44:00 EDT, Height Start Date: 08/03/19 Status: Ordered Lasix 40 mg oral tablet 40 mg, 1, tablet, By Mouth, Daily, # 90 tablet, Refills 0, Tot. Refills 0, Maintenance, 11/15/19 10:30:00 EDT, Route to Pharmacy Electronically, [facility], 155, cm, 11/15/19 9:23:00 EDT, Height, 76.7, kg, 11/13/19 23:35:00 EDT, Dry Weight Start Date: 11/15/19 Stop Date: 02/13/20 Status: Ordered Lipitor 80 mg oral tablet 1 tablet = 80 mg, By Mouth, Daily, # 90 tablet, 0 Refills, Maintenance, 11/15/19 10:07:00 EDT, Tablet, [facility], 155, cm, 11/15/19 9:23:00 EDT, Height, 76.7, kg, 11/13/19 23:35:00 EDT, Dry Weight Start Date: 11/15/19 Stop Date: 02/13/20 Status: Ordered lisinopril 40 mg oral tablet 1 tablet = 40 mg, By Mouth, 2 times a day, # 180 tablet, 3 Refills, Maintenance, 05/02/19 10:54:00 EDT, Tablet, [facility], 154, cm, 05/02/19 10:30:00 EDT, Height Start Date: 05/02/19 Status: Ordered metFORMIN 500 mg oral tablet, extended release 3 tablet = 1,500 mg, By Mouth, Daily, # 270 tablet, 3 Refills, Maintenance, 05/02/19 10:54:00 EDT, [facility], 154, cm, 05/02/19 10:30:00 EDT, Height Start Date: 05/02/19 Stop Date: 04/26/20 Status: Ordered metoprolol 50 mg oral tablet 50 mg, 1, tablet, By Mouth, 2 times a day, # 180 tablet, Refills 3, Tot. Refills 3, Maintenance, 05/02/19 10:54:00 EDT, Route to Pharmacy Electronically, [facility], 154, cm, 05/02/19 10:30:00 EDT, Height Start Date: 05/02/19 Status: Ordered omeprazole 20 mg oral enteric coated capsule 1 capsule = 20 mg, By Mouth, Daily, # 90 capsule, 3 Refills, Maintenance, 05/02/19 10:54:00 EDT, ECCapsule, [facility], 154, cm, 05/02/19 10:30:00 EDT, Height Start Date: 05/02/19 Status: Ordered ticagrelor 90 mg oral tablet 1 tablet = 90 mg, By Mouth, 2 times a day, # 180 tablet, 0 Refills, Maintenance, 11/15/19 10:05:00 EDT, Tablet, [facility], 155, cm, 11/15/19 9:23:00 EDT, Height, 76.7, kg, 11/13/19 23:35:00 EDT, Dry Weight Start Date: 11/15/19 Stop Date: 02/13/20 Status: Ordered Vitamin D3 1000 intl units oral tablet 1 tablet = 1,000 International_Units, By Mouth, Daily, PER DR POND, # 30 tablet, 5 Refills, Maintenance, 02/09/16 11:45:35 EST, Tablet, [facility] [id number] Start Date: 02/09/16 Status: Ordered Problem List Condition Effective Dates Status Health Status Inform ant Congestive heart failure(Confirmed) Active Coronary artery disease(Confirmed) Active Depression(Confirmed) Active Diabetes(Confirmed) Active Gastro-esophageal reflux(Confirmed) Active H/O colonoscopy(Confirmed) 1 Active Hypercholesterolemia(Confirmed) Active Hypertension(Confirmed) Active Obesity (BMI 30.0-34.9)(Confirmed) Active Osteoarthritis(Confirmed) Active Osteopenia(Confirmed) 2 Active *[facility] [phone] CARE MANAG ER JESSICA ESCOTO(Confirmed) Active Vitamin D deficiency(Confirmed) Active 1Colonoscopy 2013 diverticulosis, repeat 2023. 2Bone Density 2014 Social History Social History Type Response Smoking Status Former smoker; Other : Quit smoking age 35; entered on: 08/18/15 Sex
--- OUTSIDE RECORDS SUMMARY | 2022-07-30 14:08 | XMS_ITS | Continuity of Care Document ---
Author Name Unknown Organization [facility] Alexis Beck lt Address [address] [place] [address]- Care Team Providers Care Ostomy Nurse Name Role Phone Aba Pond MD Primary Care Physician [phone] [place] [facility] [place](s): 05/22/21 - 05/29/21 [facility] Adult [address] [place] [address]- Encounter Diagnosis Congestive heart failure(Discharge Diagnosis) - 05/22/21 Diabetes mellitus type 2 in obese(Discharge Diagnosis) - 05/22/21 Hypercholesterolemia(Discharge Diagnosis) - 05/22/21 Hypertension(Discharge Diagnosis) - 05/22/21 Coronary artery disease(Discharge Diagnosis) - 05/22/21 Attending Physician: Aba Pond MD Allergies, Adverse [...] 11/15/19 Not Given Patient Refuses 1Location History: [facility] Medications Actos 45 mg oral tablet 1 tablet = 45 mg, By Mouth, Daily, # 90 tablet, 3 Refills, Maintenance, 05/22/21 10:46:00 EDT, Tablet, [facility], 155, cm, 05/22/21 10:28:00 EDT, Height, 76.7, kg, 11/13/19 23:35:00 EDT, Dry Weight Start Date: 05/22/21 Stop Date: 05/17/22 Status: Ordered aspirin 81 mg oral delayed release tablet 81 mg, 1, tablet, By Mouth, Daily, # 90 tablet, Refills 0, Tot. Refills 0, Maintenance, 11/15/19 10:06:00 EDT, Route to Pharmacy Electronically, [facility], 155, cm, 11/15/19 9:23:00 EDT, Height, 76.7, kg, 11/13/19 23:35:00 EDT, Dry Weight Start Date: 11/15/19 Stop Date: 02/13/20 Status: Ordered Calcium 600 +D oral tablet 1 tablet, By Mouth, Daily, # 30 tablet, 5 Refills, Maintenance, 02/09/16 11:45:34 EST, Tablet, [id number] Start Date: 02/09/16 Status: Ordered Freestyle Lite [...] Refills, Maintenance, 05/22/21 10:46:00 EDT, ER Tablet, [facility], 155, cm, 05/22/21 10:28:00 EDT, Height, 76.7, kg, 11/13/19 23:35:00 EDT, Dry Weight Start Date: 05/22/21 Status: Ordered Lipitor 80 mg oral tablet 1 tablet = 80 mg, By Mouth, Daily, # 90 tablet, 3 Refills, Maintenance, 05/22/21 10:46:00 EDT, Tablet, [facility], 155, cm, 05/22/21 10:28:00 EDT, Height, 76.7, kg, 11/13/19 23:35:00 EDT, Dry Weight Start Date: 05/22/21 Stop Date: 05/17/22 Status: Ordered lisinopril 40 mg oral tablet 1 tablet = 40 mg, By Mouth, Daily, # 180 tablet, 3 Refills, Maintenance, 05/22/21 10:46:00 EDT, Tablet, [facility], 155, cm, 05/22/21 10:28:00 EDT, Height, 76.7, kg, 11/13/19 23:35:00 EDT,Dry Weight Start Date: 05/22/21 Status: Ordered metFORMIN 500 mg oral tablet, extended release 1 tablet = 500 mg, By Mouth, 3 times a day, # 270 tablet, 3 Refills, Maintenance, 07/15/20 8:48:00 EDT, [facility], 155, cm, 04/25/20 14:20:00 EST, Height, 76.7, kg, 11/13/19 23:35:00 EDT,Dry Weight Start Date: 07/15/20 Stop Date: 07/10/21 Status: Ordered Metoprolol Tartrate 50 mg oral tablet See Instructions, Take 1 tablet by mouth twice daily, # 180 tablet, 3 Refills, Maintenance, 05/22/21 10:44:00 EDT, [facility], 155, cm, 05/22/21 10:28:00 EDT, Height, 76.7, kg, 11/13/19 23:35:00 EDT, Dry Weight Start Date: 05/22/21 Status: Ordered Vitamin D3 1000 intl units oral tablet 1 tablet = 1,000 International_Units, By Mouth, Daily, PER DR POND, # 30 tablet, 5 Refills, Maintenance, 02/09/16 11:45:35 EST, Tablet, [facility] Start Date: 02/09/16 Status: Ordered Zetia 10 mg oral tablet 1 tablet = 10 mg, By Mouth, Daily, # 90 tablet, 3 Refills, Maintenance, 05/22/21 10:58:00 EDT, Tablet, [facility], Partial fill upon patient [...] Osteoarthritis(Confirmed) Active Osteopenia(Confirmed) 2 Active *[facility] [phone] 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 2Bone Density 2014 Diagnosis Diagnosis Type Effective Dates Health Status Clinical Service Informant Congestive heart failure Discharge Diagnosis 05/22/21 Diabetes mellitus type 2 in obese Discharge Diagnosis 05/22/21 Hypercholesterolemia Discharge Diagnosis 05/22/21 Hypertension Discharge Diagnosis 05/22/21 Coronary artery disease Discharge Diagnosis 05/22/21 Vital Signs Most recent to oldest [Reference Range]: 1 Height 155 cm (05/22/21 10:28 AM) Weight 87.0 kg (05/22/21 10:28 AM) Oxygen Saturation [94-100 %] 97 % (05/22/21 10:28 AM) Pulse Rate [55-90 bpm] 74 bpm (05/22/21 10:28 AM) Body Mass Index [18.5-24.99] 36.21 *>HHI* (05/22/21 10:28 AM) Blood Pressure [90-138/55-84 mm Hg] 116/ 78mm Hg (05/22/21 10:28 AM) Mode of Delivery (Oxygen) Room air (05/22/21 10:28 AM) Blood pressure sites Arm, left (05/22/21 10:28 AM) Weight Obtained Via Standing scale (05/22/21 10:28 AM) Social History Social History Type Response Smoking Status Former smoker; Other : Quit smoking age 35; entered on: 08/18/15 Sex
--- OUTSIDE RECORDS SUMMARY | 2022-07-30 14:08 | XMS_ITS | Continuity of Care Document ---
Author Name Unknown Organization [facility] Alexis Beck lt Address [address] [place] [address]- Care Team Providers Care Double Backer Name Role Phone Aba Pond MD Primary Care Physician Encounter [facility] Date(s): 12/29/19 - 04/27/20 [facility] Adult [address] [place] [address]- Attending Physician: Aba Pond MD Allergies, Adverse [...] 3 Refills, Maintenance, 05/02/19 10:52:00 EDT, Tablet, [facility], 154, cm, 05/02/19 10:30:00 EDT, Height Start Date: 05/02/19 Status: Ordered aspirin 81 mg oral delayed release tablet 81 mg, 1, tablet, By Mouth, Daily, # 90 tablet, Refills 0, Tot. Refills 0, Maintenance, 11/15/19 10:06:00 EDT, Route to Pharmacy Electronically, [facility], 155, cm, 11/15/19 9:23:00 EDT, Height, 76.7, kg, 11/13/19 23:35:00 EDT, Dry Weight Start Date: 11/15/19 Stop Date: 02/13/20 Status: Ordered Calcium 600 +D oral tablet 1 tablet, By Mouth, Daily, # 30 tablet, 5 Refills, Maintenance, 02/09/16 11:45:34 EST, Tablet, [id number] Start Date: 02/09/16 Status: Ordered FLUoxetine 20 mg oral capsule 20 mg, 1, capsule, By Mouth, Daily, # 90 capsule, Refills 3, Tot. Refills 3, Maintenance, 08/03/19 11:12:00 EDT, Route to Pharmacy Electronically, [facility], 154, cm, 08/03/19 10:44:00 EDT, Height Start Date: 08/03/19 Stop Date: 07/28/20 Status: Ordered glipiZIDE 5 mg oral tablet, extended release 1 tablet = 5 mg, By Mouth, Daily, # 90 tablet, 3 Refills, Maintenance, 08/03/19 11:12:00 EDT, ER Tablet, [facility], 154, cm, 08/03/19 10:44:00 EDT, Height Start Date: 08/03/19 Status: Ordered Lasix 40 mg oral tablet 40 mg, 1, tablet, By Mouth, Daily, # 90 tablet, Refills 0, Tot. Refills 0, Maintenance, 11/15/19 10:30:00 EDT, Route to Pharmacy Electronically, [facility], 155, cm, 11/15/19 9:23:00 EDT, Height, 76.7, kg, 11/13/19 23:35:00 EDT, Dry Weight Start Date: 11/15/19 Stop Date: 02/13/20 Status: Ordered Lipitor 80 mg oral tablet 1 tablet = 80 mg, By Mouth, Daily, # 90 tablet, 0 Refills, Maintenance, 11/15/19 10:07:00 EDT, Tablet, [facility], 155, cm, 11/15/19 9:23:00 EDT, Height, 76.7, kg, 11/13/19 23:35:00 EDT, Dry Weight Start Date: 11/15/19 Stop Date: 02/13/20 Status: Ordered lisinopril 40 mg oral tablet 1 tablet = 40 mg, By Mouth, 2 times a day, # 180 tablet, 3 Refills, Maintenance, 05/02/19 10:54:00 EDT, Tablet, [facility], 154, cm, 05/02/19 10:30:00 EDT, Height Start Date: 05/02/19 Status: Ordered metFORMIN 500 mg oral tablet, extended release 3 tablet = 1,500 mg, By Mouth, Daily, # 270 tablet, 3 Refills, Maintenance, 05/02/19 10:54:00 EDT, [facility], 154, cm, 05/02/19 10:30:00 EDT, Height Start Date: 05/02/19 Stop Date: 04/26/20 Status: Ordered metoprolol 50 mg oral tablet 50 mg, 1, tablet, By Mouth, 2 times a day, # 180 tablet, Refills 3, Tot. Refills 3, Maintenance, 05/02/19 10:54:00 EDT, Route to Pharmacy Electronically, [facility], 154, cm, 05/02/19 10:30:00 EDT, Height Start Date: 05/02/19 Status: Ordered omeprazole 20 mg oral enteric coated capsule 1 capsule = 20 mg, By Mouth, Daily, # 90 capsule, 3 Refills, Maintenance, 05/02/19 10:54:00 EDT, ECCapsule, [facility], 154, cm, 05/02/19 10:30:00 EDT, Height Start Date: 05/02/19 Status: Ordered ticagrelor 90 mg oral tablet 1 tablet = 90 mg, By Mouth, 2 times a day, # 180 tablet, 0 Refills, Maintenance, 11/15/19 10:05:00 EDT, Tablet, [facility], 155, cm, 11/15/19 9:23:00 EDT, Height, 76.7, kg, 11/13/19 23:35:00 EDT, Dry Weight Start Date: 11/15/19 Stop Date: 02/13/20 Status: Ordered Vitamin D3 1000 intl units oral tablet 1 tablet = 1,000 International_Units, By Mouth, Daily, PER DR POND, # 30 tablet, 5 Refills, Maintenance, 02/09/16 11:45:35 EST, Tablet, [id number] Start Date: 02/09/16 Status: Ordered Problem List Condition Effective Dates Status Health Status Inform ant Congestive heart failure(Confirmed) Active Coronary artery disease(Confirmed) Active Depression(Confirmed) Active Diabetes(Confirmed) Active Gastro-esophageal reflux(Confirmed) Active H/O colonoscopy(Confirmed) 1 Active Hypercholesterolemia(Confirmed) Active Hypertension(Confirmed) Active Obesity (BMI 30.0-34.9)(Confirmed) Active Osteoarthritis(Confirmed) Active Osteopenia(Confirmed) 2 Active *[facility] [phone] CARE MANAG ER JESSICA ESCOTO(Confirmed) Active Vitamin D deficiency(Confirmed) Active 1Colonoscopy 2013 diverticulosis, repeat 2023. 2Bone Density 2014 Social History Social History Type Response Smoking Status Former smoker; Other : Quit smoking age 35; entered on: 08/18/15 Sex
--- OUTSIDE RECORDS SUMMARY | 2022-07-30 14:08 | XMS_ITS | Continuity of Care Document ---
Author Name Unknown Organization [facility] Alexis Beck lt Address [address] [place] [address]- Care Team Providers Care Industrial Cleaner Name Role Phone Barb TORRES, Aba Garcia Primary Care Physician [phone] Encounter [facility] Date(s): 05/06/20 - 06/05/20 [facility] Adult [address] [place] [address]- Allergies, Adverse Reactions, Alerts Substance Reaction Severity [...] 11/15/19 Not Given [facility] Ref[facility] 45 mg oral tablet 1 tablet = 45 mg, By Mouth, Daily, # 90 tablet, 3 Refills, Maintenance, 05/07/20 9:57:00 EDT, Tablet, [facility], 155, cm, 04/25/20 14:20:00 EST, Height, 76.7, kg, 11/13/19 23:35:00 EDT, Dry Weight Start Date: 05/07/20 Stop Date: 05/02/21 Status: Ordered aspirin 81 mg oral delayed release tablet 81 mg, 1, tablet, By Mouth, Daily, # 90 tablet, Refills 0, Tot. Refills 0, Maintenance, 11/15/19 10:06:00 EDT, Route to Pharmacy Electronically, [facility], 155, cm, 11/15/19 9:23:00 EDT, Height, 76.7, kg, 11/13/19 23:35:00 EDT, Dry Weight Start Date: 11/15/19 Stop Date: 02/13/20 Status: Ordered Calcium 600 +D oral tablet 1 tablet, By Mouth, Daily, # 30 tablet, 5 Refills, Maintenance, 02/09/16 11:45:34 EST, Tablet, [id number] Start Date: 02/09/16 Status: Ordered FLUoxetine 20 mg oral capsule 20 mg, 1, capsule, By Mouth, Daily, # 90 capsule, Refills 3, Tot. Refills 3, Maintenance, 08/03/19 11:12:00 EDT, Route to Pharmacy Electronically, [facility], 154, cm, 08/03/19 10:44:00 EDT, Height Start Date: 08/03/19 Stop Date: 07/28/20 Status: Ordered glipiZIDE 5 mg oral tablet, extended release 1 tablet = 5 mg, By Mouth, Daily, # 90 tablet, 3 Refills, Maintenance, 08/03/19 11:12:00 EDT, ER Tablet, [facility], 154, cm, 08/03/19 10:44:00 EDT, Height Start Date: 08/03/19 Status: Ordered Lasix 40 mg oral tablet 40 mg, 1, tablet, By Mouth, Daily, # 90 tablet, Refills 0, Tot. Refills 0, Maintenance, 11/15/19 10:30:00 EDT, Route to Pharmacy Electronically, [facility], 155, cm, 11/15/19 9:23:00 EDT, Height, 76.7, kg, 11/13/19 23:35:00 EDT, Dry Weight Start Date: 11/15/19 Stop Date: 02/13/20 Status: Ordered Lipitor 80 mg oral tablet 1 tablet = 80 mg, By Mouth, Daily, # 90 tablet, 0 Refills, Maintenance, 11/15/19 10:07:00 EDT, Tablet, [facility], 155, cm, 11/15/19 9:23:00 EDT, Height, 76.7, kg, 11/13/19 23:35:00 EDT, Dry Weight Start Date: 11/15/19 Stop Date: 02/13/20 Status: Ordered lisinopril 40 mg oral tablet 1 tablet = 40 mg, By Mouth, 2 times a day, # 180 tablet, 3 Refills, Maintenance, 05/02/19 10:54:00 EDT, Tablet, [facility], 154, cm, 05/02/19 10:30:00 EDT, Height Start Date: 05/02/19 Status: Ordered metFORMIN 500 mg oral tablet, extended release 3 tablet = 1,500 mg, By Mouth, Daily, # 270 tablet, 3 Refills, Maintenance, 05/02/19 10:54:00 EDT, [facility], 154, cm, 05/02/19 10:30:00 EDT, Height Start Date: 05/02/19 Stop Date: 04/26/20 Status: Ordered metoprolol 50 mg oral tablet 50 mg, 1, tablet, By Mouth, 2 times a day, # 180 tablet, Refills 3, Tot. Refills 3, Maintenance, 05/02/19 10:54:00 EDT, Route to Pharmacy Electronically, [facility], 154, cm, 05/02/19 10:30:00 EDT, Height Start Date: 05/02/19 Status: Ordered omeprazole 20 mg oral enteric coated capsule 1 capsule = 20 mg, By Mouth, Daily, # 90 capsule, 3 Refills, Maintenance, 05/02/19 10:54:00 EDT, ECCapsule, [facility], 154, cm, 05/02/19 10:30:00 EDT, Height Start Date: 05/02/19 Status: Ordered ticagrelor 90 mg oral tablet 1 tablet = 90 mg, By Mouth, 2 times a day, # 180 tablet, 0 Refills, Maintenance, 11/15/19 10:05:00 EDT, Tablet, [facility], 155, cm, 11/15/19 9:23:00 EDT, Height, 76.7, kg, 11/13/19 23:35:00 EDT, Dry Weight Start Date: 11/15/19 Stop Date: 02/13/20 Status: Ordered Vitamin D3 1000 intl units oral tablet 1 tablet = 1,000 International_Units, By Mouth, Daily, PER DR POND, # 30 tablet, 5 Refills, Maintenance, 02/09/16 11:45:35 EST, Tablet, [id number] Start Date: 02/09/16 Status: Ordered Problem List Condition Effective Dates Status Health Status Inform ant Congestive heart failure(Confirmed) Active Coronary artery disease(Confirmed) Active Depression(Confirmed) Active Diabetes(Confirmed) Active Gastro-esophageal reflux(Confirmed) Active H/O colonoscopy(Confirmed) 1 Active Hypercholesterolemia(Confirmed) Active Hypertension(Confirmed) Active Obesity (BMI 30.0-34.9)(Confirmed) Active Osteoarthritis(Confirmed) Active Osteopenia(Confirmed) 2 Active *[facility] [phone] CARE MANAG ER JESSICAMatthew ESCOTO(Confirmed) Active Vitamin D deficiency(Confirmed) Active 1Colonoscopy 2013 diverticulosis, repeat 2023. 2Bone Density 2014 Social History Social History Type Response Smoking Status Former smoker; Other : Quit smoking age 35; entered on: 08/18/15 Sex
--- OUTSIDE RECORDS SUMMARY | 2022-07-30 14:08 | XMS_ITS | Continuity of Care Document ---
Author Name Unknown Organization [facility] Beck lt Address [address] [place] [address]- Care Team Providers Care Gallery Or Museum Attendant Name Role Phone Aba Pond MD Primary Care Physician Encounter [facility] Date(s): 08/15/20 - 09/14/20 [facility] [address] [place] [address]- Allergies, Adverse Reactions, Alerts Substance Reaction Severity [...] 3 Refills, Maintenance, 05/07/20 9:57:00 EDT, Tablet, [facility], 155, cm, 04/25/20 14:20:00 EST, Height, 76.7, kg, 11/13/19 23:35:00 EDT, Dry Weight Start Date: 05/07/20 Stop Date: 05/02/21 Status: Ordered aspirin 81 mg oral delayed release tablet 81 mg, 1, tablet, By Mouth, Daily, # 90 tablet, Refills 0, Tot. Refills 0, Maintenance, 11/15/19 10:06:00 EDT, Route to Pharmacy Electronically, [facility], 155, cm, 11/15/19 9:23:00 EDT, Height, 76.7, kg, 11/13/19 23:35:00 EDT, Dry Weight Start Date: 11/15/19 Stop Date: 02/13/20 Status: Ordered Calcium 600 +D oral tablet 1 tablet, By Mouth, Daily, # 30 tablet, 5 Refills, Maintenance, 02/09/16 11:45:34 EST, Tablet, [facility] [address] Start Date: 02/09/16 Status: Ordered FLUoxetine 20 [...] Refills, Maintenance, 09/12/20 13:26:00 EDT, ER Tablet, [facility], 155, cm, 08/29/20 10:43:00 EDT, Height, 76.7, kg, 11/13/19 23:35:00 EDT, Dry Weight Start Date: 09/12/20 Status: Ordered Lasix 40 mg oral tablet 40 mg, 1, tablet, By Mouth, Daily, # 90 tablet, Refills 1, Tot. Refills 1, Maintenance, 07/18/20 14:54:00 EDT, Route to Pharmacy Electronically, [facility], 155, cm, 07/18/20 14:13:00 EDT,Height, 76.7, kg, 11/13/19 23:35:00 EDT, Dry Weight Start Date: 07/18/20 Stop Date: 01/14/21 Status: Ordered Lipitor 80 mg oral tablet 1 tablet = 80 mg, By Mouth, Daily, # 90 tablet, 0 Refills, Maintenance, 11/15/19 10:07:00 EDT, Tablet, [facility], 155, cm, 11/15/19 9:23:00 EDT, Height, 76.7, kg, 11/13/19 23:35:00 EDT, Dry Weight Start Date: 11/15/19 Stop Date: 02/13/20 Status: Ordered lisinopril 40 mg oral tablet 1 tablet = 40 mg, By Mouth, Daily, # 180 tablet, 3 Refills, Maintenance, 09/05/20 13:25:00 EDT, Tablet, [facility], 155, cm, 08/29/20 10:43:00 EDT, Height, 76.7, kg, 11/13/19 23:35:00 EDT,Dry Weight Start Date: 09/05/20 Status: Ordered metFORMIN 500 mg oral tablet, extended release 1 tablet = 500 mg, By Mouth, 3 times a day, # 270 tablet, 3 Refills, Maintenance, 07/15/20 8:48:00 EDT, [facility], 155, cm, 04/25/20 14:20:00 EST, Height, 76.7, kg, 11/13/19 23:35:00 EDT,Dry Weight Start Date: 07/15/20 Stop Date: 07/10/21 Status: Ordered metoprolol 50 mg oral tablet 50 mg, 1, tablet, By Mouth, 2 times a day, # 180 tablet, Refills 0, Tot. Refills 0, Maintenance, 08/01/20 11:47:00 EDT, Route to Pharmacy Electronically, [facility], 155, cm, 07/18/20 14:13:00 EDT, Height, 76.7, kg, 11/13/19 23:35:00 EDT, D... Start Date: 08/01/20 Status: Ordered omeprazole 20 mg oral enteric coated capsule 1 capsule = 20 mg, By Mouth, Daily, # 90 capsule, 3 Refills, Maintenance, 05/02/19 10:54:00 EDT, ECCapsule, [facility], 154, cm, 05/02/19 10:30:00 EDT, Height Start Date: 05/02/19 Status: Ordered ticagrelor 90 mg oral tablet 1 tablet = 90 mg, By Mouth, 2 times a day, # 180 tablet, 0 Refills, Maintenance, 11/15/19 10:05:00 EDT, Tablet, [facility], 155, cm, 11/15/19 9:23:00 EDT, Height, 76.7, kg, 11/13/19 23:35:00 EDT, Dry Weight Start Date: 11/15/19 Stop Date: 02/13/20 Status: Ordered Vitamin D3 1000 intl units oral tablet 1 tablet = 1,000 International_Units, By Mouth, Daily, PER DR POND, # 30 tablet, 5 Refills, Maintenance, 02/09/16 11:45:35 EST, Tablet, [id number] Start Date: 02/09/16 Status: Ordered Problem List Condition Effective Dates Status Health Status Inform ant Congestive heart failure(Confirmed) Active Coronary artery disease(Confirmed) Active Diabetes(Confirmed) Active Gastro-esophageal reflux(Confirmed) Active H/O colonoscopy(Confirmed) 1 Active Hypercholesterolemia(Confirmed) Active Hypertension(Confirmed) Active Obesity (BMI 30.0-34.9)(Confirmed) Active Osteoarthritis(Confirmed) Active Osteopenia(Confirmed) 2 Active *[facility] [phone] 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 2Bone Density 2014 Social History Social History Type Response Smoking Status Former smoker; Other : Quit smoking age 35; entered on: 08/18/15 Sex
--- OUTSIDE RECORDS SUMMARY | 2022-07-30 14:08 | XMS_ITS | Continuity of Care Document ---
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 Name Role Phone Aba Pond MD Primary Care Physician Encounter [facility] Date(s): 05/02/20 - 06/01/20 [facility] Adult [address] [place] [address]- Allergies, Adverse Reactions, Alerts Substance Reaction Severity [...] 11/15/19 Not Given Patient Refuses [facility] Actos 45 mg oral tablet 1 tablet = 45 mg, By Mouth, Daily, # 90 tablet, 3 Refills, Maintenance, 05/07/20 9:57:00 EDT, Tablet, [facility], 155, cm, 04/25/20 14:20:00 EST, Height, 76.7, kg, 11/13/19 23:35:00 EDT, Dry Weight Start Date: 05/07/20 Stop Date: 05/02/21 Status: Ordered aspirin 81 mg oral delayed release tablet 81 mg, 1, tablet, By Mouth, Daily, # 90 tablet, Refills 0, Tot. Refills 0, Maintenance, 11/15/19 10:06:00 EDT, Route to Pharmacy Electronically, [facility], 155, cm, 11/15/19 9:23:00 EDT, Height, 76.7, kg, 11/13/19 23:35:00 EDT, Dry Weight Start Date: 11/15/19 Stop Date: 02/13/20 Status: Ordered Calcium 600 +D oral tablet 1 tablet, By Mouth, Daily, # 30 tablet, 5 Refills, Maintenance, 02/09/16 11:45:34 EST, Tablet, [id number] Start Date: 02/09/16 Status: Ordered FLUoxetine 20 mg oral capsule 20 mg, 1, capsule, By Mouth, Daily, # 90 capsule, Refills 3, Tot. Refills 3, Maintenance, 08/03/19 11:12:00 EDT, Route to Pharmacy Electronically, [facility], 154, cm, 08/03/19 10:44:00 EDT, Height Start Date: 08/03/19 Stop Date: 07/28/20 Status: Ordered glipiZIDE 5 mg oral tablet, extended release 1 tablet = 5 mg, By Mouth, Daily, # 90 tablet, 3 Refills, Maintenance, 08/03/19 11:12:00 EDT, ER Tablet, [facility], 154, cm, 08/03/19 10:44:00 EDT, Height Start Date: 08/03/19 Status: Ordered Lasix 40 mg oral tablet 40 mg, 1, tablet, By Mouth, Daily, # 90 tablet, Refills 0, Tot. Refills 0, Maintenance, 11/15/19 10:30:00 EDT, Route to Pharmacy Electronically, [facility], 155, cm, 11/15/19 9:23:00 EDT, Height, 76.7, kg, 11/13/19 23:35:00 EDT, Dry Weight Start Date: 11/15/19 Stop Date: 02/13/20 Status: Ordered Lipitor 80 mg oral tablet 1 tablet = 80 mg, By Mouth, Daily, # 90 tablet, 0 Refills, Maintenance, 11/15/19 10:07:00 EDT, Tablet, [facility], 155, cm, 11/15/19 9:23:00 EDT, Height, 76.7, kg, 11/13/19 23:35:00 EDT, Dry Weight Start Date: 11/15/19 Stop Date: 02/13/20 Status: Ordered lisinopril 40 mg oral tablet 1 tablet = 40 mg, By Mouth, 2 times a day, # 180 tablet, 3 Refills, Maintenance, 05/02/19 10:54:00 EDT, Tablet, [facility], 154, cm, 05/02/19 10:30:00 EDT, Height Start Date: 05/02/19 Status: Ordered metFORMIN 500 mg oral tablet, extended release 3 tablet = 1,500 mg, By Mouth, Daily, # 270 tablet, 3 Refills, Maintenance, 05/02/19 10:54:00 EDT, [facility], 154, cm, 05/02/19 10:30:00 EDT, Height Start Date: 05/02/19 Stop Date: 04/26/20 Status: Ordered metoprolol 50 mg oral tablet 50 mg, 1, tablet, By Mouth, 2 times a day, # 180 tablet, Refills 3, Tot. Refills 3, Maintenance, 05/02/19 10:54:00 EDT, Route to Pharmacy Electronically, [facility], 154, cm, 05/02/19 10:30:00 EDT, Height Start Date: 05/02/19 Status: Ordered omeprazole 20 mg oral enteric coated capsule 1 capsule = 20 mg, By Mouth, Daily, # 90 capsule, 3 Refills, Maintenance, 05/02/19 10:54:00 EDT, ECCapsule, [facility], 154, cm, 05/02/19 [...] 5 Refills, Maintenance, 02/09/16 11:45:35 EST, Tablet, [email or web address] [id number] Start Date: 02/09/16 Status: Ordered Problem List Condition Effective Dates Status Health Status Inform ant Congestive heart failure(Confirmed) Active Coronary artery disease(Confirmed) Active Depression(Confirmed) Active Diabetes(Confirmed) Active Gastro-esophageal reflux(Confirmed) Active H/O colonoscopy(Confirmed) 1 Active Hypercholesterolemia(Confirmed) Active Hypertension(Confirmed) Active Obesity (BMI 30.0-34.9)(Confirmed) Active Osteoarthritis(Confirmed) Active Osteopenia(Confirmed) 2 Active *[facility] [phone] CARE MANAG ER JESSICAMatthew ESCOTO(Confirmed) Active Vitamin D deficiency(Confirmed) Active 1Colonoscopy 2013 diverticulosis, repeat 2023. 2Bone Density 2014 Social History Social History Type Response Smoking Status Former smoker; Other : Quit smoking age 35; entered on: 08/18/15 Sex
--- NOTE | 2022-07-30 14:22 | P.HPHOSP_ITS ---
History of Present Illness Date of Service: 07/30/22 Chief Complaint: Shortness of breath, Palpitations, new AFIB 72 year old female with Atherosclerotic cardiovascular disease, Chronic heart failure with preserved ejection fraction (HFpEF), Essential hypertension, Type 2 diabetes mellitus with unspecified complications who has not been feeling well with shortness, congestion, cough and has been treated by her PCP with inhalers and steroid but continues to feel worse and now has developped palpitation as well and call EMS to be brought to the ED. EMS noted patient to be very thachycardic with rythm strip consistent with AFIB with RVR. Given IV diltiazem in the ED and HR continue to fluctuate but trending down. She has peripheral edema, CXR is clear. Review of Systems Review of Systems: Gen: no fever Resp: + sob, + cough CV: no chest, + WAHL, + leg edema GI: No n/v, no abd pain Neuro: No confusion Yes all other systems are reviewed and are negative FOR[facility]LY [facility], [facility] Medical History Atherosclerotic cardiovascular disease Chronic heart failure with preserved ejection fraction (HFpEF) Essential hypertension Hypercholesterolemia Type 2 diabetes mellitus with unspecified complications Family History Father Diabetes Mother Cirrhosis Surgical History History of cardiac catheterization (~11/14/19) Hx of colonoscopy Social History Household Members: Spouse Housing: House Are you a primary career and transition teacher to a significant other at home: No Do you presently have visiting nurse or other home services: No (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 If so, by whom?: No Do you feel safe in your current relationship?: Yes Is there a partner from a previous relationship who is making you feel unsafe now?: No Are you made to feel afraid or neglected: No Advance Directives: No Advance Directives Information Provided: No Do you have thoughts of harming others: None Do you have a plan to hurt others: No Plan Recently lost weight without trying: No Eating poorly because of decreased appetite: No Nutrition Risks: No Nutritional Risk Patient : No Meds Allergies Allergy/AdvReac Type Severity Reaction Status Date / Time naproxen [NAPROXEN] AdvReac Unknown dizziness, Verified 05/21/21 15:37 nausea Active Medications: Current Medications Diltiazem HCl 125 mg/ Sodium (Chloride) 125 mls @ 0 mls/hr IVCONT .Q0M [facility]; Protocol Home Medications Medication Instructions Recorded Confirmed Last Taken Type aspirin 81 mg tablet,delayed 81 mg PO DAILY 09/03/20 07/30/22 07/29/22 History release atorvastatin 80 mg tablet 80 mg PO BEDTIME 09/03/20 07/30/22 07/29/22 History glipizide 5 mg tablet, extended 5 mg PO DAILY 09/03/20 07/30/22 07/29/22 History release 24 hr lisinopril 40 mg tablet 40 mg PO BID 09/03/20 07/30/22 07/29/22 History metformin 500 mg tablet,extended 500 mg PO TID 09/03/20 07/30/22 07/29/22 History release 24 hr metoprolol tartrate 50 mg tablet 50 mg PO DAILY 09/03/20 07/30/22 07/29/22 History pioglitazone 45 mg tablet 45 mg PO DAILY 09/03/20 07/30/22 07/29/22 History calcium carbonate 600 mg-vitamin 1 tab PO DAILY 05/21/21 07/30/22 07/29/22 History D3 5 mcg (200 unit) tablet acetaminophen 325 mg tablet 650 mg PO Q6H PRN Pain 07/30/22 07/30/22 Unknown History (Tylenol) guaifenesin 1,200 mg tablet, 1,200 mg PO BID PRN Congestion 07/30/22 07/30/22 Unknown History extended release 12 hr (Mucinex) prednisone 10 mg tablet See Rx Instructions .Route .COMPLEX 07/30/22 07/30/22 07/29/22 History Physical Exam Vital Signs and Narrative: Vital Signs: Last Vital Signs Temp 98.8 F 07/30/22 13:05 Pulse 153 H 07/30/22 13:05 Resp 23 H 07/30/22 13:05 BP 150/71 H 07/30/22 13:05 Pulse Ox 93 07/30/22 13:05 O2 Del Method Nasal Cannula 07/30/22 13:05 Oxygen Flow Rate 2 07/30/22 13:05 BMI result Body Mass Index 37.1 Const: Other: Constitutional: Alert, in no distress, overweight. Mental Status: Oriented to person, place and time. Eyes: Pupils are equal, round and reactive to light. Ear, Nose and Throat: Oropharynx clear, mucous membranes moist. Ears and nose without eformities. Trachea midline. Respiratory: Clear to auscultation. No wheezing, rales or rhonchi. Cardiovascular: S1 S2 iregular regular. No murmurs, rubs or gallops. Gastrointestinal: Abdomen soft, non-tender, non-distended. Normal bowel sounds.? Neurologic: Cranial nerves II-XII grossly intact. No focal neurological deficits. Moves all extremities spontaneously.? Skin: No rashes or lesions.? Musculoskeletal: No cyanosis or clubbing. Psychiatric: Normal mood and affect? Results Labs 07/30/22 14:58 07/30/22 14:58 Assessment and Plan (1) New onset a-fib: Status: Acute Plan New onset AFIB with RVR--attempt rate control with IV cardizem, and oral metoprolol and if needed will consider digoxin as well, will seek cardiology input and obtain an echocardiogram. To be anticoagulated with Eliquis Diabetes--Continue home meds of Glipizide and Metormin, add SSI and glucose monitoring protocol CAD--no acute ischemica, continue ASA, metoprolol Essential HTN--copntinue Lisinopril and Metoprolol Chronic heart HFpEF--appear compensated, DVT P: Eliquis Admission to span at least 2 midnights for management of new, symptomatic AFIB with RVR that needs meds adjustement Time Spent With Patient Time: Total time managing care of this patient today ____ minutes. Quality Stroke Does the patient have a stroke diagnosis?: No VTE Prior VTE?: No VTE Risk Level:: Medical - moderate - high VTE Device Contraindication: Treatment Not Indicated VTE Drug Contraindication: N/A - Med Ordered
[2022-07-30] MEDS: levalbuterol HCL 1.25 MG/3 ML VIAL.NEB 2.5 MG INHALE (14:29)
[2022-07-30] MEDS: dilTIAZem HCL 125 MG in 0.9 % Sodium Chloride 100 ML 10 MG IVCONT (14:44)
[2022-07-30 15:01] LABS: Venous Blood Gas Refer to POC result
[2022-07-30 15:03] LABS: VBG Base Excess 2.7 mmol/L; VBG HCO3 24 mmol/L (22-26); VBG pCO2 28 mmHg; VBG pH 7.53 (7.32-7.43); VBG pO2 46 mmHg
[2022-07-30 15:10] LABS: Basophils Percent Auto 0.2 % (0-2); Eosinophils Percent Auto 0.1 % (0-4); Hematocrit 43.8 % (37.0-47.0); Imm Gran Abs Auto 0.14 X10*3/uL (0.00-0.03); Imm Gran Pct Auto 0.9 % (0.0-0.4); Lymphocytes Absolute Auto 3.5 X10*3/uL (1.2-4.9); Lymphocytes Percent Auto 23.6 % (20-40); Mean Corpuscular Hemoglobin 29.2 pg (27.0-33.0); Mean Corpuscular Volume 91.3 fL (80.0-98.0); Monocytes Percent Auto 13.6 % (2-11); Neutrophils Absolute Auto 9.2 x10*3/uL (2.0-8.3); Neutrophils Percent Auto 61.6 % (45-73); Platelet Count 269 X10*3/uL (160-400); Red Cell Distribution Width 15.9 % (11.0-16.0); White Blood Count 14.9 X10*3/uL (4.8-10.8)
[2022-07-30 15:16] LABS: INTERNATIONAL NORM RATIO 0.9 (0.9-1.1); Prothrombin Time 10.6 SEC (10.0-13.1)
--- NOTE | 2022-07-30 15:16 | PHA.MEDREC ---
Pharmacy Consult ? Medication Reconciliation Pharmacy has completed the medication reconciliation. Spoke to patient to confirm meds. Patient states that they still take metoprolol tartrate 50mg daily, however their pharmacy states that they haven't picked up the medication since 11/2021.
[2022-07-30 15:21] LABS: Lactic Acid 2.7 mmol/L (0.5-2.0)
[2022-07-30 15:27] LABS: COVID-19 Test Negative (Negative); IDNOW Serial# BCCEAD1C
[2022-07-30 15:29] LABS: B Type Natriuretic Peptide 143 pg/mL (<100)
[2022-07-30 15:30] LABS: Troponin-I High Sensitivity 6.2 ng/L (<3.5-17.0)
[2022-07-30 15:40] LABS: MANUAL DIFF FLAG SCAN; SCAN SMEAR FLAG 1; SLIDE REVIEW VERIFIED
[2022-07-30 15:44] LABS: Thyroid Stimulating Hormone 0.72 uIU/mL (0.32-4.0)
[2022-07-30 15:48] LABS: Alanine Aminotransferase 26 U/L (0-31); Albumin Level 3.6 g/dL (3.5-5.0); Alkaline Phosphatase 65 U/L (39-117); Anion Gap 17 (12-20); Aspartate Amino Transferase 24 U/L (5-31); Bilirubin Total 1.3 mg/dL (0.0-1.0); Blood Urea Nitrogen 35 mg/dL (9-16); Carbon Dioxide 22 mmol/L (22-29); Chloride 108 mmol/L (96-108); Creatinine Clr Calc Pharmacy 43.8; Estimated Glomerular Filt Rate 46; Glucose Random 215 mg/dL (60-115); Potassium 4.4 mmol/L (3.3-5.1); Sodium 143 mmol/L (135-145); Total Protein 6.5 g/dL (6.5-8.0)
[2022-07-30] MEDS: Apixaban 5 MG TABLET PO (16:00)
[2022-07-30] MEDS: cefTRIAXone sodium 1 GM in 0.9 % Sodium Chloride 50 ML IV (16:35)
[2022-07-30 17:06] LABS: Reflex Lactate? Lactic Acid Added
--- NOTE | 2022-07-30 17:36 | PC.NURSE ---
Did report BP's of 90/30 and 83/44 within 10 minutes, reported to DR Oh. Cardizem drip was paused due to BP's and Metoprolol 5mg was given and HR was between 88-115's.
[2022-07-30] MEDS: 0.9 % Sodium Chloride 1,000 ML 999 ML IVCONT (18:04)
[2022-07-30] MEDS: 0.9 % Sodium Chloride 1,000 ML 125 ML IVCONT (18:23)
[2022-07-30] MEDS: Digoxin 0.5 MG/2 ML AMPUL 0.25 MG IVPUSH (18:23)
--- NOTE | 2022-07-30 19:09 | PC.NURSE ---
report received from Frances RN Pt resting comfortably on stretcher, offers no complaints other than being hungry. Blood pressure continues to remain soft (latest 102/53), pt denies dizziness, denies SOB and palpitations. Normal saline running at 125/hr. Md Adriano marroquin texted at [phone] asking if he feels pt is stable enough to go to [facility], okayed patient going to [facility]
--- NOTE | 2022-07-30 19:24 | PC.NURSE ---
attempted to call report, nurse on IM in floor report at this time, lopez texted her at [phone]
--- NOTE | 2022-07-30 20:54 | PC.NURSE ---
Pt resting comfortably, awaiting transport to go upstairs, offers this RN no complaints, BP improved, HR in 90s afib on monitor. Alert and oriented x4, respirations even and unlabored, skin pwd, no apparent distress
[2022-07-30 21:08] LABS: ~Lactic Acid-LAB USE ONLY 2.4 mmol/L (0.5-2.0)
[2022-07-30] MEDS: lisinopriL 40 MG TABLET PO (21:43)
[2022-07-30] MEDS: Atorvastatin Calcium 80 MG TABLET PO (21:43)
[2022-07-30 22:32] LABS: Reflex Lactate? 2 Y
[2022-07-30 23:18] LABS: ~Lactic Acid-LAB USE ONLY 1.9 mmol/L (0.5-2.0)
[2022-07-31] VITALS (8 sets, daily range): BP systolic 127–164; BP diastolic 56–68; PULSE 73–93; RESP 14–20; TEMP 36.3–36.7; O2SAT 88–97
[2022-07-31] MEDS: Digoxin 0.5 MG/2 ML AMPUL 0.25 MG IVPUSH (00:43)
[2022-07-31] MEDS: 0.9 % Sodium Chloride 1,000 ML 125 ML IVCONT (01:24)
[2022-07-31] MEDS: Aspirin Enteric Coated 81 MG TABLET.DR PO (09:30)
[2022-07-31] MEDS: lisinopriL 40 MG TABLET PO ×2 (09:30→21:01)
[2022-07-31] MEDS: Metoprolol Tartrate 50 MG TABLET PO (09:30)
[2022-07-31] MEDS: glipiZIDE XL 5 MG TAB.ER.24 PO (09:30)
[2022-07-31] MEDS: 0.9 % Sodium Chloride Flush 3 ML SYRINGE IVFLUSH ×3 (09:31→21:02)
--- NOTE | 2022-07-31 10:37 | P.PNIM_ITS ---
Subjective Subjective Date of Service: 07/31/22 Interval History: f/u afib with RVR, sob d/t bronchitis has converted to sinus, still feel congested and sob, no fever Review of Systems no fever, cough, Physical Exam Vital Signs: Vital Signs: Last Vital Signs Temp 97.9 F 07/31/22 07:35 Pulse 88 07/31/22 07:35 Resp 20 07/31/22 07:35 BP 145/65 H 07/31/22 07:35 Pulse Ox 96 07/31/22 07:35 O2 Del Method Nasal Cannula 07/31/22 07:35 O2 Flow Rate 2 07/31/22 07:35 Oxygen Flow Rate 2 07/30/22 13:05 BMI result Body Mass Index 37.1 Const: Other: General: AO X 3, no acute distress Resp: rhonchi CVS: S1,S2,RRR GI: +BS, NT, no distention Skin: No rash Neuro: motor grossly intact Psych: appropriate affect Objective Data Active Medications Apixaban (Apixaban 5 Mg Tablet) 5 mg PO BID [facility] Aspirin (Aspirin Enteric Coated 81 Mg Tablet.Dr) 81 mg PO DAILY [facility] Last Admin: 07/31/22 09:30 Dose: 81 mg Documented By: ROYAL Atorvastatin Calcium (Atorvastatin Calcium 80 Mg Tablet) 80 mg PO BEDTIME [facility] Last Admin: 07/30/22 21:43 Dose: 80 mg Documented By: JEN Furosemide (Furosemide 20 Mg/2 Ml Vial) 20 mg IVPUSH Q12H [facility]; Protocol Glipizide (Glipizide Xl 5 Mg Tab.Er.24) 5 mg PO DAILY [facility] Last Admin: 07/31/22 09:30 Dose: 5 mg Documented By: ROYAL Diltiazem HCl 125 mg/ Sodium (Chloride) 125 mls @ 0 mls/hr IVCONT .Q0M [facility]; Protocol Last Titration: 07/30/22 16:13 Dose: 0 mg/hr, 0 mls/hr Documented By: BARON Lisinopril (Lisinopril 40 Mg Tablet) 40 mg PO BID [facility]; Protocol Last Admin: 07/31/22 09:30 Dose: 40 mg Documented By: ROYAL Metoprolol Tartrate (Metoprolol Tartrate 50 Mg Tablet) 50 mg PO DAILY [facility]; Protocol Last Admin: 07/31/22 09:30 Dose: 50 mg Documented By: ROYAL Sodium Chloride (0.9 % Sodium Chloride Flush 3 Ml Syringe) 3 ml IVFLUSH QSHIFT [facility] Last Admin: 07/31/22 09:31 Dose: 3 ml Documented By: ROYAL Labs 07/30/22 14:58 07/30/22 14:58 Labs: Laboratory Results - last 24 hr 07/30/22 07/30/22 07/30/22 14:56 14:58 14:58 MCV 91.3 MCH 29.2 MCHC 32.0 RDW 15.9 Plt Count 269 MPV 10.0 Immature Gran % (Auto) 0.9 H Neut % (Auto) 61.6 Lymph % (Auto) 23.6 [place] % (Auto) 13.6 H Eos % (Auto) 0.1 Baso % (Auto) 0.2 Lymph # (Auto) 3.5 [place] # (Auto) 2.0 H Eos # (Auto) 0.0 Baso # (Auto) 0.0 Abs Immat Gran (auto) 0.14 H Absolute Neuts (auto) 9.2 H Absolute Nucleated RBC 0.000 Nucleated RBC % (auto) 0.0 Smear Tech's Comments VERIFIED PT INR VBG pH 7.53 H VBG pCO2 28 VBG pO2 46 VBG HCO3 24 VBG O2 Saturation 80.0 VBG Base Excess 2.7 Anion Gap 17 Estim Creat Clear Calc 43.8 Estimated GFR 46 Random Glucose 215 H Lactic Acid Lactic Acid F/U @ 2Hr Lactic Acid F/U @ 4Hr Calcium 9.0 Magnesium 2.0 Total Bilirubin 1.3 H AST 24 ALT 26 Alkaline Phosphatase 65 Troponin I High Sens B-Natriuretic Peptide Total Protein 6.5 Albumin 3.6 TSH 0.72 COVID-19 (JIMMY) COVID-19 Clin Com 07/30/22 07/30/22 07/30/22 14:58 14:58 14:58 MCV MCH MCHC RDW Plt Count MPV Immature Gran % (Auto) Neut % (Auto) Lymph % (Auto) [place] % (Auto) Eos % (Auto) Baso % (Auto) Lymph # (Auto) [place] # (Auto) Eos # (Auto) Baso # (Auto) Abs Immat Gran (auto) Absolute Neuts (auto) Absolute Nucleated RBC Nucleated RBC % (auto) Smear Tech's Comments PT 10.6 INR 0.9 VBG pH VBG pCO2 VBG pO2 VBG HCO3 VBG O2 Saturation VBG Base Excess Anion Gap Estim Creat Clear Calc Estimated GFR Random Glucose Lactic Acid Lactic Acid F/U @ 2Hr Lactic Acid F/U @ 4Hr Calcium Magnesium Total Bilirubin AST ALT Alkaline Phosphatase Troponin I High Sens 6.2 B-Natriuretic Peptide Total Protein Albumin TSH COVID-19 (JIMMY) Negative [email or web address] Com See Note 07/30/22 07/30/22 07/30/22 14:58 14:58 20:27 MCV MCH MCHC RDW Plt Count MPV Immature Gran % (Auto) Neut % (Auto) Lymph % (Auto) [place] % (Auto) Eos % (Auto) Baso % (Auto) Lymph # (Auto) [place] # (Auto) Eos # (Auto) Baso # (Auto) Abs Immat Gran (auto) Absolute Neuts (auto) Absolute Nucleated RBC Nucleated RBC % (auto) Smear Tech's Comments PT INR VBG pH VBG pCO2 VBG pO2 VBG HCO3 VBG O2 Saturation VBG Base Excess Anion Gap Estim Creat Clear Calc Estimated GFR Random Glucose Lactic Acid 2.7 H* Lactic Acid F/U @ 2Hr 2.4 H* Lactic Acid F/U @ 4Hr Calcium Magnesium Total Bilirubin AST ALT Alkaline Phosphatase Troponin I High Sens B-Natriuretic Peptide 143 H Total Protein Albumin TSH COVID-19 (JIMMY) Are You a Human 07/30/22 23:02 MCV MCH MCHC RDW Plt Count MPV Immature Gran % (Auto) Neut % (Auto) Lymph % (Auto) [place] % (Auto) Eos % (Auto) Baso % (Auto) Lymph # (Auto) [place] # (Auto) Eos # (Auto) Baso # (Auto) Abs Immat Gran (auto) Absolute Neuts (auto) Absolute Nucleated RBC Nucleated RBC % (auto) Smear Tech's Comments PT INR VBG pH VBG pCO2 VBG pO2 VBG HCO3 VBG O2 Saturation VBG Base Excess Anion Gap Estim Creat Clear Calc Estimated GFR Random Glucose Lactic Acid Lactic Acid F/U @ 2Hr Lactic Acid F/U @ 4Hr 1.9 Calcium Magnesium Total Bilirubin AST ALT Alkaline Phosphatase Troponin I High Sens B-Natriuretic Peptide Total Protein Albumin TSH COVID-19 (JIMMY) COVID-19 Clin Com Assessment and Plan (1) Acute bronchitis: Status: Acute (2) Atrial fibrillation with rapid ventricular response: Status: Acute (3) Bronchitis: Status: Acute Plan New onset AFIB with RVR--converted to sinus rythm after iv cardizem and dig -continue metoprolol, eliquis, echo when available Bronchitis--breathing treatment, doxycyline, cough medication Diabetes--Continue home meds of Glipizide and Metormin, add SSI and glucose monitoring protocol CAD--no acute ischemica, continue ASA, metoprolol Essential HTN--copntinue Lisinopril and Metoprolol Chronic heart HFpEF--appear compensated, DVT P: Eliquis reason for inpatient: new afib, needs med adjustment Time Spent With Patient Time: Total time managing care of this patient today ____ minutes. Quality Stroke Does the patient have a stroke diagnosis?: No VTE Prior VTE?: No VTE Risk Level:: Medical - moderate - high VTE Device Contraindication: Treatment Not Indicated VTE Drug Contraindication: N/A - Med Ordered
[2022-07-31] MEDS: guaiFEN/Codeine SF 200/20/10ML 10 ML LIQUID 5 ML PO ×2 (11:14→21:05)
[2022-07-31] MEDS: Apixaban 5 MG TABLET PO ×2 (11:15→21:01)
[2022-07-31] MEDS: Furosemide 20 MG/2 ML VIAL IVPUSH ×2 (11:15→23:25)
[2022-07-31] MEDS: Doxycycline Monohydrate 100 MG CAPSULE PO ×2 (11:15→23:25)
[2022-07-31] MEDS: levalbuterol HCL 1.25 MG/3 ML VIAL.NEB INHALE ×2 (11:15→15:28)
--- NOTE | 2022-07-31 11:15 | PM.CNCAR ---
History of Present Illness History of Present Illness Date of Service: 07/31/22 Requesting physician: Efrain Oh Chief complaint: new afib with rvr Narrative: 69-year-old female with background history of diabetes, hypertension, heart failure with preserved ejection fraction, hyperlipidemia who is presenting with shortness of breath and bronchitis along with palpitations. She said she has been experiencing shortness of breath and cough for some time and was given prednisone without significant improvement. She started feeling some palpitations and side come the emergency department. In the ER she was noticed to be in AFib with RVR. She since then has reverted back to sinus rhythm. She continues to be short of breath and coughing. She has been started on anticoagulation for AFib. She also has been started on antibiotics. [facility], [facility] Past Medical History Medical History Atherosclerotic cardiovascular disease Chronic heart failure with preserved ejection fraction (HFpEF) Essential hypertension Hypercholesterolemia Type 2 diabetes mellitus with unspecified complications Family History Family History Father Diabetes Mother Cirrhosis Surgical History Surgical History History of cardiac catheterization (~11/14/19) Hx of colonoscopy Social History Social History Household Members: Spouse Housing: House Are you a primary child care assistant to a significant other at home: No Do you presently have visiting nurse or other home services: No (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 If so, by whom?: No Do you feel safe in your current relationship?: Yes Is there a partner from a previous relationship who is making you feel unsafe now?: No Are you made to feel afraid or neglected: No Advance Directives: No Advance Directives Information Provided: No Do you have thoughts of harming others: None Do you have a plan to hurt others: No Plan Recently lost weight without trying: No Eating poorly because of decreased appetite: No Nutrition Risks: No Nutritional Risk Patient : No service: No Current occupational status: retired Meds Allergies Allergy/AdvReac Type Severity Reaction Status Date / Time naproxen [NAPROXEN] AdvReac Unknown dizziness, Verified 05/21/21 15:37 nausea Active Medications: Current Medications Apixaban (Apixaban 5 Mg Tablet) 5 mg PO BID [facility] Aspirin (Aspirin Enteric Coated 81 Mg Tablet.Dr) 81 mg PO DAILY [facility] Last Admin: 07/31/22 09:30 Dose: 81 mg Atorvastatin Calcium (Atorvastatin Calcium 80 Mg Tablet) 80 mg PO BEDTIME [facility] Last Admin: 07/30/22 21:43 Dose: 80 mg Doxycycline Monohydrate (Doxycycline Monohydrate 100 Mg Capsule) 100 mg PO Q12H [facility] Furosemide (Furosemide 20 Mg/2 Ml Vial) 20 mg IVPUSH Q12H [facility]; Protocol Glipizide (Glipizide Xl 5 Mg Tab.Er.24) 5 mg PO DAILY [facility] Last Admin: 07/31/22 09:30 Dose: 5 mg Guaifenesin/Codeine Phosphate (Guaifen/Codeine Sf 200/20/10ml 10 Ml Liquid) 5 ml PO Q4H PRN PRN Reason: Cough Diltiazem HCl 125 mg/ Sodium (Chloride) 125 mls @ 0 mls/hr IVCONT .Q0M [facility]; Protocol Last Titration: 07/30/22 16:13 Dose: 0 mg/hr, 0 mls/hr Levalbuterol HCl (Levalbuterol Hcl 1.25 Mg/3 Ml Vial.Neb) 1.25 mg INHALE RQ4H WHILE AWAKE PRN PRN Reason: Shortness of Breath Lisinopril (Lisinopril 40 Mg Tablet) 40 mg PO BID [facility]; Protocol Last Admin: 07/31/22 09:30 Dose: 40 mg Metoprolol Tartrate (Metoprolol Tartrate 50 Mg Tablet) 50 mg PO DAILY [facility]; Protocol Last Admin: 07/31/22 09:30 Dose: 50 mg Sodium Chloride (0.9 % Sodium Chloride Flush 3 Ml Syringe) 3 ml IVFLUSH QSHIFT [facility] Last Admin: 07/31/22 09:31 Dose: 3 ml Home Medications Medication Instructions Recorded Confirmed Last Taken Type aspirin 81 mg tablet,delayed 81 mg PO DAILY 09/03/20 07/30/22 07/29/22 History release atorvastatin 80 mg tablet 80 mg PO BEDTIME 09/03/20 07/30/22 07/29/22 History glipizide 5 mg tablet, extended 5 mg PO DAILY 09/03/20 07/30/22 07/29/22 History release 24 hr lisinopril 40 mg tablet 40 mg PO BID 09/03/20 07/30/22 07/29/22 History metformin 500 mg tablet,extended 500 mg PO TID 09/03/20 07/30/22 07/29/22 History release 24 hr metoprolol tartrate 50 mg tablet 50 mg PO DAILY 09/03/20 07/30/22 07/29/22 History pioglitazone 45 mg tablet 45 mg PO DAILY 09/03/20 07/30/22 07/29/22 History calcium carbonate 600 mg-vitamin 1 tab PO DAILY 05/21/21 07/30/22 07/29/22 History D3 5 mcg (200 unit) tablet acetaminophen 325 mg tablet 650 mg PO Q6H PRN Pain 07/30/22 07/30/22 Unknown History (Tylenol) guaifenesin 1,200 mg tablet, 1,200 mg PO BID PRN Congestion 07/30/22 07/30/22 Unknown History extended release 12 hr (Mucinex) prednisone 10 mg tablet See Rx Instructions .Route .COMPLEX 07/30/22 07/30/22 07/29/22 History Physical Exam Vital Signs: Vital Signs: Last Vital Signs Temp 97.9 F 07/31/22 07:35 Pulse 88 07/31/22 07:35 Resp 20 07/31/22 07:35 BP 145/65 H 07/31/22 07:35 Pulse Ox 96 07/31/22 07:35 O2 Del Method Nasal Cannula 07/31/22 07:35 O2 Flow Rate 2 07/31/22 07:35 Oxygen Flow Rate 2 07/30/22 13:05 BMI result Body Mass Index 37.1 GENERAL APPEARANCE: in no acute distress, pleasant. NECK: no carotid bruit, mild jugular venous distention. SKIN: no suspicious lesions, warm and dry. HEART: no murmurs, regular rate and rhythm. LUNGS: Bilateral expiratory wheezes. ABDOMEN: soft, nontender. EXTREMITIES: no edema. PERIPHERAL PULSES: equal. NEUROLOGIC: No gross deficits, AAO X 3 Objective Labs and Meds 07/30/22 14:58 07/30/22 14:58 Lab results: Laboratory Results - last 24 hr 07/30/22 07/30/22 07/30/22 14:56 14:58 14:58 WBC 14.9 H RBC 4.80 Hgb 14.0 Hct 43.8 MCV 91.3 MCH 29.2 MCHC 32.0 RDW 15.9 Plt Count 269 MPV 10.0 Immature Gran % (Auto) 0.9 H Neut % (Auto) 61.6 Lymph % (Auto) 23.6 [place] % (Auto) 13.6 H Eos % (Auto) 0.1 Baso % (Auto) 0.2 Lymph # (Auto) 3.5 [place] # (Auto) 2.0 H Eos # (Auto) 0.0 Baso # (Auto) 0.0 Abs Immat Gran (auto) 0.14 H Absolute Neuts (auto) 9.2 H Absolute Nucleated RBC 0.000 Nucleated RBC % (auto) 0.0 Smear Tech's Comments VERIFIED PT INR VBG pH 7.53 H VBG pCO2 28 VBG pO2 46 VBG HCO3 24 VBG O2 Saturation 80.0 VBG Base Excess 2.7 Sodium 143 Potassium 4.4 Chloride 108 Carbon Dioxide 22 Anion Gap 17 BUN 35 H Creatinine 1.16 Estim Creat Clear Calc 43.8 Estimated GFR 46 Random Glucose 215 H Lactic Acid Lactic Acid F/U @ 2Hr Lactic Acid F/U @ 4Hr Calcium 9.0 Magnesium 2.0 Total Bilirubin 1.3 H AST 24 ALT 26 Alkaline Phosphatase 65 Troponin I High Sens B-Natriuretic Peptide Total Protein 6.5 Albumin 3.6 TSH 0.72 COVID-19 (JIMMY) COVID-19 Clin Com 07/30/22 07/30/22 07/30/22 14:58 14:58 14:58 WBC RBC Hgb Hct MCV MCH MCHC RDW Plt Count MPV Immature Gran % (Auto) Neut % (Auto) Lymph % (Auto) [place] % (Auto) Eos % (Auto) Baso % (Auto) Lymph # (Auto) [place] # (Auto) Eos # (Auto) Baso # (Auto) Abs Immat Gran (auto) Absolute Neuts (auto) Absolute Nucleated RBC Nucleated RBC % (auto) Smear Tech's Comments PT 10.6 INR 0.9 VBG pH VBG pCO2 VBG pO2 VBG HCO3 VBG O2 Saturation VBG Base Excess Sodium Potassium Chloride Carbon Dioxide Anion Gap BUN Creatinine Estim Creat Clear Calc Estimated GFR Random Glucose Lactic Acid Lactic Acid F/U @ 2Hr Lactic Acid F/U @ 4Hr Calcium Magnesium Total Bilirubin AST ALT Alkaline Phosphatase Troponin I High Sens 6.2 B-Natriuretic Peptide Total Protein Albumin TSH COVID-19 (JIMMY) Negative COVID-19 Clin Com See Note 07/30/22 07/30/22 07/30/22 14:58 14:58 20:27 WBC RBC Hgb Hct MCV MCH MCHC RDW Plt Count MPV Immature Gran % (Auto) Neut % (Auto) Lymph % (Auto) [place] % (Auto) Eos % (Auto) Baso % (Auto) Lymph # (Auto) [place] # (Auto) Eos # (Auto) Baso # (Auto) Abs Immat Gran (auto) Absolute Neuts (auto) Absolute Nucleated RBC Nucleated RBC % (auto) Smear Tech's Comments PT INR VBG pH VBG pCO2 VBG pO2 VBG HCO3 VBG O2 Saturation VBG Base Excess Sodium Potassium Chloride Carbon Dioxide Anion Gap BUN Creatinine Estim Creat Clear Calc Estimated GFR Random Glucose Lactic Acid 2.7 H* Lactic Acid F/U @ 2Hr 2.4 H* Lactic Acid F/U @ 4Hr Calcium Magnesium Total Bilirubin AST ALT Alkaline Phosphatase Troponin I High Sens B-Natriuretic Peptide 143 H Total Protein Albumin TSH COVID-19 (JIMMY) COVID-[employer] 07/30/22 23:02 WBC RBC Hgb Hct MCV MCH MCHC RDW Plt Count MPV Immature Gran % (Auto) Neut % (Auto) Lymph % (Auto) [place] % (Auto) Eos % (Auto) Baso % (Auto) Lymph # (Auto) [place] # (Auto) Eos # (Auto) Baso # (Auto) Abs Immat Gran (auto) Absolute Neuts (auto) Absolute Nucleated RBC Nucleated RBC % (auto) Smear Tech's Comments PT INR VBG pH VBG pCO2 VBG pO2 VBG HCO3 VBG O2 Saturation VBG Base Excess Sodium Potassium Chloride Carbon Dioxide Anion Gap BUN Creatinine Estim Creat Clear Calc Estimated GFR Random Glucose Lactic Acid Lactic Acid F/U @ 2Hr Lactic Acid F/U @ 4Hr 1.9 Calcium Magnesium Total Bilirubin AST ALT Alkaline Phosphatase Troponin I High Sens B-Natriuretic Peptide Total Protein Albumin TSH COVID-19 (JIMMY) COVID-19 Clin Com Imaging Radiologist's impression: Impressions Chest X-Ray 07/30/22 13:37 IMPRESSION: No evidence for acute disease in the chest. Assessment and Plan (1) Atrial fibrillation with rapid ventricular response: Status: Acute (2) Chronic heart failure with preserved ejection fraction (HFpEF): Status: Acute Plan 72-year-old female who is presenting for shortness of breath and palpitations. She was noticed to be in AFib with RVR. She is in sinus rhythm with continues to have shortness of breath and wheezing. She has mild JVD on examination and has background of diastolic heart failure. I think she should be gently diuresed. I think main issue is bronchitis. She was not given antibiotics and would probably benefit from antibiotic course. We will follow along with you. Agree with anticoagulation. Thank you for allowing me to participate in the care of your patient. Please feel free to contact me if you have any questions. Time Spent With Patient Time: Total time managing care of this patient today ____ minutes. Procedures Date of Service Date of Service: 07/31/22
--- NOTE | 2022-07-31 15:10 | MHC.CM.PN ---
PT REPORTS SHE LIVES WITH HER AND IS INDEPENDENT WITH CARE SHE DENIES HAVING SERVICES OR DME HCP ON FILE PCP: JENN POND IMM DELIVERED CURRENT DC PLAN IS HOME WITH NO SERVICES VIA FAMILY TRANSPORT
[2022-07-31] MEDS: Atorvastatin Calcium 80 MG TABLET PO (21:01)
[2022-08-01] VITALS (11 sets, daily range): BP systolic 126–168; BP diastolic 46–92; PULSE 71–103; RESP 16–20; TEMP 36.1–36.9; O2SAT 83–96
[2022-08-01] MEDS: levalbuterol HCL 1.25 MG/3 ML VIAL.NEB INHALE (07:41)
[2022-08-01] MEDS: lisinopriL 40 MG TABLET PO ×2 (08:41→20:32)
[2022-08-01] MEDS: glipiZIDE XL 5 MG TAB.ER.24 PO (08:41)
[2022-08-01] MEDS: Metoprolol Tartrate 50 MG TABLET PO (08:41)
[2022-08-01] MEDS: Aspirin Enteric Coated 81 MG TABLET.DR PO (08:42)
[2022-08-01] MEDS: 0.9 % Sodium Chloride Flush 3 ML SYRINGE IVFLUSH ×3 (08:42→20:32)
[2022-08-01] MEDS: Apixaban 5 MG TABLET PO ×2 (09:08→20:31)
[2022-08-01] MEDS: Doxycycline Monohydrate 100 MG CAPSULE PO ×2 (10:35→20:31)
[2022-08-01] MEDS: Acetaminophen 325 MG TABLET 650 MG PO (10:35)
[2022-08-01] MEDS: guaiFEN/Codeine SF 200/20/10ML 10 ML LIQUID 5 ML PO (10:35)
[2022-08-01] MEDS: Furosemide 20 MG/2 ML VIAL IVPUSH ×2 (10:36→20:32)
--- NOTE | 2022-08-01 11:24 | PM.PNCARD ---
Subjective Subjective Date of Service: 08/01/22 Interval history: Seen examined at bedside. Clinically improving significantly. Mild wheezes. Physical Exam Vital Signs: Last Vital Signs Temp 98.0 F 08/01/22 11:07 Pulse 71 08/01/22 11:07 Resp 18 08/01/22 11:07 BP 126/46 L 08/01/22 11:07 Pulse Ox 92 08/01/22 11:07 O2 Del Method Room Air 08/01/22 11:07 O2 Flow Rate 1 08/01/22 10:37 Oxygen Flow Rate 2 07/30/22 13:05 BMI result Body Mass Index 37.1 GENERAL APPEARANCE: in no acute distress, pleasant. NECK: no carotid bruit, no significant JVD. SKIN: no suspicious lesions, warm and dry. HEART: no murmurs, regular rate and rhythm. LUNGS: Mild wheezes. ABDOMEN: soft, nontender. EXTREMITIES: no edema. PERIPHERAL PULSES: equal. NEUROLOGIC: No gross deficits, AAO X 3 Objective Labs and Meds 07/30/22 14:58 07/30/22 14:58 Progress Note: A&P Assessment and plan (1) Bronchitis: Status: Acute (2) Atrial fibrillation with rapid ventricular response: Status: Acute (3) Chronic heart failure with preserved ejection fraction (HFpEF): Status: Acute Plan 72-year-old female presenting for shortness of breath and bronchitis. She also was noticed to be mildly fluid overloaded but most of the symptoms were due to bronchitis. After antibiotics and gentle diuresis symptoms are improving. Appears to be euvolemic at this stage. Can be transitioned to oral diuretics 20 mg p.o. b.i.d.. Echocardiography tomorrow. Thank you for allowing me to participate in the care of your patient. Please feel free to contact me if you have any questions. Time Spent With Patient Time: Total time managing care of this patient today ____ minutes. Progress Note: Quality Stroke Does the patient have a stroke diagnosis?: No Procedures Date of Service Date of Service: 08/01/22
--- NOTE | 2022-08-01 11:26 | HO.PM.IMPN ---
Subjective Subjective Date of Service: 08/01/22 Interval History: f/u afib with RVR, sob d/t bronchitis remains in sinus rythm, still sob, congested, cough Review of Systems no fever, cough, Physical Exam Vital Signs: Vital Signs: Last Vital Signs Temp 98.0 F 08/01/22 11:07 Pulse 71 08/01/22 11:07 Resp 18 08/01/22 11:07 BP 126/46 L 08/01/22 11:07 Pulse Ox 92 08/01/22 11:07 O2 Del Method Room Air 08/01/22 11:07 O2 Flow Rate 1 08/01/22 10:37 Oxygen Flow Rate 2 07/30/22 13:05 BMI result Body Mass Index 37.1 GENERAL APPEARANCE: in no acute distress, pleasant. NECK: no carotid bruit, no significant JVD. SKIN: no suspicious lesions, warm and dry. HEART: no murmurs, regular rate and rhythm. LUNGS: Mild wheezes. ABDOMEN: soft, nontender. EXTREMITIES: no edema. PERIPHERAL PULSES: equal. NEUROLOGIC: No gross deficits, AAO X 3 Objective Data Active Medications Acetaminophen (Acetaminophen 325 Mg Tablet) 650 mg PO Q6H PRN PRN Reason: Pain, Mild (Pain Scale 1-3) Last Admin: 08/01/22 10:35 Dose: 650 mg Documented By: ROYAL Apixaban (Apixaban 5 Mg Tablet) 5 mg PO BID [facility] Last Admin: 08/01/22 09:08 Dose: 5 mg Documented By: ROYAL Aspirin (Aspirin Enteric Coated 81 Mg Tablet.) 81 mg PO DAILY [facility] Last Admin: 08/01/22 08:42 Dose: 81 mg Documented By: ROYAL Atorvastatin Calcium (Atorvastatin Calcium 80 Mg Tablet) 80 mg PO BEDTIME [facility] Last Admin: 07/31/22 21:01 Dose: 80 mg Documented By: JAK Doxycycline Monohydrate (Doxycycline Monohydrate 100 Mg Capsule) 100 mg PO Q12H [facility] Last Admin: 08/01/22 10:35 Dose: 100 mg Documented By: ROYAL Furosemide (Furosemide 20 Mg/2 Ml Vial) 20 mg IVPUSH Q12H [facility]; Protocol Last Admin: 08/01/22 10:36 Dose: 20 mg Documented By: ROYAL Glipizide (Glipizide Xl 5 Mg Tab.Er.24) 5 mg PO DAILY [facility] Last Admin: 08/01/22 08:41 Dose: 5 mg Documented By: ROYAL Guaifenesin/Codeine Phosphate (Guaifen/Codeine Sf 200/20/10ml 10 Ml Liquid) 5 ml PO Q4H PRN PRN Reason: Cough Last Admin: 08/01/22 10:35 Dose: 5 ml Documented By: ROYAL Diltiazem HCl 125 mg/ Sodium (Chloride) 125 mls @ 0 mls/hr IVCONT .Q0M [facility]; Protocol Last Titration: 07/30/22 16:13 Dose: 0 mg/hr, 0 mls/hr Documented By: BARON Levalbuterol HCl (Levalbuterol Hcl 1.25 Mg/3 Ml Vial.Neb) 1.25 mg INHALE RQ4H WHILE AWAKE PRN PRN Reason: Shortness of Breath Last Admin: 08/01/22 07:41 Dose: 1.25 mg Documented By: KING Lisinopril (Lisinopril 40 Mg Tablet) 40 mg PO BID [facility]; Protocol Last Admin: 08/01/22 08:41 Dose: 40 mg Documented By: ROYAL Metoprolol Tartrate (Metoprolol Tartrate 50 Mg Tablet) 50 mg PO DAILY [facility]; Protocol Last Admin: 08/01/22 08:41 Dose: 50 mg Documented By: ROYAL Sodium Chloride (0.9 % Sodium Chloride Flush 3 Ml Syringe) 3 ml IVFLUSH QSHIFT [facility] Last Admin: 08/01/22 08:42 Dose: 3 ml Documented By: ROYAL Labs 07/30/22 14:58 07/30/22 14:58 Microbiology Microbiology Results: Microbiology 07/30/22 14:58 Blood Culture - Preliminary Blood - Venous No growth after 24 hours. 07/30/22 14:57 Blood Culture - Preliminary Blood - Venous No growth after 24 hours. Assessment and Plan (1) Acute bronchitis: Status: Acute (2) Atrial fibrillation with rapid ventricular response: Status: Acute (3) Bronchitis: Status: Acute Plan New onset AFIB with RVR--converted to sinus rythm after iv cardizem and dig -continue metoprolol, eliquis, echo tomorrow Bronchitis--breathing treatment, doxycyline, cough medication, bronchodilators PRN Diabetes--Continue home meds of Glipizide and Metormin, add SSI and glucose monitoring protocol CAD--no acute ischemica, continue ASA, metoprolol Essential HTN--copntinue Lisinopril and Metoprolol Chronic heart HFpEF--slight decompensation, IV Lasix as above DVT P: Eliquis reason for inpatient: new afib, needs med adjustment, HF on IV Lasix Time Spent With Patient Time: Total time managing care of this patient today ____ minutes. Quality Stroke Does the patient have a stroke diagnosis?: No VTE Prior VTE?: No VTE Risk Level:: Medical - moderate - high VTE Device Contraindication: Treatment Not Indicated VTE Drug Contraindication: N/A - Med Ordered
[2022-08-01 20:31] LABS: Glucose, Whole Blood 209 mg/dL (60-115)
[2022-08-01] MEDS: Atorvastatin Calcium 80 MG TABLET PO (20:32)
[2022-08-01] MEDS: Insulin Lispro 100 UNIT/ML 3 ML VIAL SUBCUT (21:00)
[2022-08-02 03:35] VITALS: BP 180/74; PULSE 93; RESP 18; TEMP 36.3; O2SAT 92
[2022-08-02] MEDS: Acetaminophen 325 MG TABLET 650 MG PO (04:22)
[2022-08-02 07:31] VITALS: BP 135/61; PULSE 85; RESP 20; TEMP 36.3; O2SAT 92
[2022-08-02 07:37] LABS: Glucose, Whole Blood 310 mg/dL (60-115)
[2022-08-02] MEDS: Metoprolol Tartrate 50 MG TABLET PO (08:12)
[2022-08-02] MEDS: Apixaban 5 MG TABLET PO ×2 (08:12→19:48)
[2022-08-02] MEDS: glipiZIDE XL 5 MG TAB.ER.24 PO (08:12)
[2022-08-02] MEDS: lisinopriL 40 MG TABLET PO ×2 (08:12→19:48)
[2022-08-02] MEDS: Insulin Lispro 100 UNIT/ML 3 ML VIAL SUBCUT ×4 (08:12→20:44)
[2022-08-02] MEDS: Aspirin Enteric Coated 81 MG TABLET.DR PO (08:12)
[2022-08-02] MEDS: 0.9 % Sodium Chloride Flush 3 ML SYRINGE IVFLUSH ×3 (08:12→23:57)
[2022-08-02 08:28] LABS: Hemoglobin 13.9 g/dl (12.0-16.0); Mean Corpuscular HGB Conc 31.6 g/dl (31.0-35.0); Mean Corpuscular Hemoglobin 28.9 pg (27.0-33.0); Mean Corpuscular Volume 91.5 fL (80.0-98.0); Mean Platelet Volume 9.9 fL (9.4-12.3); Platelet Count 310 X10*3/uL (160-400); Red Blood Count 4.81 X10*6/uL (4.20-5.50); Red Cell Distribution Width 15.8 % (11.0-16.0); White Blood Count 12.9 X10*3/uL (4.8-10.8)
[2022-08-02 08:44] LABS: Anion Gap 15 (12-20); Blood Urea Nitrogen 30 mg/dL (9-16); Calcium 8.4 mg/dL (8.4-10.2); Carbon Dioxide 29 mmol/L (22-29); Chloride 99 mmol/L (96-108); Creatinine Clr Calc Pharmacy 40.3; Estimated Glomerular Filt Rate 42; Glucose Random 273 mg/dL (60-115); Potassium 4.3 mmol/L (3.3-5.1); Sodium 139 mmol/L (135-145)
[2022-08-02 11:11] VITALS: BP 130/82; PULSE 65; RESP 20; TEMP 36.3; O2SAT 93
[2022-08-02 11:17] LABS: Glucose, Whole Blood 198 mg/dL (60-115)
[2022-08-02] MEDS: Doxycycline Monohydrate 100 MG CAPSULE PO ×2 (11:26→22:14)
--- NOTE | 2022-08-02 12:48 | P.PNIM_ITS ---
Subjective Subjective Date of Service: 08/02/22 Interval History: f/u afib with RVR, sob d/t bronchitis remains in sinus rythm, sob is better Review of Systems no fever, cough, Physical Exam Vital Signs: Vital Signs: Last Vital Signs Temp 97.4 F 08/02/22 11:11 Pulse 65 08/02/22 11:11 Resp 20 08/02/22 11:11 BP 130/82 08/02/22 11:11 Pulse Ox 93 08/02/22 11:11 O2 Del Method Room Air 08/02/22 11:11 O2 Flow Rate 1 08/01/22 10:37 Oxygen Flow Rate 2 07/30/22 13:05 BMI result Body Mass Index 37.1 Const: Other: General: AO X 3, no acute distress Resp: less rhonchi CVS: S1,S2,RRR GI: +BS, NT, no distention Skin: No rash Neuro: motor grossly intact Psych: appropriate affect Objective Data Active Medications Acetaminophen (Acetaminophen 325 Mg Tablet) 650 mg PO Q6H PRN PRN Reason: Pain, Mild (Pain Scale 1-3) Last Admin: 08/02/22 04:22 Dose: 650 mg Documented By: CHRISTOPHER Apixaban (Apixaban 5 Mg Tablet) 5 mg PO BID [facility] Last Admin: 08/02/22 08:12 Dose: 5 mg Documented By: ZEN Aspirin (Aspirin Enteric Coated 81 Mg Tablet.) 81 mg PO DAILY [facility] Last Admin: 08/02/22 08:12 Dose: 81 mg Documented By: ZEN Atorvastatin Calcium (Atorvastatin Calcium 80 Mg Tablet) 80 mg PO BEDTIME [facility] Last Admin: 08/01/22 20:32 Dose: 80 mg Documented By: CHRISTOPHER Doxycycline Monohydrate (Doxycycline Monohydrate 100 Mg Capsule) 100 mg PO Q12H [facility] Last Admin: 08/02/22 11:26 Dose: 100 mg Documented By: ZEN Glipizide (Glipizide Xl 5 Mg Tab.Er.24) 5 mg PO DAILY [facility] Last Admin: 08/02/22 08:12 Dose: 5 mg Documented By: ZEN Glucose (Glucose Gel 15 Gm Gel..Gram.) 15 gm PO Q15M PRN; Protocol PRN Reason: per Hypoglycemia Standing Ord. Guaifenesin/Codeine Phosphate (Guaifen/Codeine Sf 200/20/10ml 10 Ml Liquid) 5 ml PO Q4H PRN PRN Reason: Cough Last Admin: 08/01/22 10:35 Dose: 5 ml Documented By: ROYAL Dextrose (D10) 250 mls @ 750 mls/hr IV Q15M PRN; Protocol PRN Reason: per Hypoglycemia Standing Ord. Insulin Human Lispro (Insulin Lispro 100 Unit/Ml 3 Ml Vial) 0 unit SUBCUT QIDACHS [facility]; Protocol Last Admin: 08/02/22 11:26 Dose: 2 unit Documented By: ZEN Levalbuterol HCl (Levalbuterol Hcl 1.25 Mg/3 Ml Vial.Neb) 1.25 mg INHALE RQ4H WHILE AWAKE PRN PRN Reason: Shortness of Breath Last Admin: 08/01/22 07:41 Dose: 1.25 mg Documented By: KING Lisinopril (Lisinopril 40 Mg Tablet) 40 mg PO BID [facility]; Protocol Last Admin: 08/02/22 08:12 Dose: 40 mg Documented By: ZEN Metoprolol Tartrate (Metoprolol Tartrate 50 Mg Tablet) 50 mg PO DAILY [facility]; Protocol Last Admin: 08/02/22 08:12 Dose: 50 mg Documented By: ZEN Sodium Chloride (0.9 % Sodium Chloride Flush 3 Ml Syringe) [facility] Admin: 08/02/22 08:12 Dose: 3 ml Documented By: ZEN Labs 08/02/22 07:58 08/02/22 07:58 Labs: Laboratory Results - last 24 hr 08/01/22 08/02/22 08/02/22 20:27 07:33 07:58 MCV 91.5 MCH 28.9 MCHC 31.6 RDW 15.8 Plt Count 310 MPV 9.9 Absolute Nucleated RBC 0.000 Nucleated RBC % (auto) 0.0 Anion Gap Estim Creat Clear Calc Estimated GFR POC Glucose 209 H 310 H Random Glucose Calcium 08/02/22 08/02/22 07:58 11:10 MCV MCH MCHC RDW Plt Count MPV Absolute Nucleated RBC Nucleated RBC % (auto) Anion Gap 15 Estim Creat Clear Calc 40.3 Estimated GFR 42 POC Glucose 198 H Random Glucose 273 H Calcium 8.4 D Microbiology Microbiology Results: Microbiology 07/30/22 14:58 Blood Culture - Preliminary Blood - Venous No growth after 48 hours. 07/30/22 14:57 Blood Culture - Preliminary Blood - Venous No growth after 48 hours. Assessment and Plan (1) Acute bronchitis: Status: Acute (2) Atrial fibrillation with rapid ventricular response: Status: Acute (3) Type 2 diabetes mellitus with hyperglycemia: Status: Acute Plan 72 year old female with Atherosclerotic cardiovascular disease, Chronic heart failure with preserved ejection fraction (HFpEF), Essential hypertension, Type 2 diabetes mellitus with unspecified complications who has not been feeling well with shortness, congestion, cough and has been treated by her PCP with inhalers and steroid but continues to feel worse and now has developped palpitation as well and call EMS to be brought to the ED. EMS noted patient to be very thachycardic with rythm strip consistent with AFIB with RVR. Given IV diltiazem in the ED New onset Prox AFIB with RVR--converted to sinus rythm after iv cardizem and dig -continue metoprolol, eliquis, echocardiogram today Bronchitis--breathing treatment, doxycyline for 5 days started 07/31, cough medication, bronchodilators PRN..She doesn't want steroid Diabetes--Continue home meds of Glipizide and Metormin, add SSI and glucose monitoring protocol CAD--no acute ischemica, continue ASA, metoprolol Essential HTN--copntinue Lisinopril and Metoprolol Chronic heart HFpEF--slight decompensation, treated with IV Lasix DVT P: Eliquis reason for inpatient: new afib, needs med adjustment, HF on IV Lasix Overall doing better, anticipated discharge in tomorrow Time Spent With Patient Time: Total time managing care of this patient today ____ minutes. Quality Stroke Does the patient have a stroke diagnosis?: No VTE Prior VTE?: No VTE Risk Level:: Medical - moderate - high VTE Device Contraindication: Treatment Not Indicated VTE Drug Contraindication: N/A - Med Ordered
--- NOTE | 2022-08-02 14:40 | MHC.CM.PN ---
EMR REVIEWED, YENNY NEGRON D/C'Romeo, NII PT WILL BE ABLE TO D/C HOME NO SERVICES W/FAMILY FOR TRANSPORT TOMORROW 08/03. CM WILL CONT TO FOLLOW.
[2022-08-02 15:48] VITALS: BP 154/70; PULSE 78; RESP 18; TEMP 37; O2SAT 94
[2022-08-02 16:36] LABS: Glucose, Whole Blood 189 mg/dL (60-115)
[2022-08-02 19:40] VITALS: BP 150/65; PULSE 91; RESP 19; TEMP 37; O2SAT 90
[2022-08-02] MEDS: guaiFENesin LA 600 MG TAB.ER.12H 1200 MG PO (19:48)
[2022-08-02] MEDS: Atorvastatin Calcium 80 MG TABLET PO (19:48)
[2022-08-02] MEDS: guaiFEN/Codeine SF 200/20/10ML 10 ML LIQUID 5 ML PO (19:48)
[2022-08-02 20:14] LABS: Glucose, Whole Blood 328 mg/dL (60-115)
[2022-08-03] VITALS (8 sets, daily range): BP systolic 116–160; BP diastolic 50–67; PULSE 68–93; RESP 18–20; TEMP 36.1–37.1; O2SAT 92–97
[2022-08-03 07:38] LABS: Glucose, Whole Blood 167 mg/dL (60-115)
[2022-08-03] MEDS: lisinopriL 40 MG TABLET PO ×2 (08:19→21:06)
[2022-08-03] MEDS: Insulin Lispro 100 UNIT/ML 3 ML VIAL SUBCUT ×4 (08:19→21:06)
[2022-08-03] MEDS: Aspirin Enteric Coated 81 MG TABLET.DR PO (08:19)
[2022-08-03] MEDS: glipiZIDE XL 5 MG TAB.ER.24 PO (08:19)
[2022-08-03] MEDS: 0.9 % Sodium Chloride Flush 3 ML SYRINGE IVFLUSH ×3 (08:19→21:07)
[2022-08-03] MEDS: Calcium + Vitamin D 250 MG TABLET 500 MG PO (08:19)
[2022-08-03] MEDS: Apixaban 5 MG TABLET PO ×2 (08:19→21:06)
[2022-08-03] MEDS: Metoprolol Tartrate 50 MG TABLET PO (08:19)
[2022-08-03] MEDS: Acetaminophen 325 MG TABLET 650 MG PO (08:27)
[2022-08-03 11:02] LABS: Glucose, Whole Blood 279 mg/dL (60-115)
[2022-08-03] MEDS: Loratadine 10 MG TABLET PO (11:06)
[2022-08-03] MEDS: Doxycycline Monohydrate 100 MG CAPSULE PO ×2 (11:06→22:18)
[2022-08-03] MEDS: guaiFENesin 100 MG/5 ML LIQUID 10 ML PO (11:06)
[2022-08-03] MEDS: guaiFENesin LA 600 MG TAB.ER.12H 1200 MG PO (11:06)
--- NOTE | 2022-08-03 14:07 | HO.PM.IMPN ---
Subjective Subjective Date of Service: 08/04/22 Interval History: afib ,generlaised weak cough Review of Systems feels very weak no fevers sob seems similar ,has dry cough Physical Exam Vital Signs: Vital Signs: Last Vital Signs Temp 97.7 F 08/03/22 11:05 Pulse 68 08/03/22 11:05 Resp 20 08/03/22 11:05 BP 147/67 H 08/03/22 11:05 Pulse Ox 95 08/03/22 11:05 O2 Del Method Room Air 08/03/22 11:05 O2 Flow Rate 1 08/01/22 10:37 Oxygen Flow Rate 2 07/30/22 13:05 BMI result Body Mass Index 37.1 General: AO X 3, no acute distress Resp: less rhonchi CVS: S1,S2,RRR GI: +BS, NT, no distention Skin: No rash Neuro:? motor grossly intact Psych: appropriate affect Objective Data Active Medications Acetaminophen (Acetaminophen 325 Mg Tablet) 650 mg PO Q6H PRN PRN Reason: Pain, Mild (Pain Scale 1-3) Last Admin: 08/03/22 08:27 Dose: 650 mg Documented By: ZEN Albuterol Sulfate (Albuterol Sulfate 90 Mcg 8 Gm Inhaler) 1 puff INHALE RQ4H PRN PRN Reason: sob Apixaban (Apixaban 5 Mg Tablet) 5 mg PO BID [facility] Last Admin: 08/03/22 08:19 Dose: 5 mg Documented By: ZEN Aspirin (Aspirin Enteric Coated 81 Mg Tablet.) 81 mg PO DAILY [facility] Last Admin: 08/03/22 08:19 Dose: 81 mg Documented By: ZEN Atorvastatin Calcium (Atorvastatin Calcium 80 Mg Tablet) 80 mg PO BEDTIME [facility] Last Admin: 08/02/22 19:48 Dose: 80 mg Documented By: NILSON Calcium Carbonate/Cholecalciferol (Calcium + Vitamin D 250 Mg Tablet) 500 mg PO DAILY [facility] Last Admin: 08/03/22 08:19 Dose: 500 mg Documented By: ZEN Doxycycline Monohydrate (Doxycycline Monohydrate 100 Mg Capsule) 100 mg PO Q12H [facility] Last Admin: 08/03/22 11:06 Dose: 100 mg Documented By: ZEN Glipizide (Glipizide Xl 5 Mg Tab.Er.24) 5 mg PO DAILY [facility] Last Admin: 08/03/22 08:19 Dose: 5 mg Documented By: ZEN Glucose (Glucose Gel 15 Gm Gel..Gram.) 15 gm PO Q15M PRN; Protocol PRN Reason: per Hypoglycemia Standing Ord. Guaifenesin (Guaifenesin La 600 Mg Tab.Er.12h) 1,200 mg PO BID PRN PRN Reason: Congestion Last Admin: 08/03/22 11:06 Dose: 1,200 mg Documented By: ZEN Guaifenesin (Guaifenesin 100 Mg/5 Ml Liquid) 10 ml PO Q4H PRN PRN Reason: Cough Last Admin: 08/03/22 11:06 Dose: 10 ml Documented By: ZEN Guaifenesin/Codeine Phosphate (Guaifen/Codeine Sf 200/20/10ml 10 Ml Liquid) 5 ml PO Q4H PRN PRN Reason: Cough Last Admin: 08/02/22 19:48 Dose: 5 ml Documented By: NILSON Dextrose (D10) 250 mls @ 750 mls/hr IV Q15M PRN; Protocol PRN Reason: per Hypoglycemia Standing Ord. Insulin Human Lispro (Insulin Lispro 100 Unit/Ml 3 Ml Vial) 0 unit SUBCUT QIDACHS [facility]; Protocol Last Admin: 08/03/22 11:06 Dose: 6 unit Documented By: ZEN Levalbuterol HCl (Levalbuterol Hcl 1.25 Mg/3 Ml Vial.Neb) 1.25 mg INHALE RQ4H WHILE AWAKE PRN PRN Reason: Shortness of Breath Last Admin: 08/01/22 07:41 Dose: 1.25 mg Documented By: KING Lisinopril (Lisinopril 40 Mg Tablet) 40 mg PO BID [facility]; Protocol Last Admin: 08/03/22 08:19 Dose: 40 mg Documented By: ZEN Loratadine (Loratadine 10 Mg Tablet) 10 mg PO DAILY [facility] Last Admin: 08/03/22 11:06 Dose: 10 mg Documented By: ZEN Metoprolol Tartrate (Metoprolol Tartrate 50 Mg Tablet) 50 mg PO DAILY [facility]; Protocol Last Admin: 06/13/23 08:19 Dose: 50 mg Documented By: ZEN Sodium Chloride (0.9 % Sodium Chloride Flush 3 Ml Syringe) 3 ml IVFLUSH QSHIFT [facility] Last Admin: 08/03/22 08:19 Dose: 3 ml Documented By: ZEN Labs 08/02/22 07:58 08/02/22 07:58 Labs: Laboratory Results - last 24 hr 08/02/22 08/02/22 08/03/22 16:31 20:09 07:32 POC Glucose 189 H 328 H 167 H 08/03/22 10:57 POC Glucose 279 H Assessment and Plan (1) Acute bronchitis: Status: Acute (2) Atrial fibrillation with rapid ventricular response: Status: Acute (3) Type 2 diabetes mellitus with hyperglycemia: Status: Acute Plan 72 year old female with Atherosclerotic cardiovascular disease, Chronic heart failure with preserved ejection fraction (HFpEF), Essential hypertension, Type 2 diabetes mellitus with unspecified complications who has not been feeling well with shortness, congestion, cough and has been treated by her PCP with inhalers and steroid but continues to feel worse and now has developped palpitation as well and call EMS to be brought to the ED. EMS noted patient to be very thachycardic with rythm strip consistent with AFIB with RVR. Given IV diltiazem in the ED New onset Prox AFIB with RVR--converted to sinus rythm after iv cardizem and dig -continue metoprolol, eliquis, echocardiogram today Bronchitis--breathing treatment, doxycyline for 5 days started 07/31, cough medication, bronchodilators PRN..She doesn't want steroid still sob and congested -added cough meds,loratidine ,nebs Diabetes--Continue home meds of Glipizide and Metormin, add SSI and glucose monitoring protocol CAD--no acute ischemica, continue ASA, metoprolol Essential HTN--copntinue Lisinopril and Metoprolol Chronic heart HFpEF--slight decompensation, treated with IV Lasix DVT P: Eliquis reason for inpatient: new afib, needs med adjustment, HF on IV Lasix inpatient need:bronchitis -on nebs,antibiotics -respiratory status not optimal yet Time Spent With Patient Time: Total time managing care of this patient today ____ minutes. Quality Stroke Does the patient have a stroke diagnosis?: No VTE Prior VTE?: No VTE Risk Level:: Medical - moderate - high VTE Device Contraindication: Treatment Not Indicated VTE Drug Contraindication: N/A - Med Ordered
[2022-08-03 16:06] LABS: Glucose, Whole Blood 187 mg/dL (60-115)
[2022-08-03] MEDS: Albuterol/Iprat 2.5/0.5MG 3 ML AMPUL.NEB INHALE (19:02)
[2022-08-03 20:36] LABS: Glucose, Whole Blood 248 mg/dL (60-115)
[2022-08-03] MEDS: Atorvastatin Calcium 80 MG TABLET PO (21:06)
[2022-08-03] MEDS: guaiFEN/Codeine SF 200/20/10ML 10 ML LIQUID 5 ML PO (22:30)
[2022-08-04] VITALS (13 sets, daily range): BP systolic 118–141; BP diastolic 53–67; PULSE 69–97; RESP 15–20; TEMP 36.1–36.6; O2SAT 80–99
--- NOTE | 2022-08-04 04:53 | PC.NURSE ---
Addendum entered by Roxane Turner 08/04/22 04:58: Dr. Hernández put in STAT orders for BMP and Magnesium. Original Note: Patient had 3 beats of V TACH on the tele monitor. Pt denies SOB, palpitation, denies chest pain. Dr. Hernández notified, no new orders given. Pt is resting comfortably and has no concerns at this time and aware of plan of care.
[2022-08-04 07:22] LABS: Anion Gap 11 (12-20); Blood Urea Nitrogen 36 mg/dL (9-16); Calcium 8.2 mg/dL (8.4-10.2); Carbon Dioxide 27 mmol/L (22-29); Chloride 104 mmol/L (96-108); Creatinine Clr Calc Pharmacy 51.9; Estimated Glomerular Filt Rate 56; Glucose Random 201 mg/dL (60-115); Magnesium 1.7 mg/dL (1.6-2.6); Potassium 4.3 mmol/L (3.3-5.1); Sodium 138 mmol/L (135-145)
[2022-08-04 07:26] LABS: Glucose, Whole Blood 200 mg/dL (60-115)
[2022-08-04] MEDS: Albuterol/Iprat 2.5/0.5MG 3 ML AMPUL.NEB INHALE ×4 (07:35→19:02)
[2022-08-04] MEDS: Apixaban 5 MG TABLET PO ×2 (08:19→20:21)
[2022-08-04] MEDS: Insulin Lispro 100 UNIT/ML 3 ML VIAL SUBCUT ×4 (08:19→20:21)
[2022-08-04] MEDS: Calcium + Vitamin D 250 MG TABLET 500 MG PO (08:20)
[2022-08-04] MEDS: Aspirin Enteric Coated 81 MG TABLET.DR PO (08:20)
[2022-08-04] MEDS: Loratadine 10 MG TABLET PO (08:20)
[2022-08-04] MEDS: Metoprolol Tartrate 50 MG TABLET PO (08:20)
[2022-08-04] MEDS: glipiZIDE XL 5 MG TAB.ER.24 PO (08:20)
[2022-08-04] MEDS: lisinopriL 40 MG TABLET PO ×2 (08:20→20:21)
[2022-08-04] MEDS: 0.9 % Sodium Chloride Flush 3 ML SYRINGE IVFLUSH ×2 (08:21→15:41)
--- NOTE | 2022-08-04 10:36 | PC.NURSE ---
o2 sat at rest 91%. amb 25 ft 95-98% but dropped to 88% half way through walk. very tired
[2022-08-04] MEDS: Doxycycline Monohydrate 100 MG CAPSULE PO ×2 (10:44→22:21)
[2022-08-04] MEDS: Acetaminophen 325 MG TABLET 650 MG PO (10:46)
[2022-08-04 11:33] LABS: Glucose, Whole Blood 277 mg/dL (60-115)
[2022-08-04 12:28] LABS: Venous Blood Gas Refer to POC result
[2022-08-04 12:35] LABS: VBG HCO3 32 mmol/L (22-26); VBG pCO2 51 mmHg; VBG pO2 44 mmHg
--- NOTE | 2022-08-04 13:30 | MHC.CM.PN ---
EMR REVIEWED, CM MET W/PT TO DELIVER IMM 08/04/22, PT REPORTS SHE DOES NOT FEEL READY FOR D/C HOME AND DOESN'T THINK SHE CAN MANAGE AT HOME, PT CONSIDERING STR AND AGREEABLE TO A BLANKET REFERRAL W/CM REVIEWING BED OFFERS ONCE RECEIVED. CM WILL CONT TO FOLLOW.
[2022-08-04] MEDS: Benzonatate 100 MG CAPSULE PO ×2 (14:16→20:21)
--- NOTE | 2022-08-04 14:24 | P.PNIM_ITS ---
Subjective Subjective Date of Service: 08/05/22 Interval History: acute bronchitis Review of Systems still has aggressive cough,sob improving denies any chest pain or fever or chills Physical Exam Vital Signs: Vital Signs: Last Vital Signs Temp 97.7 F 08/04/22 11:17 Pulse 71 08/04/22 11:21 Resp 20 08/04/22 11:21 BP 134/56 L 08/04/22 11:17 Pulse Ox 99 08/04/22 11:17 O2 Del Method Room Air 08/04/22 11:17 O2 Flow Rate 1 08/01/22 10:37 Oxygen Flow Rate 2 07/30/22 13:05 BMI result Body Mass Index 37.1 General: AO X 3, no acute distress Resp: less rhonchi CVS: S1,S2,RRR GI: +BS, NT, no distention Skin: No rash Neuro:? motor grossly intact Psych: appropriate affect Objective Data Active Medications Acetaminophen (Acetaminophen 325 Mg Tablet) 650 mg PO Q6H PRN PRN Reason: Pain, Mild (Pain Scale 1-3) Last Admin: 08/04/22 10:46 Dose: 650 mg Documented By: NICHOLAS Albuterol/Ipratropium (Albuterol/Iprat 2.5/0.5mg 3 Ml Ampul.Neb) 3 ml INHALE RQ4H WHILE AWAKE [facility] Last Admin: 08/04/22 11:19 Dose: 3 ml Documented By: KING Apixaban (Apixaban 5 Mg Tablet) 5 mg PO BID [facility] Last Admin: 08/04/22 08:19 Dose: 5 mg Documented By: NICHOLAS Aspirin (Aspirin Enteric Coated 81 Mg Tablet.) 81 mg PO DAILY [facility] Last Admin: 08/04/22 08:20 Dose: 81 mg Documented By: NICHOLAS Atorvastatin Calcium (Atorvastatin Calcium 80 Mg Tablet) 80 mg PO BEDTIME [facility] Last Admin: 08/03/22 21:06 Dose: 80 mg Documented By: MAKEDA Benzonatate (Benzonatate 100 Mg Capsule) 100 mg PO TID [facility] Last Admin: 08/04/22 14:16 Dose: 100 mg Documented By: NICHOLAS Calcium Carbonate/Cholecalciferol (Calcium + Vitamin D 250 Mg Tablet) 500 mg PO DAILY [facility] Last Admin: 08/04/22 08:20 Dose: 500 mg Documented By: NICHOLAS Doxycycline Monohydrate (Doxycycline Monohydrate 100 Mg Capsule) 100 mg PO Q12H [facility] Last Admin: 08/04/22 10:44 Dose: 100 mg Documented By: NICHOLAS Furosemide (Furosemide 20 Mg Tablet) 20 mg PO BID@0900,1800 [facility]; Protocol Glipizide (Glipizide Xl 5 Mg Tab.Er.24) 5 mg PO DAILY [facility] Last Admin: 08/04/22 08:20 Dose: 5 mg Documented By: NICHOLAS Glucose (Glucose Gel 15 Gm Gel..Gram.) 15 gm PO Q15M PRN; Protocol PRN Reason: per Hypoglycemia Standing Ord. Guaifenesin (Guaifenesin La 600 Mg Tab.Er.12h) 1,200 mg PO BID PRN PRN Reason: Congestion Last Admin: 08/03/22 11:06 Dose: 1,200 mg Documented By: ZEN Guaifenesin (Guaifenesin 100 Mg/5 Ml Liquid) 10 ml PO Q4H PRN PRN Reason: Cough Last Admin: 08/03/22 11:06 Dose: 10 ml Documented By: ZEN Guaifenesin/Codeine Phosphate (Guaifen/Codeine Sf 200/20/10ml 10 Ml Liquid) 5 ml PO Q4H PRN PRN Reason: Cough Last Admin: 08/03/22 22:30 Dose: 5 ml Documented By: MAKEDA Dextrose (D10) 250 mls @ 750 mls/hr IV Q15M PRN; Protocol PRN Reason: per Hypoglycemia Standing Ord. Insulin Human Lispro (Insulin Lispro 100 Unit/Ml 3 Ml Vial) 0 unit SUBCUT QIDACHS [facility]; Protocol Last Admin: 08/04/22 12:14 Dose: 6 unit Documented By: ANG Lisinopril (Lisinopril 40 Mg Tablet) 40 mg PO BID [facility]; Protocol Last Admin: 08/04/22 08:20 Dose: 40 mg Documented By: NICHOLAS Loratadine (Loratadine 10 Mg Tablet) 10 mg PO DAILY [facility] Last Admin: 08/04/22 08:20 Dose: 10 mg Documented By: NICHOLAS Metoprolol Tartrate (Metoprolol Tartrate 50 Mg Tablet) 50 mg PO DAILY [facility]; Protocol Last Admin: 08/04/22 08:20 Dose: 50 mg Documented By: NICHOLAS Sodium Chloride (0.9 % Sodium Chloride Flush 3 Ml Syringe) [facility] Last Admin: 08/04/22 08:21 Dose: 3 ml Documented By: NICHOLAS Labs 08/02/22 07:58 08/04/22 06:46 Labs: Laboratory Results - last 24 hr 08/03/22 08/03/22 08/04/22 16:02 20:32 06:46 VBG pH VBG pCO2 VBG pO2 VBG HCO3 VBG O2 Saturation VBG Base Excess Anion Gap 11 L Estim Creat Clear Calc 51.9 Estimated GFR 56 POC Glucose 187 H 248 H Random Glucose 201 H Calcium 8.2 L Magnesium 1.7 08/04/22 08/04/22 08/04/22 07:08 11:19 12:24 VBG pH 7.40 VBG pCO2 51 VBG pO2 44 VBG HCO3 32 H VBG O2 Saturation 68.0 VBG Base Excess 6.0 Anion Gap Estim Creat Clear Calc Estimated GFR POC Glucose 200 H 277 H Random Glucose Calcium Magnesium Assessment and Plan (1) Acute bronchitis: Status: Acute (2) Atrial fibrillation with rapid ventricular response: Status: Acute (3) Type 2 diabetes mellitus with hyperglycemia: Status: Acute Plan 72 year old female with Atherosclerotic cardiovascular disease, Chronic heart failure with preserved ejection fraction (HFpEF), Essential hypertension, Type 2 diabetes mellitus with unspecified complications who has not been feeling well with shortness, congestion, cough and has been treated by her PCP with inhalers and steroid but continues to feel worse and now has developped palpitation as well and call EMS to be brought to the ED. EMS noted patient to be very thachycardic with rythm strip consistent with AFIB with RVR. Given IV diltiazem in the ED New onset Prox AFIB with RVR--converted to sinus rythm after iv cardizem and dig -continue metoprolol, eliquis, echocardiogram today Bronchitis--breathing treatment, doxycyline for 5 days started 07/31, cough medication, bronchodilators PRN..She doesn't want steroid still sob and congested -added cough meds,loratidine ,nebs Diabetes--Continue home meds of Glipizide and Metormin, add SSI and glucose monitoring protocol CAD--no acute ischemica, continue ASA, metoprolol Essential HTN--copntinue Lisinopril and Metoprolol acute on Chronic heart HFpEFexcerebation--slight decompensation,stills feels sob ,mild boderline desats with walking, continue IV Lasix moniter i/o daily weights chf education given DVT P: Eliquis reason for inpatient: new afib, needs med adjustment, HF on IV Lasix inpatient need:bronchitis -on nebs,antibiotics -respiratory status not optimal yet Time Spent With Patient Time: Total time managing care of this patient today ____ minutes. Quality Stroke Does the patient have a stroke diagnosis?: No VTE Prior VTE?: No VTE Risk Level:: Medical - moderate - high VTE Device Contraindication: Treatment Not Indicated VTE Drug Contraindication: N/A - Med Ordered
[2022-08-04 15:28] LABS: Glucose, Whole Blood 219 mg/dL (60-115)
[2022-08-04] MEDS: guaiFENesin 100 MG/5 ML LIQUID 10 ML PO (15:47)
[2022-08-04] MEDS: Furosemide 20 MG/2 ML VIAL IVPUSH (16:33)
[2022-08-04 19:32] LABS: Glucose, Whole Blood 186 mg/dL (60-115)
[2022-08-04] MEDS: Furosemide 20 MG TABLET PO (19:32)
[2022-08-04] MEDS: Atorvastatin Calcium 80 MG TABLET PO (20:21)
[2022-08-05] VITALS (10 sets, daily range): BP systolic 101–146; BP diastolic 46–62; PULSE 67–108; RESP 14–20; TEMP 36–36.8; O2SAT 93–99
[2022-08-05 07:15] LABS: Glucose, Whole Blood 235 mg/dL (60-115)
[2022-08-05] MEDS: Albuterol/Iprat 2.5/0.5MG 3 ML AMPUL.NEB INHALE ×4 (08:08→20:46)
[2022-08-05] MEDS: Acetaminophen 325 MG TABLET 650 MG PO (08:31)
[2022-08-05] MEDS: Calcium + Vitamin D 250 MG TABLET 500 MG PO (08:32)
[2022-08-05] MEDS: glipiZIDE XL 5 MG TAB.ER.24 PO (08:32)
[2022-08-05] MEDS: Aspirin Enteric Coated 81 MG TABLET.DR PO (08:32)
[2022-08-05] MEDS: Furosemide 20 MG TABLET PO ×2 (08:32→18:33)
[2022-08-05] MEDS: Metoprolol Tartrate 50 MG TABLET PO (08:32)
[2022-08-05] MEDS: Apixaban 5 MG TABLET PO ×2 (08:32→20:33)
[2022-08-05] MEDS: lisinopriL 40 MG TABLET PO ×2 (08:32→20:33)
[2022-08-05] MEDS: Insulin Lispro 100 UNIT/ML 3 ML VIAL SUBCUT ×4 (08:32→20:33)
[2022-08-05] MEDS: Loratadine 10 MG TABLET PO (08:32)
[2022-08-05] MEDS: 0.9 % Sodium Chloride Flush 3 ML SYRINGE IVFLUSH ×3 (08:38→20:34)
[2022-08-05] MEDS: Benzonatate 100 MG CAPSULE PO ×3 (08:43→20:33)
[2022-08-05 11:26] LABS: Glucose, Whole Blood 242 mg/dL (60-115)
[2022-08-05] MEDS: Doxycycline Monohydrate 100 MG CAPSULE PO ×2 (11:45→22:25)
--- NOTE | 2022-08-05 13:19 | MHC.CM.PN ---
Addendum entered by Freda Moreno 08/05/22 15:49: [facility] HAS NOT YET RESPONDED TO AUTH REQUEST PVR LIAISON HAS INDICATED SHE WILL FOLLOW UP AND INFORM CM ONCE THEY RESPOND Addendum entered by Freda Moreno 08/05/22 13:22: CM MET WITH PT AGAIN, HER DAUGHTER WAS ON SPEAKER PHONE WELL. CM INFORMED HER PVR IS WILLING TO SEEK A ONE TIME CONTRACT WITH HER INSURANCE SHE REPORTS THAT WOULD BE HER PREFERRED SNF PER DISCUSSION WITH PT AND DAUGHTER, IF PTS INSURANCE REFUSES THE ONE TIME CONTRACT, SHE WILL GO HOME WITH [facility] FOR SN, PT, [employer]. Original Note: PER NOTES, PT PREFERS STR PLACEMENT SHE DOES NOT FEEL SHE CAN MANAGE AT HOME WITH PTS PERMISSION, A BROAD REFERRAL WAS MADE TO CONTRACTED SNFS IN THE AREA THERE WERE NO BED OFFERS CM EXPANDED THE SEARCH AND POETS SEAT IN [place] OFFERED A BED CM MET WITH PT WHO REPORTS SHE CANNOT GO ALL THE WAY TO [place] AND WILL GO HOME IF THAT IS THE ONLY OPTION HOME O2 AND DAILY PT STILL PENDING SHE AGREES TO WAIT FOR THE RESULTS BEFORE CONFIRMING A DC PLAN
--- NOTE | 2022-08-05 14:08 | HO.PM.IMPN ---
Subjective Subjective Date of Service: 08/06/22 Physical Exam Vital Signs: Vital Signs: Last Vital Signs Temp 96.8 F 08/05/22 11:18 Pulse 68 08/05/22 11:18 Resp 20 08/05/22 11:18 BP 118/56 L 08/05/22 11:18 Pulse Ox 94 08/05/22 11:18 O2 Del Method Room Air 08/05/22 11:18 O2 Flow Rate 1 08/01/22 10:37 Oxygen Flow Rate 2 07/30/22 13:05 BMI result Body Mass Index 37.1 Objective Data Active Medications Acetaminophen (Acetaminophen 325 Mg Tablet) 650 mg PO Q6H PRN PRN Reason: Pain, Mild (Pain Scale 1-3) Last Admin: 08/05/22 08:31 Dose: 650 mg Documented By: ULISES Albuterol/Ipratropium (Albuterol/Iprat 2.5/0.5mg 3 Ml Ampul.Neb) 3 ml INHALE RQ4H WHILE AWAKE [facility] Last Admin: 08/05/22 11:06 Dose: 3 ml Documented By: NILES Apixaban (Apixaban 5 Mg Tablet) 5 mg PO BID [facility] Last Admin: 08/05/22 08:32 Dose: 5 mg Documented By: ULISES Aspirin (Aspirin Enteric Coated 81 Mg Tablet.) 81 mg PO DAILY [facility] Last Admin: 08/05/22 08:32 Dose: 81 mg Documented By: ULISES Atorvastatin Calcium (Atorvastatin Calcium 80 Mg Tablet) 80 mg PO BEDTIME [facility] Last Admin: 08/04/22 20:21 Dose: 80 mg Documented By: CASSIE Benzonatate (Benzonatate 100 Mg Capsule) 100 mg PO TID [facility] Last Admin: 08/05/22 08:43 Dose: 100 mg Documented By: ULISES Calcium Carbonate/Cholecalciferol (Calcium + Vitamin D 250 Mg Tablet) 500 mg PO DAILY [facility] Last Admin: 08/05/22 08:32 Dose: 500 mg Documented By: ULISES Doxycycline Monohydrate (Doxycycline Monohydrate 100 Mg Capsule) 100 mg PO Q12H [facility] Last Admin: 08/05/22 11:45 Dose: 100 mg Documented By: SERGEY Furosemide (Furosemide 20 Mg Tablet) 20 mg PO BID@0900,1800 [facility]; Protocol Last Admin: 08/05/22 08:32 Dose: 20 mg Documented By: ULISES Glipizide (Glipizide Xl 5 Mg Tab.Er.24) 5 mg PO DAILY [facility] Last Admin: 08/05/22 08:32 Dose: 5 mg Documented By: ULISES Glucose (Glucose Gel 15 Gm Gel..Gram.) 15 gm PO Q15M PRN; Protocol PRN Reason: per Hypoglycemia Standing Ord. Guaifenesin (Guaifenesin La 600 Mg Tab.Er.12h) 1,200 mg PO BID PRN PRN Reason: Congestion Last Admin: 08/03/22 11:06 Dose: 1,200 mg Documented By: ZEN Guaifenesin (Guaifenesin 100 Mg/5 Ml Liquid) 10 ml PO Q4H PRN PRN Reason: Cough Last Admin: 08/04/22 15:47 Dose: 10 ml Documented By: CASSIE Guaifenesin/Codeine Phosphate (Guaifen/Codeine Sf 200/20/10ml 10 Ml Liquid) 5 ml PO Q4H PRN PRN Reason: Cough Last Admin: 08/03/22 22:30 Dose: 5 ml Documented By: MAKEDA Dextrose (D10) 250 mls @ 750 mls/hr IV Q15M PRN; Protocol PRN Reason: per Hypoglycemia Standing Ord. Insulin Human Lispro (Insulin Lispro 100 Unit/Ml 3 Ml Vial) 0 unit SUBCUT QIDACHS [facility]; Protocol Last Admin: 08/05/22 11:45 Dose: 2 unit Documented By: SERGEY Lisinopril (Lisinopril 40 Mg Tablet) 40 mg PO BID [facility]; Protocol Last Admin: 08/05/22 08:32 Dose: 40 mg Documented By: ULISES Loratadine (Loratadine 10 Mg Tablet) 10 mg PO DAILY [facility] Last Admin: 08/05/22 08:32 Dose: 10 mg Documented By: ULISES Metoprolol Tartrate (Metoprolol Tartrate 50 Mg Tablet) 50 mg PO DAILY [facility]; Protocol Last Admin: 08/05/22 08:32 Dose: 50 mg Documented By: ULISES Sodium Chloride (0.9 % Sodium Chloride Flush 3 Ml Syringe) 3 ml IVFLUSH QSHIFT [facility] Last Admin: 08/05/22 08:38 Dose: 3 ml Documented By: ULISES Labs 08/02/22 07:58 08/04/22 06:46 Labs: Laboratory Results - last 24 hr 08/04/22 08/04/22 08/05/22 15:24 19:26 07:01 POC Glucose 219 H 186 H 235 H 08/05/22 11:23 POC Glucose 242 H Microbiology Microbiology Results: Microbiology 07/30/22 14:58 Blood Culture - Final Blood - Venous No growth after 5 days. 07/30/22 14:57 Blood Culture - Final Blood - Venous No growth after 5 days. Assessment and Plan (1) Bronchitis: Status: Acute (2) Acute bronchitis: Status: Acute (3) Atrial fibrillation with rapid ventricular response: Status: Acute Plan New onset AFIB with RVR--attempt rate control with IV cardizem, and oral metoprolol and if needed will consider digoxin as well, will seek cardiology input and obtain an echocardiogram. To be anticoagulated with Eliquis Diabetes--Continue home meds of Glipizide and Metormin, add SSI and glucose monitoring protocol CAD--no acute ischemica, continue ASA, metoprolol Essential HTN--copntinue Lisinopril and Metoprolol Chronic heart HFpEF--appear compensated, DVT P: Eliquis inpatient need:awaiting rehab. Time Spent With Patient Time: Total time managing care of this patient today ____ minutes. Quality Stroke Does the patient have a stroke diagnosis?: No VTE Prior VTE?: No VTE Risk Level:: Medical - moderate - high VTE Device Contraindication: Treatment Not Indicated VTE Drug Contraindication: N/A - Med Ordered
[2022-08-05 15:54] LABS: Glucose, Whole Blood 240 mg/dL (60-115)
[2022-08-05 20:24] LABS: Glucose, Whole Blood 250 mg/dL (60-115)
[2022-08-05] MEDS: Atorvastatin Calcium 80 MG TABLET PO (20:33)
[2022-08-06] VITALS (8 sets, daily range): BP systolic 115–137; BP diastolic 54–61; PULSE 75–102; RESP 16–18; TEMP 36.2–37.1; O2SAT 92–99
--- NOTE | 2022-08-06 07:00 | CA_ITS ---
Transthoracic Echocardiogram Patient (Last, First, Middle): Piper Flores D Gender: Female Date of : 1950 Age: 72 Procedure Date: 08/06/2022 Procedure Type: Transthoracic [place]ogram [place] [facility] [place]: 154.94 cm Weight: 88.91 kg BSA: 1.87 m2 Heart Rate: 81 bpm BP: 146 / 62 mmHg Delivery Table Operator: Referring MD: Reece Staley MD Mattress Packer: Jose Mosley MD Symptoms: afib Study Quality: Adequate/Contrast ECG Rhythm: Sinus Conclusions: - 1. Technically limited study despite use of contrast agent 2. Normal LV systolic function with impaired relaxation filling pattern 3. Mild aortic stenosis 4. Normal RV systolic pressure 5. No gross pericardial effusion Findings Procedure Information Contrast agent, definity, is being given per protocol without apparent complications. Left Ventricle Normal left ventricular size, thickness, and systolic function. The visually estimated ejection fraction is between 60-65%. Spectral Doppler is indicative of an impaired relaxation filling pattern. E/E prime ratio is between 8 and 15 consistent with indeterminate filling pressures. Right Ventricle The right ventricle was not well visualized. There is normal right ventricular systolic function. Atria The left atrium was not well visualized. Interatrial shunt cannot be excluded. The right atrium was not well visualized. Aortic Valve The aortic valve was not well visualized. There is mild calcification of the aortic valve. There is mild aortic valve stenosis. The mean gradient is 12 mmHg. The aortic valve area is 1.56 cm2. There is no aortic valve regurgitation. Mitral Valve There is mild anterior and posterior mitral leaflet thickening. There is mild anterior mitral annular calcification. There is mild mitral annular calcification. There is trace mitral valve regurgitation. There is no mitral valve stenosis. Pulmonic Valve The pulmonic valve was not well visualized. Tricuspid Valve Likely normal tricuspid valve structure and function. There is trace tricuspid valve regurgitation. The right ventricular systolic pressure is normal. The right ventricular systolic pressure is 18 mmHg. Normal right atrial pressure. Great Vessels All visible segments of the aorta are normal in size. The pulmonary artery was not well visualized. Venous The inferior vena cava is normal in size and collapses greater than 50% with inspiration. Pericardium/Pleural There is no evidence of pericardial effusion. Prior Study Comparison Changes noted compared to prior study dated: 11/12/2019. mild aortic stenosis is noted Measurements 2D Linear Measurements IVSd: 1.00 0.6-0.9/0.6-1.0 cm LVIDd: 4.33 3.9-5.3/4.2-5.9 cm LVIDd Index: 2.32 2.4-3.2/2.2-3.1 cm/m2 LVIDs: 2.54 2.0-3.6 cm LVPWd: 0.97 0.7-1.1 cm LA Diam: 4.00 2.7-3.8/3.0-4.0 cm LAIDs Index: 2.14 1.5-2.3 cm/m2 LV Mass: 175.99 67-162/88-224 g LV Mass Index: 94.11 43-95/49-115 g/m2 LVOT Diam: 1.90 3.0+(-)1.3 cm Mitral Valve MV Pk E: 1.09 MV PK A: 1.07 MV Decel Time: 226.00 E/A: 1.00 E'Lateral: 10.60 E'Medial: 7.40 E/E' Med: 14.70 E/E' Lat: 10.30 PHT: 66.00 MVA PHT: 3.33 Decel [place]: 4.83 Aortic Valve AoV Pk Dany: 2.35 AoV Mn Dany: 1.61 AoV VTI: 0.50 AoV Pk Grad: 22.00 Aov Mn Grad: 12.00 RIAN Cont.VTI: 1.56 LVOT LVOT Pk Dany: 1.29 LVOT Mn Dany: 0.86 LVOT VTI: 0.28 LVOT Pk Grad: 7.00 LVOT Mn Grad: 4.00 LVOT Diam: 1.90 LVOT Area: 2.84 Diastolic Function MV Pk E: 1.09 MV Pk A: 1.07 E/A: 1.00 E'Medial: 7.40 E/E' Med: 14.70 E' Laterial: 10.60 E/E' Lat: 10.30 Right Ventricle TAPSE (mm): 28.00 TVS' Dany: 12.90 Tricuspid Valve TR Pk Dany: 1.93 TR Pk Grad: 15.00 RA Press: 3.00 RVSP: 18.00 Great Vessels Aorta Sinus of Valsalva: 2.70 2.0-3.5 cm Ao Asc: 2.70 2.1-3.4 cm Pulmonary Valve PV Pk Dany: 1.25 Peak PV Grad: 6.00 Updated in Other Vendor System with Status of Final Jose Mosley MD electronically signed on 08/06/2022 3:21:32 PM with status of Final
[2022-08-06 07:45] LABS: Glucose, Whole Blood 231 mg/dL (60-115)
[2022-08-06] MEDS: Insulin Lispro 100 UNIT/ML 3 ML VIAL SUBCUT ×4 (08:24→20:11)
[2022-08-06] MEDS: Calcium + Vitamin D 250 MG TABLET 500 MG PO (08:25)
[2022-08-06] MEDS: Benzonatate 100 MG CAPSULE PO ×3 (08:25→20:11)
[2022-08-06] MEDS: Furosemide 20 MG TABLET PO ×2 (08:26→17:06)
[2022-08-06] MEDS: Loratadine 10 MG TABLET PO (08:26)
[2022-08-06] MEDS: Metoprolol Tartrate 50 MG TABLET PO (08:26)
[2022-08-06] MEDS: lisinopriL 40 MG TABLET PO ×2 (08:26→20:10)
[2022-08-06] MEDS: Aspirin Enteric Coated 81 MG TABLET.DR PO (08:26)
[2022-08-06] MEDS: Apixaban 5 MG TABLET PO ×2 (08:26→20:10)
[2022-08-06] MEDS: 0.9 % Sodium Chloride Flush 3 ML SYRINGE IVFLUSH ×3 (08:26→20:12)
[2022-08-06] MEDS: glipiZIDE XL 5 MG TAB.ER.24 PO (08:26)
[2022-08-06] MEDS: Doxycycline Monohydrate 100 MG CAPSULE PO ×2 (11:03→22:15)
[2022-08-06 11:21] LABS: Glucose, Whole Blood 212 mg/dL (60-115)
--- NOTE | 2022-08-06 11:32 | P.DS_ITS ---
DS: Providers Provider Date of Service: 08/07/22 Date of admission: 07/30/22 15:37 Date of discharge: 08/07/22 Primary care physician: Aba Day MD Consults: 07/30/22 18:13 Consult to Cardiology Routine Consulting Provider: [facility] Cardi[facility] Services Reason for consultation: new afib with RVR Has provider been notified: Yes Attending physician on discharge: Reece Staley Discharging clinician: Reece Staley DS: Diagnosis Discharge Diagnosis (1) Bronchitis: Status: Acute (2) Acute bronchitis: Status: Acute (3) Atrial fibrillation with rapid ventricular response: Status: Acute DS: Summary Hospital Course Hospital Course: Date of service and discharge:08/07/22. Vitals from today reviewed, patient does not have any new complaints. Feeling better 72 year old female with Atherosclerotic cardiovascular disease, Chronic heart failure with preserved ejection fraction (HFpEF), Essential hypertension, Type 2 diabetes mellitus with unspecified complications who has not been feeling well with shortness, congestion, cough and has been treated by her PCP with inhalers and steroid but continues to feel worse and now has developped palpitation as well and call EMS to be brought to the ED. EMS noted patient to be very thachyca rdic with rythm strip consistent with AFIB with RVR. Given IV diltiazem in the ED and HR continue to fluctuate but trending down.? She has peripheral edema, CXR is clear. Hospital course: Patient was admitted to the hospital because of not been feeling well with shortness, congestion, cough-patient found to have AFib with RVR(irregular heartbeat), heart failure, also component of bronchitis: Patient was started on nebs, antibiotic for bronchitis, IV diuretics for heart failure, patient was also given IV diltiazem for AFib. With above care heart rate seems to be improved-continue p.o. metoprolol. For acute bronchitis: Patient was given antibiotics and nebs: Patient seems to be improved significantly, switched to p.o. antibiotics doxycycline for 5 days more. CHF with preserved ejection fraction: Given IV Lasix, switched to p.o. Lasix upon discharge. Patient seen by PT rrecommended home with services vs rehab-family prefers to take her take patient home with sevices . plan: Continue diuretics as prescribed. Complete course of doxycycline for 5 days CHF education given, patient was strongly advised to call PCP if weight gain 2 lb /week, may need adjustment of diuretics. Patient had some shaking of hands yesterday but seems to be improved significantly today, if continue to have shakiness than follow-up with PCP outpatient. Monitor BMP in 1 week. Above management discussed the patient in detail length she understand and in agreement with the above plan, in addition discussed with her daughter also. Date of service and discharge:08/07/22. Vitals from today reviewed, patient does not have any new complaints. Feeling better. Hand shakiness improved. Time Spent with Patient Time attestation: Total time managing care of this patient today ____ minutes. Discharge coordination time: Greater than 30 minutes Quality: Safe Use of Opioids Does Pt have an Active Cancer Diagnosis on the Problem List?: No Quality: Stroke Does the patient have a stroke diagnosis?: No Physical Exam Vital Signs: Vital Signs: Last Vital Signs Temp 97.6 F 08/06/22 11:26 Pulse 75 08/06/22 11:26 Resp 18 08/06/22 11:26 BP 132/61 08/06/22 11:26 Pulse Ox 96 08/06/22 11:26 O2 Del Method Room Air 08/06/22 11:26 O2 Flow Rate 1 08/01/22 10:37 Oxygen Flow Rate 2 07/30/22 13:05 BMI result Body Mass Index 37.1 DS: Data Data Completed and Pending Labs on day of discharge: Laboratory Results - last 24 hr 08/05/22 08/05/22 08/06/22 15:50 20:18 07:40 POC Glucose 240 H 250 H 231 H 08/06/22 11:16 POC Glucose 212 H Discharge Plan Discharge Anticipated Discharge Date/Time: 08/06/22 11:18 Patient Disposition: Xfer SNF Discharge Diagnosis: chf, acute bronchitis Referrals: Aba Day MD [Primary Care Provider] - 1 Week Discharge Medications: New Eliquis 5 mg Tablet 5 mg PO BID Qty: 60 0RF doxycycline monohydrate 100 mg Capsule 100 mg PO Q12H Qty: 10 0RF loratadine 10 mg Tablet 10 mg PO DAILY Qty: 7 0RF albuterol sulfate 90 mcg/actuation aerosol powdr breath activated 1 inh inhalation Q4-6H PRN (Reason: shortness of breath) Qty: 1 0RF furosemide 20 mg Tablet 20 mg PO BID@0900,1800 Qty: 30 0RF Protocol: Hold for SBP< HOLD for SBP < : 90 Continued atorvastatin 80 mg tablet 80 mg PO BEDTIME glipizide 5 mg tablet extended release 24hr 5 mg PO DAILY lisinopril 40 mg tablet 40 mg PO BID metformin 500 mg tablet extended release 24 hr 500 mg PO TID metoprolol tartrate 50 mg tablet 50 mg PO DAILY pioglitazone 45 mg tablet 45 mg PO DAILY calcium carbonate-vitamin D3 600 mg-5 mcg (200 unit) Tablet 1 tab PO DAILY acetaminophen [Tylenol] 325 mg Tablet 650 mg PO Q6H PRN (Reason: Pain) Mucinex 1,200 mg Tablet Extended Release 12hr 1,200 mg PO BID PRN (Reason: Congestion) prednisone 10 mg tablet See Rx Instructions .ROUTE .COMPLEX Rx Instructions: 07/30-07/31 - 50MG DAILY; 08/01-08/03 - 40MG DAILY; 08/04-08/06 - 30MG DAILY; 08/07- 08/09 - 20MG DAILY; 08/10-08/12 - 10MG DAILY aspirin 81 mg tablet,delayed release (DR/EC) 81 mg PO DAILY Discharge Orders: Discharge Order (Routine); Ordered 08/07/22 Ordered By: Reece Staley Diet: Advance to usual diet Activity on Discharge: As tolerated Stand Alone Forms: Patient Portal Discharge page Care Plan Goals: Patient was admitted to the hospital because of not been feeling well with shortness, congestion, cough-patient found to have AFib with RVR(irregular heartbeat), heart failure, also component of bronchitis: Patient was started on nebs, antibiotic for bronchitis, IV diuretics for heart failure, patient was also given IV diltiazem for AFib. With above care heart rate seems to be improved-continue p.o. metoprolol. For acute bronchitis: Patient was given antibiotics and nebs: Patient seems to be improved significantly, switched to p.o. antibiotics doxycycline for 5 days more. CHF with preserved ejection fraction: Given IV Lasix, switched to p.o. Lasix upon discharge. Patient seen by PT recommended home with services vs rehab-family prefers to take her take patient home with sevices . CHF education given, patient was strongly advised to call PCP if weight gain 2 lb /week, may need adjustment of diuretics. Monitor BMP in 1 week. Health Concerns: as above. Plan of Treatment: As above. Assessment: As above. Patient Instructions: Heart Failure (DC), A-fib (Atrial Fibrillation) (DC)
[2022-08-06] MEDS: Albuterol/Iprat 2.5/0.5MG 3 ML AMPUL.NEB INHALE ×2 (14:16→19:35)
--- NOTE | 2022-08-06 14:18 | HO.PM.IMPN ---
Subjective Subjective Date of Service: 08/07/22 Interval History: Acute bronchitis,chf Review of Systems seems improved ,also hand shkiness also improved. Physical Exam Vital Signs: Vital Signs: Last Vital Signs Temp 97.6 F 08/06/22 11:26 Pulse 75 08/06/22 11:26 Resp 18 08/06/22 11:26 BP 132/61 08/06/22 11:26 Pulse Ox 96 08/06/22 11:26 O2 Del Method Room Air 08/06/22 11:26 O2 Flow Rate 1 08/01/22 10:37 Oxygen Flow Rate 2 07/30/22 13:05 BMI result Body Mass Index 37.1 General: AO X 3, no acute distress Resp: less rhonchi CVS: S1,S2,RRR GI: +BS, NT, no distention Skin: No rash Neuro:? motor grossly intact Psych: appropriate affect Objective Data Active Medications Acetaminophen (Acetaminophen 325 Mg Tablet) 650 mg PO Q6H PRN PRN Reason: Pain, Mild (Pain Scale 1-3) Last Admin: 08/05/22 08:31 Dose: 650 mg Documented By: ULISES Albuterol/Ipratropium (Albuterol/Iprat 2.5/0.5mg 3 Ml Ampul.Neb) 3 ml INHALE RQ4H WHILE AWAKE [facility] Last Admin: 08/06/22 14:16 Dose: 3 ml Documented By: NILES Apixaban (Apixaban 5 Mg Tablet) 5 mg PO BID [facility] Last Admin: 08/06/22 08:26 Dose: 5 mg Documented By: ULISES Aspirin (Aspirin Enteric Coated 81 Mg Tablet.) 81 mg PO DAILY [facility] Last Admin: 08/06/22 08:26 Dose: 81 mg Documented By: ULISES Atorvastatin Calcium (Atorvastatin Calcium 80 Mg Tablet) 80 mg PO BEDTIME [facility] Last Admin: 08/05/22 20:33 Dose: 80 mg Documented By: RANDI Benzonatate (Benzonatate 100 Mg Capsule) 100 mg PO TID [facility] Last Admin: 08/06/22 13:59 Dose: 100 mg Documented By: NICHOLAS Calcium Carbonate/Cholecalciferol (Calcium + Vitamin D 250 Mg Tablet) 500 mg PO DAILY [facility] Last Admin: 08/06/22 08:25 Dose: 500 mg Documented By: ULISES Doxycycline Monohydrate (Doxycycline Monohydrate 100 Mg Capsule) 100 mg PO Q12H [facility] Last Admin: 08/06/22 11:03 Dose: 100 mg Documented By: ULISES Furosemide (Furosemide 20 Mg Tablet) 20 mg PO BID@0900,1800 [facility]; Protocol Last Admin: 08/06/22 08:26 Dose: 20 mg Documented By: ULISES Glipizide (Glipizide Xl 5 Mg Tab.Er.24) 5 mg PO DAILY [facility] Last Admin: 08/06/22 08:26 Dose: 5 mg Documented By: ULISES Glucose (Glucose Gel 15 Gm Gel..Gram.) 15 gm PO Q15M PRN; Protocol PRN Reason: per Hypoglycemia Standing Ord. Guaifenesin (Guaifenesin La 600 Mg Tab.Er.12h) 1,200 mg PO BID PRN PRN Reason: Congestion Last Admin: 08/03/22 11:06 Dose: 1,200 mg Documented By: ZEN Guaifenesin (Guaifenesin 100 Mg/5 Ml Liquid) 10 ml PO Q4H PRN PRN Reason: Cough Last Admin: 08/04/22 15:47 Dose: 10 ml Documented By: CASSIE Guaifenesin/Codeine Phosphate (Guaifen/Codeine Sf 200/20/10ml 10 Ml Liquid) 5 ml PO Q4H PRN PRN Reason: Cough Last Admin: 08/03/22 22:30 Dose: 5 ml Documented By: MAKEDA Dextrose (D10) 250 mls @ 750 mls/hr IV Q15M PRN; Protocol PRN Reason: per Hypoglycemia Standing Ord. Insulin Human Lispro (Insulin Lispro 100 Unit/Ml 3 Ml Vial) 0 unit SUBCUT QIDACHS [facility]; Protocol Last Admin: 08/06/22 11:43 Dose: 4 unit Documented By: NICHOLAS Lisinopril (Lisinopril 40 Mg Tablet) 40 mg PO BID [facility]; Protocol Last Admin: 08/06/22 08:26 Dose: 40 mg Documented By: ULISES Loratadine (Loratadine 10 Mg Tablet) 10 mg PO DAILY [facility] Last Admin: 08/06/22 08:26 Dose: 10 mg Documented By: HO.DOBROB Metoprolol Tartrate (Metoprolol Tartrate 50 Mg Tablet) 50 mg PO DAILY [facility]; Protocol Last Admin: 08/06/22 08:26 Dose: 50 mg Documented By: DOBROB Sodium Chloride (0.9 % Sodium Chloride Flush 3 Ml Syringe) 3 ml IVFLUSH QSHIFT [facility] Last Admin: 08/06/22 08:26 Dose: 3 ml Documented By: DOBROMaldonado Labs 08/02/22 07:58 08/04/22 06:46 Labs: Laboratory Results - last 24 hr 08/05/22 08/05/22 08/06/22 15:50 20:18 07:40 POC Glucose 240 H 250 H 231 H 08/06/22 11:16 POC Glucose 212 H Assessment and Plan (1) Acute bronchitis: Status: Acute Plan 72 year old female with Atherosclerotic cardiovascular disease, Chronic heart failure with preserved ejection fraction (HFpEF), Essential hypertension, Type 2 diabetes mellitus with unspecified complications who has not been feeling well with shortness, congestion, cough and has been treated by her PCP with inhalers and steroid but continues to feel worse and now has developped palpitation as well and call EMS to be brought to the ED. EMS noted patient to be very thachycardic with rythm strip consistent with AFIB with RVR. Given IV diltiazem in the ED New onset Prox? AFIB with RVR--converted to sinus rythm after iv cardizem and dig -continue metoprolol, eliquis, echocardiogram today Bronchitis--breathing treatment, doxycyline for 5 days started 07/31, cough medication, bronchodilators PRN..She doesn't want steroid still sob and congested -added cough meds,loratidine ,nebs Diabetes--Continue home meds of Glipizide and Metormin, add SSI and glucose monitoring protocol CAD--no acute ischemica, continue ASA, metoprolol Essential HTN--copntinue Lisinopril and Metoprolol acute on Chronic heart HFpEFexcerebation--slight decompensation,stills feels sob ,mild boderline desats with walking, ?continue IV Lasix moniter i/o daily weights chf education given DVT P: Eliquis reason for inpatient: new afib, needs med adjustment, HF on IV Lasix inpatient need:awaiting bed rehab placement. Time Spent With Patient Time: Total time managing care of this patient today ____ minutes. Quality Stroke Does the patient have a stroke diagnosis?: No VTE Prior VTE?: No VTE Risk Level:: Medical - moderate - high VTE Device Contraindication: Treatment Not Indicated VTE Drug Contraindication: N/A - Med Ordered
--- NOTE | 2022-08-06 15:40 | PC.NURSE ---
Assumed care of patient at this time
[2022-08-06 16:05] LABS: Glucose, Whole Blood 156 mg/dL (60-115)
--- NOTE | 2022-08-06 16:24 | MHC.CM.PN ---
cm received message from [facility] reporting pt's case is under review with insurance, cm met w/pt who reports she does not feel comfortable going home and would like to wait for STR bed and is willing to go to [facility] if needed, referral expanded, cm will cont to follow dc needs.
[2022-08-06 20:04] LABS: Glucose, Whole Blood 221 mg/dL (60-115)
[2022-08-06] MEDS: Atorvastatin Calcium 80 MG TABLET PO (20:10)
[2022-08-06] MEDS: Acetaminophen 325 MG TABLET 650 MG PO (20:11)
[2022-08-07 03:57] VITALS: BP 124/63; PULSE 76; RESP 18; TEMP 36.9; O2SAT 95
[2022-08-07 07:16] VITALS: BP 158/67; PULSE 72; RESP 16; TEMP 36; O2SAT 94
[2022-08-07 07:17] LABS: Glucose, Whole Blood 173 mg/dL (60-115)
[2022-08-07] MEDS: 0.9 % Sodium Chloride Flush 3 ML SYRINGE IVFLUSH (08:00)
[2022-08-07] MEDS: Insulin Lispro 100 UNIT/ML 3 ML VIAL SUBCUT ×2 (08:00→12:00)
[2022-08-07] MEDS: lisinopriL 40 MG TABLET PO (08:00)
[2022-08-07] MEDS: Benzonatate 100 MG CAPSULE PO (08:00)
[2022-08-07] MEDS: Aspirin Enteric Coated 81 MG TABLET.DR PO (08:01)
[2022-08-07] MEDS: Loratadine 10 MG TABLET PO (08:01)
[2022-08-07] MEDS: glipiZIDE XL 5 MG TAB.ER.24 PO (08:01)
[2022-08-07] MEDS: Furosemide 20 MG TABLET PO (08:01)
[2022-08-07] MEDS: Metoprolol Tartrate 50 MG TABLET PO (08:01)
[2022-08-07] MEDS: Calcium + Vitamin D 250 MG TABLET 500 MG PO (08:01)
[2022-08-07] MEDS: Apixaban 5 MG TABLET PO (08:01)
[2022-08-07 11:06] LABS: Glucose, Whole Blood 238 mg/dL (60-115)
[2022-08-07 11:16] VITALS: BP 143/64; PULSE 71; RESP 16; TEMP 36.1; O2SAT 98
[2022-08-07] MEDS: Albuterol/Iprat 2.5/0.5MG 3 ML AMPUL.NEB INHALE (11:31)
[2022-08-07 11:33] VITALS: PULSE 79; RESP 18; O2SAT 98
[2022-08-07] MEDS: Doxycycline Monohydrate 100 MG CAPSULE PO (12:00)
--- NOTE | 2022-08-07 12:58 | P.F2F_ITS ---
Service Date Service Date: 08/07/22 Encounter Date of encounter: 08/07/22 Encounter: afib , acute bronchitis, CHF Reasons for Services Signs and symptoms assessed: Monitor daily weights, and shortness of breath or chest pain Reason for half-way: CV/CP assess and/or care, medication management, medication treatment and teach disease management Reason for physical therapy: home safety and mobility, therapeutic exercises, restore joint function, gait/transfer training, assess need for DME, ADL colleen holloway, energy conservation and other MD Overseeing Care: Aba Day Homebound: Leaving the home is medically contraindicated at this time without the asist of a device and/or another person due th the listed conditions above and below. Reason homebound: weakness related to hospital stay Homebound supporting statement: Patient has multiple comorbidities including CHF, and AFib, bronchitis, also generalized weak post hospitalization-needs help with going to appointment, PT, labs draws. Certification: Based on the above findings, I certify that this patient is confined to the home and needs intermittent half-way care, physical therapy and/or speech therapy, or continues to need occupational therapy. The patient is under my care, and I have initiated the establishment of the plan of care. The patient will be followed by a physician who will periodically review the plan of care. Time Spent With Patient Time: Total time managing care of this patient today ____ minutes.
--- NOTE | 2022-08-07 13:01 | MHC.CM.PN ---
Per MD, Patient is medically cleared for dc to home today with new VNA. A referral was made to NA, who has been made aware of today's dc. CM met with Patient at bedside and addressed IMM with her, providing her with the original and placing a copy on the chart. NINI also spoke with Primary Contact/Son/Ermias at [phone], who will provide transportation to home. Ermias indicated that a dc to home is the preference over STR(PT rec home vs rehab).
--- NOTE | 2022-08-07 13:30 | MHC.CM.PN ---
RN came to CM office to get Eliquis voucher/coupon to give to patient.
[2022-08-07 13:45] VITALS: PULSE 74; O2SAT 92
== END 2022-08-07 14:59 | disposition home health service (06) | DRG 308 ==
LOC: HO.ED 14:06 → HO.EDOVER 16:03 → HO.IMC 16:30
PROVIDERS: Internal Medicine; Admitting Provider Internal Medicine; Emergency Provider Internal Medicine; PCP Internal Medicine; Visit Provider Internal Medicine
DX: I48.0 Paroxysmal atrial fibrillation (principal); I50.33 Acute on chronic diastolic (congestive) heart failure; I11.0 Hypertensive heart disease with heart failure; J20.9 Acute bronchitis, unspecified; E11.65 Type 2 diabetes mellitus with hyperglycemia; I25.10 Atherosclerotic heart disease of native coronary artery without angina pectoris; E78.00 Pure hypercholesterolemia, unspecified; Z20.822 Contact with and (suspected) exposure to COVID-19; Z87.891 Personal history of nicotine dependence; Z79.01 Long term (current) use of anticoagulants; Z79.82 Long term (current) use of aspirin; Z79.84 Long term (current) use of oral hypoglycemic drugs; Z79.899 Other long term (current) drug therapy
CPT/HCPCS: 36415; 71045; 80048; 80053; 82803; 82947; 83605; 83735; 83880; 84443; 84484; 85025; 85027; 85610; 87040; 87635; 93005; 93306; 94640; 97116; 97162; 99285; J0696; J1160; J1940; J3475; Q9957

== ENCOUNTER 2023-02-08 14:44 | Inpatient (IN) | payer OTHER, MEDICAID, SELFPAY ==
--- NOTE | ~2023-02-08 | XR_ITS ---
EXAMINATION: XR CHEST CLINICAL INFORMATION: Cough and shortness of breath COMPARISON: 07/30/2022 TECHNIQUE: Frontal view of the chest was obtained. FINDINGS: No significant abnormality is noted involving the heart, lungs, mediastinum, bony thorax or soft tissues. XR/XR chest 1V IMPRESSION: Unremarkable examination with no interval change.
--- NOTE | 2023-02-08 14:48 | ED_ITS ---
HPI - SOB/Dyspnea General Chief Complaint: Dyspnea Stated Complaint: DIFF BREATHING,PROD COUGH PER EMS Source: patient and EMS Mode of arrival: EMS Limitations: no limitations History of Present Illness HPI Narrative: female with increasing shortness of breath, she states that she has bronchitis. The last time she had this shortness and breath and cough she was in rapid atrial fibrillation MD elicited complaint: shortness of breath and cough Pertinent past history: congestive heart failure and other (bronchitis) Timing: constant Severity: moderate Related Data Home Medications Medication Instructions Recorded Confirmed aspirin 81 mg tablet,delayed 81 mg PO DAILY 09/03/20 07/30/22 release atorvastatin 80 mg tablet 80 mg PO BEDTIME 09/03/20 07/30/22 glipizide 5 mg tablet, extended 5 mg PO DAILY 09/03/20 07/30/22 release 24 hr lisinopril 40 mg tablet 40 mg PO BID 09/03/20 07/30/22 metformin 500 mg tablet,extended 500 mg PO TID 09/03/20 07/30/22 release 24 hr metoprolol tartrate 50 mg tablet 50 mg PO DAILY 09/03/20 07/30/22 pioglitazone 45 mg tablet 45 mg PO DAILY 09/03/20 07/30/22 calcium carbonate 600 mg-vitamin 1 tab PO DAILY 05/21/21 07/30/22 D3 5 mcg (200 unit) tablet acetaminophen 325 mg tablet 650 mg PO Q6H PRN Pain 07/30/22 07/30/22 (Tylenol) guaifenesin 1,200 mg tablet, 1,200 mg PO BID PRN Congestion 07/30/22 07/30/22 extended release 12 hr (Mucinex) prednisone 10 mg tablet See Rx Instructions .Route .COMPLEX 07/30/22 07/30/22 Previous Rx's Medication Instructions Recorded albuterol sulfate 90 mcg/actuation 1 inh inhalation Q4-6H PRN 08/06/22 breath activated powder inhaler shortness of breath #1 ea apixaban 5 mg tablet (Eliquis) 5 mg PO BID #60 tabs 08/06/22 doxycycline monohydrate 100 mg 100 mg PO Q12H #10 caps 08/06/22 capsule furosemide 20 mg tablet 20 mg PO BID@0900,1800 #30 tabs 08/06/22 loratadine 10 mg tablet 10 mg PO DAILY #7 tabs 08/06/22 Allergies Allergy/AdvReac Type Severity Reaction Status Date / Time naproxen [NAPROXEN] AdvReac Unknown dizziness, Verified 05/21/21 15:37 nausea Review of Systems 2 Review of Systems: Yes all other systems are reviewed and are negative Neurologic: Denies Sensory deficit (Neuro) [facility] Past Medical History Medical History Hypercholesterolemia Chronic heart failure with preserved ejection fraction (HFpEF) Type 2 diabetes mellitus with unspecified complications Essential hypertension Atherosclerotic cardiovascular disease Surgical History Hx of colonoscopy History of cardiac catheterization (~11/14/19) Family History Family History Father Diabetes Mother Cirrhosis Social History Social History Household Members: Spouse Housing: House Are you a primary interior plant caretaker to a significant other at home: No Do you presently have visiting nurse or other home services: No (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) Alcohol intake: never Patient Tobacco Use Status: Former Tobacco user Quit Date: Tobacco use type: Cigarette Smoked in Last 30 Days: No Use of substances other than those prescribed or required for medical reasons: No service: No Current occupational status: retired Physical Exam 2 Vital Signs: Vital Signs: Last Vital Signs Temp 98.1 F 02/08/23 14:55 Pulse 111 H 02/08/23 15:13 Resp 26 H 02/08/23 15:13 BP 197/110 H 02/08/23 14:55 Pulse Ox 91 L 02/08/23 14:55 O2 Del Method Nasal Cannula 02/08/23 14:55 Oxygen Flow Rate 2 02/08/23 14:55 BMI result Body Mass Index 37.2 Const: Other: obese female looking chronically ill, coughing and short of breath Nutritional Appearance: obese Orientation/consciousness: oriented to person and patient oriented x3 Limitations: no limitations HEENT: Head: Yes normal to inspection Ears: external ears normal General nose exam: Normal external nose present Mouth: Normal oral and palatal mucosa present and oropharynx normal Throat: Yes posterior oropharynx normal Eyes: General: appearance normal, both eyes and all related structures Neck: Other: supple Neck: Yes normal visual inspection Chest: Chest palpation & inspection: normal inspection of the chest Resp: Other: diffuse rales and wheezing Cardio: Jugular venous distension: no JVD Rate: regular rate Rhythm: r egular rhythm Heart sounds: S1 normal heart sound present and S2 normal heart sound present GI: Inspection: Yes normal to inspection Palpation (GI): Soft to palpation, nontender and No hepatosplenomegaly present Auscultation: normal bowel sounds : General: Yes no CVA tenderness Back/Spine/Pelvis: Back: no CVA tenderness Skin: General skin exam: no rashes or lesions noted Neuro: General: oriented to person and patient oriented x3 Cranial nerves: Yes CN's II-XII intact bilaterally Motor exam (neuro): 5/5 motor strength present throughout Sensory Exam: No Sensory deficit (Neuro) Extrem: Other: chronic 3+ edema same as baseline Psych: Appearance: grossly normal Course Reevaluation(s) Reevaluation #1: patient still wheezing, awaiting lab results and will give steroids and treatments Time: 16:08 Medications Administered Discontinued Medications Generic Name Dose Route Start Last Admin Trade Name Freq PRN Reason Stop Dose Admin Albuterol Sulfate 7.5 mg/ 0 mg 02/08/23 14:57 02/08/23 15:11 Albuterol/Ipratropium 3 ml INHALE 02/08/23 14:58 10 each ONCE ONE Administration Medical Decision Making Differential Diagnosis Differential Diagnoses: The differential diagnosis associated with the presentation includes (pneumonia, covid, influenza, rsv, COPD exacerbation were all considered) Admission/Observation Consideration of admission/observation: Escalation of care including admission/observation considered (upon arrival patient considered for admission) Lab Data 02/08/23 15:23 02/08/23 15:23 Labs: Lab Results 02/08/23 Range/Units 15:23 WBC 7.8 (4.8-10.8) X10*3/uL RBC 4.68 (4.20-5.50) X10*6/uL Hgb 13.8 (12.0-16.0) g/dl Hct 44.3 (37.0-47.0) % MCV 94.7 (80.0-98.0) fL MCH 29.5 (27.0-33.0) pg MCHC 31.2 (31.0-35.0) g/dl RDW 15.4 (11.0-16.0) % Plt Count 207 D (160-400) X10*3/uL MPV 9.6 (9.4-12.3) fL Immature Gran % (Auto) 0.3 (0.0-0.4) % Neut % (Auto) 47.3 (45-73) % Lymph % (Auto) 33.2 (20-40) % [place] % (Auto) 18.7 H (2-11) % Eos % (Auto) 0.1 (0-4) % Baso % (Auto) 0.4 (0-2) % Lymph # (Auto) 2.6 (1.2-4.9) X10*3/uL [place] # (Auto) 1.5 H (0.1-1.2) X10*3/uL Eos # (Auto) 0.0 (0.0-0.4) X10*3/uL Baso # (Auto) 0.0 (0.0-0.2) X10*3/uL Abs Immat Gran (auto) 0.02 (0.00-0.03) X10*3/uL Absolute Neuts (auto) 3.7 (2.0-8.3) x10*3/uL Absolute Nucleated RBC 0.000 (0.0-0.012) X10*3/uL Nucleated RBC % (auto) 0.0 (0.0-0.2) /100WBC Sodium 146 H (135-145) mmol/L Potassium 4.4 (3.3-5.1) mmol/L Chloride 109 H (96-108) mmol/L Carbon Dioxide 24 (22-29) mmol/L Anion Gap 17 (12-20) BUN 22 H (9-16) mg/dL Creatinine 1.10 (0.5-1.4) mg/dL Estim Creat Clear Calc 46.3 Estimated GFR 49 Random Glucose 139 H (60-115) mg/dL Calcium 9.5 D (8.4-10.2) mg/dL B-Natriuretic Peptide 129 H (<100) pg/mL Independent Interpretation I performed an independent interpretation of an: EKG (sinus tachycardia, no st or twave changes) and Plain X-Ray (chronic changes no infiltrate) Independent Historian Clinical information obtained from an independent historian. History obtained from or confirmed by: EMS External Record Review External record reviewed: Inpatient record and Outpatient record Prescription Management I considered prescription management with: Antibiotic (no evidence of pneumonia on xray) Chronic Conditions Patient?s care impacted by: Other (CHF) Discharge Plan Discharge Clinical Impression: Bronchitis, Upper respiratory infection Patient Disposition: Still a Patient Prescriptions: No Action atorvastatin 80 mg tablet 80 mg PO BEDTIME glipizide 5 mg tablet extended release 24hr 5 mg PO DAILY lisinopril 40 mg tablet 40 mg PO BID metformin 500 mg tablet extended release 24 hr 500 mg PO TID metoprolol tartrate 50 mg tablet 50 mg PO DAILY pioglitazone 45 mg tablet 45 mg PO DAILY calcium carbonate-vitamin D3 600 mg-5 mcg (200 unit) Tablet 1 tab PO DAILY acetaminophen [Tylenol] 325 mg Tablet 650 mg PO Q6H PRN (Reason: Pain) Mucinex 1,200 mg Tablet Extended Release 12hr 1,200 mg PO BID PRN (Reason: Congestion) prednisone 10 mg tablet See Rx Instructions .ROUTE .COMPLEX Rx Instructions: 07/30-07/31 - 50MG DAILY; 08/01-08/03 - 40MG DAILY; 08/04-16 - 30MG DAILY; 08/07- 08/09 - 20MG DAILY; 08/10-08/12 - 10MG DAILY Eliquis 5 mg Tablet 5 mg PO BID Qty: 60 0RF doxycycline monohydrate 100 mg Capsule 100 mg PO Q12H Qty: 10 0RF loratadine 10 mg Tablet 10 mg PO DAILY Qty: 7 0RF albuterol sulfate 90 mcg/actuation aerosol powdr breath activated 1 inh inhalation Q4-6H PRN (Reason: shortness of breath) Qty: 1 0RF furosemide 20 mg Tablet 20 mg PO BID@0900,1800 Qty: 30 0RF Protocol: Hold for SBP< HOLD for SBP < : 90 aspirin 81 mg tablet,delayed release (DR/EC) 81 mg PO DAILY
--- NOTE | 2023-02-08 14:50 | ECG_ITS ---
Test Reason : DYSPNEA Blood Pressure : / mmHG Vent. Rate : 101 BPM Atrial Rate : 101 BPM P-R Int : 162 ms QRS Dur : 096 ms QT Int : 352 ms P-R-T Axes : 075 -46 081 degrees QTc Int : 456 ms Sinus tachycardia Left anterior fascicular block Nonspecific ST and T wave abnormality Abnormal ECG When compared with ECG of 30-JUL-2022 13:05, Sinus rhythm has replaced Atrial fibrillation ST less depressed in Inferior leads Referred By: Art Elder Electronically Signed By:YANNA CARDONA MD
[2023-02-08 14:55] VITALS: BP 174/110; BP 197/110; PULSE 101; PULSE 90; RESP 29; TEMP 36.7; O2SAT 89; O2SAT 91; BMI 37.2
[2023-02-08] MEDS: Albuterol Sulfate 7.5 MG, Albuterol/Iprat 2.5/0.5MG 3 ML 3 ML INHALE (15:11)
[2023-02-08 15:13] VITALS: PULSE 111; RESP 26; O2SAT 92
[2023-02-08 15:35] LABS: MANUAL DIFF FLAG NO
[2023-02-08 15:40] LABS: Basophils Percent Auto 0.4 % (0-2); Eosinophils Percent Auto 0.1 % (0-4); Hematocrit 44.3 % (37.0-47.0); Hemoglobin 13.8 g/dl (12.0-16.0); Imm Gran Abs Auto 0.02 X10*3/uL (0.00-0.03); Imm Gran Pct Auto 0.3 % (0.0-0.4); Lymphocytes Absolute Auto 2.6 X10*3/uL (1.2-4.9); Lymphocytes Percent Auto 33.2 % (20-40); Mean Corpuscular HGB Conc 31.2 g/dl (31.0-35.0); Mean Corpuscular Hemoglobin 29.5 pg (27.0-33.0); Mean Corpuscular Volume 94.7 fL (80.0-98.0); Mean Platelet Volume 9.6 fL (9.4-12.3); Monocytes Absolute Auto 1.5 X10*3/uL (0.1-1.2); Monocytes Percent Auto 18.7 % (2-11); Neutrophils Absolute Auto 3.7 x10*3/uL (2.0-8.3); Neutrophils Percent Auto 47.3 % (45-73); Platelet Count 207 X10*3/uL (160-400); Red Blood Count 4.68 X10*6/uL (4.20-5.50); Red Cell Distribution Width 15.4 % (11.0-16.0); White Blood Count 7.8 X10*3/uL (4.8-10.8)
[2023-02-08 15:53] LABS: Anion Gap 17 (12-20); Blood Urea Nitrogen 22 mg/dL (9-16); Calcium 9.5 mg/dL (8.4-10.2); Carbon Dioxide 24 mmol/L (22-29); Chloride 109 mmol/L (96-108); Creatinine Clr Calc Pharmacy 46.3; Estimated Glomerular Filt Rate 49; Glucose Random 139 mg/dL (60-115); Potassium 4.4 mmol/L (3.3-5.1); Sodium 146 mmol/L (135-145)
[2023-02-08 15:59] LABS: B Type Natriuretic Peptide 129 pg/mL (<100)
--- NOTE | 2023-02-08 16:27 | PC.NURSE ---
pt BIBA from home for 2-3 days of diff breathing. pt with hx of CHF, asthma. reports having a cough with chest tightness, and diarrhea. she is alert and oriented x4. requires 1x assist to bedside commode.
[2023-02-08 16:29] LABS: Influenza A PCR NEGATIVE (Negative); Influenza B PCR NEGATIVE (Negative); Resp Syncy Virus RNA Qual PCR POSITIVE (Negative); SARS COV2 PCR INHOUSE NEGATIVE (Negative)
[2023-02-08 16:55] VITALS: BP 140/56; PULSE 104; RESP 22; O2SAT 96
[2023-02-08] MEDS: methylPREDNISolone Sod Succ 125 MG/2 ML VIAL IVPUSH (16:59)
[2023-02-08 18:39] LABS: Glucose, Whole Blood 136 mg/dL (60-115)
[2023-02-08] MEDS: guaiFEN/Codeine SF 200/20/10ML 10 ML LIQUID PO (19:22)
--- NOTE | 2023-02-08 19:36 | PHA.MEDREC ---
Pharmacy Consult ? Medication Reconciliation Pharmacy has completed the medication reconciliation. Spoke to patient and confirmed medication list.
[2023-02-08 19:39] VITALS: BP 142/55; PULSE 111; RESP 24; TEMP 37; O2SAT 93
--- NOTE | 2023-02-08 19:41 | PC.NURSE ---
This marketing underwriter assumed care of this Pt at 1900. Pt A&Ox3, speaking in full sentences, denies any pain, reports increase SOB with exertion and dry cough with intermittent yellow sputum. SpO2 93% on 2L via NC, RR 24 after commode use, lung sounds with some crackles. Pt able to ambulate to bedside commode.
--- NOTE | 2023-02-08 20:03 | P.HPHOSP_ITS ---
History of Present Illness Date of Service: 02/08/23 Chief Complaint: Dyspnea This is a 72-year-old female with pertinent history of essential hypertension, paroxysmal atrial fibrillation on anticoagulation, asthma not on home oxygen, rix-bdynawx-hnyrqfjqi diabetes mellitus, coronary artery disease, congestive heart failure with preserved ejection fraction who presents to the emergency department for evaluation of cough and dyspnea. Patient states he started feeling unwell about 3 days prior to presentation. About 2 days prior to presentation, she started having cough and dyspnea which was worse with ambulation. Also had associated wheezing. Cough is nonproductive and has associated malaise. No fevers or chills. No chest discomfort, palpitations, abdominal pain, changes in urinary or bowel habits. In the emergency department, patient requiring 2 L supplemental oxygen and for was found to be positive for RSV Review of Systems 2 Constitutional: Constitutional: Reports fatigue, Reports malaise and Reports weakness Cardiovascular: Cardiovascular: Reports dyspnea on exertion Respiratory: Respiratory: Reports cough, Reports dyspnea on exertion and Reports wheezing Gastrointestinal: Gastrointestinal: Reports no additional gastrointestinal complaints Genitourinary: Genitourinary: Reports no additional female genitourinary complaints Neurologic: Reports weakness Endocrine: Endocrine: Reports fatigue Allergic/Immunologic: Allergic/Immunologic: Reports wheezing [facility] Medical History Hypercholesterolemia Chronic heart failure with preserved ejection fraction (HFpEF) Type 2 diabetes mellitus with unspecified complications Essential hypertension Atherosclerotic cardiovascular disease Family History Father Diabetes Mother Cirrhosis Surgical History Hx of colonoscopy History of cardiac catheterization (~11/14/19) Social History Household Members: Spouse Housing: House Are you a primary long term care phlebotomist to a significant other at home: No Do you presently have visiting nurse or other home services: No (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) Alcohol intake: never Patient Tobacco Use Status: Former Tobacco user Quit Date: Tobacco use type: Cigarette Smoked in Last 30 Days: No Use of substances other than those prescribed or required for medical reasons: No Advance Directives: Yes Advance Directives on File: Yes Advance Directives Date on File: 05/25/20 service: No Current occupational status: retired Meds Allergies Allergy/AdvReac Type Severity Reaction Status Date / Time naproxen [NAPROXEN] AdvReac Unknown dizziness, Verified 05/21/21 15:37 nausea Home Medications Medication Instructions Recorded Confirmed Last Taken Type atorvastatin 80 mg tablet 80 mg PO QAM 09/03/20 02/08/23 02/08/23 History glipizide 5 mg tablet, extended 5 mg PO DAILY 09/03/20 02/08/23 02/08/23 History release 24 hr lisinopril 40 mg tablet 40 mg PO DAILY 09/03/20 02/08/23 02/08/23 History metformin 500 mg tablet,extended 1,500 mg PO QAM 09/03/20 02/08/23 02/08/23 History release 24 hr metoprolol tartrate 50 mg tablet 50 mg PO BID 09/03/20 02/08/23 02/08/23 History pioglitazone 45 mg tablet 45 mg PO DAILY 09/03/20 02/08/23 02/08/23 History calcium carbonate 600 mg-vitamin 1 tab PO DAILY 05/21/21 02/08/23 02/08/23 History D3 5 mcg (200 unit) tablet acetaminophen 325 mg tablet 650 mg PO Q6H PRN Pain 07/30/22 02/08/23 Unknown History (Tylenol) ezetimibe 10 mg tablet 10 mg PO DAILY 02/08/23 02/08/23 02/08/23 History Physical Exam 2 Vital Signs and Narrative: Vital Signs: Last Vital Signs Temp 98.6 F 02/08/23 19:39 Pulse 111 H 02/08/23 19:39 Resp 24 H 02/08/23 19:39 BP 142/55 H 02/08/23 19:39 Pulse Ox 93 02/08/23 19:39 O2 Del Method Nasal Cannula 02/08/23 19:39 O2 Flow Rate 2 02/08/23 19:39 Oxygen Flow Rate 2 02/08/23 14:55 BMI result Body Mass Index 37.2 Elderly female lying in bed in mild distress on supplemental oxygen Neck supple, no JVD Tachycardic with regular rhythm, S1-S2 heard Bilateral wheezing without crackles Abdomen soft nontender, no guarding, no rigidity Patient is awake, alert and oriented to self, place, time and person ; no focal motor deficit Psych: Normal mood No pedal edema Results Labs 02/08/23 15:23 02/08/23 15:23 Labs: Laboratory Results - last 24 hr 02/08/23 02/08/23 15:23 18:35 MCV 94.7 MCH 29.5 MCHC 31.2 RDW 15.4 Plt Count 207 D MPV 9.6 Immature Gran % (Auto) 0.3 Neut % (Auto) 47.3 Lymph % (Auto) 33.2 [place] % (Auto) 18.7 H Eos % (Auto) 0.1 Baso % (Auto) 0.4 Lymph # (Auto) 2.6 [place] # (Auto) 1.5 H Eos # (Auto) 0.0 Baso # (Auto) 0.0 Abs Immat Gran (auto) 0.02 Absolute Neuts (auto) 3.7 Absolute Nucleated RBC 0.000 Nucleated RBC % (auto) 0.0 Anion Gap 17 Estim Creat Clear Calc 46.3 Estimated GFR 49 POC Glucose 136 H Random Glucose 139 H Calcium 9.5 D B-Natriuretic Peptide 129 H Influenza Type A (PCR) NEGATIVE Influenza Type B (PCR) NEGATIVE RSV RNA Qual (PCR) POSITIVE A SARS-CoV-2 RNA (RT-PCR) NEGATIVE Imaging Radiologist's Impressions: Impressions Chest X-Ray 02/08/23 15:49 IMPRESSION: Unremarkable examination with no interval change. Assessment and Plan (1) Acute hypoxemic respiratory failure: Status: Acute (2) RSV bronchiolitis: Status: Acute Plan This is a 72-year-old female with pertinent history of essential hypertension, paroxysmal atrial fibrillation on anticoagulation, asthma not on home oxygen, rbp-qntpnfb-bzfilixro diabetes mellitus, coronary artery disease, congestive heart failure with preserved ejection fraction who presents to the emergency department for evaluation of cough and dyspnea. #. Acute hypoxemic respiratory failure secondary to RSV bronchitis: Will admit patient with supplemental oxygen. Initiating scheduled and p.r.n. DuoNebs. Continue systemic steroids. Monitor oxygen saturation and wean as tolerated, maintain oxygen saturation greater than 90%. #. Essential hypertension: Continue metoprolol and lisinopril #. Igk-jylexxv-sqhhmvlmv type 2 diabetes mellitus: Initiating Accu-Cheks with sliding scale insulin. Hold home anti hyperglycemics #. Coronary artery disease: On beta-eliezer and high-intensity statin. Not on antiplatelet agent #. Paroxysmal atrial fibrillation: On Eliquis. Rate controlled in the ER #. Mixed hyperlipidemia: On ezetimibe and high-intensity statin #. Congestive heart failure with preserved ejection fraction: No decompensation during admission. Not on home diuretics DVT prophylaxis: Eliquis Full code Admit as inpatient and will require two night minimum hospital stay for supplemental oxygen (as above), which is not possible in a lesser acute setting. Quality Stroke Does the patient have a stroke diagnosis?: No VTE Prior VTE?: No VTE Risk Level:: Medical - moderate - high VTE Device Contraindication: Treatment Not Indicated VTE Drug Contraindication: N/A - Med Ordered
[2023-02-08 21:45] LABS: Glucose, Whole Blood 280 mg/dL (60-115)
[2023-02-08] MEDS: Metoprolol Tartrate 50 MG TABLET PO (22:02)
[2023-02-08] MEDS: Apixaban 5 MG TABLET PO (22:03)
[2023-02-08] MEDS: Acetaminophen 325 MG TABLET 650 MG PO (22:03)
[2023-02-08] MEDS: Insulin Lispro 100 UNIT/ML 3 ML VIAL SUBCUT (22:03)
[2023-02-09] VITALS (10 sets, daily range): BP systolic 147–183; BP diastolic 57–78; PULSE 78–106; RESP 18–20; TEMP 36.1–37.7; O2SAT 89–96
[2023-02-09] MEDS: 0.9 % Sodium Chloride Flush 3 ML SYRINGE IVFLUSH ×4 (00:34→19:52)
[2023-02-09] MEDS: Benzonatate 100 MG CAPSULE 200 MG PO ×3 (00:39→20:20)
[2023-02-09] MEDS: Acetaminophen 325 MG TABLET 650 MG PO ×2 (05:00→18:28)
[2023-02-09] MEDS: methylPREDNISolone Sod Succ 40 MG/ML VIAL IVPUSH ×2 (06:08→18:26)
[2023-02-09 06:46] LABS: MANUAL DIFF FLAG NO
[2023-02-09 06:48] LABS: Hematocrit 40.5 % (37.0-47.0); Hemoglobin 12.8 g/dl (12.0-16.0); Imm Gran Abs Auto 0.03 X10*3/uL (0.00-0.03); Imm Gran Pct Auto 0.7 % (0.0-0.4); Lymphocytes Absolute Auto 1.1 X10*3/uL (1.2-4.9); Lymphocytes Percent Auto 24.2 % (20-40); Mean Corpuscular HGB Conc 31.6 g/dl (31.0-35.0); Mean Corpuscular Hemoglobin 29.2 pg (27.0-33.0); Mean Corpuscular Volume 92.3 fL (80.0-98.0); Mean Platelet Volume 10.2 fL (9.4-12.3); Monocytes Absolute Auto 0.2 X10*3/uL (0.1-1.2); Monocytes Percent Auto 3.3 % (2-11); Neutrophils Absolute Auto 3.2 x10*3/uL (2.0-8.3); Neutrophils Percent Auto 71.8 % (45-73); Platelet Count 217 X10*3/uL (160-400); Red Blood Count 4.39 X10*6/uL (4.20-5.50); Red Cell Distribution Width 15.1 % (11.0-16.0); White Blood Count 4.5 X10*3/uL (4.8-10.8)
[2023-02-09 07:02] LABS: Anion Gap 15 (12-20); Blood Urea Nitrogen 26 mg/dL (9-16); Calcium 8.9 mg/dL (8.4-10.2); Carbon Dioxide 24 mmol/L (22-29); Chloride 105 mmol/L (96-108); Creatinine Clr Calc Pharmacy 56.6; Estimated Glomerular Filt Rate > 60; Glucose Random 211 mg/dL (60-115); Potassium 4.5 mmol/L (3.3-5.1); Sodium 139 mmol/L (135-145)
[2023-02-09 07:26] LABS: Glucose, Whole Blood 177 mg/dL (60-115)
[2023-02-09] MEDS: Insulin Lispro 100 UNIT/ML 3 ML VIAL SUBCUT ×4 (07:45→20:20)
--- NOTE | 2023-02-09 07:45 | MHC.EDTECH ---
pt was 1 assisted from bed to commode with a steady gait, call doss within reach, rn aware
--- NOTE | 2023-02-09 07:52 | MHC.EDTECH ---
when answering to call doss, pt was jody cleaned after having a bowel movement, transferred from commode to bed, call doss within reach, table with personal belongings withing reach, pt comfortable under warm blankets
[2023-02-09] MEDS: Albuterol/Iprat 2.5/0.5MG 3 ML AMPUL.NEB INHALE ×4 (08:06→19:55)
[2023-02-09] MEDS: Ezetimibe 10 MG TABLET PO (08:50)
[2023-02-09] MEDS: Calcium + Vitamin D 250 MG TABLET 500 MG PO (08:50)
[2023-02-09] MEDS: Apixaban 5 MG TABLET PO ×2 (08:50→19:51)
[2023-02-09] MEDS: Metoprolol Tartrate 50 MG TABLET PO ×2 (08:50→19:51)
[2023-02-09] MEDS: lisinopriL 40 MG TABLET PO (08:50)
[2023-02-09] MEDS: Atorvastatin Calcium 80 MG TABLET PO (08:50)
--- NOTE | 2023-02-09 10:17 | MHC.CM.PN ---
IMM DELIVERED. PATIENT FROM HOME W/ . USES CANE PRN AND IS INDEPENDENT W/ ADL'S. HAS USED [facility] IN THE PAST FOR PT. HCP: SON BRICE PCP: JENN POND MD DP: GOAL IS HOME SELF CARE, WOULD BE AGREEABLE TO [facility] IF INDICATED, SON OR DIL MAY BE ABLE TO TRANSPORT. CM WILL FOLLOW.
[2023-02-09 11:09] LABS: Glucose, Whole Blood 357 mg/dL (60-115)
[2023-02-09 16:20] LABS: Glucose, Whole Blood 267 mg/dL (60-115)
--- NOTE | 2023-02-09 18:16 | P.PNIM_ITS ---
Subjective Subjective Date of Service: 02/09/23 Interval History: f/u RVS related acute bronchitis with acute hypoxic resp failure Improving but no optimal, desaturate without O2 Physical Exam 2 Vital Signs: Vital Signs: Last Vital Signs Temp 99.8 F 02/09/23 15:15 Pulse 89 02/09/23 15:36 Resp 18 02/09/23 15:36 BP 174/72 H 02/09/23 15:15 Pulse Ox 90 L 02/09/23 15:15 O2 Del Method Room Air 02/09/23 15:15 O2 Flow Rate 2 02/09/23 08:00 Oxygen Flow Rate 2 02/08/23 14:55 BMI result Body Mass Index 37.2 Const: Other: General: AO X 3, no acute distress Resp: faint wheezes bilaterally CVS: S1,S2,RRR GI: +BS, NT, no distention Skin: No rash Neuro: motor grossly intact Psych: appropriate affect Objective Data Active Medications Acetaminophen (Acetaminophen 325 Mg Tablet) 650 mg PO Q6H PRN PRN Reason: Pain, Mild (Pain Scale 1-3) Last Admin: 02/09/23 05:00 Dose: 650 mg Documented By: BASHIR Albuterol/Ipratropium (Albuterol/Iprat 2.5/0.5mg 3 Ml Ampul.Neb) 3 ml INHALE RQ4H WHILE AWAKE [facility] Last Admin: 02/09/23 15:34 Dose: 3 ml Documented By: KING Albuterol/Ipratropium (Albuterol/Iprat 2.5/0.5mg 3 Ml Ampul.Neb) 3 ml INHALE Q4H PRN PRN Reason: Wheezing Apixaban (Apixaban 5 Mg Tablet) 5 mg PO BID [facility] Last Admin: 02/09/23 08:50 Dose: 5 mg Documented By: FROILAN Atorvastatin Calcium (Atorvastatin Calcium 80 Mg Tablet) 80 mg PO DAILY [facility] Last Admin: 02/09/23 08:50 Dose: 80 mg Documented By: FROILAN Benzonatate (Benzonatate 100 Mg Capsule) 200 mg PO TID PRN PRN Reason: Cough Last Admin: 02/09/23 08:50 Dose: 200 mg Documented By: FROILAN Calcium Carbonate/Cholecalciferol (Calcium + Vitamin D 250 Mg Tablet) 500 mg PO DAILY [facility] Last Admin: 02/09/23 08:50 Dose: 500 mg Documented By: FROILAN Dextrose (Dextrose 50 % 25 Gm/50 Ml Syringe) 25 gm IVPUSH Q15M PRN; Protocol PRN Reason: per Hypoglycemia Standing Ord. Ezetimibe (Ezetimibe 10 Mg Tablet) 10 mg PO DAILY [facility] Last Admin: 02/09/23 08:50 Dose: 10 mg Documented By: FROILAN Glucose (Glucose Gel 15 Gm Gel..Gram.) 15 gm PO Q15M PRN; Protocol PRN Reason: per Hypoglycemia Standing Ord. Insulin Human Lispro (Insulin Lispro 100 Unit/Ml 3 Ml Vial) 0 unit SUBCUT QIDACHS [facility]; Protocol Last Admin: 02/09/23 16:55 Dose: 6 unit Documented By: FROILAN Lisinopril (Lisinopril 40 Mg Tablet) 40 mg PO DAILY [facility]; Protocol Last Admin: 02/09/23 08:50 Dose: 40 mg Documented By: FROILAN Melatonin (Melatonin 3 Mg Tablet) 6 mg PO BEDTIME PRN PRN Reason: Insomnia Methylprednisolone Sodium Succinate (Methylprednisolone Sod Succ 40 Mg/Ml Vial) 40 mg IVPUSH Q12H [facility] Last Admin: 02/09/23 06:08 Dose: 40 mg Documented By: BASHIR Metoprolol Tartrate (Metoprolol Tartrate 50 Mg Tablet) 50 mg PO BID [facility]; Protocol Last Admin: 02/09/23 08:50 Dose: 50 mg Documented By: FROILAN Ondansetron HCl (Ondansetron Hcl 4 Mg/2 Ml Vial) 4 mg IVPUSH Q8H PRN PRN Reason: Nausea and Vomiting Sodium Chloride (0.9 % Sodium Chloride Flush 3 Ml Syringe) 3 ml IVFLUSH QSHIFT [facility] Last Admin: 02/09/23 16:56 Dose: 3 ml Documented By: FROILAN Labs 02/09/23 05:24 02/09/23 05:24 Labs: Laboratory Results - last 24 hr 02/08/23 02/08/23 02/09/23 18:35 21:37 05:24 MCV 92.3 MCH 29.2 MCHC 31.6 RDW 15.1 Plt Count 217 MPV 10.2 Immature Gran % (Auto) 0.7 H Neut % (Auto) 71.8 Lymph % (Auto) 24.2 [place] % (Auto) 3.3 Eos % (Auto) 0.0 Baso % (Auto) 0.0 Lymph # (Auto) 1.1 L [place] # (Auto) 0.2 Eos # (Auto) 0.0 Baso # (Auto) 0.0 Abs Immat Gran (auto) 0.03 Absolute Neuts (auto) 3.2 Absolute Nucleated RBC 0.000 Nucleated RBC % (auto) 0.0 Anion Gap 15 Estim Creat Clear Calc 56.6 Estimated GFR > 60 POC Glucose 136 H 280 H Random Glucose 211 H Calcium 8.9 D 02/09/23 02/09/23 02/09/23 07:21 11:05 16:15 MCV MCH MCHC RDW Plt Count MPV Immature Gran % (Auto) Neut % (Auto) Lymph % (Auto) [place] % (Auto) Eos % (Auto) Baso % (Auto) Lymph # (Auto) [place] # (Auto) Eos # (Auto) Baso # (Auto) Abs Immat Gran (auto) Absolute Neuts (auto) Absolute Nucleated RBC Nucleated RBC % (auto) Anion Gap Estim Creat Clear Calc Estimated GFR POC Glucose 177 H 357 H* 267 H Random Glucose Calcium Assessment and Plan (1) Acute hypoxemic respiratory failure: Status: Acute (2) RSV bronchiolitis: Status: Acute Plan This is a 72-year-old female with pertinent history of essential hypertension, paroxysmal atrial fibrillation on anticoagulation, asthma not on home oxygen, tmr-bdcmpzy-ucrprnfdf diabetes mellitus, coronary artery disease, congestive heart failure with preserved ejection fraction who presents to the emergency department for evaluation of cough and dyspnea. #. Acute hypoxemic respiratory failure secondary to RSV bronchiti with hypoxia, overall improving. -continue bronchodilators, steroid, and O2 as need and wean as ana #. Essential hypertension: Continue metoprolol and lisinopril #. Wvs-qnzgkdq-tceznejoo type 2 diabetes mellitus: resume glipizide in am, continue SSI #. Coronary artery disease: On beta-eliezer and high-intensity statin. Not on antiplatelet agent but on Plavix #. Paroxysmal atrial fibrillation: On Eliquis. Metoprolol for rate control #. Mixed hyperlipidemia: On ezetimibe and high-intensity statin #. Congestive heart failure with preserved ejection fraction: no acute exacerbation DVT prophylaxis: Eliquis Full code Need for inpt: hypoxia d/t rvs in an elderly and need close monitoring acute need for O2 and monitoring Quality Stroke Does the patient have a stroke diagnosis?: No VTE Prior VTE?: No VTE Risk Level:: Medical - moderate - high VTE Device Contraindication: Treatment Not Indicated VTE Drug Contraindication: N/A - Med Ordered
[2023-02-09 20:00] LABS: Glucose, Whole Blood 273 mg/dL (60-115)
[2023-02-10] VITALS (8 sets, daily range): BP systolic 114–172; BP diastolic 56–78; PULSE 76–104; RESP 15–20; TEMP 36–36.8; O2SAT 83–98
[2023-02-10] MEDS: methylPREDNISolone Sod Succ 40 MG/ML VIAL IVPUSH (06:39)
[2023-02-10] MEDS: Albuterol/Iprat 2.5/0.5MG 3 ML AMPUL.NEB INHALE ×4 (07:45→19:55)
[2023-02-10 07:47] LABS: Glucose, Whole Blood 252 mg/dL (60-115)
[2023-02-10] MEDS: Atorvastatin Calcium 80 MG TABLET PO (08:01)
[2023-02-10] MEDS: Benzonatate 100 MG CAPSULE 200 MG PO ×2 (08:01→21:10)
[2023-02-10] MEDS: lisinopriL 40 MG TABLET PO (08:01)
[2023-02-10] MEDS: Ezetimibe 10 MG TABLET PO (08:01)
[2023-02-10] MEDS: Apixaban 5 MG TABLET PO ×2 (08:01→21:09)
[2023-02-10] MEDS: Metoprolol Tartrate 50 MG TABLET PO ×2 (08:01→21:09)
[2023-02-10] MEDS: Calcium + Vitamin D 250 MG TABLET 500 MG PO (08:02)
[2023-02-10] MEDS: Insulin Lispro 100 UNIT/ML 3 ML VIAL SUBCUT ×4 (08:02→21:10)
[2023-02-10] MEDS: 0.9 % Sodium Chloride Flush 3 ML SYRINGE IVFLUSH ×3 (08:05→21:10)
--- NOTE | 2023-02-10 09:58 | P.PNIM_ITS ---
Subjective Subjective Date of Service: 02/10/23 Interval History: f/u RVS related acute bronchitis with acute hypoxic resp failure--has some persistent cough, O2 sat is better, Physical Exam 2 Vital Signs: Vital Signs: Last Vital Signs Temp 97 F 02/10/23 07:03 Pulse 99 02/10/23 07:47 Resp 16 02/10/23 07:47 BP 152/75 H 02/10/23 07:03 Pulse Ox 98 02/10/23 07:03 O2 Del Method Nasal Cannula 02/10/23 07:03 O2 Flow Rate 2 02/10/23 07:03 Oxygen Flow Rate 2 02/08/23 14:55 BMI result Body Mass Index 37.2 Const: Other: General: AO X 3, no acute distress Resp: scattered wheezes brinda CVS: S1,S2,RRR GI: +BS, NT, no distention Skin: No rash Neuro: motor grossly intact Psych: appropriate affect Objective Data Active Medications Acetaminophen (Acetaminophen 325 Mg Tablet) 650 mg PO Q6H PRN PRN Reason: Pain, Mild (Pain Scale 1-3) Last Admin: 02/09/23 18:28 Dose: 650 mg Documented By: FROILAN Albuterol/Ipratropium (Albuterol/Iprat 2.5/0.5mg 3 Ml Ampul.Neb) 3 ml INHALE RQ4H WHILE AWAKE [facility] Last Admin: 02/10/23 07:45 Dose: 3 ml Documented By: KING Albuterol/Ipratropium (Albuterol/Iprat 2.5/0.5mg 3 Ml Ampul.Neb) 3 ml INHALE Q4H PRN PRN Reason: Wheezing Apixaban (Apixaban 5 Mg Tablet) 5 mg PO BID [facility] Last Admin: 02/10/23 08:01 Dose: 5 mg Documented By: FROILAN Atorvastatin Calcium (Atorvastatin Calcium 80 Mg Tablet) 80 mg PO DAILY [facility] Last Admin: 02/10/23 08:01 Dose: 80 mg Documented By: FROILAN Benzonatate (Benzonatate 100 Mg Capsule) 200 mg PO TID PRN PRN Reason: Cough Last Admin: 02/10/23 08:01 Dose: 200 mg Documented By: FROILAN Calcium Carbonate/Cholecalciferol (Calcium + Vitamin D 250 Mg Tablet) 500 mg PO DAILY [facility] Last Admin: 02/10/23 08:02 Dose: 500 mg Documented By: FROILAN Dextrose (Dextrose 50 % 25 Gm/50 Ml Syringe) 25 gm IVPUSH Q15M PRN; Protocol PRN Reason: per Hypoglycemia Standing Ord. Ezetimibe (Ezetimibe 10 Mg Tablet) 10 mg PO DAILY [facility] Last Admin: 02/10/23 08:01 Dose: 10 mg Documented By: FROILAN Glucose (Glucose Gel 15 Gm Gel..Gram.) 15 gm PO Q15M PRN; Protocol PRN Reason: per Hypoglycemia Standing Ord. Insulin Human Lispro (Insulin Lispro 100 Unit/Ml 3 Ml Vial) 0 unit SUBCUT QIDACHS [facility]; Protocol Last Admin: 02/10/23 08:02 Dose: 6 unit Documented By: FROILAN Lisinopril (Lisinopril 40 Mg Tablet) 40 mg PO DAILY [facility]; Protocol Last Admin: 02/10/23 08:01 Dose: 40 mg Documented By: FROILAN Melatonin (Melatonin 3 Mg Tablet) 6 mg PO BEDTIME PRN PRN Reason: Insomnia Methylprednisolone Sodium Succinate (Methylprednisolone Sod Succ 40 Mg/Ml Vial) 40 mg IVPUSH Q12H [facility] Last Admin: 02/10/23 06:39 Dose: 40 mg Documented By: ADY Metoprolol Tartrate (Metoprolol Tartrate 50 Mg Tablet) 50 mg PO BID [facility]; Protocol Last Admin: 02/10/23 08:01 Dose: 50 mg Documented By: FROILAN Ondansetron HCl (Ondansetron Hcl 4 Mg/2 Ml Vial) 4 mg IVPUSH Q8H PRN PRN Reason: Nausea and Vomiting Sodium Chloride (0.9 % Sodium Chloride Flush 3 Ml Syringe) 3 ml IVFLUSH QSHIFT [facility] Last Admin: 02/10/23 08:05 Dose: 3 ml Documented By: FROILAN Labs 02/09/23 05:24 02/09/23 05:24 Labs: Laboratory Results - last 24 hr 02/09/23 02/09/23 02/09/23 11:05 16:15 19:27 POC Glucose 357 H* 267 H 273 H 02/10/23 07:02 POC Glucose 252 H Assessment and Plan (1) Acute hypoxemic respiratory failure: Status: Acute (2) RSV bronchiolitis: Status: Acute Plan This is a 72-year-old female with pertinent history of essential hypertension, paroxysmal atrial fibrillation on anticoagulation, asthma not on home oxygen, igb-rnoqotd-jqtfdqtid diabetes mellitus, coronary artery disease, congestive heart failure with preserved ejection fraction who presents to the emergency department for evaluation of cough and dyspnea. #. Acute hypoxemic respiratory failure secondary to RSV bronchiti with hypoxia, improving. -continue bronchodilators, steroid, check ambulatory O2 #. Essential hypertension: Continue metoprolol and lisinopril, add norvasc #. Koo-btseuft-rskufnbun type 2 diabetes mellitus: resume glipizide today, continue SSI, hyperglycemia d/t steroid #. Coronary artery disease: On beta-eliezer and high-intensity statin. Not on antiplatelet agent but on Plavix #. Paroxysmal atrial fibrillation: On Eliquis. Metoprolol for rate control #. Mixed hyperlipidemia: On ezetimibe and high-intensity statin #. Congestive heart failure with preserved ejection fraction: no acute exacerbation DVT prophylaxis: Eliquis Full code Need for inpt: hypoxia d/t rvs in an elderly and need close monitoring acute need for O2 and monitoring Quality Stroke Does the patient have a stroke diagnosis?: No VTE Prior VTE?: No VTE Risk Level:: Medical - moderate - high VTE Device Contraindication: Treatment Not Indicated VTE Drug Contraindication: N/A - Med Ordered
[2023-02-10 11:10] LABS: Glucose, Whole Blood 320 mg/dL (60-115)
[2023-02-10] MEDS: amLODIPine Besylate 2.5 MG TABLET PO (11:51)
[2023-02-10] MEDS: glipiZIDE XL 5 MG TAB.ER.24 PO (13:00)
[2023-02-10 16:20] LABS: Glucose, Whole Blood 333 mg/dL (60-115)
[2023-02-10 20:29] LABS: Glucose, Whole Blood 341 mg/dL (60-115)
[2023-02-11 03:46] VITALS: BP 144/78; PULSE 78; RESP 16; TEMP 36.7; O2SAT 95
[2023-02-11 07:09] LABS: Glucose, Whole Blood 218 mg/dL (60-115)
[2023-02-11 07:56] VITALS: BP 150/72; PULSE 74; RESP 18; TEMP 36.6; O2SAT 93
[2023-02-11] MEDS: Albuterol/Iprat 2.5/0.5MG 3 ML AMPUL.NEB INHALE (08:32)
[2023-02-11 08:33] VITALS: PULSE 102; RESP 21; O2SAT 92
[2023-02-11] MEDS: Insulin Lispro 100 UNIT/ML 3 ML VIAL SUBCUT (08:42)
[2023-02-11] MEDS: Calcium + Vitamin D 250 MG TABLET 500 MG PO (08:43)
[2023-02-11] MEDS: Apixaban 5 MG TABLET PO (08:43)
[2023-02-11] MEDS: lisinopriL 40 MG TABLET PO (08:43)
[2023-02-11] MEDS: amLODIPine Besylate 2.5 MG TABLET PO (08:43)
[2023-02-11] MEDS: Metoprolol Tartrate 50 MG TABLET PO (08:43)
[2023-02-11] MEDS: Atorvastatin Calcium 80 MG TABLET PO (08:43)
[2023-02-11] MEDS: glipiZIDE XL 5 MG TAB.ER.24 PO (08:43)
[2023-02-11] MEDS: Ezetimibe 10 MG TABLET PO (08:43)
[2023-02-11] MEDS: 0.9 % Sodium Chloride Flush 3 ML SYRINGE IVFLUSH (08:44)
[2023-02-11] MEDS: Benzonatate 100 MG CAPSULE 200 MG PO (08:47)
[2023-02-11] MEDS: Acetaminophen 325 MG TABLET 650 MG PO (08:47)
--- NOTE | 2023-02-11 09:01 | PM.DS ---
DS: Providers Provider Date of Service: 02/11/23 Date of admission: 02/08/23 20:01 Primary care physician: Aba Day MD DS: Diagnosis Discharge Diagnosis (1) Acute hypoxemic respiratory failure: Status: Acute (2) RSV bronchiolitis: Status: Acute DS: Summary Hospital Course Hospital Course: Chief Complaint: Dyspnea This is a 72-year-old female with pertinent history of essential hypertension, paroxysmal atrial fibrillation on anticoagulation, asthma not on home oxygen, [id number]-[id number] diabetes mellitus, coronary artery disease, congestive heart failure with preserved ejection fraction who presents to the emergency department for evaluation of cough and dyspnea. Patient states he started feeling unwell about 3 days prior to presentation. About 2 days prior to presentation, she started having cough and dyspnea which was worse with ambulation. Also had associated wheezing. Cough is nonproductive and has associated malaise. No fevers or chills. No chest discomfort, palpitations, abdominal pain, changes in urinary or bowel habits. Hospital course: patient was admitted and treated for acute hypoxic respiratory failure due to RSV bronchitis. Her treatment consisted of IV steroid, bronchodilator by nebulizer, cough medication as needed. Over the course of time, she has improved she no longer is hypoxic she does have persistent cough which is expected to resolve. She will be discharged with a prednisone for total of 5 days and to continue use of inhalers at home. Her lungs are clear and she is breathing comfortably. Final diagnosis: Acute hypoxic respiratory failure RSV bronchitis Time Attestation Discharge coordination time: Greater than 30 minutes Quality: Safe Use of Opioids Does Pt have an Active Cancer Diagnosis on the Problem List?: No Quality: Stroke Does the patient have a stroke diagnosis?: No Physical Exam Vital Signs: Vital Signs: Last Vital Signs Temp 98 F 02/11/23 07:56 Pulse 102 H 02/11/23 08:33 Resp 21 H 02/11/23 08:33 BP 150/72 H 02/11/23 07:56 Pulse Ox 93 02/11/23 07:56 O2 Del Method Room Air 02/11/23 07:56 O2 Flow Rate 2 02/10/23 07:03 Oxygen Flow Rate 2 02/08/23 14:55 BMI result Body Mass Index 37.2 Const: Other: General: AO X 3, no acute distress Resp: CTA bilateral CVS: S1,S2,RRR GI: +BS, NT, no distention Skin: No rash Neuro: motor grossly intact Psych: appropriate affect DS: Data Data Completed and Pending Labs on day of discharge: Laboratory Results - last 24 hr 02/10/23 02/10/23 02/10/23 11:04 16:13 20:21 POC Glucose 320 H 333 H 341 H 02/11/23 07:03 POC Glucose 218 H Discharge Plan Discharge Anticipated Discharge Date/Time: 02/11/23 08:58 Patient Disposition: Home, Self-Care Discharge Diagnosis: Acute hypoxic respiratory failure due to RSV. Referrals: Aba Day MD [Primary Care Provider] - 1 Week Discharge Medications: New prednisone 20 mg tablet 20 mg PO DAILY Qty: 2 0RF guaifenesin 100 mg/5 mL Liquid 100 mg PO Q6H PRN (Reason: cough) Qty: 473 0RF Continued atorvastatin 80 mg tablet 80 mg PO QAM glipizide 5 mg tablet extended release 24hr 5 mg PO DAILY lisinopril 40 mg tablet 40 mg PO DAILY metformin 500 mg tablet extended release 24 hr 1,500 mg PO QAM metoprolol tartrate 50 mg tablet 50 mg PO BID pioglitazone 45 mg tablet 45 mg PO DAILY calcium carbonate-vitamin D3 600 mg-5 mcg (200 unit) Tablet 1 tab PO DAILY acetaminophen [Tylenol] 325 mg Tablet 650 mg PO Q6H PRN (Reason: Pain) Eliquis 5 mg Tablet 5 mg PO BID Qty: 60 0RF albuterol sulfate 90 mcg/actuation aerosol powdr breath activated 1 inh inhalation Q4-6H PRN (Reason: shortness of breath) Qty: 1 0RF ezetimibe 10 mg tablet 10 mg PO DAILY Discharge Orders: Discharge Order (Routine); Ordered 02/11/23 Ordered By: Efrain Oh Diet: Diabetic diet Activity on Discharge: As tolerated Stand Alone Forms: Patient Portal Discharge page Care Plan Goals: Recovery from acute hypoxic respiratory failure due to RSV pain Health Concerns: RSV bronchitis, acute hypoxic respiratory failure Plan of Treatment: take prednisone as directed, use inhalers as before. Robitussin as needed for cough follow-up with your doctor within a week, call for appointment. Assessment: See above
--- NOTE | 2023-02-11 09:48 | MHC.CM.PN ---
EMR reviewed. Per MD patient is medically cleared for DC home self care. IMM delivered. Grandson to transport.
== END 2023-02-11 11:00 | disposition home or self-care (01) | DRG 202 ==
LOC: HO.ED 18:11 → HO.EDOVER 21:14 → HO.S3 02-09 07:22
PROVIDERS: Admitting Provider Student in an Organized Health Care Education/Training Program; Emergency Provider Emergency Medicine; PCP Internal Medicine; Visit Provider Internal Medicine
DX: J21.0 Acute bronchiolitis due to respiratory syncytial virus (principal); J96.01 Acute respiratory failure with hypoxia; I50.32 Chronic diastolic (congestive) heart failure; I25.10 Atherosclerotic heart disease of native coronary artery without angina pectoris; E78.2 Mixed hyperlipidemia; I48.0 Paroxysmal atrial fibrillation; I11.0 Hypertensive heart disease with heart failure; Z95.5 Presence of coronary angioplasty implant and graft; Z87.891 Personal history of nicotine dependence; Z79.01 Long term (current) use of anticoagulants; Z79.84 Long term (current) use of oral hypoglycemic drugs; Z79.899 Other long term (current) drug therapy
CPT/HCPCS: 0241U; 36415; 71045; 80048; 82947; 83880; 85025; 93005; 94640; 99285; J2920; J2930

== ENCOUNTER → 2023-02-08 14:50 | Outpatient (BNV) | payer OTHER, MEDICAID, SELFPAY | PROVIDERS: Emergency Provider Emergency Medicine; PCP Internal Medicine; Visit Provider Internal Medicine Cardiovascular Disease | DX: R00.0 Tachycardia, unspecified (principal) | CPT/HCPCS: 93010 ==

== ENCOUNTER → 2023-02-08 16:38 | Outpatient (BNV) | payer OTHER, MEDICAID, SELFPAY | PROVIDERS: Emergency Provider Emergency Medicine; PCP Internal Medicine; Visit Provider Student in an Organized Health Care Education/Training Program | DX: J96.01 Acute respiratory failure with hypoxia (principal); J21.0 Acute bronchiolitis due to respiratory syncytial virus | CPT/HCPCS: 99222; 99232; 99239 ==

== ENCOUNTER 2023-02-19 15:44 | Emergency (ER) | payer OTHER, MEDICAID, SELFPAY ==
[2023-02-19] VITALS (8 sets, daily range): BP systolic 115–232; BP diastolic 63–111; PULSE 101–112; RESP 14–38; O2SAT 65–100; BMI 37.9
--- NOTE | ~2023-02-19 | XR_ITS ---
EXAMINATION: PORTABLE CHEST 1 VIEW CLINICAL INFORMATION: dyspnea. COMPARISON: 02/08/2023. TECHNIQUE: Portable frontal view of the chest was obtained. FINDINGS: The lungs are hyperinflated with chronic appearing coarsened reticular markings. Central vascular prominence but no overt edema. No focal infiltrate, effusion, or pneumothorax. Cardiac and mediastinal silhouettes are within normal limits for technique. No acute bony abnormality seen. Degenerative changes in the spine and shoulders. XR/XR chest 1V IMPRESSION: Hyperinflated with chronic appearing reticular markings but no acute superimposed airspace disease. There is central vascular prominence but no overt edema
--- NOTE | 2023-02-19 15:48 | ECG_ITS ---
Test Reason : DYSPNEA Blood Pressure : / mmHG Vent. Rate : 107 BPM Atrial Rate : 107 BPM P-R Int : 156 ms QRS Dur : 096 ms QT Int : 332 ms P-R-T Axes : 072 -24 034 degrees QTc Int : 443 ms Sinus tachycardia Possible Left atrial enlargement Minimal voltage criteria for LVH, may be normal variant ( [place] product ) Septal infarct , age undetermined Abnormal ECG When compared with ECG of 08-FEB-2023 14:57, Septal infarct is now Present ST elevation now present in Lateral leads Referred By: Dominga Espinal Electronically Signed By:MIRI RUBIN
[2023-02-19] MEDS: Albuterol Sulfate (0.083%) 2.5 MG/3 ML VIAL.NEB 10 MG INHALE (15:52)
[2023-02-19] MEDS: Furosemide 40 MG/4 ML VIAL IVPUSH (16:05)
[2023-02-19] MEDS: methylPREDNISolone Sod Succ 125 MG/2 ML VIAL 60 MG IVPUSH (16:05)
[2023-02-19 16:10] LABS: Basophils Percent Auto 0.2 % (0-2); Eosinophils Percent Auto 0.1 % (0-4); Hematocrit 44.5 % (37.0-47.0); Hemoglobin 14.2 g/dl (12.0-16.0); Lymphocytes Absolute Auto 3.9 X10*3/uL (1.2-4.9); Lymphocytes Percent Auto 19.6 % (20-40); MANUAL DIFF FLAG SCAN; Mean Corpuscular HGB Conc 31.9 g/dl (31.0-35.0); Mean Corpuscular Hemoglobin 29.4 pg (27.0-33.0); Mean Corpuscular Volume 92.1 fL (80.0-98.0); Mean Platelet Volume 9.6 fL (9.4-12.3); Monocytes Absolute Auto 1.6 X10*3/uL (0.1-1.2); Monocytes Percent Auto 8.3 % (2-11); Neutrophils Absolute Auto 13.6 x10*3/uL (2.0-8.3); Neutrophils Percent Auto 68.8 % (45-73); Platelet Count 406 X10*3/uL (160-400); Red Blood Count 4.83 X10*6/uL (4.20-5.50); Red Cell Distribution Width 15.5 % (11.0-16.0); SCAN SMEAR FLAG 1; White Blood Count 19.8 X10*3/uL (4.8-10.8)
[2023-02-19] MEDS: Magnesium Sulfate/H2O 2 GM/50 ML PIGGYBACK IV (16:20)
--- NOTE | 2023-02-19 16:20 | ED_ITS ---
HPI - General Adult General Chief complaint: General Medical Stated complaint: Diff breathing Time Seen by Provider: 02/19/23 16:16 Source: patient Mode of arrival: ambulatory Limitations: no limitations History of Present Illness HPI narrative: 72-year-old female with history of HTN, paroxysmal AFib, on anticoagulation, asthma not on home oxygen, non insulin-dependent DM, CAD, CHF, presented to the emergency department with dyspnea and patient was found to be hypoxic in the initial assessment, patient was placed on BiPAP machine was given Lasix and bronchodilator. No fever, no chills. Patient with history of acute hypoxic respiratory failure. Related Data Home Medications Medication Instructions Recorded Confirmed atorvastatin 80 mg tablet 80 mg PO QAM 09/03/20 02/08/23 glipizide 5 mg tablet, extended 5 mg PO DAILY 09/03/20 02/08/23 release 24 hr lisinopril 40 mg tablet 40 mg PO DAILY 09/03/20 02/08/23 metformin 500 mg tablet,extended 1,500 mg PO QAM 09/03/20 02/08/23 release 24 hr metoprolol tartrate 50 mg tablet 50 mg PO BID 09/03/20 02/08/23 pioglitazone 45 mg tablet 45 mg PO DAILY 09/03/20 02/08/23 calcium carbonate 600 mg-vitamin 1 tab PO DAILY 05/21/21 02/08/23 D3 5 mcg (200 unit) tablet acetaminophen 325 mg tablet 650 mg PO Q6H PRN Pain 07/30/22 02/08/23 (Tylenol) ezetimibe 10 mg tablet 10 mg PO DAILY 02/08/23 02/08/23 Previous Rx's Medication Instructions Recorded albuterol sulfate 90 mcg/actuation 1 inh inhalation Q4-6H PRN 08/06/22 breath activated powder inhaler shortness of breath #1 ea apixaban 5 mg tablet (Eliquis) 5 mg PO BID #60 tabs 08/06/22 guaifenesin 100 mg/5 mL oral liquid 100 mg (5 mL) PO Q6H PRN cough 02/11/23 #473 mL prednisone 20 mg tablet 20 mg PO DAILY #2 tabs 02/11/23 Allergies Allergy/AdvReac Type Severity Reaction Status Date / Time naproxen [NAPROXEN] AdvReac Unknown dizziness, Verified 05/21/21 15:37 nausea Review of Systems 2 Review of Systems: All other systems are reviewed and are negative Constitutional: Reports as per HPI and Reports no additional constitutional complaints Eyes: Reports as per HPI and Reports no additional eye complaints Reports system reviewed and no additional complaints, except as documented Cardiovascular: Reports as per HPI and Reports no additional cardiovascular complaints Respiratory: Reports as per HPI and Reports no additional respiratory complaints Gastrointestinal: Reports as per HPI and Reports no additional gastrointestinal complaints Genitourinary: Reports no additional female genitourinary complaints Musculoskeletal: Reports no additional musculoskeletal complaints Skin/Breast: Reports system reviewed and no additional complaints, except as docu Psychiatric: Reports no additional psychiatric complaints Endocrine: Reports no additional endocrine complaints Hematologic/Lymphatic: Reports no additional hematologic/lymphatic complaints Allergic/Immunologic: Reports no additional allergic/immunologic complaints Reports system reviewed and no additional complaints, except as documented and Reports Abnormal speech present [facility] Past Medical History Medical History Hypercholesterolemia Chronic heart failure with preserved ejection fraction (HFpEF) Type 2 diabetes mellitus with unspecified complications Essential hypertension Atherosclerotic cardiovascular disease Surgical History Hx of colonoscopy History of cardiac catheterization (~11/14/19) Family History Family History Father Diabetes Mother Cirrhosis Social History Social History Household Members: Spouse Housing: House Are you a primary managed care nurse to a significant other at home: No Do you presently have visiting nurse or other home services: No Alcohol intake: former Patient Tobacco Use Status: Former Tobacco user Quit Date: Tobacco use type: Cigarette Smoked in Last 30 Days: No Use of substances other than those prescribed or required for medical reasons: No Advance Directives: Yes Advance Directives on File: Yes Advance Directives Date on File: 05/25/21 service: No Current occupational status: retired Physical Exam ED Vital Signs: Vital Signs - 24 hr 02/19/23 15:53 02/19/23 15:57 02/19/23 16:05 Pulse Rate 105 H 112 H Respiratory Rate 36 H 20 36 H Blood Pressure 232/111 H Pulse Oximetry 65 L Oxygen Delivery Method Room Air Oxygen Flow Rate 02/19/23 16:27 02/19/23 16:53 02/19/23 19:31 Pulse Rate 111 H 102 H 101 H Respiratory Rate 14 31 H 30 H Blood Pressure 167/82 H 150/79 H Pulse Oximetry 96 93 95 Oxygen Delivery Method BiPAP BiPAP Nasal Cannula Oxygen Flow Rate 6 02/19/23 19:41 02/19/23 20:07 Pulse Rate 108 H Respiratory Rate 38 H 30 H Blood Pressure 115/63 Pulse Oximetry 96 Oxygen Delivery Method BiPAP Oxygen Flow Rate BMI result Body Mass Index 37.9 Vital signs have been reviewed and appear to be correct. Blood pressure elevated. Heart rate normal. Tachypneic. Temperature normal. Oxygen saturation normal. Appearance: Alert. Oriented X3. No acute distress. Head: Normal external exam. Normocephalic. Atraumatic. No Dong signs noted. No raccoon eyes noted Eyes: PERRLA. EOMI. Conjunctiva and sclera normal. Eyelids normal. ENT: TM's Normal. Pharynx normal. Uvula midline. Moist mucous membranes. No trismus noted. No drooling noted. No muffled voice noted. Neck: Normal inspection. Neck supple. FROM. No adenopathy. Thyroid Normal. No meningeal signs. No neck mass noted. CVS: Normal heart rate and rhythm. Heart sound normal. No murmurs noted. Pulses normal throughout. Respiratory: Acute respiratory distress. Painless inspiration. Breath sounds normal. Diffuse bilateral expiratory wheezing with prolonged expiration and decreased breathing sound bilaterally Chest nontender. No accessory muscle usage noted or decreased air movement noted. Abdomen: Soft and nontender. Bowel sounds normal in all 4 quadrants. No distention noted. No organomegaly noted. No visible injury noted. Back: No CVA tenderness. Full range of motion noted. Skin: Skin warm and dry. Normal skin color. Normal skin turgor. No rashes/lesions/lacerations noted. Extremities: No lower extremity edema. Extremities exhibit normal range of motion. Extremities nontender. Neuro: Oriented X 3. Cranial nerve exam: II-XII are grossly intact No motor deficit. No sensory deficit. Reflexes normal. Course Reevaluation(s) Reevaluation #1: Patient was weaned off BiPAP, patient remained stable for about 2 hours then the patient started to have shortness of breath was placed back on BiPAP machine, patient is complaining of back pain and left shoulder pain repeat EKG showed no change, repeat troponin showed elevation with delta change. EKG repeat showing ST elevation in the lateral leads with reciprocal change in the inferior leads, ST elevation, the case was discussed with Dr. Archer Time: 19:54 Reevaluation #2: The case was discussed with Dr. Coburn the intervention press secretary at [facility] who reviewed the EKG do not believe this is ST elevation NV, but he would like the patient to be transferred to [facility] to the cardiac unit for observation and elective cardiac catheterization in the future, the case was discussed with Dr. Stephenson press secretary at [facility] who accepted the patient to cardiac unit. Patient will be transferred to [facility], appears stable on BiPAP machine, VSS, no chest pain or shoulder pain. Improvement of SOB. Time: 20:57 Medications Administered Discontinued Medications Generic Name Dose Route Start Last Admin Trade Name Freq PRN Reason Stop Dose Admin Albuterol Sulfate 10 mg 02/19/23 15:48 02/19/23 15:52 Albuterol Sulfate (0.083%) 2.5 Mg/3 Ml Vial.Neb INHALE 02/19/23 15:49 10 mg ONCE ONE Administration Aspirin 81 mg 02/19/23 20:11 02/19/23 20:14 Aspirin Enteric Coated 81 Mg Tablet. PO 02/19/23 20:12 81 mg ONCE ONE Administration Furosemide 40 mg 02/19/23 15:56 02/19/23 16:05 Furosemide 40 Mg/4 Ml Vial IVPUSH 02/19/23 15:57 40 mg STAT STA Administration Protocol Magnesium Sulfate 2 gm in 50 mls @ 25 mls/hr 02/19/23 16:17 02/19/23 19:41 Magnesium Sulfate/H2o IV 02/19/23 18:16 Infused ONCE ONE Infusion Methylprednisolone Sodium Succinate 60 mg 02/19/23 15:48 02/19/23 16:05 Methylprednisolone Sod Succ 125 Mg/2 Ml Vial IVPUSH 02/19/23 15:49 60 mg ONCE ONE Administration Nitroglycerin 1 inch 02/19/23 15:56 02/19/23 16:05 Nitroglycerin 2 % Oint 1 Gm Packet TRANSDERMA 02/19/23 15:57 Not Given ONCE ONE Medical Decision Making Differential Diagnosis Differential Diagnoses: The differential diagnosis associated with the presentation includes (ACS, CHF, pneumonia, pneumothorax, electrolyte abnormality, severe anemia.) Admission/Observation Consideration of admission/observation: Escalation of care including admission/observation considered Consult Healthcare Provider Management of the patient was discussed with: Airport Ramp Attendant (Dr. Archer) Lab Data MDM Lab Attestation statement: I reviewed the patient's lab results. 02/19/23 16:04 02/19/23 19:01 Labs: Lab Results 02/19/23 02/19/23 02/19/23 Range/Units 16:03 16:04 16:27 WBC 19.8 H (4.8-10.8) X10*3/uL RBC 4.83 (4.20-5.50) X10*6/uL Hgb 14.2 (12.0-16.0) g/dl Hct 44.5 (37.0-47.0) % MCV 92.1 (80.0-98.0) fL MCH 29.4 (27.0-33.0) pg MCHC 31.9 (31.0-35.0) g/dl RDW 15.5 (11.0-16.0) % Plt Count 406 H D (160-400) X10*3/uL MPV 9.6 (9.4-12.3) fL Immature Gran % (Auto) 3.0 H (0.0-0.4) % Neut % (Auto) 68.8 (45-73) % Lymph % (Auto) 19.6 L (20-40) % [place] % (Auto) 8.3 (2-11) % Eos % (Auto) 0.1 (0-4) % Baso % (Auto) 0.2 (0-2) % Lymph # (Auto) 3.9 (1.2-4.9) X10*3/uL [place] # (Auto) 1.6 H (0.1-1.2) X10*3/uL Eos # (Auto) 0.0 (0.0-0.4) X10*3/uL Baso # (Auto) 0.0 (0.0-0.2) X10*3/uL Abs Immat Gran (auto) 0.60 H (0.00-0.03) X10*3/uL Absolute Neuts (auto) 13.6 H (2.0-8.3) x10*3/uL Absolute Nucleated RBC 0.000 (0.0-0.012) X10*3/uL Nucleated RBC % (auto) 0.0 (0.0-0.2) /100WBC Smear Tech's Comments VERIFIED PT 14.5 H (11.1-13.3) SEC INR 1.2 H (0.9-1.1) VBG pH (7.32-7.43) VBG pCO2 mmHg VBG pO2 mmHg VBG HCO3 (22-26) mmol/L VBG O2 Saturation % VBG Base Excess mmol/L Sodium TNP Potassium TNP Chloride TNP Carbon Dioxide TNP Anion Gap TNP BUN TNP Creatinine TNP Estim Creat Clear Calc TNP Estimated GFR TNP Random Glucose TNP Lactic Acid 3.9 H* (0.5-2.0) mmol/L Calcium TNP Magnesium TNP Total Bilirubin TNP Direct Bilirubin TNP AST TNP ALT TNP Alkaline Phosphatase TNP Troponin I High Sens 97.1 H* D (<3.5-17.0) ng/L B-Natriuretic Peptide 453 H (<100) pg/mL Total Protein TNP Albumin TNP Lipase TNP Procalcitonin 0.02 ng/mL Influenza Type A (PCR) NEGATIVE (Negative) Influenza Type B (PCR) NEGATIVE (Negative) RSV RNA Qual (PCR) POSITIVE A (Negative) SARS-CoV-2 RNA (RT-PCR) NEGATIVE (Negative) 02/19/23 02/19/23 02/19/23 Range/Units 16:30 19:01 19:04 WBC (4.8-10.8) X10*3/uL RBC (4.20-5.50) X10*6/uL Hgb (12.0-16.0) g/dl Hct (37.0-47.0) % MCV (80.0-98.0) fL MCH (27.0-33.0) pg MCHC (31.0-35.0) g/dl RDW (11.0-16.0) % Plt Count (160-400) X10*3/uL MPV (9.4-12.3) fL Immature Gran % (Auto) (0.0-0.4) % Neut % (Auto) (45-73) % Lymph % (Auto) (20-40) % [place] % (Auto) (2-11) % Eos % (Auto) (0-4) % Baso % (Auto) (0-2) % Lymph # (Auto) (1.2-4.9) X10*3/uL [place] # (Auto) (0.1-1.2) X10*3/uL Eos # (Auto) (0.0-0.4) X10*3/uL Baso # (Auto) (0.0-0.2) X10*3/uL Abs Immat Gran (auto) (0.00-0.03) X10*3/uL Absolute Neuts (auto) (2.0-8.3) x10*3/uL Absolute Nucleated RBC (0.0-0.012) X10*3/uL Nucleated RBC % (auto) (0.0-0.2) /100WBC Smear Tech's Comments PT (11.1-13.3) SEC INR (0.9-1.1) VBG pH 7.30 L 7.18 L* (7.32-7.43) VBG pCO2 39 46 mmHg VBG pO2 117 78 mmHg VBG HCO3 19 L 18 L (22-26) mmol/L VBG O2 Saturation 99.0 93.0 % VBG Base Excess -6.0 -10.2 mmol/L Sodium 139 Potassium 4.6 Chloride 106 Carbon Dioxide 19 L Anion Gap 19 BUN 29 H Creatinine 1.37 Estim Creat Clear Calc 37.5 Estimated GFR 38 Random Glucose 403 H* Lactic Acid 5.0 H* (0.5-2.0) mmol/L Calcium 9.5 D Magnesium 2.2 Total Bilirubin 0.7 Direct Bilirubin 0.3 AST 24 ALT 26 Alkaline Phosphatase 79 Troponin I High Sens 401.3 H* D (<3.5-17.0) ng/L B-Natriuretic Peptide (<100) pg/mL Total Protein 7.1 Albumin 3.6 Lipase 22 Procalcitonin ng/mL Influenza Type A (PCR) (Negative) Influenza Type B (PCR) (Negative) RSV RNA Qual (PCR) (Negative) SARS-CoV-2 RNA (RT-PCR) (Negative) Independent Interpretation I performed an independent interpretation of an: EKG (Sinus tachycardia at 101, left axis deviation, LVH, normal intervals, subtle ST elevation in aVL, V2 with reciprocal change in lead III and AVF) and Plain X-Ray (Chest:Hyperinflated with chronic appearing reticular markings but no acute superimposed airspace disease. There is central vascular prominence but no overt edema ) Radiology Impression Discussion of test interpretation with radiology: I have reviewed the radiologist's reading. Chronic Conditions Patient?s care impacted by: Other (CHF, asthma) Critical Care Time Critical Care Time Critical Care Time: Yes Total Critical Care Time: 80 Attestation: I spent 80 minutes providing critical care service to the patient, this including time spent at the bedside to evaluate the patient, reassess the patient, monitoring vital signs, review labs, and radiographic studies, counseling the patient/family, discussing the case with consultants, disposition the patient. Discharge Plan Discharge Clinical Impression: CHF (congestive heart failure), Non-STEMI (non-ST elevated myocardial infarction), RSV infection, Acute hypoxic respiratory failure Patient Disposition: er [facility] [place] Transfer Details: M5 Prescriptions: No Action atorvastatin 80 mg tablet 80 mg PO QAM glipizide 5 mg tablet extended release 24hr 5 mg PO DAILY lisinopril 40 mg tablet 40 mg PO DAILY metformin 500 mg tablet extended release 24 hr 1,500 mg PO QAM metoprolol tartrate 50 mg tablet 50 mg PO BID pioglitazone 45 mg tablet 45 mg PO DAILY calcium carbonate-vitamin D3 600 mg-5 mcg (200 unit) Tablet 1 tab PO DAILY acetaminophen [Tylenol] 325 mg Tablet 650 mg PO Q6H PRN (Reason: Pain) Eliquis 5 mg Tablet 5 mg PO BID Qty: 60 0RF albuterol sulfate 90 mcg/actuation aerosol powdr breath activated 1 inh inhalation Q4-6H PRN (Reason: shortness of breath) Qty: 1 0RF ezetimibe 10 mg tablet 10 mg PO DAILY prednisone 20 mg tablet 20 mg PO DAILY Qty: 2 0RF guaifenesin 100 mg/5 mL Liquid 100 mg PO Q6H PRN (Reason: cough) Qty: 473 0RF
[2023-02-19 16:21] LABS: INTERNATIONAL NORM RATIO 1.2 (0.9-1.1); Prothrombin Time 14.5 SEC (11.1-13.3)
--- NOTE | 2023-02-19 16:21 | PC.NURSE ---
Patient at hospital to visit a family member, patient in wheelchair brought to main ED by security sating 65%. Respiratory called, seen by provider. Placed on Bipap with IPAP 12 EPAP 5 tolerating well. Medicated per mar, labs obtained per order. Family at bedside.
[2023-02-19 16:27] LABS: SLIDE REVIEW VERIFIED
[2023-02-19 16:31] LABS: Lactic Acid 3.9 mmol/L (0.5-2.0)
[2023-02-19 16:36] LABS: VBG HCO3 19 mmol/L (22-26); VBG pCO2 39 mmHg; VBG pO2 117 mmHg
[2023-02-19 16:37] LABS: Venous Blood Gas Refer to POC result
[2023-02-19 16:47] LABS: Procalcitonin 0.02 ng/mL
[2023-02-19 16:55] LABS: Troponin-I High Sensitivity 97.1 ng/L (<3.5-17.0)
[2023-02-19 16:58] LABS: B Type Natriuretic Peptide 453 pg/mL (<100)
[2023-02-19 18:07] LABS: Reflex Lactate? Lactic Acid Added
[2023-02-19 18:59] LABS: Influenza A PCR NEGATIVE (Negative); Influenza B PCR NEGATIVE (Negative); Resp Syncy Virus RNA Qual PCR POSITIVE (Negative); SARS COV2 PCR INHOUSE NEGATIVE (Negative)
[2023-02-19 19:22] LABS: Venous Blood Gas Refer to POC result
[2023-02-19 19:22] LABS: VBG Base Excess -10.2 mmol/L; VBG HCO3 18 mmol/L (22-26); VBG pCO2 46 mmHg; VBG pO2 78 mmHg
[2023-02-19 19:24] LABS: VBG pH 7.18 (7.32-7.43)
--- NOTE | 2023-02-19 19:32 | PC.NURSE ---
assumed care of pt
[2023-02-19 19:45] LABS: Troponin-I High Sensitivity 401.3 ng/L (<3.5-17.0)
--- NOTE | 2023-02-19 19:45 | ECG_ITS ---
Test Reason : REPEAT Blood Pressure : / mmHG Vent. Rate : 101 BPM Atrial Rate : 101 BPM P-R Int : 148 ms QRS Dur : 088 ms QT Int : 358 ms P-R-T Axes : 079 -39 028 degrees QTc Int : 464 ms Sinus tachycardia Left axis deviation Minimal voltage criteria for LVH, may be normal variant ( [place] product ) Septal infarct (cited on or before 19-FEB-2023) Lateral injury pattern ACUTE [place] / STEMI Abnormal ECG When compared with ECG of 19-FEB-2023 16:11, No significant changes seen Referred By: Felipe Bhatia Electronically Signed By:MIRI RUBIN
[2023-02-19 19:46] LABS: Alanine Aminotransferase 26 U/L (0-31); Albumin Level 3.6 g/dL (3.5-5.0); Alkaline Phosphatase 79 U/L (39-117); Anion Gap 19 (12-20); Aspartate Amino Transferase 24 U/L (5-31); Bilirubin Direct 0.3 mg/dL (0.0-0.5); Bilirubin Total 0.7 mg/dL (0.0-1.0); Blood Urea Nitrogen 29 mg/dL (9-16); Calcium 9.5 mg/dL (8.4-10.2); Carbon Dioxide 19 mmol/L (22-29); Chloride 106 mmol/L (96-108); Creatinine Clr Calc Pharmacy 37.5; Estimated Glomerular Filt Rate 38; Glucose Random 403 mg/dL (60-115); Lipase 22 U/L (8-78); Magnesium 2.2 mg/dL (1.6-2.6); Potassium 4.6 mmol/L (3.3-5.1); Sodium 139 mmol/L (135-145); Total Protein 7.1 g/dL (6.5-8.0)
--- NOTE | 2023-02-19 20:04 | PC.NURSE ---
EKG PERFORMED STEMI- PT WILL BE READY FOR TRANSFER
[2023-02-19] MEDS: Aspirin Enteric Coated 81 MG TABLET.DR PO (20:14)
--- NOTE | 2023-02-19 20:40 | ECG_ITS ---
Test Reason : REPEAT EKG Blood Pressure : / mmHG Vent. Rate : 103 BPM Atrial Rate : 103 BPM P-R Int : 138 ms QRS Dur : 106 ms QT Int : 362 ms P-R-T Axes : 077 -46 062 degrees QTc Int : [address] elevation in latearl leads Minimal voltage criteria for LVH, may be normal variant ( [place] product ) Possible Anterior infarct (cited on or before 19-FEB-2023) Abnormal ECG When compared with ECG of 19-FEB-2023 19:54, No significant changes seen Referred By: Felipe Bhatia Electronically Signed By:MIRI RUBIN
[2023-02-19 21:05] LABS: Reflex Lactate? Lactic Acid Added
--- NOTE | 2023-02-19 21:05 | PC.NURSE ---
Nurse to nurse report given to [facility] will transport over
== END 2023-02-19 21:55 | disposition short-term general hospital (02) ==
PROVIDERS: Emergency Medicine; Emergency Provider Emergency Medicine
DX: I21.4 Non-ST elevation (NSTEMI) myocardial infarction (principal); I50.9 Heart failure, unspecified; J96.01 Acute respiratory failure with hypoxia; I48.91 Unspecified atrial fibrillation; J22 Unspecified acute lower respiratory infection; B97.4 Respiratory syncytial virus as the cause of diseases classified elsewhere; I25.10 Atherosclerotic heart disease of native coronary artery without angina pectoris; Z79.01 Long term (current) use of anticoagulants; Z20.828 Contact with and (suspected) exposure to other viral communicable diseases; Z20.822 Contact with and (suspected) exposure to COVID-19
CPT/HCPCS: 0241U; 36415; 71045; 80048; 80076; 82803; 83605; 83690; 83735; 83880; 84145; 84484; 85025; 85610; 87040; 93005; 94640; 96365; 96366; 96375; 99285; J1940; J2930; J3475

== ENCOUNTER → 2023-02-19 15:48 | Outpatient (BNV) | payer OTHER, SELFPAY | PROVIDERS: Emergency Provider Emergency Medicine; Visit Provider Internal Medicine | DX: R00.0 Tachycardia, unspecified (principal) | CPT/HCPCS: 93010 ==

== ENCOUNTER 2023-04-15 13:06 | Outpatient (AMB) | payer OTHER, SELFPAY ==
--- NOTE | 2023-04-15 13:20 | MHC.OFFVIS ---
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 Equity Required: No Allergies naproxen [NAPROXEN] Adverse Reaction (Unknown, Verified 04/15/23 13:24) dizziness, nausea Medication List - Last Reconciled 04/15/23 by Carlyn Joseph, ALMA-C acetaminophen (Tylenol) 650 mg PO Q6H PRN albuterol sulfate 90 mcg/actuation 1 inh inhalation Q4-6H PRN apixaban (Eliquis) 5 mg PO BID atorvastatin 80 mg PO QAM calcium carbonate-vitamin D3 600 mg-5 mcg (200 unit) 1 tab PO DAILY ezetimibe 10 mg PO DAILY glipizide ER 5 mg PO DAILY lisinopril 20 mg PO DAILY metformin ER 1,500 mg PO QAM metoprolol tartrate 50 mg PO BID HPI regal care//heart attack HPI Details Piper is a 73-year-old female past medical history of hypertension, hyperlipidemia, diabetes, CAD, lad stent, newer finding of paroxysmal AFib who was recently admitted [place] [facility] with increased shortness of breath and treated for RSV with acute respiratory failure. A few days following her discharge she presented again to [facility] with shortness of breath, treated with BiPAP. Her troponin levels were elevated and she was transferred to [facility] for cardiac catheterization showing patent stent and mild nonobstructive disease. Echo wall motion abnormality may be consistent with stress cardiomyopathy. Today she reports that she continues to have shortness of breath with activity but states it has improved since her hospital discharge. She sleeps with 2 pillows. She has an intermittent cough, no fevers. She does have bilateral lower leg edema which she says has increased recently. No chest discomfort at rest or with activity. No heart palpitations, lightheadedness, presyncope, syncope, falls. Taking meds as directed. No bleeding issues reported. [facility] Medical History (Updated 04/15/23 @ 14:15 by Carlyn Joseph, ALMA-C) Hypercholesterolemia Chronic heart failure with preserved ejection fraction (HFpEF) Type 2 diabetes mellitus with unspecified complications Essential hypertension Atherosclerotic cardiovascular disease Surgical History (Updated 04/15/23 @ 15:15 by HARSH Castro) Hx of colonoscopy History of cardiac catheterization (~11/14/19) Family History Father Diabetes Mother Cirrhosis Social History Household Members: Spouse Housing: House Are you a primary vehicle care specialist to a significant other at home: No Do you presently have visiting nurse or other home services: No Alcohol intake: former Patient Tobacco Use Status: Former Tobacco user Quit Date: Tobacco use type: Cigarette Advance Directives Date on File: 05/25/21 service: No Current occupational status: retired Review of Systems Const All systems reviewed & are unremarkable except as noted in HPI and below ENT Denies dizziness Card Details: chest pressure Denies chest pain, Denies chest pain at rest, Denies chest pain with activity, Denies rapid heart rate, Denies pedal edema, Denies edema, Denies leg edema, Denies lightheadedness, Denies palpitations, Reports dyspnea, Reports dyspnea on exertion and Denies orthopnea Resp Denies cough, Reports dyspnea and Reports dyspnea on exertion GI Denies hematochezia and Denies change in stool character Musc Denies abnormal gait, Denies limited range of motion, Denies muscle cramps, Denies muscle weakness, Denies numbness, Denies radiating pain into limb, Denies stiffness and Denies tingling Neuro Denies abnormal gait, Denies dizziness, Denies numbness and Denies tingling Endo Denies palpitations Physical Exam Vital Signs: Last Vital Signs Pulse 66 04/15/23 13:21 BP 132/63 04/15/23 13:21 BMI result Body Mass Index 37.7 Const General: cooperative, healthy appearing, comfortable and no acute distress Orientation/consciousness: patient oriented x3 Neck Neck: Yes normal visual inspection and Yes no JVD Resp Effort & Inspection: normal respiratory effort Auscultation: clear to auscultation bilaterally, no crackles, no rales, no rhonchi and no wheezes Cardio Jugular venous distension: no JVD Rate: regular rate Rhythm: regular rhythm Heart sounds: S1 normal heart sound present, S2 normal heart sound present, no murmurs and no rubs Neuro General: patient oriented x3 Extrem General: Yes normal to inspection and No no pedal edema Psych Appearance: grossly normal Mental Status: mental status grossly normal Speech and movement: Normal speech and movement present Assessment & Plan Assessment & Plan (1) Non-STEMI (non-ST elevated myocardial infarction): Code(s): I21.4 - Non-ST elevation (NSTEMI) myocardial infarction Plan: Recent ED evaluation for shortness of breath requiring BiPAP. Known history of COPD and had admission a week prior with acute respiratory failure, RSV. In the ER her troponin level herman up to 401.3. She did have chest heaviness. Her EKG did not show acute ST/T-wave abnormalities. She was transferred to [facility] for further evaluation. Echocardiogram showed EF 35-40%, akinesis of the mid to distal wall segments and apex suggesting stress-induced cardiomyopathy. Cardiac catheterization was done on 02/22/2023 showing mild nonobstructive CAD, patent stent. She was continued on metoprolol XL and lisinopril for neurohormonal modulation. She was continued on aspirin indefinitely, high-dose atorvastatin with ideal LDL goal less than 70. Today she reports no recurrent chest discomfort, heaviness. She does have ongoing shortness of breath with exertional activities. Test results reviewed with her in detail. Will check an echocardiogram to assess for improvement in EF, wall motion. No medication changes made. Will plan for lab work at the time of echocardiogram. Signs and symptoms of angina and heart failure reviewed with her. Cardiology follow-up in 6-8 weeks, sooner if needed (2) Stress-induced cardiomyopathy: Code(s): I51.81 - Takotsubo syndrome Plan: As above (3) Chronic heart failure with preserved ejection fraction (HFpEF): Code(s): I50.32 - Chronic diastolic (congestive) heart failure Plan: On examination today she does appear somewhat fluid overloaded. She has tight edema in her lower extremities which he tells me that it is not new. She has no rales on exam or noted JVD. She does have chronic shortness of breath which she says has been worse since having RSV in January. Her breathing improves with the use of her inhalers. She plans to further discuss her breathing issues with her PCP at planned visit on 04/18/23. Will be checking labs as above, CMP and BNP. Will give her script for Lasix 20 mg daily. Instructed on diuretic use. Low-salt diet reviewed. (4) Paroxysmal atrial fibrillation: Code(s): I48.0 - Paroxysmal atrial fibrillation Plan: Newer finding of paroxysmal atrial fibrillation summer 2022. Pulse is regular on examination today. She is on metoprolol for heart rate control. She is on Eliquis for anticoagulation. No bleeding issues reported. Labs done 02/19/2023 showed creatinine 1.37. (5) Anticoagulated: Code(s): Z79.01 - human resources clerk (current) use of anticoagulants Plan: As above (6) Atherosclerotic cardiovascular disease: Code(s): I25.10 - Atherosclerotic heart disease of [place] coronary artery without angina pectoris Plan: History of CAD with LAD stent. No reports of anginal sounding symptoms. Recent cardiac catheterization showing patent stent and only mild luminal irregularities in the LAD. She has not on aspirin as she is on Eliquis. She is on high-dose atorvastatin, Zetia with ideal LDL goal less than 70. She is on metoprolol tartrate 50 mg b.i.d.. Signs and symptoms of angina reviewed. No med changes made (7) Essential hypertension: Code(s): I10 - Essential (primary) hypertension Plan: Well controlled at present time. Continue current med management (8) Hypercholesterolemia: Code(s): E78.00 - Pure hypercholesterolemia, unspecified Plan: [place] LDL goal less than 70. Continue atorvastatin and Zetia. Fasting lipids being done with next lab draw. (9) History of cardiac catheterization: Onset Date: ~11/14/19 Comment: w/ stent placement - Dr. Aranda, [facility] Code(s): Z98.890 - Other specified postprocedural states Plan: LAD stent placed 11/14/2019 (10) S/P cardiac cath: Comment: 02/22/2023 left main normal, lad mild luminal irregularities, previous stent in the mid LAD widely patent, left circumflex normal, RCA not selectively engaged, very small and non dominant on prior catheterization Code(s): Z98.890 - Other specified postprocedural states Plan: Right ulnar catheterization site well healed, easily palpable ulnar pulse and hand assessment normal. (11) Hospital discharge follow-up: Code(s): Z09 - Encounter for follow-up examination after completed treatment for conditions other than malignant neoplasm Plan: Recent [facility] discharges Plan Time spent on chart review, documentation, interview and assessment Orders: Orders CA echo transthoracic complete Today Comprehensive Met. Panel Today I51.81 - Takotsubo syndrome B Type Natriuretic Peptide Today I51.81 - Takotsubo syndrome Lipid Panel Today I25.10 - Atherosclerotic heart disease of [place] coronary artery without angina pectoris Medications: New furosemide (Lasix) 20 mg PO DAILY 30 tabs 2RF Coding Level of Care Code Est Pt Level 4 (47567) Diagnoses Non-STEMI (non-ST elevated myocardial infarction) I21.4 Stress-induced cardiomyopathy I51.81 Chronic heart failure with preserved ejection fraction (HFpEF) I50.32 Paroxysmal atrial fibrillation I48.0 Anticoagulated Z79.01 Atherosclerotic cardiovascular disease I25.10 Essential hypertension I10 Hypercholesterolemia E78.00 History of cardiac catheterization Z98.890 S/P cardiac cath Z98.890 Hospital discharge follow-up Z09 Time Spent (min) 35
[2023-04-15 13:21] VITALS: BP 132/63; PULSE 66; BMI 37.7
== END 2023-04-15 14:05 | disposition home or self-care (01) ==
PROVIDERS: PCP Internal Medicine; Visit Provider Nurse Practitioner Family
DX: I21.4 Non-ST elevation (NSTEMI) myocardial infarction (principal); I51.81 Takotsubo syndrome; I50.32 Chronic diastolic (congestive) heart failure; I48.0 Paroxysmal atrial fibrillation; Z79.01 Long term (current) use of anticoagulants; I25.10 Atherosclerotic heart disease of native coronary artery without angina pectoris; I10 Essential (primary) hypertension; E78.00 Pure hypercholesterolemia, unspecified; Z98.890 Other specified postprocedural states; Z09 Encounter for follow-up examination after completed treatment for conditions other than malignant neoplasm
CPT/HCPCS: 99214

== ENCOUNTER → 2023-04-15 13:06 | Outpatient (BNVA) | payer OTHER, SELFPAY | PROVIDERS: Visit Provider Nurse Practitioner Family | DX: Z09 Encounter for follow-up examination after completed treatment for conditions other than malignant neoplasm (principal); I21.4 Non-ST elevation (NSTEMI) myocardial infarction; I51.81 Takotsubo syndrome; I11.0 Hypertensive heart disease with heart failure; I50.32 Chronic diastolic (congestive) heart failure; I48.0 Paroxysmal atrial fibrillation; I25.10 Atherosclerotic heart disease of native coronary artery without angina pectoris; E78.00 Pure hypercholesterolemia, unspecified; Z79.01 Long term (current) use of anticoagulants; Z98.890 Other specified postprocedural states | CPT/HCPCS: 99212 ==

== ENCOUNTER → 2023-05-13 10:15 | Outpatient (REF) | payer OTHER, SELFPAY ==
--- NOTE | 2023-05-13 10:19 | CA_ITS ---
Transthoracic Echocardiogram Patient (Last, First, Middle): Piper Flores D Gender: Female Date of : 1950 Age: 73 Procedure Date: 05/13/2023 Procedure Type: Transthoracic Echocardiogram Location: OP Height: 152.4 cm Weight: 90.27 kg BSA: 1.86 m2 Heart Rate: bpm BP: 140 / 70 mmHg Nanofabrication Specialist: TO Referring MD: Carlyn Joseph PROGRAMMER DEVELOPERDenisa Symptoms: I51.81 - Takotsubo syndrome Study Quality: Fair/contrast Conclusions: - The left ventricular systolic function is normal. The calculated ejection fraction is 60% by biplane method. Findings Procedure Information Contrast agent, definity, is being given per protocol without apparent complications. Left Ventricle Normal left ventricular cavity size. There is normal left ventricular wall thickness. The left ventricular systolic function is normal. The calculated ejection fraction is 60% by biplane method. There is no evidence of regional wall motion abnormalities. Venous The inferior vena cava is normal in size and collapses greater than 50% with inspiration. Pericardium/Pleural There is a trivial pericardial effusion. Prior Study Comparison No significant change compared to prior study dated: 08/06/2022. (improved compared to more recent [facility] echo) Measurements 2D Linear Measurements IVSd: 0.83 0.6-0.9/0.6-1.0 cm LVIDd: 4.66 3.9-5.3/4.2-5.9 cm LVIDd Index: 2.51 2.4-3.2/2.2-3.1 cm/m2 LVIDs: 3.22 2.0-3.6 cm LVPWd: 0.95 0.7-1.1 cm LV Mass: 172.53 67-162/88-224 g LV Mass Index: 92.76 43-95/49-115 g/m2 LVOT Diam: 1.90 3.0+(-)1.3 cm 2D Systolic Function EF 4C: 58.70 >55% EF 2C: 58.70 >55% EF BiP: 59.70 >55% LVOT LVOT Pk Dany: 1.28 LVOT Mn Dany: 0.81 LVOT VTI: 0.29 LVOT Pk Grad: 7.00 LVOT Mn Grad: 3.00 LVOT Diam: 1.90 LVOT Area: 2.84 Tricuspid Valve RA Press: 3.00 Updated in Other Vendor System with Status of Final Jeremy Archer MD electronically signed on 05/15/2023 11:57:47 AM with status of Final
== END ==
LOC: HO.CARD 10:15
PROVIDERS: PCP Internal Medicine; Visit Provider Nurse Practitioner Family
DX: I51.81 Takotsubo syndrome (principal)
CPT/HCPCS: 93308; Q9957

== ENCOUNTER → 2023-05-13 10:19 | Outpatient (BNV) | payer OTHER, SELFPAY | PROVIDERS: PCP Internal Medicine; Visit Provider Internal Medicine | DX: I51.81 Takotsubo syndrome (principal) | CPT/HCPCS: 93308 ==

== ENCOUNTER 2023-06-03 09:17 | Outpatient (AMB) | payer OTHER, SELFPAY ==
[2023-06-03 09:44] VITALS: PULSE 69; BMI 34.9
--- NOTE | 2023-06-03 09:44 | MHC.OFFVIS ---
Intake Vital Signs 06/03/23 09:44 Height 5 ft 1 in Weight 184 lb 11.958 oz BMI 34.9 Pulse 69 Pulse Source Pulse Oximeter Intake Visit Reasons: 8 wk follow up/Echocardio Laundry Helper Required: No Allergies naproxen [NAPROXEN] Adverse Reaction (Unknown, Verified 06/03/23 09:47) dizziness, nausea Medication List - Last Reconciled 06/03/23 by CARLENE CastroC acetaminophen (Tylenol) 650 mg PO Q6H PRN albuterol sulfate 90 mcg/actuation 1 inh inhalation Q4-6H PRN apixaban (Eliquis) 5 mg PO BID atorvastatin 80 mg PO QAM ezetimibe 10 mg PO DAILY furosemide (Lasix) 20 mg PO DAILY glipizide ER 5 mg PO DAILY lisinopril 20 mg PO DAILY metformin ER 1,500 mg PO QAM metoprolol tartrate 50 mg PO BID HPI 8 wk follow up/Echocardio HPI Details Piper is a 73-year-old female past medical history of hypertension, hyperlipidemia, diabetes, CAD, lad stent, newer finding of paroxysmal AFib who was admitted to [facility] 01/2023 with increased shortness of breath and treated for RSV with acute respiratory failure. A few days following her discharge she presented again to [facility] with shortness of breath, treated with BiPAP. Her troponin levels were elevated and she was transferred to [facility] for cardiac catheterization showing patent stent and mild nonobstructive disease. Echo wall motion abnormality may be consistent with stress cardiomyopathy. She recently had a repeat echocardiogram showing normal EF and she now presents for follow-up. Today she reports that she has been feeling well since her last visit. Her shortness of breath has continued to improve. She sleeps with 2 pillows which is her norm, no PND. She tolerates normal ADLs. She does have bilateral lower leg edema which has been stable. No chest discomfort at rest or with activity. No heart palpitations, lightheadedness, presyncope, syncope, falls. 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 Taking meds as directed. No bleeding issues reported. [facility] Medical History Hypercholesterolemia Chronic heart failure with preserved ejection fraction (HFpEF) Type 2 diabetes mellitus with unspecified complications Essential hypertension Atherosclerotic cardiovascular disease Surgical History Hx of colonoscopy History of cardiac catheterization (~11/14/19) Family History Father Diabetes Mother Cirrhosis Social History Household Members: Spouse Housing: House Are you a primary physician locums urgent care to a significant other at home: No Do you presently have visiting nurse or other home services: No Alcohol intake: former Patient Tobacco Use Status: Former Tobacco user Quit Date: Tobacco use type: Cigarette Advance Directives Date on File: 05/25/21 service: No Current occupational status: retired Review of Systems Const All systems reviewed & are unremarkable except as noted in HPI and below Reports fatigue ENT Denies dizziness Card Denies chest pain, Denies chest pain at rest, Denies chest pain with activity, Denies rapid heart rate, Denies pedal edema, Denies edema, Denies leg edema, Denies lightheadedness, Denies palpitations, Denies dyspnea, Denies dyspnea on exertion and Denies orthopnea Resp Denies cough, Denies dyspnea and Denies dyspnea on exertion GI Denies hematochezia and Denies change in stool character Musc Denies abnormal gait, Denies limited range of motion, Denies muscle cramps, Denies muscle weakness, Denies numbness, Denies radiating pain into limb, Denies stiffness and Denies tingling Neuro Denies abnormal gait, Denies dizziness, Denies numbness and Denies tingling Endo Reports fatigue and Denies palpitations Physical Exam Vital Signs: Last Vital Signs Pulse 69 06/03/23 09:44 BMI result Body Mass Index 34.9 Const General: cooperative, healthy appearing, comfortable and no acute distress Orientation/consciousness: patient oriented x3 Neck Neck: Yes normal visual inspection and Yes no JVD Resp Effort & Inspection: normal respiratory effort Auscultation: clear to auscultation bilaterally, no crackles, no rales, no rhonchi and no wheezes Cardio Jugular venous distension: no JVD Rate: regular rate Rhythm: regular rhythm Heart sounds: S1 normal heart sound present, S2 normal heart sound present, no murmurs and no rubs Neuro General: patient oriented x3 Extrem General: Yes normal to inspection and No no pedal edema Psych Appearance: grossly normal Mental Status: mental status grossly normal Speech and movement: Normal speech and movement present Office Procedures EKG Details: Today, read by me, sinus rhythm with frequent PVCs, rate 63, QTC 450 milliseconds [id number], Complete Assessment & Plan Assessment & Plan (1) Non-STEMI (non-ST elevated myocardial infarction): Code(s): I21.4 - Non-ST elevation (NSTEMI) myocardial infarction Plan: ED evaluation 02/19/23 for shortness of breath requiring BiPAP. Known history of COPD and had admission a week prior with acute respiratory failure, RSV. In the ER her troponin level herman up to 401.3. She did have chest heaviness. Her EKG did not show acute ST/T-wave abnormalities. She was transferred to [facility] for further evaluation. Echocardiogram showed EF 35-40%, akinesis of the mid to distal wall segments and apex suggesting stress-induced cardiomyopathy. Cardiac catheterization was done on 02/22/2023 showing mild nonobstructive CAD, patent stent. She was continued on metoprolol XL and lisinopril for neurohormonal modulation. She was continued on aspirin indefinitely, high-dose atorvastatin with ideal LDL goal less than 70. On follow-up visit her condition was improving. An outpatient echo done on 05/13/2023 showed EF 60%, no regional wall motion abnormalities. Today she reports that she has been doing well overall. She does not appear fluid overloaded on examination. She says she did try the Lasix that she was given last visit however she has not able to take due to frequent urination. Informed her that Lasix can be used if she has swollen legs or increased shortness of breath. No medication changes made. Signs and symptoms of angina and heart failure reviewed with her. Cardiology follow-up in 6 mo, sooner if needed (2) Stress-induced cardiomyopathy: Code(s): I51.81 - Takotsubo syndrome Plan: As above -resolved (3) Chronic heart failure with preserved ejection fraction (HFpEF): Code(s): I50.32 - Chronic diastolic (congestive) heart failure Plan: On examination today she does not appear fluid overloaded. He has some chronic edema in her lower extremities which appears less than last visit. No concerning shortness of breath reported. She has no rales on exam or noted JVD. Can use Lasix p.r.n.. Low-salt diet reviewed. (4) Paroxysmal atrial fibrillation: Code(s): I48.0 - Paroxysmal atrial fibrillation Plan: Newer finding of paroxysmal atrial fibrillation summer 2022. Pulse is regular on examination today. She is on metoprolol for heart rate control. She is on Eliquis for anticoagulation. No bleeding issues reported. Labs done 02/19/2023 showed creatinine 1.37. (5) Anticoagulated: Code(s): Z79.01 - [facility] (current) use of anticoagulants Plan: As above (6) Atherosclerotic cardiovascular disease: Code(s): I25.10 - Atherosclerotic heart disease of [place] coronary artery without angina pectoris Plan: History of CAD with LAD stent. No reports of anginal sounding symptoms. Recent cardiac catheterization showing patent stent and only mild luminal irregularities in the LAD. She has not on aspirin as she is on Eliquis. She is on high-dose atorvastatin, Zetia with ideal LDL goal less than 70. Lipids followed by her PCP Dr. Day. She is on metoprolol tartrate 50 mg b.i.d.. Signs and symptoms of angina reviewed. No med changes made (7) Essential hypertension: Code(s): I10 - Essential (primary) hypertension Plan: Well controlled at present time. Continue current med management (8) Hypercholesterolemia: Code(s): E78.00 - Pure hypercholesterolemia, unspecified Plan: [place] LDL goal less than 70. Continue atorvastatin and Zetia. (9) History of cardiac catheterization: Onset Date: ~11/14/19 Comment: w/ stent placement - Dr. Aranda, [facility] Code(s): Z98.890 - Other specified postprocedural states Plan: LAD stent placed 11/14/2019 (10) S/P cardiac cath: Comment: 02/22/2023 left main normal, lad mild luminal irregularities, previous stent in the mid LAD widely patent, left circumflex normal, RCA not selectively engaged, very small and non dominant on prior catheterization Code(s): Z98.890 - Other specified postprocedural states Plan: Right ulnar catheterization site well healed, easily palpable ulnar pulse and hand assessment normal. (11) Asymptomatic PVCs: Code(s): I49.3 - Ventricular premature depolarization Plan: EKG done today showing sinus rhythm with PVCs in a trigeminy pattern. Asymptomatic. Will check a Holter monitor to assess frequency of PVCs. Plan Time spent on chart review, documentation, interview and assessment Orders: Orders ECG 3 day holter monitor Today I49.3 - Ventricular premature depolarization Coding Level of Care Code Est Pt Level 4 (40690) Diagnoses Non-STEMI (non-ST elevated myocardial infarction) I21.4 Stress-induced cardiomyopathy I51.81 Chronic heart failure with preserved ejection fraction (HFpEF) I50.32 Paroxysmal atrial fibrillation I48.0 Anticoagulated Z79.01 Atherosclerotic cardiovascular disease I25.10 Essential hypertension I10 Hypercholesterolemia E78.00 History of cardiac catheterization Z98.890 S/P cardiac cath Z98.890 Asymptomatic PVCs I49.3 CPT Codes EKG - CPT: 93091-[id number], Complete ([id number]) Time Spent (min) 30
== END 2023-06-03 10:41 | disposition home or self-care (01) ==
PROVIDERS: PCP Internal Medicine; Visit Provider Nurse Practitioner Family
DX: I21.4 Non-ST elevation (NSTEMI) myocardial infarction (principal); I51.81 Takotsubo syndrome; I50.32 Chronic diastolic (congestive) heart failure; I48.0 Paroxysmal atrial fibrillation; Z79.01 Long term (current) use of anticoagulants; I25.10 Atherosclerotic heart disease of native coronary artery without angina pectoris; I10 Essential (primary) hypertension; E78.00 Pure hypercholesterolemia, unspecified; Z98.890 Other specified postprocedural states; I49.3 Ventricular premature depolarization
CPT/HCPCS: 93010; 99214

== ENCOUNTER → 2023-06-03 09:17 | Outpatient (BNVA) | payer OTHER, SELFPAY | PROVIDERS: PCP Internal Medicine; Visit Provider Nurse Practitioner Family | DX: I21.4 Non-ST elevation (NSTEMI) myocardial infarction (principal); I51.81 Takotsubo syndrome; I48.0 Paroxysmal atrial fibrillation; I11.0 Hypertensive heart disease with heart failure; I50.32 Chronic diastolic (congestive) heart failure; I25.10 Atherosclerotic heart disease of native coronary artery without angina pectoris; I49.3 Ventricular premature depolarization; E78.00 Pure hypercholesterolemia, unspecified; Z79.01 Long term (current) use of anticoagulants; Z98.890 Other specified postprocedural states | CPT/HCPCS: 93005; 99212 ==

== ENCOUNTER → 2023-06-21 12:38 | Outpatient (REF) | payer OTHER, SELFPAY | LOC: HO.CARD 12:38 | PROVIDERS: Visit Provider Nurse Practitioner Family | DX: Z13.89 Encounter for screening for other disorder (principal) | CPT/HCPCS: 93242 ==

== ENCOUNTER → 2023-07-05 12:22 | Outpatient (REF) | payer OTHER, SELFPAY ==
--- NOTE | 2023-07-05 12:25 | HM_ITS ---
* Total monitoring time 1 day. * Underlying rhythm is sinus with an average rate of 84/Min. About 21% of the time, rate > 100/Min. * Rare supraventricular ectopy. * Rare ventricular ectopy. 4 couplets noted. No significant runs. Multiple morphologies. * No significant pauses or AV blocks. * No patient markers or diary events. MTDD
== END ==
LOC: HO.CARD 12:22
PROVIDERS: PCP Internal Medicine; Visit Provider Nurse Practitioner Family
DX: I49.3 Ventricular premature depolarization (principal)
CPT/HCPCS: 93242

== ENCOUNTER → 2023-07-05 12:25 | Outpatient (BNV) | payer OTHER, SELFPAY | PROVIDERS: PCP Internal Medicine; Visit Provider Internal Medicine | DX: I47.10 Supraventricular tachycardia, unspecified (principal) | CPT/HCPCS: 93227 ==

== ENCOUNTER 2023-11-22 09:40 | Outpatient (AMB) | payer OTHER, SELFPAY ==
[2023-11-22 10:16] VITALS: BP 134/62; PULSE 54; BMI 35.0
--- NOTE | 2023-11-22 10:16 | A.OFFVIS_ITS ---
Vital Signs 11/22/23 10:16 Height 5 ft 1 in Weight 185 lb 3.013 oz BMI 35.0 BP 134/62 Blood Pressure Location Lt brachial Position Sitting Pulse 54 Pulse Source Pulse Oximeter Intake Visit Reasons: 6mth f/up-holter Preventive Medicine Physician Required: No Allergies naproxen [NAPROXEN] Adverse Reaction (Unknown, Verified 11/22/23 10:20) dizziness, nausea Medication List - Last Reconciled 11/22/23 by HARSH Castro acetaminophen (Tylenol) 650 mg PO Q6H PRN albuterol sulfate 90 mcg/actuation 1 inh inhalation Q4-6H PRN apixaban (Eliquis) 5 mg PO BID atorvastatin 80 mg PO QAM ezetimibe 10 mg PO DAILY glipizide ER 5 mg PO DAILY lisinopril 20 mg PO DAILY metformin ER 1,500 mg PO QAM metoprolol succinate ER 100 mg PO DAILY HPI HPI 6mth f/up-holter: Details: Piper is a 73-year-old female past medical history of hypertension, hyperlipidemia, diabetes, CAD, lad stent, newer finding of paroxysmal AFib who was admitted to [facility] 01/2023 with increased shortness of breath and treated for RSV with acute respiratory failure. A few days following her discharge she presented again to [facility] with shortness of breath, treated with BiPAP. Her troponin levels were elevated and she was transferred to [facility] for cardiac catheterization showing patent stent and mild nonobstructive disease. Echo wall motion abnormality may be consistent with stress cardiomyopathy. She recently had a repeat echocardiogram showing normal EF and she now presents for follow-up. Today she reports that she has been feeling well since her last visit in May. She denies any concerning shortness of breath. She sleeps with 2 pillows which is her norm, no PND or edema. She tolerates normal ADLs. No chest discomfort at rest or with activity. No heart palpitations, lightheadedness, presyncope, syncope, falls. 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 Very talkative today about her and things going on in her life. Taking meds as directed. No bleeding issues reported. [facility], [facility] Medical History Hypercholesterolemia Chronic heart failure with preserved ejection fraction (HFpEF) Type 2 diabetes mellitus with unspecified complications Essential hypertension Atherosclerotic cardiovascular disease Surgical History Hx of colonoscopy History of cardiac catheterization (~11/14/19) Family History Father Diabetes Mother Cirrhosis Social History Household Members: Spouse Housing: House Are you a primary personal care worker to a significant other at home: No Do you presently have visiting nurse or other home services: No Alcohol intake: former Patient Tobacco Use Status: Former Tobacco user Tobacco use type: Cigarette Advance Directives Date on File: 05/25/21 service: No Current occupational status: retired Review of Systems Const All systems reviewed & are unremarkable except as noted in HPI and below ENT Denies dizziness Card Denies chest pain, Denies chest pain at rest, Denies chest pain with activity, Denies rapid heart rate, Denies pedal edema, Denies edema, Denies leg edema, Denies lightheadedness, Denies palpitations, Denies dyspnea, Denies dyspnea on exertion and Denies orthopnea Resp Denies cough, Denies dyspnea and Denies dyspnea on exertion GI Denies hematochezia and Denies change in stool character Musc Denies abnormal gait, Denies limited range of motion, Denies muscle cramps, Denies muscle weakness, Denies numbness, Denies radiating pain into limb, Denies stiffness and Denies tingling Neuro Denies abnormal gait, Denies dizziness, Denies numbness and Denies tingling Endo Denies palpitations Physical Exam Vital Signs: Last Vital Signs Pulse 54 11/22/23 10:16 BP 134/62 11/22/23 10:16 BMI result Body Mass Index 35.0 Const General: cooperative, healthy appearing, comfortable and no acute distress Orientation/consciousness: patient oriented x3 Neck Neck: Yes normal visual inspection and Yes no JVD Resp Effort & Inspection: normal respiratory effort Auscultation: clear to auscultation bilaterally, no crackles, no rales, no rhonchi and no wheezes Cardio Jugular venous distension: no JVD Rate: regular rate Rhythm: regular rhythm Heart sounds: S1 normal heart sound present, S2 normal heart sound present, no murmurs and no rubs Neuro General: patient oriented x3 Extrem General: Yes normal to inspection and No no pedal edema Psych Appearance: grossly normal Mental Status: mental status grossly normal Speech and movement: Normal speech and movement present Assessment & Plan Assessment & Plan (1) Non-STEMI (non-ST elevated myocardial infarction): Code(s): I21.4 - Non-ST elevation (NSTEMI) myocardial infarction Category: Medical Plan: ED evaluation 02/19/23 for shortness of breath requiring BiPAP. Known history of COPD and had admission a week prior with acute respiratory failure, RSV. In the ER her troponin level herman up to 401.3. She did have chest heaviness. Her EKG did not show acute ST/T-wave abnormalities. She was transferred to [facility] for further evaluation. Echocardiogram showed EF 35-40%, akinesis of the mid to distal wall segments and apex suggesting stress-induced cardiomyopathy. Cardiac catheterization was done on 02/22/2023 showing mild nonobstructive CAD, patent stent. She was continued on metoprolol XL and lisinopril for neurohormonal modulation. She was continued on aspirin indefinitely, high-dose atorvastatin with ideal LDL goal less than 70. An outpatient echo done on 05/13/2023 showed EF 60%, no regional wall motion abnormalities. Today she reports that she has been doing well with no concerning symptoms. She does not appear fluid overloaded on examination. She has Lasix on hand that can be used for leg edema or recurrent shortness of breath. For her nonobstructive coronary artery disease will have her continue on high-dose atorvastatin and Zetia. She is not on aspirin as she is on Eliquis. Will have her continue metoprolol. Signs and symptoms of angina and heart failure reviewed with her. Cardiology follow-up in 6 mo, sooner if needed (2) Stress-induced cardiomyopathy: Code(s): I51.81 - Takotsubo syndrome Category: Medical Plan: As above -resolved (3) Chronic heart failure with preserved ejection fraction (HFpEF): Code(s): I50.32 - Chronic diastolic (congestive) heart failure Category: Medical Plan: On examination today she does not appear fluid overloaded. He has some chronic puffiness in her lower extremities which appears less than last visit. No concerning shortness of breath reported. Can use Lasix p.r.n.- has not needed it. Low-salt diet reviewed. (4) Paroxysmal atrial fibrillation: Code(s): I48.0 - Paroxysmal atrial fibrillation Category: Medical Plan: Newer finding of paroxysmal atrial fibrillation summer 2022. Pulse is regular on examination today. She is on metoprolol for heart rate control. She is on Eliquis for anticoagulation. No bleeding issues reported. Labs done 02/19/2023 showed creatinine 1.37, hematocrit 44.5. Labs are followed by her PCP as well. (5) Anticoagulated: Code(s): Z79.01 - [facility] (current) use of anticoagulants Category: Medical Plan: As above (6) Atherosclerotic cardiovascular disease: Code(s): I25.10 - Atherosclerotic heart disease of [place] coronary artery without angina pectoris Category: Medical Plan: History of CAD with LAD stent. No reports of anginal sounding symptoms. Recent cardiac catheterization showing patent stent and only mild luminal irregularities in the LAD. She has not on aspirin as she is on Eliquis. She is on high-dose atorvastatin, Zetia with ideal LDL goal less than 70. Lipids followed by her PCP Dr. Day. She is on metoprolol XL 100 mg daily. Signs and symptoms of angina reviewed. No med changes made (7) Essential hypertension: Code(s): I10 - Essential (primary) hypertension Category: Medical Plan: Well controlled at present time. Continue current med management (8) Hypercholesterolemia: Code(s): E78.00 - Pure hypercholesterolemia, unspecified Category: Medical Plan: [place] LDL goal less than 70. No LDL in our system. Followed by PCP. Continue atorvastatin and Zetia. (9) History of cardiac catheterization: Onset Date: ~11/14/19 Comment: w/ stent placement - Dr. Aranda, [facility] Code(s): Z98.890 - Other specified postprocedural states Category: Surgical Plan: LAD stent placed 11/14/2019 (10) S/P cardiac cath: Comment: 02/22/2023 left main normal, lad mild luminal irregularities, previous stent in the mid LAD widely patent, left circumflex normal, RCA not selectively engaged, very small and non dominant on prior catheterization Code(s): Z98.890 - Other specified postprocedural states Category: Surgical Plan: As above (11) Asymptomatic PVCs: Code(s): I49.3 - Ventricular premature depolarization Category: Medical Plan: EKG done last visit showed sinus rhythm with PVCs in a trigeminy pattern. Asymptomatic. Holter monitor was done on 07/05/2023 for 1 day showing sinus rhythm with average heart rate 84, rare SVE and rare ventricular ectopy, 21% of the time heart rate greater than 100. No reports of heart palpitations at this visit. Continue metoprolol. Plan Time spent on chart review, documentation, interview and assessment Coding Level of Care Code Est Pt Level 4 (22142) Diagnoses Non-STEMI (non-ST elevated myocardial infarction) I21.4 Stress-induced cardiomyopathy I51.81 Chronic heart failure with preserved ejection fraction (HFpEF) I50.32 Paroxysmal atrial fibrillation I48.0 Anticoagulated Z79.01 Atherosclerotic cardiovascular disease I25.10 Essential hypertension I10 Hypercholesterolemia E78.00 History of cardiac catheterization Z98.890 S/P cardiac cath Z98.890 Asymptomatic PVCs I49.3 Time Spent (min) 36
== END 2023-11-22 11:03 | disposition home or self-care (01) ==
PROVIDERS: PCP Internal Medicine; Visit Provider Nurse Practitioner Family
DX: I21.4 Non-ST elevation (NSTEMI) myocardial infarction (principal); I51.81 Takotsubo syndrome; I50.32 Chronic diastolic (congestive) heart failure; I48.0 Paroxysmal atrial fibrillation; Z79.01 Long term (current) use of anticoagulants; I25.10 Atherosclerotic heart disease of native coronary artery without angina pectoris; I10 Essential (primary) hypertension; E78.00 Pure hypercholesterolemia, unspecified; Z98.890 Other specified postprocedural states; I49.3 Ventricular premature depolarization
CPT/HCPCS: 99214

== ENCOUNTER → 2023-11-22 09:40 | Outpatient (BNVA) | payer OTHER, SELFPAY | PROVIDERS: PCP Internal Medicine; Visit Provider Nurse Practitioner Family | DX: I10 Essential (primary) hypertension (principal); E78.5 Hyperlipidemia, unspecified; I25.10 Atherosclerotic heart disease of native coronary artery without angina pectoris; I21.4 Non-ST elevation (NSTEMI) myocardial infarction; I51.81 Takotsubo syndrome; I50.32 Chronic diastolic (congestive) heart failure; I48.0 Paroxysmal atrial fibrillation; I49.3 Ventricular premature depolarization; Z79.01 Long term (current) use of anticoagulants; Z98.890 Other specified postprocedural states | CPT/HCPCS: 99212 ==

== ENCOUNTER 2024-05-28 12:44 | Outpatient (AMB) | payer OTHER, SELFPAY ==
--- NOTE | 2024-05-28 12:57 | A.OFFVIS_ITS ---
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: No Allergies naproxen [NAPROXEN] Adverse Reaction (Unknown, Verified 05/28/24 13:03) dizziness, nausea Medication List - Last Reconciled 05/28/24 by Carlyn Joseph NP-C acetaminophen (Tylenol) 650 mg PO Q6H PRN albuterol sulfate 90 mcg/actuation 1 inh inhalation Q4-6H PRN apixaban (Eliquis) 5 mg PO BID atorvastatin 80 mg PO QAM ezetimibe 10 mg PO DAILY glipizide ER 5 mg PO DAILY lisinopril 20 mg PO DAILY metformin ER 1,500 mg PO QAM metoprolol succinate ER 100 mg PO DAILY HPI HPI 6 mth f/up: Details: Piper is a 74-year-old female past medical history of hypertension, hyperlipidemia, diabetes, CAD, lad stent, paroxysmal AFib, stress CMP in setting of RSV 01/2023 with normalization of EF and wall motion who presents for follow up. Today she reports that she has been feeling well since her last visit in November. She denies any concerning shortness of breath. She sleeps with 2 pillows which is her norm, no PND or edema. No chest discomfort at rest or with activity. No heart palpitations, lightheadedness, presyncope, syncope, falls. 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 She is active with housework and laundry. Takes all meds as directed. No bleeding issues reported. [facility] Medical History Hypercholesterolemia Chronic heart failure with preserved ejection fraction (HFpEF) Type 2 diabetes mellitus with unspecified complications Essential hypertension Atherosclerotic cardiovascular disease Surgical History Hx of colonoscopy History of cardiac catheterization (~11/14/19) Family History Father Diabetes Mother Cirrhosis Social History Household Members: Spouse Housing: House Are you a primary health care sanitary technician to a significant other at home: No Do you presently have visiting nurse or other home services: No Alcohol intake: former Patient Tobacco Use Status: Former Tobacco user Tobacco use type: Cigarette Advance Directives Date on File: 05/25/21 service: No Current occupational status: retired Review of Systems Const All systems reviewed & are unremarkable except as noted in HPI and below ENT Denies dizziness Card Denies chest pain, Denies chest pain at rest, Denies chest pain with activity, Denies rapid heart rate, Denies pedal edema, Denies edema, Denies leg edema, Denies lightheadedness, Denies palpitations, Denies dyspnea, Denies dyspnea on exertion and Denies orthopnea Resp Denies cough, Denies dyspnea and Denies dyspnea on exertion GI Denies hematochezia and Denies change in stool character Musc Denies abnormal gait, Denies limited range of motion, Denies muscle cramps, Denies muscle weakness, Denies numbness, Denies radiating pain into limb, Denies stiffness and Denies tingling Neuro Denies abnormal gait, Denies dizziness, Denies numbness and Denies tingling Endo Denies palpitations Physical Exam Vital Signs: BMI result Body Mass Index 33.1 Const General: cooperative, healthy appearing, comfortable and no acute distress Orientation/consciousness: patient oriented x3 Neck Neck: Yes normal visual inspection and Yes no JVD Resp Effort & Inspection: normal respiratory effort Auscultation: clear to auscultation bilaterally, no rales, no rhonchi and no wheezes Cardio Rate: regular rate Rhythm: regular rhythm Heart sounds: S1 normal heart sound present, S2 normal heart sound present, no gallops, no murmurs and no rubs Neuro General: patient oriented x3 Extrem General: Yes normal to inspection and No no pedal edema Psych Appearance: grossly normal Mental Status: mental status grossly normal Speech and movement: Normal speech and movement present Office Procedures EKG Details: Today, read by me, normal sinus rhythm, left anterior fascicular block, rate 81, QTC 453 milliseconds [id number], Complete Assessment & Plan Assessment & Plan (1) Stress-induced cardiomyopathy: Code(s): I51.81 - Takotsubo syndrome Category: Medical Plan: Stress CMP 02/19/23 in the setting of acute RSV with echo showing EF 35-40%, apical WMA. Cardiac catheterization was done on 02/22/2023 showing mild nono bstructive CAD, patent stent. She was Medically managed and repeat echo 05/13/2023 showed EF 60%, no regional wall motion abnormalities. On exam today she does not appear fluid overloaded. EKG today shows Sinus rhythm, LAFB, rate 81. For her nonobstructive coronary artery disease she will continue with high- dose atorvastatin and Zetia with ideal LDL goal < 70. She is not on aspirin as she is on Eliquis. Continue metoprolol. Signs and symptoms of angina and heart failure reviewed with her. Cardiology follow-up in 6 mo, sooner if needed (2) Chronic heart failure with preserved ejection fraction (HFpEF): Code(s): I50.32 - Chronic diastolic (congestive) heart failure Category: Medical Plan: Stable at present. She is not requiring diuretics. Low salt diet reviewed. (3) Atherosclerotic cardiovascular disease: Code(s): I25.10 - Atherosclerotic heart disease of [place] coronary artery without angina pectoris Category: Medical Plan: History of CAD with LAD stent. No reports of anginal sounding symptoms. Last cardiac catheterization showing patent stent and only mild luminal irregul arities in the LAD. Continue med mgt as above. (4) Paroxysmal atrial fibrillation: Code(s): I48.0 - Paroxysmal atrial fibrillation Category: Medical Plan: Newer finding of paroxysmal atrial fibrillation summer 2022. Pulse is regular on examination today. She is on metoprolol for heart rate control. She is on Eliquis for anticoagulation. No bleeding issues reported. Will reach out to PCP office for most recent lab results. (5) Anticoagulated: Code(s): Z79.01 - [facility] (current) use of anticoagulants Category: Medical Plan: As above (6) Essential hypertension: Code(s): I10 - Essential (primary) hypertension Category: Medical Plan: Well controlled at present time. Continue current med management (7) Hypercholesterolemia: Code(s): E78.00 - Pure hypercholesterolemia, unspecified Category: Medical Plan: [place] LDL goal less than 70. No LDL in our system. Will obtain labs from PCP. Continue atorvastatin and Zetia. (8) History of cardiac catheterization: Onset Date: ~11/14/19 Comment: w/ stent placement - Dr. Aradna, [facility] Code(s): Z98.890 - Other specified postprocedural states Category: Surgical Plan: LAD stent placed 11/14/2019 (9) S/P cardiac cath: Comment: 02/22/2023 left main normal, lad mild luminal irregularities, previous stent in the mid LAD widely patent, left circumflex normal, RCA not selectively engaged, very small and non dominant on prior catheterization Code(s): Z98.890 - Other specified postprocedural states Category: Surgical Plan: As above (10) Asymptomatic PVCs: Code(s): I49.3 - Ventricular premature depolarization Category: Medical Plan: EKG done on prior visit showed sinus rhythm with PVCs in a trigeminy pattern. Asymptomatic. Holter monitor was done on 07/05/2023 for 1 day showing sinus rhythm with average heart rate 84, rare SVE and rare ventricular ectopy, 21% of the time heart rate greater than 100. No reports of heart palpitations at this visit. Continue metoprolol. Plan Time spent on chart review, documentation, interview and assessment Coding Level of Care Code Est Pt Level 4 (79581) Complex EM visit Add On G2211 Diagnoses Stress-induced cardiomyopathy I51.81 Chronic heart failure with preserved ejection fraction (HFpEF) I50.32 Atherosclerotic cardiovascular disease I25.10 Paroxysmal atrial fibrillation I48.0 Anticoagulated Z79.01 Essential hypertension I10 Hypercholesterolemia E78.00 History of cardiac catheterization Z98.890 S/P cardiac cath Z98.890 Asymptomatic PVCs I49.3 CPT Codes EKG - CPT: [id number], Complete ([id number]) Time Spent (min) 28
[2024-05-28 13:00] VITALS: BP 138/60; PULSE 81; BMI 33.1
--- OUTSIDE RECORDS SUMMARY | 2024-05-28 15:02 | XMS_ITS | Data Portability ---
Author Organization [email or web address] [facility] [place] - [employer] Address [address] [place] [id number] Care Team Providers Care Segment Block Layer Name Role Phone HIM CCA OTHER SALTY JENN Primary Care Provider Assessment No assessment recorded. Plan of Treatment Reminders Order Date Submit Date Provider Last Modified By Organization Details Last Modified Time Details Appointments None record ed. Lab None record ed. Referral None record ed. Procedures None record ed. Surgeries None record ed. Imaging None record ed. Medication Orders None record ed. Patient TargetsNo targets recorded. Patient InstructionsNo instructions recorded. Reason for Referral None Reported. Medical Equipment None Reported. Allergies Allergen ID Allergen Name Allergen Category Reaction Reaction Severity Criticality Documentation Date Start Date Code Code System Note Provider Name and Address Organization Details Recorded Time 59008 naproxen sodium medicatio n Not available Not available Not available 03/16/2024 37560 2 RxNorm Not Available [facility] - production 14:10:14 Medications Name Sig Start Date Stop Date Status Note LastModified by Organization Details LastModified Time atorvastatin 80 mg tablet active Not Available Not Available No t Available ipratropium 0.5 mg-albuterol 3 mg (2.5 mg base)/3 mL nebulization soln active Not Available Not Available Not Available glipizide ER 10 mg tablet, extended release 24 hr active Not Available Not Availabl e Not Available lisinopril 20 mg tablet TAKE 1 TABLET BY MOUTH ONCE DAILY active Not Available Not Available No t Available metoprolol succinate ER 100 mg tablet,extended release 24 hr TAKE 1 TABLET BY MOUTH ONCE DAILY active Not Available Not Available No t Available glipizide ER 5 mg tablet, extended release 24 hr active Not Available Not Availabl e Not Available pioglitazone 45 mg tablet active Not Available Not Available No t Available dexamethasone sodium phosphate 0.1 % eye drops active Not Available Not Available No t Available OneTouch Ultra Test strips active Not Available Not Available Not Available aspirin 81 mg chewable tablet CHEW AND SWALLOW 1 TABLET BY MOUTH ONCE DAILY active Not Available Not Available No t Available furosemide 20 mg tablet active Not Available Not Available No t Available albuterol sulfate HFA 90 mcg/actuation aerosol inhaler active Not Available Not Availa ble Not Available metformin ER 500 mg tablet,extended release 24 hr active Not Available Not Availabl e Not Available ezetimibe 10 mg tablet active Not Available Not Available Not Available metformin ER 750 mg tablet,extended release 24 hr active Not Available Not Availabl e Not Available Eliquis 5 mg tablet active Not Available Not Available Not Available Jardiance 10 mg tablet active Not Available Not Available Not Available Vitals Date Recorded Heart rate Body height Oxygen saturation Oxygen saturation in Arterial blood by Pulse oximetry Body weight Body temperature Respiratory rate Systolic blood pressure Diastolic blood pressure Provider Name and Address Organization Details Last Updated DateTime 5 99 /min 152.4 cm 96 % 96 % 69294.6 g 98 [degF] 18 /min 145 mm[Hg] 80 mm[Hg] Not Available [facility] - production 5 17:20:19 Social History None recorded. Functional Status None recorded. Mental Status None recorded. Family History Nothing Reported. Medical History No medical history recorded. Gynecological HistoryNo gynecological history recorded. Obstetrics History GPAL:G 0 P 0 0 0 0 Past Encounters Encounter ID Performer Location Encounter Start Date Encounter Closed Date Diagnosis/Indication Diagnosis SNOMED-CT Code Diagnosis ICD10 Code Diagnosis Note [id number] Becki Enamorado MD Main - [address] [phone] 03/16/2024 17:20:18 03/16/2024 19:32:08 Hypertensive disorder [id number] I10 As noted, we were called to see this patient regarding concerns of HTN. Evaluation in the field was performed by my patent solicitor colleague, as noted above, I provided real-time direction and supervisio n for this visit. The evaluation revealed 73 yo woman who was hypertensi ve to 190s yesterday in her PCP offic. Her BP today is controlled at 145/80. She is not orthostati c. She is taking her medication s as prescribed .She has no symptoms of hypertensi on including headache, blurry vision, chest pain, dyspnea, nausea or vomiting. She thinks she has a BP cuff but does not know where it is nor how to use it. Impression :Chronic hypertensi on Plan:Richardson nue antiHTN as prescribed by PCP Disposro n: We discussed the diagnostic uncertaint y of home visits and the risk associated with this. In this case, the patient and I felt this to be an acceptable and reasonable amount of risk given the benefit of avoiding an ED visit. We discussed the need to seek care urgently/e mergently in the setting of any new or worsening serious symptoms, particular ly changes to consciousn ess, chest pain, or dyspnea. Health Concerns Section Related Observation LastModified by Organization Detai ls LastModified Time None Recorded Concern Status LastModified by Organization Details LastModified Time None Recorded Advance Directives Directive None Recorded Payers Encounter Date Sequence Insurance Name Policy Number Policy Clements Covered Member ID Clements Member ID Guarantor Name 03/16/2024 1 [facility] - DOS ON OR AFTER 2022 - DUAL ELIGIBLE - JAIL OPTIONS AND ONE CARE (MEDICARE REPLACEMENT/ADV ANTAGE - HMO) Piper Flores [id number] Piper Flores Notes Date Note Type Note Provider Name and Address Organization Details Recorded Time 03/16/2024 text/html HPI: [place] [facility] [place] [facility] [place] reports her PCP told her to call [facility] for home visit today for BP check. Mbr reports her BP was 191/95 at yesterday's PCP visit. Herminior is asymptomatic, reporting that she feels fine. Mbr taking medications as prescribed. Mbr PCP request for visit today for BP check and a new BP monitor for mbr w/ arm cuff. Mbr has a wrist BP monitor but was told by PCP that these are not accurate. Mbr has not checked BP today, states she unsure how to use it and was told it is inaccurate. Mbr was advised an instED referral can be submitted and was provided fax # to have PCP send in script for BP monitor. .................... .................... .................... .................... .................... .................... .................... . [facility] Nurse Triage Notes (Gutierrez Martinez - RN): Chief Complaints: Hypertension PMH: Hypertension, Chronic Kidney Disease, Asthma, Osteoarthritis PMH Reviewed at 03/16/2024:10 Allergies Reviewed at 03/16/2024 14:10 Comments: Reviewed HPI Becki Enamorado MD [address] [place] [address],[address], [place], [phone], [employer] 03/24/2024 00:43:22 OBGyn Episode No OBEpisode recorded.
== END 2024-05-28 13:29 | disposition home or self-care (01) ==
LOC: HO.HCS 12:45
PROVIDERS: PCP Internal Medicine; Visit Provider Nurse Practitioner Family
DX: I51.81 Takotsubo syndrome (principal); I50.32 Chronic diastolic (congestive) heart failure; I25.10 Atherosclerotic heart disease of native coronary artery without angina pectoris; I48.0 Paroxysmal atrial fibrillation; Z79.01 Long term (current) use of anticoagulants; I10 Essential (primary) hypertension; E78.00 Pure hypercholesterolemia, unspecified; Z98.890 Other specified postprocedural states; I49.3 Ventricular premature depolarization
CPT/HCPCS: 93010; 99214; G2211

== ENCOUNTER → 2024-05-28 12:44 | Outpatient (BNVA) | payer OTHER, SELFPAY | PROVIDERS: PCP Internal Medicine; Visit Provider Nurse Practitioner Family | DX: I11.0 Hypertensive heart disease with heart failure (principal); I50.32 Chronic diastolic (congestive) heart failure; I48.0 Paroxysmal atrial fibrillation; I25.10 Atherosclerotic heart disease of native coronary artery without angina pectoris; I51.81 Takotsubo syndrome; E78.00 Pure hypercholesterolemia, unspecified; I49.3 Ventricular premature depolarization; Z79.01 Long term (current) use of anticoagulants; Z98.890 Other specified postprocedural states | CPT/HCPCS: 93005; 99212 ==

== ENCOUNTER 2024-12-07 13:16 | Outpatient (AMB) | payer OTHER, SELFPAY ==
--- NOTE | 2024-12-07 13:27 | MHC.OFFVIS ---
Vital Signs 12/07/24 13:28 Height 5 ft 1 in Weight 170 lb 10.205 oz BMI 32.2 BP 126/64 Blood Pressure Location Rt brachial Position Sitting Pulse 67 Pulse Source Pulse Oximeter Intake Visit Reasons: 6 mth f/up Business Analyst Required: No Accompanied by: Self / Same As Patient Allergies naproxen (NAPROXEN) Adverse Reaction (Unknown, Verified 12/07/24 13:32) dizziness, nausea Medication List - Last Reconciled 12/07/24 by Carlyn Joseph NP-C acetaminophen (Tylenol) 650 mg PO Q6H PRN albuterol sulfate 90 mcg/actuation 1 inh inhalation Q4-6H PRN amlodipine 5 mg PO DAILY apixaban (Eliquis) 5 mg PO BID atorvastatin 80 mg PO QAM carvedilol 25 mg PO BID empagliflozin (Jardiance) 25 mg PO QAM ezetimibe 10 mg PO DAILY glipizide ER 5 mg PO DAILY lisinopril 20 mg PO DAILY metformin ER 1,500 mg PO QAM HPI HPI 6 mth f/up: Details: Piper is a 74-year-old female past medical history of hypertension, hyperlipidemia, diabetes, CAD, lad stent, paroxysmal AFib, stress CMP in setting of RSV 01/2023 with normalization of EF and wall motion, mild aortic stenosis who presents for follow up. Today she reports that she has been experiencing fatigue. 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 She does get short of breath when she has to move quickly. Overall she feels her breathing has not changed recently. She sleeps with 2 pillows which is her norm, no PND or edema. No chest discomfort at rest or with activity. No heart palpitations, lightheadedness, presyncope, syncope, falls. She is active with housework and laundry. Takes all meds as directed. No bleeding issues reported. Does have support from her family and neighbors. [facility] Medical History Hypercholesterolemia Chronic heart failure with preserved ejection fraction (HFpEF) Type 2 diabetes mellitus with unspecified complications Essential hypertension Atherosclerotic cardiovascular disease Surgical History Hx of colonoscopy History of cardiac catheterization (~11/14/19) Family History Father Diabetes Mother Cirrhosis Social History Household Members: Spouse Housing: House Are you a primary anesthesiologist and critical care to a significant other at home: No Do you presently have visiting nurse or other home services: No Alcohol intake: former Patient Tobacco Use Status: Former Tobacco user Tobacco use type: Cigarette Advance Directives Date on File: 05/25/21 service: No Current occupational status: retired Review of Systems Const All systems reviewed & are unremarkable except as noted in HPI and below Denies daytime sleepiness, Denies difficulty sleeping, Reports fatigue, Denies snoring, Denies stops breathing during sleep and Denies weakness Card Denies chest pain, Denies rapid heart rate, Denies irregular heart rhythm, Denies claudication, Denies leg edema, Denies lightheadedness, Denies palpitations, Denies dyspnea, Reports dyspnea on exertion, Denies orthopnea, Denies paroxysmal nocturnal dyspnea and Denies slow heart rate Resp Denies cough, Denies dyspnea, Reports dyspnea on exertion and Denies snoring GI Reports no additional complaints, Denies hematochezia, Denies change in stool character and Denies dyspepsia Musc Denies abnormal gait, Denies muscle weakness and Denies numbness Neuro Denies abnormal gait, Denies numbness and Denies weakness Endo Reports fatigue and Denies palpitations Physical Exam Vital Signs: Last Vital Signs Pulse 67 12/07/24 13:28 BP 126/64 12/07/24 13:28 BMI result Body Mass Index 32.2 Const General: cooperative, healthy appearing, comfortable and no acute distress Orientation/consciousness: patient oriented x3 Neck Neck: Yes normal visual inspection and Yes no JVD Resp Effort & Inspection: normal respiratory effort Auscultation: clear to auscultation bilaterally, no rales, no rhonchi and no wheezes Cardio Rate: regular rate Rhythm: regular rhythm Heart sounds: S1 normal heart sound present, S2 normal heart sound present, no gallops, no murmurs and no rubs Neuro General: patient oriented x3 Extrem General: Yes normal to inspection and No no pedal edema Psych Appearance: grossly normal Mental Status: mental status grossly normal Speech and movement: Normal speech and movement present Assessment & Plan Assessment & Plan (1) Stress-induced cardiomyopathy: Code(s): I51.81 - Takotsubo syndrome Category: Medical Plan: Stress CMP 02/19/23 in the setting of acute RSV with echo showing EF 35-40%, apical WMA. Cardiac catheterization was done on 02/22/2023 showing mild nonobstructive CAD, patent stent. She was Medically managed and repeat echo 05/13/2023 showed EF 60%, no regional wall motion abnormalities. On exam today she does not appear fluid overloaded. For her nonobstructive coronary artery disease she will continue with high-dose atorvastatin and Zetia with ideal LDL goal < 70. She is not on aspirin as she is on Eliquis. Continue metoprolol. Signs and symptoms of angina and heart failure reviewed with her. Cardiology follow-up in 6 mo, sooner if needed (2) Chronic heart failure with preserved ejection fraction (HFpEF): Code(s): I50.32 - Chronic diastolic (congestive) heart failure Category: Medical Plan: Stable at present. She is not requiring diuretics. Low salt diet reviewed. (3) Atherosclerotic cardiovascular disease: Code(s): I25.10 - Atherosclerotic heart disease of [place] coronary artery without angina pectoris Category: Medical Plan: History of CAD with LAD stent. No reports of anginal sounding symptoms. Last cardiac catheterization showing patent stent and only mild luminal irregularities in the LAD. Continue med mgt as above. (4) Paroxysmal atrial fibrillation: Code(s): I48.0 - Paroxysmal atrial fibrillation Category: Medical Plan: Newer finding of paroxysmal atrial fibrillation summer 2022. Clinically in sinus rhythm today. She is on metoprolol for heart rate control. She is on Eliquis for anticoagulation. Labs 10/24/2024 showed creatinine 0.98. No bleeding issues reported. (5) Anticoagulated: Code(s): Z79.01 - [facility]CI (current) use of anticoagulants Category: Medical Plan: As above (6) Essential hypertension: Code(s): I10 - Essential (primary) hypertension Category: Medical Plan: Blood pressure goal less than 130/80. Well controlled at present. Labs 10/24/2024 showed potassium 4.4, creatinine 0.98. Continue amlodipine and lisinopril. (7) Hypercholesterolemia: Code(s): E78.00 - Pure hypercholesterolemia, unspecified Category: Medical Plan: [place] LDL goal less than 70. Labs 10/24/2024 showed LDL 65, AST 17, ALT 8. Continue atorvastatin and Zetia. (8) History of cardiac catheterization: Onset Date: ~11/14/19 Comment: w/ stent placement - Dr. Aranda, [facility] Code(s): Z98.890 - Other specified postprocedural states Category: Surgical Plan: LAD stent placed 11/14/2019 (9) S/P cardiac cath: Comment: 02/22/2023 left main normal, lad mild luminal irregularities, previous stent in the mid LAD widely patent, left circumflex normal, RCA not selectively engaged, very small and non dominant on prior catheterization Code(s): Z98.890 - Other specified postprocedural states Category: Surgical Plan: As above (10) Aortic stenosis: Code(s): I35.0 - Nonrheumatic aortic (valve) stenosis Category: Medical Plan: Echocardiogram 08/06/2022 showed mild aortic stenosis with mean gradient 12 mmHg. No significant murmur noted on exam. Will update echo prior to next visit. Plan Time spent on chart review, documentation, interview and assessment Orders: Orders CA echo transthoracic complete 5 Months I35.0 - Nonrheumatic aortic (valve) stenosis Coding Level of Care Code Est Pt Level 4 (49507) Complex EM visit Add On G2211 Diagnoses Stress-induced cardiomyopathy I51.81 Chronic heart failure with preserved ejection fraction (HFpEF) I50.32 Atherosclerotic cardiovascular disease I25.10 Paroxysmal atrial fibrillation I48.0 Anticoagulated Z79.01 Essential hypertension I10 Hypercholesterolemia E78.00 History of cardiac catheterization Z98.890 S/P cardiac cath Z98.890 Aortic stenosis I35.0 Time Spent (min) 32
[2024-12-07 13:28] VITALS: BP 126/64; PULSE 67; BMI 32.2
== END 2024-12-07 14:04 | disposition home or self-care (01) ==
LOC: HO.HCS 13:17
PROVIDERS: PCP Internal Medicine; Visit Provider Nurse Practitioner Family
DX: I51.81 Takotsubo syndrome (principal); I50.32 Chronic diastolic (congestive) heart failure; I25.10 Atherosclerotic heart disease of native coronary artery without angina pectoris; I48.0 Paroxysmal atrial fibrillation; Z79.01 Long term (current) use of anticoagulants; I10 Essential (primary) hypertension; E78.00 Pure hypercholesterolemia, unspecified; Z98.890 Other specified postprocedural states; I35.0 Nonrheumatic aortic (valve) stenosis
CPT/HCPCS: 99214; G2211

== ENCOUNTER → 2024-12-07 13:16 | Outpatient (BNVA) | payer OTHER, SELFPAY | PROVIDERS: PCP Internal Medicine; Visit Provider Nurse Practitioner Family | DX: I51.81 Takotsubo syndrome (principal); I50.32 Chronic diastolic (congestive) heart failure; I25.10 Atherosclerotic heart disease of native coronary artery without angina pectoris; I48.0 Paroxysmal atrial fibrillation; I10 Essential (primary) hypertension; Z79.01 Long term (current) use of anticoagulants; E78.00 Pure hypercholesterolemia, unspecified; I35.0 Nonrheumatic aortic (valve) stenosis | CPT/HCPCS: 99212 ==